=== PATIENT | male | born 1950 | race Caucasian/White ===

== ENCOUNTER 2017-09-05 08:00 | Outpatient (CLI) | payer MEDICARE, OTHER ==
[2017-09-05 19:44] LABS: ALBUMIN 3.3 g/dL (3.2-5.5); ALBUMIN/GLOBULIN RATIO 1.2 (1.0-2.2); CALCIUM 8.9 mg/dL (8.5-10.3); CREATININE 0.6 mg/dL (0.6-1.2); TOTAL PROTEIN 6.1 g/dL (6.7-8.2)
== END 2017-09-05 08:01 | disposition home or self-care (01) ==
LOC: LAB.WCP 08:00
PROVIDERS: ATTEND Family Medicine
DX: R06.00 Dyspnea, unspecified (principal)
CPT/HCPCS: 36415; 80053; 83880

== ENCOUNTER 2017-09-08 13:43 | Outpatient (CLI) | payer MEDICARE, OTHER | END 2017-09-08 13:44 | disposition home or self-care (01) | LOC: DI 13:43 | PROVIDERS: ATTEND Family Medicine | DX: I27.20 Pulmonary hypertension, unspecified (principal); R06.09 Other forms of dyspnea; I08.1 Rheumatic disorders of both mitral and tricuspid valves | CPT/HCPCS: 93306 ==

== ENCOUNTER 2017-09-14 10:09 | Outpatient (CLI) | payer MEDICARE, OTHER ==
[2017-09-14 12:42] LABS: CALCIUM 8.9 mg/dL (8.5-10.3); CREATININE 0.9 mg/dL (0.6-1.2)
== END 2017-09-14 10:10 | disposition home or self-care (01) ==
LOC: LAB.WCP 10:09
PROVIDERS: ATTEND Family Medicine
DX: R06.09 Other forms of dyspnea (principal); I27.20 Pulmonary hypertension, unspecified
CPT/HCPCS: 36415; 80048

== ENCOUNTER 2018-04-19 08:10 | Outpatient (CLI) | payer MEDICARE, OTHER ==
[2018-04-19 09:07] LABS: BASOPHILS # (AUTO) 0.1 10^3/uL (0.0-0.1); BASOPHILS % (AUTO) 1.3 %; EOSINOPHILS # (AUTO) 0.3 10^3/uL (0.0-0.7); EOSINOPHILS % (AUTO) 6.9 %; HGB - HEMOGLOBIN 13.3 g/dL (14.0-18.0); LYMPHOCYTES # (AUTO) 1.1 10^3/uL (1.5-3.5); LYMPHOCYTES % (AUTO) 26.8 %; MEAN CORPUSCULAR HEMOGLOBIN 35.7 pg (27.0-31.0); MEAN CORPUSCULAR HGB CONC 35.5 g/dL (32.0-36.0); MEAN CORPUSCULAR VOLUME 100.6 fL (80.0-94.0); MEAN PLATELET VOLUME 8.7 fL (7.4-11.4); MONOCYTES # (AUTO) 0.5 10^3/uL (0.0-1.0); MONOCYTES % (AUTO) 10.8 %; NEUTROPHILS # (AUTO) 2.3 10^3/uL (1.5-6.6); NEUTROPHILS % (AUTO) 54.2 %; PLT - PLATELET COUNT 70 10^3/uL (130-450); RED BLOOD COUNT 3.73 10^6/uL (4.70-6.10); RED CELL DISTRIBUTION WIDTH 14.5 % (12.0-15.0); WHITE BLOOD COUNT 4.2 x10^3/uL (4.8-10.8)
== END 2018-04-19 08:11 | disposition home or self-care (01) ==
LOC: LAB 08:10
PROVIDERS: ATTEND Internal Medicine Critical Care Medicine
DX: J44.1 Chronic obstructive pulmonary disease with (acute) exacerbation (principal)
CPT/HCPCS: 36415; 81599; 85025; 87070; 87205

== ENCOUNTER 2018-04-19 09:14 | Outpatient (CLI) | payer MEDICARE, OTHER ==
--- NOTE | 2018-04-19 12:05 | XRAY Report ---
Reason: CHRONIC OBSTRUCTIVE PULMONARY DISEASE W (ACUTE) EX Procedure Date: 04/19/2018 Accession Number: [id number] / [id number] Procedure: XR - Chest 2 View X-Ray CPT Code: 25009 FULL RESULT: EXAM: CHEST RADIOGRAPHY EXAM DATE: 04/19/2018 09:26 AM. CLINICAL HISTORY: Wheezing and shortness of breath COMPARISON: Chest 09/05/2017. TECHNIQUE: 2 views. FINDINGS: Lungs/Pleura: Chronic stable appearing atelectasis or scar of the left lung base. No pleural effusion. No pneumothorax. Normal volumes. Mediastinum: Heart and mediastinal contours are unremarkable. IMPRESSION: No evidence of acute thoracic process RADIA
== END 2018-04-19 09:15 | disposition home or self-care (01) ==
LOC: DI 09:14
PROVIDERS: ATTEND Internal Medicine Critical Care Medicine
DX: J44.1 Chronic obstructive pulmonary disease with (acute) exacerbation (principal)
CPT/HCPCS: 36415; 71046; 81599; 85025; 87070; 87205

== ENCOUNTER 2018-05-07 07:51 | Outpatient (CLI) | payer MEDICARE, OTHER ==
[2018-05-07] MEDS ORDERED: SODIUM CHLORIDE FLUSH 0.9% 10 ML SYRINGE IVP PRN (10:51)
[2018-05-07] MEDS ORDERED: SODIUM CHLORIDE FLUSH 0.9% 10 ML SYRINGE IVP SCH (17:00)
[2018-05-08] MEDS ORDERED: POLYETHYLENE GLYCOL 3350 17 GM PACKET PO SCH (09:00)
== END 2018-05-07 07:52 | disposition critical access hospital (66) ==
LOC: EMS 07:51
PROVIDERS: ATTEND Surgery
DX: R06.02 Shortness of breath (principal); R50.9 Fever, unspecified
CPT/HCPCS: A0425; A0427

== ENCOUNTER 2018-05-07 08:11 | Emergency (ER) | payer MEDICARE, OTHER ==
[2018-05-07] MEDS ORDERED: IPRATROPIUM/ALBUTEROL 3 ML NEB INH STA (08:38)
[2018-05-07] MEDS ORDERED: SODIUM CHLORIDE 0.9% 500 ML IV ONE (08:39)
--- NOTE | 2018-05-07 08:39 | ED Physician Documentation ---
PD HPI URI - Stated complaint Stated Complaint: AMS - Chief complaint Chief Complaint: Resp - History obtained from History obtained from: Patient, Family - History of Present Illness Timing duration: Days Timing details: Gradual onset (He has had general weakness with feeling of some myalgias and chills the last few days. He has had increased cough and wheezing over baseline for the last week. He was reported to have a temperature 102 by EMS on their arrival and he was hypoxic and tachycardic and had a low blood pressure of 87/33. They reported him to be lethargic and he improved with oxygen and a nebulizer treatment. He arrives awake and conversant though somewhat sleepy. His oxygenation was adequate here. He was afebrile on arrival to the ER. He had been having some respiratory symptoms increasing over the last several days to week but really this morning had an abrupt altered mentation low blood pressure and low oxygenation.), Still present Associated symptoms: Fever (reported 102 by EMS.), Chills (for couple days), Dry cough, Dyspnea, Bilateral edema (chronic). No: Rhinorrhea, Sore throat, Chest pain, NVD Contributing factors: COPD / asthma (nad has been worse the past few weeks with smoke in air. Worse breathing the past several days.). No: Sick contact, Travel, Immunocompromised Improves by: MDI/nebulizer Similar symptoms before: Has not had sx before Recently seen: Not recently seen Review of Systems Constitutional: reports: Fever (felt feverish yesterday and then reported temp 102 by EMS [employer]CHNICIAN.), Myalgias Nose: denies: Rhinorrhea / runny nose, Congestion Throat: denies: Sore throat Cardiac: denies: Chest pain / pressure Respiratory: reports: Dyspnea, Cough, Wheezing GI: denies: Abdominal Pain, Nausea, Vomiting, Diarrhea : denies: Dysuria Skin: denies: Rash, Lesions Musculoskeletal: reports: Extremity swelling (chronic) Neurologic: reports: Generalized weakness. denies: Focal weakness, Numbness PD PAST MEDICAL HISTORY - Past Medical History Past Medical History: Yes Cardiovascular: Hypertension, Peripheral Vascular Disease, Murmur, Arrhythmia, Other Respiratory: COPD, Sleep apnea, CPAP use Endocrine/Autoimmune: Type 2 diabetes, HyPOthyroidism GI: Ulcers : Kidney stones HEENT: Chronic vision loss, Other Psych: None Musculoskeletal: Osteoarthritis, Fatigue Derm: Other - Past Surgical History Past Surgical History: Yes General: Appendectomy, Other HEENT: Tonsil/Adenoidectomy - Present Medications Home Medications: Ambulatory Orders Medication Instructions Recorded Confirmed Carvedilol 12.5 mg PO BID 04/26/13 05/07/18 Tamsulosin [Flomax] 0.4 mg PO DAILY 04/26/13 05/07/18 Albuterol [Ventolin Hfa] 2 puffs INH Q4H PRN 03/24/14 05/07/18 Tiotropium [place] [Spiriva] 1 puffs INH DAILY 03/24/14 05/07/18 Multivitamin [Multivitamins] 1 cap PO DAILY 04/27/15 05/07/18 Lisinopril 10 mg PO DAILY 10/22/15 05/07/18 Aspirin EC [Ecotrin] 325 mg PO DAILY 10/26/15 05/07/18 Cholecalciferol (Vitamin D3) 1,000 unit PO BID 10/26/15 05/07/18 [Vitamin D3] Furosemide 160 mg PO DAILY 10/26/15 05/07/18 Potassium Chloride 10 meq PO BID 10/26/15 05/07/18 Diclofenac Sodium [Voltaren] 2 - 4 gm TOP QID PRN 05/07/18 05/07/18 Furosemide 80 mg PO 1600 05/07/18 05/07/18 Hydrocodone/Acetaminophen 1 tab PO BID PRN 05/07/18 05/07/18 [Hydrocodone-Acetamin 5-325 mg] Metformin HCl [Metformin HCl ER] 500 mg PO DAILY 05/07/18 05/07/18 - Allergies Allergies/Adverse Reactions: Allergies Allergy/AdvReac Type Severity Reaction Status Date / Time amoxicillin Allergy Rash Verified 05/07/18 08:20 - Social History Does the pt smoke?: No Smoking Status: Never smoker Does the pt drink ETOH?: Yes Does the pt have substance abuse?: No - Family History Family history: reports: Non contributory - Immunizations Immunizations are current?: Yes - POLST Patient has POLST: No PD ED PE NORMAL - Vitals Vital signs reviewed: Yes - General General: Other (somewhat sleepy but roused to verbal or light tactile. ) - HEENT HEENT: Moist mucous membranes, Pharynx benign - Neck Neck: Supple, no meningeal sign, No adenopathy, No JVD - Cardiac Cardiac: No murmur. No: RRR (mild tachycardia) - Respiratory Respiratory: No respiratory distress. No: Clear bilaterally (exp wheezing diffusely. No coarse sounds. ) - Abdomen Abdomen: Normal bowel sounds, Soft, Non tender (very obese), Non distended - Male Male : Deferred - Rectal Rectal: Deferred - Back Back: No CVA TTP - Derm Derm: Warm and dry. No: Normal color (mild pallor) - Extremities Extremities: No tenderness to palpate, Normal ROM s pain, No calf tenderness / cord, Other (2+ edema in both legs up to knees, which appears baseline per family. No redness/infection appearance. ) - Neuro Neuro: No motor deficit, No sensory deficit Eye Opening: To Voice Motor: Obeys Commands Verbal: Oriented GCS Score: 14 Results - Vitals Vitals: Vital Signs - 24 hr 05/07/18 05/07/18 05/07/18 08:12 08:20 08:47 Temperature 37.4 C Heart Rate 111 H 106 H 103 H Respiratory 28 H 22 31 H Rate Blood Pressure 87/33 L 86/44 L 100/77 O2 Saturation 97 96 96 05/07/18 05/07/18 05/07/18 09:11 09:30 10:11 Temperature Heart Rate 86 89 80 Respiratory 30 H 31 H 26 H Rate Blood Pressure 101/58 L 116/50 L O2 Saturation 94 97 05/07/18 05/07/18 05/07/18 10:42 11:00 11:52 Temperature 36.8 C Heart Rate 81 83 84 Respiratory 23 24 26 H Rate Blood Pressure 125/48 L 126/47 L O2 Saturation 98 95 93 Oxygen O2 Source Room air Oxygen Flow Rate 4 - Labs Labs: Laboratory Tests 05/07/18 05/07/18 05/07/18 08:38 08:38 08:38 WBC 12.7 H RBC 3.71 L Hgb 13.1 L Hct 37.5 L MCV 101.1 H MCH 35.4 H MCHC 35.0 RDW 14.2 Plt Count 71 L MPV 8.9 Neut # (Auto) 11.6 H Lymph # (Auto) 0.4 L [place] # (Auto) 0.6 Eos # (Auto) 0.0 Baso # (Auto) 0.0 Absolute Nucleated RBC 0.00 Nucleated RBC % 0.0 Manual Slide Review Indicated RBC Morph Micro Appear 1+ ANISOCYTOSIS Bld Gas Analysis Time Sample Site ABG pH ABG pCO2 ABG pO2 ABG HCO3 ABG Total CO2 ABG O2 Saturation ABG Oximetry Spot Check ABG Base Excess Clay Test Respiration Rate O2 Delivery Device O2 Liters/Min Sodium 138 Potassium 3.9 Chloride 103 Carbon Dioxide 26 Anion Gap 9.0 BUN 16 Creatinine 1.1 Estimated GFR (MDRD) 66 L Glucose 115 H Lactic Acid Calcium 8.9 Magnesium 1.4 L Total Bilirubin 1.9 H AST 72 H ALT 41 Alkaline Phosphatase 53 B-Natriuretic Peptide 436 H Total Protein 6.1 L Albumin 3.1 L Globulin 3.0 Albumin/Globulin Ratio 1.0 Lipase 24 05/07/18 05/07/18 05/07/18 08:38 08:56 11:44 WBC RBC Hgb Hct MCV MCH MCHC RDW Plt Count MPV Neut # (Auto) Lymph # (Auto) Vermilion # (Auto) Eos # (Auto) Baso # (Auto) Absolute Nucleated RBC Nucleated RBC % Manual Slide Review RBC Morph Micro Appear Bld Gas Analysis Time 0905 Sample Site RIGHT RADIAL ABG pH 7.37 ABG pCO2 42 ABG pO2 75 L ABG HCO3 23.7 ABG Total CO2 25.0 ABG O2 Saturation 94 ABG Oximetry Spot Check 96 ABG Base Excess -1.4 Clay Test POSITIVE Respiration Rate 28 O2 Delivery Device NASAL CANNULA O2 Liters/Min 6.00 Sodium Potassium Chloride Carbon Dioxide Anion Gap BUN Creatinine Estimated GFR (MDRD) Glucose Lactic Acid 4.2 H* 2.7 H Calcium Magnesium Total Bilirubin AST ALT Alkaline Phosphatase B-Natriuretic Peptide Total Protein Albumin Globulin Albumin/Globulin Ratio Lipase PD MEDICAL DECISION MAKING - ED course Complexity details: considered differential, d/w patient, d/w lending consultant (Hospitalist) - Sepsis Event Vital Signs: Vital Signs - 24 hr 05/07/18 05/07/18 05/07/18 08:12 08:20 08:47 Temperature 37.4 C Heart Rate 111 H 106 H 103 H Respiratory 28 H 22 31 H Rate Blood Pressure 87/33 L 86/44 L 100/77 O2 Saturation 97 96 96 05/07/18 05/07/18 05/07/18 09:11 09:30 10:11 Temperature Heart Rate 86 89 80 Respiratory 30 H 31 H 26 H Rate Blood Pressure 101/58 L 116/50 L O2 Saturation 94 97 05/07/18 05/07/18 05/07/18 10:42 11:00 11:52 Temperature 36.8 C Heart Rate 81 83 84 Respiratory 23 24 26 H Rate Blood Pressure 125/48 L 126/47 L O2 Saturation 98 95 93 Oxygen O2 Source Room air Oxygen Flow Rate 4 Departure - Departure Disposition: [facility] DC/Xfer Clinical Impression: Transient hypotension, Respiratory symptoms Sepsis Qualifiers: Sepsis type: sepsis due to unspecified organism Qualified Code(s): A41.9 - Sepsis, unspecified organism COPD (chronic obstructive pulmonary disease) Qualifiers: COPD type: unspecified COPD Qualified Code(s): J44.9 - Chronic obstructive pulmonary disease, unspecified Condition: Stable Record reviewed to determine appropriate education?: Yes Discharge Date/Time: 05/07/18 11:38
[2018-05-07] MEDS ORDERED: SODIUM CHLORIDE 0.9% 6,000 ML IV STA (09:46)
[2018-05-07] MEDS ORDERED: CEFEPIME 2 GM in SODIUM CHLORIDE 0.9% MINIBAG 100 ML IV STA (09:46)
[2018-05-07] MEDS ORDERED: VANCOMYCIN INJ 1.25 GM in SODIUM CHLORIDE 0.9% 250 ML IV STA (09:46)
[2018-05-07] MEDS ORDERED: metroNIDAZOLE 500 MG/100 ML 500 MG/100 ML BAG IV STA (10:10)
[2018-05-07] MEDS ORDERED: VANCOMYCIN INJ 2 GM in SODIUM CHLORIDE 0.9% 500 ML IV STA (10:11)
[2018-05-07 11:55] VITALS: BP 126/47
== END 2018-05-07 11:38 | disposition critical access hospital (66) ==
LOC: ED 08:11
DX: I95.9 Hypotension, unspecified (principal); A41.9 Sepsis, unspecified organism; J44.9 Chronic obstructive pulmonary disease, unspecified; E11.51 Type 2 diabetes mellitus with diabetic peripheral angiopathy without gangrene; Z79.84 Long term (current) use of oral hypoglycemic drugs; I10 Essential (primary) hypertension; E03.9 Hypothyroidism, unspecified; Z79.82 Long term (current) use of aspirin
CPT/HCPCS: 36600; 71045; 80053; 82803; 83605; 83690; 83735; 83880; 85025; 87040; 94640

== ENCOUNTER 2018-05-07 10:51 | Inpatient (IN) | payer MEDICARE, OTHER ==
[2018-05-07 08:51] LABS: BASOPHILS % (AUTO) 0.3 %; EOSINOPHILS % (AUTO) 0.2 %; HGB - HEMOGLOBIN 13.1 g/dL (14.0-18.0); LYMPHOCYTES # (AUTO) 0.4 10^3/uL (1.5-3.5); LYMPHOCYTES % (AUTO) 2.8 %; MEAN CORPUSCULAR HEMOGLOBIN 35.4 pg (27.0-31.0); MEAN CORPUSCULAR VOLUME 101.1 fL (80.0-94.0); MEAN PLATELET VOLUME 8.9 fL (7.4-11.4); MONOCYTES # (AUTO) 0.6 10^3/uL (0.0-1.0); NEUTROPHILS # (AUTO) 11.6 10^3/uL (1.5-6.6); NEUTROPHILS % (AUTO) 91.7 %; PLT - PLATELET COUNT 71 10^3/uL (130-450); RED BLOOD COUNT 3.71 10^6/uL (4.70-6.10); RED CELL DISTRIBUTION WIDTH 14.2 % (12.0-15.0); WHITE BLOOD COUNT 12.7 x10^3/uL (4.8-10.8)
[2018-05-07 08:59] LABS: ALBUMIN 3.1 g/dL (3.2-5.5); BILIRUBIN,TOTAL 1.9 mg/dL (0.2-1.0); CALCIUM 8.9 mg/dL (8.5-10.3); CREATININE 1.1 mg/dL (0.6-1.2); MAGNESIUM 1.4 mg/dL (1.7-2.8); TOTAL PROTEIN 6.1 g/dL (6.7-8.2)
[2018-05-07 09:10] LABS: ABG PCO2 42 mmHg (34-45); ABG PH 7.37 (7.35-7.45)
[2018-05-07 09:11] LABS: ABG BASE EXCESS -1.4 mmol/L (-2.0-3.0); ABG HCO3 23.7 mmol/L (22.0-26.0); ABG OXYGEN SATURATION 94 % (94-98); ABG PO2 75 mmHg (80-100); ALLEN TEST POSITIVE
[2018-05-07 09:19] LABS: RBC MORPHOLOGY (MULTIPLE) 1+ ANISOCYTOSIS (NORMAL)
--- NOTE | 2018-05-07 09:32 | XRAY Report ---
REVISED: THIS REPORT WAS ORIGINALLY SIGNED ON 05/07/2018 @ 0932. REPORT MOVED TO CORRECT ACCOUNT ON 05/08/2018. Reason: dyspnea and altered mentation Procedure Date: 05/07/2018 Accession Number: [id number] / [id number] Procedure: XR - Chest 1 View X-Ray CPT Code: 69711 FULL RESULT: EXAM: CHEST RADIOGRAPHY EXAM DATE: 05/07/2018 09:14 AM. CLINICAL HISTORY: Dyspnea and altered mentation. COMPARISON: 04/19/2018. TECHNIQUE: 1 view. FINDINGS: Lungs/Pleura: Mild diffuse interstitial prominence. No consolidation, effusion, or pneumothorax. Mediastinum: Overall heart size upper limits of normal, unchanged. Mild diffuse vascular fullness including azygous fullness. Other: Degenerative changes. IMPRESSION: Increased vascular fullness. RADIA MTDD
--- NOTE | 2018-05-07 12:25 | HISTORY & PHYSICAL EXAMINATION ---
History of Present Illness - Admitted From Admitted From:: ED - History Obtained From Records Reviewed: yes History obtained from: chart review, patient Exam Limitations: none History - Past Medical History Cardiovascular: reports: Hypertension, Peripheral Vascular Disease, Murmur, Arrhythmia, Other Respiratory: reports: COPD, Sleep apnea, CPAP use Endocrine/Autoimmune: reports: Type 2 diabetes, HyPOthyroidism GI: reports: Ulcers : reports: Kidney stones HEENT: reports: Chronic vision loss, Other Psych: reports: None Musculoskeletal: reports: Osteoarthritis, Fatigue Derm: reports: Other MRSA Hx?: No - Past Surgical History General: reports: Appendectomy, Other HEENT: reports: Tonsil/Adenoidectomy - POLST Patient has POLST: No Meds/Allgy - Home Medications Home Medications: Ambulatory Orders Medication Instructions Recorded Confirmed Carvedilol 12.5 mg PO BID 04/26/13 05/07/18 Tamsulosin [Flomax] 0.4 mg PO DAILY 04/26/13 05/07/18 Albuterol [Ventolin Hfa] 2 puffs INH Q4H PRN 03/24/14 05/07/18 Tiotropium [place] [Spiriva] 1 puffs INH DAILY 03/24/14 05/07/18 Multivitamin [Multivitamins] 1 cap PO DAILY 04/27/15 05/07/18 Lisinopril 10 mg PO DAILY 10/22/15 05/07/18 Aspirin EC [Ecotrin] 325 mg PO DAILY 10/26/15 05/07/18 Cholecalciferol (Vitamin D3) 1,000 unit PO BID 10/26/15 05/07/18 [Vitamin D3] Furosemide 160 mg PO DAILY 10/26/15 05/07/18 Potassium Chloride 10 meq PO BID 10/26/15 05/07/18 Diclofenac Sodium [Voltaren] 2 - 4 gm TOP QID PRN 05/07/18 05/07/18 Furosemide 80 mg PO 1600 05/07/18 05/07/18 Hydrocodone/Acetaminophen 1 tab PO BID PRN 05/07/18 05/07/18 [Hydrocodone-Acetamin 5-325 mg] Metformin HCl [Metformin HCl ER] 500 mg PO DAILY 05/07/18 05/07/18 - Allergies Allergies/Adverse Reactions: Allergies Allergy/AdvReac Type Severity Reaction Status Date / Time amoxicillin Allergy Rash Verified 05/07/18 08:20 Core Measures - Anticipated LOS I expect patient to be DC'd or transferred within 96 hours.: Yes - DVT/VTE - Prophylaxis VTE/DVT Device ordered at admit?: Yes VTE/DVT Prophylaxis med ordered at admit?: Yes - Stroke - Rehab Assessment Rehab services assessment to be ordered?: Yes - AMI - Statin at Admit Aspirin Prescribed on Admit: Yes
[2018-05-07] MEDS ORDERED: SODIUM CHLORIDE 0.9% 1,000 ML IV SCH (13:00)
[2018-05-07] MEDS: INSULIN ASPART 300 UNIT/3 ML PEN SUBQ SCH ×3 (13:51→21:05)
[2018-05-07 13:53] LABS: ABG BASE EXCESS -1.5 mmol/L (-2.0-3.0); ABG HCO3 25.6 mmol/L (22.0-26.0); ABG OXYGEN SATURATION 94 % (94-98); ABG PCO2 53 mmHg (34-45); ABG PH 7.31 (7.35-7.45); ABG PO2 73 mmHg (80-100); ABG TCO2 27.2 MMOL/L (21.0-29.0); ALLEN TEST POSITIVE
[2018-05-07] MEDS ORDERED: LIDOCAINE 2% URO-JET 5 ML SYRINGE UR PRN (14:00)
[2018-05-07] MEDS: MAGNESIUM OXIDE 400 MG TABLET PO SCH ×2 (14:01→20:58)
[2018-05-07] MEDS ORDERED: LEVALBUTEROL 1.25 MG/3 ML NEB INH PRN (15:00)
[2018-05-07 15:26] LABS: CALCIUM 8.5 mg/dL (8.5-10.3); CREATININE 1.3 mg/dL (0.6-1.2)
[2018-05-07] MEDS: LEVALBUTEROL 1.25 MG/3 ML NEB INH SCH ×2 (15:30→19:14)
[2018-05-07 18:02] LABS: ABG BASE EXCESS -1.4 mmol/L (-2.0-3.0); ABG HCO3 24.1 mmol/L (22.0-26.0); ABG OXYGEN SATURATION 98 % (94-98); ABG PCO2 44 mmHg (34-45); ABG PH 7.36 (7.35-7.45); ABG PO2 107 mmHg (80-100); ABG TCO2 25.5 MMOL/L (21.0-29.0); ALLEN TEST POSITIVE
[2018-05-07] MEDS: SODIUM CHLORIDE FLUSH 0.9% 10 ML SYRINGE IVP SCH (18:34)
[2018-05-07] MEDS ORDERED: MORPHINE 2 MG/ML CARPUJECT IVP PRN ×2 (18:57→19:16)
[2018-05-07] MEDS ORDERED: ALBUTEROL NEB 2.5 MG/3 ML INH PRN (19:13)
[2018-05-07] MEDS: BUDESONIDE 0.5 MG/2 ML NEB INH SCH (19:14)
[2018-05-07] MEDS: SODIUM CHLORIDE 0.9% 1,000 ML IV SCH (19:30)
--- NOTE | 2018-05-07 19:43 | ADVANCE CARE PLANNING NOTE ---
Advance Care Planning - Date/Time Date: 05/07/18 Time: 18:00 - Purpose of encounter Text: To establish code wishes - Parties in attendance Parties in attendance: The , step-daughter and zander dimas (an RN in ER) and I spoke in a conference area - Decisional capacity Decisional capacity of: The patient normally has full capacity, but is somnolent from fatige and hypercarbia and hypoxia. The patient initially had told the FRUIT BU[employer]ER that he wanted "everything" done. The now states that she and her have spoken several times about his wishes and she now repeats these. - Subjective/Patient's story Subjective/Patient's story: The patient has been remarried to this . They have a good marriage. He is mostly immobile, sits in a recliner. He has been compliant with medications and doctors appointments. He does not want to have his life prolonged on a ventilator. He has told his that he does want a "natural ". - Objective/Medical story Objective/Medical Story: The patient is morbidly obese, has anasarca, is minimally mobile. He is admitted now with a COPD exacerbation with oxygen desaturation, possible bronchitis or pneumonitis causing severe sepsis. He is in critical condition. BIPAP has improved his ventilation and oxygenation. The is now confirming that he wants no CPR, no defibrillation, no intubation and no transfers for interventions. - Goals of Care Goals of care determinations: She states that he wants to be comfortable, treat the main problem, no aggressive measures. - Plan Plan: He will be made a DNR. - Code Status Code Status: Do Not Attempt Resuscitation - Time Spent on Advance Care Planning Time spent on advance care plannin min.
[2018-05-07] MEDS ORDERED: VANCOMYCIN PER PHARMACY 100 GM in SODIUM CHLORIDE 0.9% 250 ML IV SCH (20:00)
[2018-05-07] MEDS ORDERED: MAGNESIUM SULFATE 2 GRAM 2 GM/50 ML BAG IV SCH (20:09)
[2018-05-07] MEDS: VANCOMYCIN INJ 2 GM in SODIUM CHLORIDE 0.9% 500 ML IV SCH (20:21)
[2018-05-07] MEDS: guaiFENesin 600 MG TABLET PO SCH (20:58)
[2018-05-07] MEDS: TAMSULOSIN 0.4 MG CAPSULE PO SCH (20:58)
[2018-05-07] MEDS: CARVEDILOL 12.5 MG TABLET PO SCH (20:59)
[2018-05-07] MEDS: INSULIN GLARGINE 300 UNIT/3 ML PEN SUBQ SCH (21:02)
[2018-05-07] MEDS: CEFEPIME 1 GM in SODIUM CHLORIDE 0.9% MINIBAG 100 ML IV SCH (23:08)
[2018-05-07] MEDS: methylPREDNISolone SUCCINATE 40 MG/ML VIAL IVP SCH (23:11)
[2018-05-08] MEDS: SODIUM CHLORIDE FLUSH 0.9% 10 ML SYRINGE IVP SCH ×3 (01:51→17:16)
[2018-05-08] MEDS: SODIUM CHLORIDE 0.9% 1,000 ML IV SCH (02:02)
--- NOTE | 2018-05-08 02:44 | HISTORY & PHYSICAL EXAMINATION ---
DATE OF SERVICE: 05/07/2018 Physician: Shruthi Lee MD HISTORY OF PRESENT ILLNESS: This is a 67-year-old white male with a history of morbid obesity (BMI 56), COPD; cor pulmonale with Echo done on 09/15/2017 showing RV dilated with severely depressed RV function, moderate pulmonary hypertension was present; history of sleep apnea on a CPAP machine at night, which he is compliant with; history of diabetes on Glucophage. The patient is nearly immobile because of overweight status and arthritis with "[id number]." The patient presents with 1 week of a nonproductive cough. He had chills yesterday and today was lethargic, and the called ambulance, who brought him in. The EMS found that he had a temperature of 102, blood pressure 85, saturations of 80%. He received nebulizers and became more alert. In the emergency room, he was given IV fluids which helped his blood pressure rise from 85 to 100 to 115 systolic. The patient's blood gas showed a pH of 7.37, pCO2 of 42, pO2 of 75 with low saturations, and he is being placed in the ICU for BiPAP management. PAST MEDICAL HISTORY: Morbid obesity, type 2 diabetes on oral medication only, cor pulmonale with anasarca, pulmonary hypertension, sleep apnea, COPD history. REVIEW OF SYSTEMS: He does describe 1 episode of loose stool as well as nausea today. A comprehensive review of systems was performed and the pertinent positives are in the HPI, the rest are negative. FAMILY HISTORY: There is a family history of diabetes and heart failure. SOCIAL HISTORY: The patient is a nonsmoker, drinks no alcohol, is an ex-smoker, uses no illicit drug use. PHYSICAL EXAMINATION GENERAL: Morbidly obese, white male. He is lethargic, but arouses to his name and is able to speak briefly. VITAL SIGNS: Blood pressure 130/40. Heart rate is 75, in sinus rhythm. He had a fever of 38.3 here. Oxygen saturation is 100% on BiPAP at 48% FIO2. HEENT: Reveals cyanotic lips, exophthalmos, moist oral mucosa. NECK: Obese. I cannot rule out JVD. There are no carotid bruits. CHEST: Diminished breath sounds diffusely and scattered wheezes. No rales. HEART: Sounds are distant. ABDOMEN: Distended with probable ascites, and I cannot rule out organomegaly. EXTREMITIES: 4+ edema to his posterior hips. He has venous stasis changes of the lower anterior shins. There are no open wounds or drainage. NEUROLOGIC: Intact, but he is somnolent. LABORATORIES: Normal electrolytes, BUN is 20, creatinine 1.3, glucose 115. BNP 753, magnesium 1.4. Lactic acid 4.1, and then down to 2.7, then up again to 3.1. Liver tests are normal. White blood count 12.7 with a left shift, hemoglobin 13.1 with an MCV of 101, platelet count low at 71 (this is chronic). Chest x-ray showed possibly mild vascular congestion, no pneumonia, cardiomegaly is present. No EKG to scan, but telemetry shows sinus rhythm with PACs and probable first- degree block. IMPRESSION 1. Severe sepsis by virtue of fever, elevated white count, elevated fever, elevated lactic acid level and altered mental status. 2. Pneumonitis with fever, SOB, but no infiltrate on CXR. 3. Chronic obstructive pulmonary disease exacerbation. 4. Cor pulmonale. 5. Anasarca. 6. Sleep apnea with continuous positive airway pressure device compliance. 7. Diabetes, on Insulin. 8. Acute kidney injury. 9. Diarrhea. PLAN: Admit the patient to the ICU. Continue with respiratory support, BiPAP (the patient and both later requested that no further BiPAP be used due to discomfort and that only his CPAP with supplemental oxygen be continued). Continue with empiric IV antibiotics with cefepime and vancomycin for a suspected pulmonary source of his severe sepsis. Culture blood, urine, sputum, stool. Obtain a C. difficile culture because of the diarrhea. Start him on Florastor. Continue with nebulizers, Mucinex, begin Acapella device for respiratory toilet. Continue with a diet that is carbohydrate controlled and start glucose checks, hypoglycemia protocol and insulin sliding scale coverage if needed. Follow his CMP daily, CBC daily, chest x-ray daily. Continue with nebulizers, Xopenex to prevent tachycardia, and add IV steroids for the severe sepsis and his COPD exacerbation. CODE STATUS: DNR. DEEP VENOUS THROMBOSIS PROPHYLAXIS: SCDs. ATTESTATION: The patient is expected to be discharged or transferred to another facility within 96 hours: Yes. TD: 05/07/2018 20:30 MTDMarvin
[2018-05-08] MEDS: CEFEPIME 1 GM in SODIUM CHLORIDE 0.9% MINIBAG 100 ML IV SCH ×2 (05:45→13:20)
[2018-05-08] MEDS: methylPREDNISolone SUCCINATE 40 MG/ML VIAL IVP SCH ×2 (05:49→14:39)
[2018-05-08 05:55] LABS: BASOPHILS % (AUTO) 0.2 %; HGB - HEMOGLOBIN 12.1 g/dL (14.0-18.0); LYMPHOCYTES # (AUTO) 0.4 10^3/uL (1.5-3.5); LYMPHOCYTES % (AUTO) 3.5 %; MEAN CORPUSCULAR HEMOGLOBIN 35.9 pg (27.0-31.0); MEAN CORPUSCULAR VOLUME 102.5 fL (80.0-94.0); MONOCYTES # (AUTO) 0.4 10^3/uL (0.0-1.0); MONOCYTES % (AUTO) 3.4 %; NEUTROPHILS # (AUTO) 10.1 10^3/uL (1.5-6.6); NEUTROPHILS % (AUTO) 92.9 %; PLT - PLATELET COUNT 48 10^3/uL (130-450); RED BLOOD COUNT 3.38 10^6/uL (4.70-6.10); RED CELL DISTRIBUTION WIDTH 14.8 % (12.0-15.0); WHITE BLOOD COUNT 10.9 x10^3/uL (4.8-10.8)
[2018-05-08 06:17] LABS: MAGNESIUM 1.9 mg/dL (1.7-2.8)
[2018-05-08 06:34] LABS: ALBUMIN 2.5 g/dL (3.2-5.5); ALBUMIN/GLOBULIN RATIO 0.9 (1.0-2.2); BILIRUBIN,TOTAL 1.1 mg/dL (0.2-1.0); CREATININE 1.1 mg/dL (0.6-1.2); TOTAL PROTEIN 5.3 g/dL (6.7-8.2)
[2018-05-08] MEDS: BUDESONIDE 0.5 MG/2 ML NEB INH SCH ×2 (07:29→19:57)
[2018-05-08] MEDS: LEVALBUTEROL 1.25 MG/3 ML NEB INH SCH ×3 (07:29→19:57)
[2018-05-08] MEDS: INSULIN ASPART 300 UNIT/3 ML PEN SUBQ SCH ×4 (08:07→21:16)
[2018-05-08] MEDS: MAGNESIUM OXIDE 400 MG TABLET PO SCH ×2 (08:59→21:16)
[2018-05-08] MEDS: SACCHAROMYCES BOULARDII 250 MG CAPSULE PO SCH ×2 (08:59→17:22)
[2018-05-08] MEDS: POLYETHYLENE GLYCOL 3350 17 GM PACKET PO SCH (08:59)
[2018-05-08] MEDS: FUROSEMIDE 40 MG TABLET PO SCH (08:59)
[2018-05-08] MEDS: CARVEDILOL 12.5 MG TABLET PO SCH ×2 (09:00→21:16)
[2018-05-08] MEDS: FERROUS GLUCONATE 324 MG TABLET PO SCH (09:00)
[2018-05-08] MEDS: guaiFENesin 600 MG TABLET PO SCH ×2 (09:00→21:16)
[2018-05-08] MEDS ORDERED: TIOTROPIUM INHALER INH SCH (09:00)
[2018-05-08] MEDS: MULTIVITAMIN TABLET PO SCH (09:00)
[2018-05-08] MEDS: VANCOMYCIN INJ 2 GM in SODIUM CHLORIDE 0.9% 500 ML IV SCH (09:25)
[2018-05-08] MEDS: oxyCODONE 5 MG TABLET PO PRN (10:36)
[2018-05-08] MEDS: CHOLECALCIFEROL 1,000 UNIT TABLET PO SCH (13:02)
[2018-05-08] MEDS ORDERED: PERFLUTREN LIPID MICROSPHERES 1.65 MG/1.5 ML VIAL IVP ONE (16:19)
[2018-05-08] MEDS ORDERED: SODIUM CHLORIDE 0.9% 1,000 ML IV SCH (17:12)
--- NOTE | 2018-05-08 19:38 | PROVIDER PROGRESS NOTE ---
Assessment/Plan - Problem List (1) Severe sepsis Assessment/Plan: Resolved with normal lactic acid and improved WBC. Continue antibiotics for presumed pneumonitis as source of sepsis. Start PT. (2) Cor pulmonale (chronic) Assessment/Plan: Now that iv fluids are stopped(to trat sepsis), will resume gentle diuresis. Follow I's and O's, daily weights. Continue CPAP. Continue supplemental O2. Awaiting Echo regarding RV size and function. (3) COPD (chronic obstructive pulmonary disease) Qualifiers: COPD type: unspecified COPD Qualified Code(s): J44.9 - Chronic obstructive pulmonary disease, unspecified Assessment/Plan: Continue nebs, steroids and treating the possible pulmonary infection. Continue supplemental O2. A daily am CXR was ordered but none was done this am (I called XRay and they don't know why it wasn't done). (4) Sleep apnea Assessment/Plan: Patient is compliant with his home CPAP device with O2 bled in. Continue that while here. (5) DM type 2 (diabetes mellitus, type 2) Assessment/Plan: Continue carb controlled diet, glu checks and ss Insulin coverage. - Current Meds Current Meds: Current Medications Generic Name Dose Route Start Last Admin Trade Name Freq PRN Reason Stop Dose Admin Budesonide 0.5 mg 05/07/18 19:00 05/08/18 07:29 Pulmicort INH 0.5 mg RTBID IAN Administration Carvedilol 12.5 mg 05/07/18 21:00 05/08/18 09:00 Coreg PO 12.5 mg BID IAN Administration Cholecalciferol 1,000 unit 05/08/18 13:00 05/08/18 13:02 Vitamin D3 PO 1,000 unit DAILY IAN Administration Ferrous Gluconate 324 mg 05/08/18 08:00 05/08/18 09:00 Fergon PO 324 mg DAILYWM IAN Administration Furosemide 160 mg 05/08/18 09:00 05/08/18 08:59 Lasix PO 160 mg DAILY IAN Administration Guaifenesin 600 mg 05/07/18 21:00 05/08/18 09:00 Mucinex PO 600 mg BID IAN Administration Cefepime HCl 1 gm/ Sodium 100 mls @ 200 mls/hr 05/07/18 22:00 05/08/18 13:50 Chloride IV Infused TID IAN Infusion Sodium Chloride 1,000 mls @ 30 mls/hr 05/08/18 17:12 05/08/18 19:00 Normal Saline 0.9% IV 30 mls/hr .[id number] IAN Infusion Insulin Aspart 1 - 9 unit 05/07/18 13:00 05/08/18 17:16 Novolog SUBQ 3 unit 0800,1200,1700,2100 IAN Administration Protocol Insulin Glargine 10 unit 05/07/18 21:00 05/07/18 21:02 Lantus Solostar SUBQ 10 unit QPM IAN Administration Levalbuterol HCl 1.25 mg 05/07/18 13:00 05/08/18 13:33 Xopenex INH 1.25 mg RTTID IAN Administration Magnesium Oxide 400 mg 05/07/18 13:00 05/08/18 08:59 Mag Ox PO 400 mg BID IAN Administration Methylprednisolone 40 mg 05/07/18 22:00 05/08/18 14:39 Solu-Medrol (40mg Vial) IVP 40 mg TID IAN Administration Multivitamins 1 tab 05/08/18 09:00 05/08/18 09:00 Theragran PO 1 tab DAILY IAN Administration Oxycodone HCl 5 mg 05/08/18 09:00 05/08/18 10:36 Roxicodone PO 5 mg BID PRN Administration PAIN Polyethylene Glycol 17 gm 05/08/18 09:00 05/08/18 08:59 Miralax PO 17 gm DAILY IAN Administration Saccharomyces Boulardii 250 mg 05/08/18 08:00 05/08/18 17:22 Florastor PO 250 mg BIDWM IAN Administration Sodium Chloride 10 ml 05/07/18 17:00 05/08/18 17:16 Normal Saline Flush 0.9% IVP 10 ml 0100,0900,1700 IAN Administration Tamsulosin HCl 0.4 mg 05/07/18 21:00 05/07/18 20:58 Flomax PO 0.4 mg QPM IAN Administration - Lab Result Fish Bone Diagrams: 05/10/18 04:25 05/10/18 04:25 - Additional Planning My Orders: My Active Orders 05/07/18 19:16 Morphine Inj (Carpuject) [Morphine (Carpuject)] 2 mg IVP Q2HR PRN 05/07/18 21:00 Carvedilol [Coreg] 12.5 mg PO BID Tamsulosin [Flomax] 0.4 mg PO QPM guaiFENesin [Mucinex] 600 mg PO BID 05/07/18 22:00 Cefepime 1 gm Sodium Chloride 0.9% Minibag [Normal Saline 0.9% Minibag] 100 ml IV TID methylPREDNISolone SUCCINATE [SOLU-Medrol (40MG VIAL)] 40 mg IVP TID 05/08/18 Evaluate and Treat OT [OT] Routine Evaluate and Treat PT [PT] Routine 05/08/18 08:00 Ferrous Gluconate [Fergon] 324 mg PO DAILYWM Saccharomyces Boulardii [Florastor] 250 mg PO BIDWM 05/08/18 09:00 Acapella (Flutter Valve Device [RC] TID Furosemide [Lasix] 160 mg PO DAILY Multivitamin [Theragran] 1 tab PO DAILY oxyCODONE [Roxicodone] 5 mg PO BID PRN 05/08/18 13:00 Cholecalciferol [Vitamin D3] 1,000 unit PO DAILY 05/08/18 17:12 Sodium Chloride 0.9% [Normal Saline 0.9%] 1,000 ml IV 30 mls/hr 05/08/18 19:00 Ipratropium [Atrovent] 0.5 mg INH RTQ6H 05/08/18 21:00 Vancomycin Inj [Vancomycin] 2 gm Sodium Chloride 0.9% [Normal Saline 0.9%] 500 ml IV Q12H 05/09/18 08:30 VANCOMYCIN TROUGH [CHEM] Timed 05/09/18 09:00 Chest 1 View X-Ray [XR] DAILY 05/10/18 09:00 Chest 1 View X-Ray [XR] DAILY Subjective - Subjective Patient Reports: Feeling Better Nursing Reports: Other (Pt off his BIPAP, only needing O2 by nasal cannula) Objective Vital Signs: Vital Signs - 24 hr 05/07/18 05/07/18 05/07/18 20:00 21:00 22:00 Temperature Heart Rate Heart Rate [ Activity] Heart Rate [ 69 76 70 Monitoring electrodes] Heart Rate [ Supine] Respiratory 23 22 23 Rate Blood Pressure [Activity] Blood Pressure 123/51 L 124/51 L 117/49 L [Right Brachial artery] Blood Pressure [Supine] O2 Saturation 92 96 94 05/07/18 05/08/18 05/08/18 23:00 00:00 01:00 Temperature 37.2 C Heart Rate Heart Rate [ Activity] Heart Rate [ 71 89 88 Monitoring electrodes] Heart Rate [ Supine] Respiratory 24 23 24 Rate Blood Pressure [Activity] Blood Pressure 127/45 L 121/48 L 132/47 H [Right Brachial artery] Blood Pressure [Supine] O2 Saturation 94 96 93 05/08/18 05/08/18 05/08/18 02:00 03:00 04:00 Temperature 37.1 C Heart Rate Heart Rate [ Activity] Heart Rate [ 90 74 74 Monitoring electrodes] Heart Rate [ Supine] Respiratory 25 H 22 24 Rate Blood Pressure [Activity] Blood Pressure 123/38 L 125/45 L 121/43 L [Right Brachial artery] Blood Pressure [Supine] O2 Saturation 91 L 95 90 L 05/08/18 05/08/18 05/08/18 05:00 06:00 07:00 Temperature Heart Rate Heart Rate [ Activity] Heart Rate [ 74 79 78 Monitoring electrodes] Heart Rate [ Supine] Respiratory 23 23 23 Rate Blood Pressure [Activity] Blood Pressure 129/36 L 123/43 L 122/44 L [Right Brachial artery] Blood Pressure [Supine] O2 Saturation 90 L 93 93 05/08/18 05/08/18 05/08/18 07:32 07:54 09:00 Temperature Heart Rate 77 Heart Rate [ Activity] Heart Rate [ 78 85 Monitoring electrodes] Heart Rate [ Supine] Respiratory 22 22 22 Rate Blood Pressure [Activity] Blood Pressure 122/44 L 115/54 L [Right Brachial artery] Blood Pressure [Supine] O2 Saturation 93 91 L 05/08/18 05/08/18 05/08/18 11:00 11:26 12:57 Temperature 36.8 C Heart Rate Heart Rate [ Activity] Heart Rate [ 71 73 84 Monitoring electrodes] Heart Rate [ Supine] Respiratory 25 H 19 22 Rate Blood Pressure [Activity] Blood Pressure 127/57 L 127/57 L 115/58 L [Right Brachial artery] Blood Pressure [Supine] O2 Saturation 92 93 92 05/08/18 05/08/18 05/08/18 13:34 14:00 14:45 Temperature Heart Rate 72 Heart Rate [ 86 Activity] Heart Rate [ 74 Monitoring electrodes] Heart Rate [ 70 Supine] Respiratory 20 20 Rate Blood Pressure 126/83 H [Activity] Blood Pressure [Right Brachial artery] Blood Pressure 118/54 L [Supine] O2 Saturation 94 05/08/18 05/08/18 05/08/18 15:00 16:00 18:00 Temperature 36.8 C Heart Rate Heart Rate [ Activity] Heart Rate [ 88 86 Monitoring electrodes] Heart Rate [ Supine] Respiratory 22 23 20 Rate Blood Pressure [Activity] Blood Pressure 129/63 126/83 H 146/63 H [Right Brachial artery] Blood Pressure [Supine] O2 Saturation 93 92 92 05/08/18 19:00 Temperature Heart Rate Heart Rate [ Activity] Heart Rate [ 86 Monitoring electrodes] Heart Rate [ Supine] Respiratory 26 H Rate Blood Pressure [Activity] Blood Pressure 145/55 H [Right Brachial artery] Blood Pressure [Supine] O2 Saturation 92 Oxygen O2 Source Nasal cannula I&O (Last 24 Hrs): Intake and Output Totals x24h 05/06/18 05/07/18 05/08/18 23:59 23:59 23:59 Intake Total 1407.0 3310 Output Total 245 1260 Balance 1162.0 2050 General: Alert, Oriented x3 HEENT: Other (Obese) Neck: Other (Obese, cannot R/O JVD) Neuro: Non Focal Cardiovascular: No murmurs, Other (Distant heart sounds) Respiratory: Other (No wheezing, fair air movement, no rales or rhonchi.) Abdomen: Other (Obese, distended, probable ascites, cannot R/O organomegaly.) Extremities: Other - Results Results: Laboratory Results WBC 10.9 x10^3/uL (4.8-10.8) H 05/08/18 05:45 RBC 3.38 10^6/uL (4.70-6.10) L 05/08/18 05:45 Hgb 12.1 g/dL (14.0-18.0) L 05/08/18 05:45 Hct 34.7 % (42.0-52.0) L 05/08/18 05:45 MCV 102.5 fL (80.0-94.0) H 05/08/18 05:45 MCH 35.9 pg (27.0-31.0) H 05/08/18 05:45 MCHC 35.0 g/dL (32.0-36.0) 05/08/18 05:45 RDW 14.8 % (12.0-15.0) 05/08/18 05:45 Plt Count 48 10^3/uL (130-450) L 05/08/18 05:45 MPV 9.0 fL (7.4-11.4) 05/08/18 05:45 Neut # (Auto) 10.1 10^3/uL (1.5-6.6) H 05/08/18 05:45 Lymph # (Auto) 0.4 10^3/uL (1.5-3.5) L 05/08/18 05:45 [place] # (Auto) 0.4 10^3/uL (0.0-1.0) 05/08/18 05:45 Eos # (Auto) 0.0 10^3/uL (0.0-0.7) 05/08/18 05:45 Baso # (Auto) 0.0 10^3/uL (0.0-0.1) 05/08/18 05:45 Absolute Nucleated RBC 0.00 x10^3/uL 05/08/18 05:45 Nucleated RBC % 0.0 /100WBC 05/08/18 05:45 Manual Slide Review Indicated 05/07/18 08:38 RBC Morph Micro Appear 1+ ANISOCYTOSIS (NORMAL) 05/07/18 08:38 Bld Gas Analysis Time 1753 05/07/18 17:53 Sample Site LEFT RADIAL 05/07/18 17:53 ABG pH 7.36 (7.35-7.45) 05/07/18 17:53 ABG pCO2 44 mmHg (34-45) 05/07/18 17:53 ABG pO2 107 mmHg (80-100) H 05/07/18 17:53 ABG HCO3 24.1 mmol/L (22.0-26.0) 05/07/18 17:53 ABG Total CO2 25.5 MMOL/L (21.0-29.0) 05/07/18 17:53 ABG O2 Saturation 98 % (94-98) 05/07/18 17:53 ABG Oximetry Spot Check 100 % 05/07/18 17:53 ABG Base Excess -1.4 mmol/L (-2.0-3.0) 05/07/18 17:53 Clay Test POSITIVE 05/07/18 17:53 Respiration Rate 23 b/min 05/07/18 17:53 O2 Delivery Device BiPAP 05/07/18 17:53 O2 Liters/Min 5.00 LPM 05/07/18 13:34 Vent Mode SYNCHRONOUS/TIMES 05/07/18 17:53 FiO2 48.00 05/07/18 17:53 Tidal Volume 670 mL 05/07/18 17:53 Pressure Support Vent 10 cmH2O 05/07/18 17:53 EPAP 5 cmH2O 05/07/18 17:53 IPAP 15 cmH2O 05/07/18 17:53 Sodium 136 mmol/L (135-145) 05/08/18 05:45 Potassium 4.8 mmol/L (3.5-5.0) 05/08/18 05:45 Chloride 106 mmol/L (101-111) 05/08/18 05:45 Carbon Dioxide 26 mmol/L (21-32) 05/08/18 05:45 Anion Gap 4.0 (6-13) L 05/08/18 05:45 BUN 30 mg/dL (6-20) H 05/08/18 05:45 Creatinine 1.1 mg/dL (0.6-1.2) 05/08/18 05:45 Estimated GFR (MDRD) 66 (>89) L 05/08/18 05:45 Glucose 146 mg/dL (70-100) H 05/08/18 05:45 POC Whole Bld Glucose 184 mg/dL (70 - 100) H 05/08/18 16:57 Lactic Acid 1.2 mmol/L (0.5-2.2) 05/08/18 05:45 Calcium 8.0 mg/dL (8.5-10.3) L 05/08/18 05:45 Magnesium 1.9 mg/dL (1.7-2.8) 05/08/18 05:45 Iron 20 ug/dL (45-182) L 05/08/18 05:45 TIBC 192 ug/dL (250-450) L 05/08/18 05:45 % Saturation 10 % (20-50) L 05/08/18 05:45 Transferrin 137 mg/dL (180-329) L 05/08/18 05:45 Total Bilirubin 1.1 mg/dL (0.2-1.0) H 05/08/18 05:45 AST 70 IU/L (10-42) H 05/08/18 05:45 ALT 39 IU/L (10-60) 05/08/18 05:45 Alkaline Phosphatase 35 IU/L (42-121) L 05/08/18 05:45 Total Creatine Kinase 399 IU/L (22-269) H 05/07/18 15:00 Troponin I 0.04 ng/mL (<0.49) 05/07/18 05:45 B-Natriuretic Peptide 310 pg/mL (5-100) H 05/08/18 05:45 Total Protein 5.3 g/dL (6.7-8.2) L 05/08/18 05:45 Albumin 2.5 g/dL (3.2-5.5) L 05/08/18 05:45 Globulin 2.8 g/dL (2.1-4.2) 05/08/18 05:45 Albumin/Globulin Ratio 0.9 (1.0-2.2) L 05/08/18 05:45 Lipase 24 U/L (22-51) 05/07/18 08:38 TSH 1.14 uIU/mL (0.34-5.60) 05/07/18 15:00 - Procedures Procedures: Procedures EXCISION OF RECTUM, ENDO (08/22/16) EXCISION OF RIGHT LARGE INTESTINE, ENDO (08/22/16) EXCISION OF SIGMOID COLON, ENDO (08/22/16) EXCISION OF TRANSVERSE COLON, ENDO (08/22/16) ABX Reporting Has patient been on IV antibiotics over the past 48 hours?: Yes
[2018-05-08] MEDS: IPRATROPIUM 0.2 MG/ML NEB INH SCH (19:59)
[2018-05-08] MEDS ORDERED: VANCOMYCIN INJ 2 GM in SODIUM CHLORIDE 0.9% 500 ML IV SCH (21:00)
[2018-05-08] MEDS: INSULIN GLARGINE 300 UNIT/3 ML PEN SUBQ SCH (21:16)
[2018-05-08] MEDS: TAMSULOSIN 0.4 MG CAPSULE PO SCH (21:16)
[2018-05-09] MEDS: CEFEPIME 1 GM in SODIUM CHLORIDE 0.9% MINIBAG 100 ML IV SCH ×4 (00:08→21:37)
[2018-05-09] MEDS: methylPREDNISolone SUCCINATE 40 MG/ML VIAL IVP SCH ×4 (00:14→21:46)
[2018-05-09 05:09] LABS: EOSINOPHILS % (AUTO) 0.2 %; LYMPHOCYTES % (AUTO) 3.8 %; MEAN CORPUSCULAR HEMOGLOBIN 35.9 pg (27.0-31.0); MEAN CORPUSCULAR VOLUME 102.7 fL (80.0-94.0); MEAN PLATELET VOLUME 10.4 fL (7.4-11.4); MONOCYTES % (AUTO) 5.7 %; NEUTROPHILS % (AUTO) 89.3 %; PLT - PLATELET COUNT 50 10^3/uL (130-450); RED BLOOD COUNT 3.35 10^6/uL (4.70-6.10); WHITE BLOOD COUNT 10.5 x10^3/uL (4.8-10.8)
[2018-05-09 05:19] LABS: ABNORMAL LYMPHS % (MANUAL) 0 %
[2018-05-09 05:20] LABS: ALBUMIN 2.5 g/dL (3.2-5.5); ALBUMIN/GLOBULIN RATIO 0.9 (1.0-2.2); BILIRUBIN,TOTAL 0.9 mg/dL (0.2-1.0); CALCIUM 8.1 mg/dL (8.5-10.3); TOTAL PROTEIN 5.2 g/dL (6.7-8.2)
--- NOTE | 2018-05-09 05:49 | XRAY Report ---
Reason: SOB Procedure Date: 05/09/2018 Accession Number: [id number] / [id number] Procedure: XR - Chest 1 View X-Ray CPT Code: 86954 FULL RESULT: EXAM: CHEST RADIOGRAPHY EXAM DATE: 05/09/2018 05:42 AM. CLINICAL HISTORY: SOB. COMPARISON: CHEST 1 VIEW 05/07/2018 9:01 AM. TECHNIQUE: 1 view. FINDINGS: Lungs/Pleura: Stable interstitial prominence. No new infiltrate, effusion, or pneumothorax. Mediastinum: Stable cardiomegaly. Other: None. IMPRESSION: No significant interval change. RADIA
[2018-05-09 06:00] LABS: BAND NEUTROPHILS % (MANUAL) 25 %; DIFFERENTIAL COMMENT MANUAL DIFFERENTIAL; LYMPHOCYTES # (MANUAL) 0.5 10^3/uL (1.5-3.5); LYMPHOCYTES % (MANUAL) 5 %; MONOCYTES # (MANUAL) 0.5 10^3/uL (0.0-1.0); NEUTROPHILS # (MANUAL) 9.5 10^3/uL (1.5-6.6); NEUTROPHILS % (MANUAL) 65 %; PLATELET ESTIMATE, MANUAL DECREASED (<130,000) (NORMAL); RBC MORPHOLOGY (MULTIPLE) NORMAL APPEARANCE (NORMAL)
[2018-05-09] MEDS: SODIUM CHLORIDE FLUSH 0.9% 10 ML SYRINGE IVP SCH ×4 (07:10→21:37)
[2018-05-09] MEDS: IPRATROPIUM 0.2 MG/ML NEB INH SCH ×4 (07:35→21:02)
[2018-05-09] MEDS: BUDESONIDE 0.5 MG/2 ML NEB INH SCH ×2 (07:35→19:58)
[2018-05-09] MEDS: LEVALBUTEROL 1.25 MG/3 ML NEB INH SCH ×2 (07:35→12:58)
[2018-05-09] MEDS: INSULIN ASPART 300 UNIT/3 ML PEN SUBQ SCH ×4 (08:30→21:41)
[2018-05-09] MEDS: MAGNESIUM OXIDE 400 MG TABLET PO SCH ×2 (09:00→21:37)
[2018-05-09] MEDS: oxyCODONE 5 MG TABLET PO PRN ×3 (09:11→21:46)
[2018-05-09] MEDS: CARVEDILOL 12.5 MG TABLET PO SCH ×2 (09:12→21:37)
[2018-05-09] MEDS: SACCHAROMYCES BOULARDII 250 MG CAPSULE PO SCH ×2 (09:12→17:35)
[2018-05-09] MEDS: CHOLECALCIFEROL 1,000 UNIT TABLET PO SCH (09:12)
[2018-05-09] MEDS: FUROSEMIDE 40 MG TABLET PO SCH (09:12)
[2018-05-09] MEDS: FERROUS GLUCONATE 324 MG TABLET PO SCH (09:13)
[2018-05-09] MEDS: guaiFENesin 600 MG TABLET PO SCH ×2 (09:13→21:37)
[2018-05-09] MEDS: MULTIVITAMIN TABLET PO SCH (09:14)
[2018-05-09] MEDS: POLYETHYLENE GLYCOL 3350 17 GM PACKET PO SCH (09:14)
[2018-05-09] MEDS ORDERED: VANCOMYCIN INJ 1.5 GM in SODIUM CHLORIDE 0.9% 500 ML IV SCH (09:17)
[2018-05-09] MEDS: VANCOMYCIN INJ 1.5 GM in SODIUM CHLORIDE 0.9% 500 ML IV SCH ×2 (09:45→22:42)
--- NOTE | 2018-05-09 19:03 | PROVIDER PROGRESS NOTE ---
Assessment/Plan - Problem List (1) Cor pulmonale (chronic) Assessment/Plan: Echo showed dilated RV, as seen on previous Echos. Will decrease iv hydration and resume diuretics. Simons can come out. (2) COPD (chronic obstructive pulmonary disease) Qualifiers: COPD type: COPD with acute exacerbation Qualified Code(s): J44.1 - Chronic obstructive pulmonary disease with (acute) exacerbation Assessment/Plan: No wheezing. Continue steroids, nebs and supplemental O2. (3) Severe sepsis Assessment/Plan: Resolved. Tolerating PT in room. Will transfer out of ICU. Will check exercise oximetry in am for poss Dch Poss Dch home tomorrow with Home Health . (4) DM type 2 (diabetes mellitus, type 2) Assessment/Plan: Continue carb controlled diet, glu checks and ss Insulin coverage. (5) Sleep apnea Assessment/Plan: Continue home CPAP with O2 while here. - Current Meds Current Meds: Current Medications Generic Name Dose Route Start Last Admin Trade Name Freq PRN Reason Stop Dose Admin Budesonide 0.5 mg 05/07/18 19:00 05/09/18 07:35 Pulmicort INH 0.5 mg RTBID IAN Administration Carvedilol 12.5 mg 05/07/18 21:00 05/09/18 09:12 Coreg PO 12.5 mg BID IAN Administration Cholecalciferol 1,000 unit 05/08/18 13:00 05/09/18 09:12 Vitamin D3 PO 1,000 unit DAILY IAN Administration Ferrous Gluconate 324 mg 05/08/18 08:00 05/09/18 09:13 Fergon PO 324 mg DAILYWM IAN Administration Furosemide 160 mg 05/08/18 09:00 05/09/18 09:12 Lasix PO 160 mg DAILY IAN Administration Guaifenesin 600 mg 05/07/18 21:00 05/09/18 09:13 Mucinex PO 600 mg BID IAN Administration Cefepime HCl 1 gm/ Sodium 100 mls @ 200 mls/hr 05/07/18 22:00 05/09/18 14:15 Chloride IV Infused TID IAN Infusion Vancomycin HCl 1.5 gm/ Sodium 500 mls @ 250 mls/hr 05/09/18 10:00 05/09/18 12:00 Chloride IV Infused 1000,2200 IAN Infusion Insulin Aspart 1 - 9 unit 05/07/18 13:00 05/09/18 16:46 Novolog SUBQ 1 unit 0800,1200,1700,2100 IAN Administration Protocol Insulin Glargine 10 unit 05/07/18 21:00 05/08/18 21:16 Lantus Solostar SUBQ 10 unit QPM IAN Administration Ipratropium [place] 0.5 mg 05/08/18 19:00 05/09/18 12:58 Atrovent INH 0.5 mg RTQ6H IAN Administration Levalbuterol HCl 1.25 mg 05/07/18 13:00 05/09/18 12:58 Xopenex INH 1.25 mg RTTID IAN Administration Magnesium Oxide 400 mg 05/07/18 13:00 05/09/18 09:00 Mag Ox PO 400 mg BID IAN Administration Methylprednisolone 40 mg 05/07/18 22:00 05/09/18 13:25 Solu-Medrol (40mg Vial) IVP 40 mg TID IAN Administration Multivitamins 1 tab 05/08/18 09:00 05/09/18 09:14 Theragran PO 1 tab DAILY IAN Administration Oxycodone HCl 5 mg 05/08/18 09:00 05/09/18 15:05 Roxicodone PO 5 mg BID PRN Administration PAIN Polyethylene Glycol 17 gm 05/08/18 09:00 05/09/18 09:14 Miralax PO Not Given DAILY [facility] Saccharomyces Boulardii 250 mg 05/08/18 08:00 05/09/18 17:35 Florastor PO 250 mg BIDWM IAN Administration Sodium Chloride 10 ml 05/07/18 17:00 05/09/18 17:35 Normal Saline Flush 0.9% IVP 10 ml 0100,0900,1700 IAN Administration Tamsulosin HCl 0.4 mg 05/07/18 21:00 05/08/18 21:16 Flomax PO 0.4 mg QPM IAN Administration - Lab Result Fish Bone Diagrams: 05/10/18 04:25 05/10/18 04:25 - Additional Planning My Orders: My Active Orders 05/08/18 19:00 Ipratropium [Atrovent] 0.5 mg INH RTQ6H 05/09/18 10:00 Vancomycin Inj [Vancomycin] 1.5 gm Sodium Chloride 0.9% [Normal Saline 0.9%] 500 ml IV 1000,2200 05/10/18 09:00 Chest 1 View X-Ray [XR] DAILY 05/10/18 21:30 VANCOMYCIN TROUGH [CHEM] Timed Subjective - Subjective Patient Reports: Feeling Better, No Complaints Nursing Reports: Other (Was OOB, walked a short distance in room) Objective Vital Signs: Vital Signs - 24 hr 05/08/18 05/08/18 05/08/18 20:00 20:01 21:00 Temperature 36.9 C Heart Rate 72 Heart Rate [ 74 72 Monitoring electrodes] Respiratory 22 18 18 Rate Blood Pressure 132/68 H 142/57 H [Right Brachial artery] O2 Saturation 93 95 05/08/18 05/08/18 05/09/18 22:00 23:00 00:00 Temperature Heart Rate Heart Rate [ 62 64 63 Monitoring electrodes] Respiratory 17 16 16 Rate Blood Pressure 125/54 L 131/54 H 129/53 L [Right Brachial artery] O2 Saturation 95 94 94 05/09/18 05/09/18 05/09/18 01:00 02:00 03:00 Temperature Heart Rate Heart Rate [ 62 61 63 Monitoring electrodes] Respiratory 14 17 17 Rate Blood Pressure 125/52 L 118/52 L 113/54 L [Right Brachial artery] O2 Saturation 95 93 91 L 05/09/18 05/09/18 05/09/18 04:00 05:00 06:00 Temperature Heart Rate Heart Rate [ 62 64 59 L Monitoring electrodes] Respiratory 17 17 17 Rate Blood Pressure 121/51 L 120/52 L 119/54 L [Right Brachial artery] O2 Saturation 91 L 93 91 L 05/09/18 05/09/18 05/09/18 07:00 07:38 08:00 Temperature Heart Rate 60 Heart Rate [ 58 L 62 Monitoring electrodes] Respiratory 16 20 24 Rate Blood Pressure 121/53 L 123/51 L [Right Brachial artery] O2 Saturation 94 93 05/09/18 05/09/18 05/09/18 09:00 10:00 11:00 Temperature Heart Rate Heart Rate [ 59 L 59 L 62 Monitoring electrodes] Respiratory 17 18 22 Rate Blood Pressure 126/54 L 134/65 H 112/56 L [Right Brachial artery] O2 Saturation 91 L 91 L 92 05/09/18 05/09/18 05/09/18 12:00 12:59 13:00 Temperature 36.6 C Heart Rate 62 Heart Rate [ 61 60 Monitoring electrodes] Respiratory 16 16 16 Rate Blood Pressure 122/56 L 128/59 L [Right Brachial artery] O2 Saturation 93 95 05/09/18 05/09/18 05/09/18 14:00 15:00 16:00 Temperature 97.8 C H Heart Rate Heart Rate [ 63 59 L 63 Monitoring electrodes] Respiratory 19 19 16 Rate Blood Pressure 140/65 H 120/54 L 127/59 L [Right Brachial artery] O2 Saturation 95 93 92 Oxygen O2 Source Nasal cannula I&O (Last 24 Hrs): Intake and Output Totals x24h 05/07/18 05/08/18 05/09/18 23:59 23:59 23:59 Intake Total 1407.0 4170 3360.0 Output Total 245 1500 3790 Balance 1162.0 2670 -430.0 General: Alert, Oriented x3 HEENT: Mucous membr. moist/pink Neck: Supple Neuro: Non Focal Cardiovascular: No murmurs Respiratory: Breath sounds nml Abdomen: Other (Obese, poss ascites and hepatomegaly) Extremities: Other (2+ edema) - Results Results: Laboratory Results WBC 10.5 x10^3/uL (4.8-10.8) 05/09/18 04:20 RBC 3.35 10^6/uL (4.70-6.10) L 05/09/18 04:20 Hgb 12.0 g/dL (14.0-18.0) L 05/09/18 04:20 Hct 34.4 % (42.0-52.0) L 05/09/18 04:20 MCV 102.7 fL (80.0-94.0) H 05/09/18 04:20 MCH 35.9 pg (27.0-31.0) H 05/09/18 04:20 MCHC 35.0 g/dL (32.0-36.0) 05/09/18 04:20 RDW 14.0 % (12.0-15.0) 05/09/18 04:20 Plt Count 50 10^3/uL (130-450) L 05/09/18 04:20 MPV 10.4 fL (7.4-11.4) 05/09/18 04:20 Neut # (Auto) Not Reportable 05/09/18 04:20 Lymph # (Auto) Not Reportable 05/09/18 04:20 [place] # (Auto) Not Reportable 05/09/18 04:20 Eos # (Auto) Not Reportable 05/09/18 04:20 Baso # (Auto) Not Reportable 05/09/18 04:20 Absolute Nucleated RBC Not Reportable 05/09/18 04:20 Total Counted 100 05/09/18 04:20 Band Neuts % (Manual) 25 % (0-10) H 05/09/18 04:20 Abnorm Lymph % (Manual) 0 % 05/09/18 04:20 Nucleated RBC % Not Reportable 05/09/18 04:20 Neutrophils # (Manual) 9.5 10^3/uL (1.5-6.6) H 05/09/18 04:20 Lymphocytes # (Manual) 0.5 10^3/uL (1.5-3.5) L 05/09/18 04:20 Monocytes # (Manual) 0.5 10^3/uL (0.0-1.0) 05/09/18 04:20 Eosinophils # (Manual) 0.0 10^3/uL (0-0.7) 05/09/18 04:20 Basophils # (Manual) 0.0 10^3/uL (0-0.1) 05/09/18 04:20 Differential Comment MANUAL DIFFERENTIAL 05/09/18 04:20 Manual Slide Review Indicated 05/07/18 08:38 Platelet Estimate DECREASED (<130,000) (NORMAL) 05/09/18 04:20 RBC Morph Micro Appear NORMAL APPEARANCE (NORMAL) 05/09/18 04:20 Bld Gas Analysis Time 1753 05/07/18 17:53 Sample Site LEFT RADIAL 05/07/18 17:53 ABG pH 7.36 (7.35-7.45) 05/07/18 17:53 ABG pCO2 44 mmHg (34-45) 05/07/18 17:53 ABG pO2 107 mmHg (80-100) H 05/07/18 17:53 ABG HCO3 24.1 mmol/L (22.0-26.0) 05/07/18 17:53 ABG Total CO2 25.5 MMOL/L (21.0-29.0) 05/07/18 17:53 ABG O2 Saturation 98 % (94-98) 05/07/18 17:53 ABG Oximetry Spot Check 100 % 05/07/18 17:53 ABG Base Excess -1.4 mmol/L (-2.0-3.0) 05/07/18 17:53 Clay Test POSITIVE 05/07/18 17:53 Respiration Rate 23 b/min 05/07/18 17:53 O2 Delivery Device BiPAP 05/07/18 17:53 O2 Liters/Min 5.00 LPM 05/07/18 13:34 Vent Mode SYNCHRONOUS/TIMES 05/07/18 17:53 FiO2 48.00 05/07/18 17:53 Tidal Volume 670 mL 05/07/18 17:53 Pressure Support Vent 10 cmH2O 05/07/18 17:53 EPAP 5 cmH2O 05/07/18 17:53 IPAP 15 cmH2O 05/07/18 17:53 Sodium 134 mmol/L (135-145) L 05/09/18 04:20 Potassium 5.1 mmol/L (3.5-5.0) H 05/09/18 04:20 Chloride 102 mmol/L (101-111) 05/09/18 04:20 Carbon Dioxide 27 mmol/L (21-32) 05/09/18 04:20 Anion Gap 5.0 (6-13) L 05/09/18 04:20 BUN 33 mg/dL (6-20) H 05/09/18 04:20 Creatinine 1.0 mg/dL (0.6-1.2) 05/09/18 04:20 Estimated GFR (MDRD) 74 (>89) L 05/09/18 04:20 Glucose 171 mg/dL (70-100) H 05/09/18 04:20 POC Whole Bld Glucose 161 mg/dL (70 - 100) H 05/09/18 16:43 Lactic Acid 1.2 mmol/L (0.5-2.2) 05/08/18 05:45 Calcium 8.1 mg/dL (8.5-10.3) L 05/09/18 04:20 Magnesium 1.9 mg/dL (1.7-2.8) 05/08/18 05:45 Iron 20 ug/dL (45-182) L 05/08/18 05:45 TIBC 192 ug/dL (250-450) L 05/08/18 05:45 % Saturation 10 % (20-50) L 05/08/18 05:45 Transferrin 137 mg/dL (180-329) L 05/08/18 05:45 Total Bilirubin 0.9 mg/dL (0.2-1.0) 05/09/18 04:20 AST 64 IU/L (10-42) H 05/09/18 04:20 ALT 37 IU/L (10-60) 05/09/18 04:20 Alkaline Phosphatase 36 IU/L (42-121) L 05/09/18 04:20 Total Creatine Kinase 399 IU/L (22-269) H 05/07/18 15:00 Troponin I 0.04 ng/mL (<0.49) 05/07/18 05:45 B-Natriuretic Peptide 156 pg/mL (5-100) H 05/09/18 04:20 Total Protein 5.2 g/dL (6.7-8.2) L 05/09/18 04:20 Albumin 2.5 g/dL (3.2-5.5) L 05/09/18 04:20 Globulin 2.7 g/dL (2.1-4.2) 05/09/18 04:20 Albumin/Globulin Ratio 0.9 (1.0-2.2) L 05/09/18 04:20 Lipase 24 U/L (22-51) 05/07/18 08:38 TSH 1.14 uIU/mL (0.34-5.60) 05/07/18 15:00 Last Dose Date 05/08/18 05/09/18 08:43 Last Dose Time 235405/09/18 08:43 Vancomycin Trough 21.0 ug/mL (10.0-20.0) H 05/09/18 08:43 - Procedures Procedures: Procedures EXCISION OF RECTUM, ENDO (08/22/16) EXCISION OF RIGHT LARGE INTESTINE, ENDO (08/22/16) EXCISION OF SIGMOID COLON, ENDO (08/22/16) EXCISION OF TRANSVERSE COLON, ENDO (08/22/16)
[2018-05-09] MEDS: TAMSULOSIN 0.4 MG CAPSULE PO SCH (21:37)
[2018-05-09] MEDS: INSULIN GLARGINE 300 UNIT/3 ML PEN SUBQ SCH (21:57)
[2018-05-10] MEDS: SODIUM CHLORIDE FLUSH 0.9% 10 ML SYRINGE IVP PRN ×2 (01:03→05:41)
[2018-05-10 04:46] LABS: BASOPHILS % (AUTO) 0.2 %; HGB - HEMOGLOBIN 11.9 g/dL (14.0-18.0)
[2018-05-10 04:56] LABS: MEAN CORPUSCULAR HEMOGLOBIN 35.3 pg (27.0-31.0); MEAN CORPUSCULAR HGB CONC 34.9 g/dL (32.0-36.0); MEAN CORPUSCULAR VOLUME 101.1 fL (80.0-94.0); MEAN PLATELET VOLUME 10.5 fL (7.4-11.4); MONOCYTES % (AUTO) 4.2 %; NEUTROPHILS % (AUTO) 89.6 %; PLT - PLATELET COUNT 48 10^3/uL (130-450); RED BLOOD COUNT 3.36 10^6/uL (4.70-6.10); RED CELL DISTRIBUTION WIDTH 13.8 % (12.0-15.0); WHITE BLOOD COUNT 9.5 x10^3/uL (4.8-10.8)
[2018-05-10 04:58] LABS: ALBUMIN 2.4 g/dL (3.2-5.5); ALBUMIN/GLOBULIN RATIO 0.9 (1.0-2.2); BILIRUBIN,TOTAL 0.9 mg/dL (0.2-1.0); CREATININE 1.2 mg/dL (0.6-1.2); TOTAL PROTEIN 5.1 g/dL (6.7-8.2)
[2018-05-10 05:01] LABS: ABNORMAL LYMPHS % (MANUAL) 0 %
--- NOTE | 2018-05-10 05:22 | XRAY Report ---
Reason: SOB Procedure Date: 05/10/2018 Accession Number: [id number] / [id number] Procedure: XR - Chest 1 View X-Ray CPT Code: 43698 FULL RESULT: EXAM: CHEST RADIOGRAPHY EXAM DATE: 05/10/2018 05:16 AM. CLINICAL HISTORY: SOB. COMPARISON: CHEST 1 VIEW 05/09/2018 5:21 AM. TECHNIQUE: 1 view. FINDINGS: Lungs/Pleura: No focal opacities evident. No pleural effusion. No pneumothorax. Mediastinum: The cardiac silhouette remains enlarged. Other: None. IMPRESSION: Stable cardiomegaly. No significant interval change. RADIA
[2018-05-10] MEDS: CEFEPIME 1 GM in SODIUM CHLORIDE 0.9% MINIBAG 100 ML IV SCH (05:41)
[2018-05-10] MEDS: methylPREDNISolone SUCCINATE 40 MG/ML VIAL IVP SCH (05:41)
[2018-05-10] MEDS: LEVALBUTEROL 1.25 MG/3 ML NEB INH SCH ×3 (06:42→13:39)
[2018-05-10 06:54] LABS: BAND NEUTROPHILS % (MANUAL) 10 %; DIFFERENTIAL COMMENT MANUAL DIFFERENTIAL; LYMPHOCYTES # (MANUAL) 0.3 10^3/uL (1.5-3.5); LYMPHOCYTES % (MANUAL) 3 %; MONOCYTES # (MANUAL) 0.4 10^3/uL (0.0-1.0); NEUTROPHILS # (MANUAL) 8.8 10^3/uL (1.5-6.6); NEUTROPHILS % (MANUAL) 83 %; PLATELET ESTIMATE, MANUAL DECREASED (<130,000) (NORMAL); RBC MORPHOLOGY (MULTIPLE) NORMAL APPEARANCE (NORMAL)
[2018-05-10] MEDS: INSULIN ASPART 300 UNIT/3 ML PEN SUBQ SCH ×2 (08:56→12:26)
[2018-05-10] MEDS: BUDESONIDE 0.5 MG/2 ML NEB INH SCH (09:01)
[2018-05-10] MEDS: IPRATROPIUM 0.2 MG/ML NEB INH SCH ×3 (09:01→14:09)
[2018-05-10] MEDS: CARVEDILOL 12.5 MG TABLET PO SCH (09:01)
[2018-05-10] MEDS: VANCOMYCIN INJ 1.5 GM in SODIUM CHLORIDE 0.9% 500 ML IV SCH (09:18)
[2018-05-10] MEDS: oxyCODONE 5 MG TABLET PO PRN (09:19)
[2018-05-10] MEDS: FERROUS GLUCONATE 324 MG TABLET PO SCH (09:19)
[2018-05-10] MEDS: guaiFENesin 600 MG TABLET PO SCH (09:19)
[2018-05-10] MEDS: CHOLECALCIFEROL 1,000 UNIT TABLET PO SCH (09:19)
[2018-05-10] MEDS: SACCHAROMYCES BOULARDII 250 MG CAPSULE PO SCH (09:19)
[2018-05-10] MEDS: FUROSEMIDE 40 MG TABLET PO SCH (09:19)
[2018-05-10] MEDS: MAGNESIUM OXIDE 400 MG TABLET PO SCH (09:20)
[2018-05-10] MEDS: POLYETHYLENE GLYCOL 3350 17 GM PACKET PO SCH (09:20)
[2018-05-10] MEDS: SODIUM CHLORIDE FLUSH 0.9% 10 ML SYRINGE IVP SCH (09:20)
[2018-05-10] MEDS: MULTIVITAMIN TABLET PO SCH (09:20)
--- NOTE | 2018-05-10 11:36 | Discharge Plan ---
Discharge Plan Disposition: 06 Home Health Service Condition: Stable Prescriptions: Azithromycin [Zithromax] 500 mg PO DAILY #14 guaiFENesin [Mucinex] 600 mg PO BID #14 tablet Ipratropium/Albuterol [Combivent Respimat] 4 gm IH QID PRN #1 aer.w.adap PRN Reason: Shortness Of Air/Wheezing Magnesium Oxide [Mag Ox] 400 mg PO DAILY #7 tablet Methylprednisolone [Medrol] 4 mg PO DAILY #1 tab.ds.pk Saccharomyces Boulardii [Florastor] 250 mg PO BID #14 capsule Diet: Low Sodium Activity Restrictions: Activity as Tolerated Shower Restrictions: No Driving Restrictions: Yes Assistance Devices: Walker Instruction Topics: ED CHF Right Side, Breathing Controlled Dc Additional Instructions or Follow Up instructions: Resume all your pre-hospital medications. Take the new antibiotic pills until they are done. A prescription for bowel health pill has also been prescribed, to take while you are on the antibiotic. A cough medicine, steroid packet and new inhaler have also been ordered. A new prescription for magnesium replacement was also ordered. Home oxygen for daytime use has been ordered for you. Keep your legs elevated when you are sitting up. Resume activity, Physical Therapy at home and [facility] after that. See your PCP in 7-10 days in follow-up and see your other specialists as already scheduled. Return to the ER for new or worsening symptoms. Follow-Up Care: [facility], [facility], [facility] - RN, [facility] - PT, Home [facility] - OT No Smoking: If you smoke, Please STOP! Call for help.
[2018-05-10 13:31] VITALS: BP 149/60
[2018-05-10] MEDS ORDERED: IPRATROPIUM 0.2 MG/ML NEB INH SCH (22:00)
--- NOTE | 2018-05-19 18:24 | DISCHARGE SUMMARY ---
Physician: Shruthi Lee MD DATE OF ADMISSION: 05/07/2018 DATE OF DISCHARGE: 05/10/2018 HISTORY OF PRESENT ILLNESS: This is a 67-year-old white male with a history of morbid obesity (BMI 56), COPD, cor pulmonale, by Echo from August 2017, moderate pulmonary hypertension, sleep apnea on a CPAP machine at night, diabetes on oral agents and history of arthritis. The patient presented with 1 week of a nonproductive cough, chills, got very lethargic and very short of breath and presented to the emergency room, where he was found to have a fever of 102, blood pressure of 85 systolic, saturations of 80%. He received nebulizers, which made him more alert briefly and IV fluids that helped his blood pressure improve to 100 systolic. His blood gas showed a pH of 7.37, pCO2 of 42, pO2 of 75, and he was admitted to the ICU for BiPAP management. HOSPITAL COURSE AND DISCHARGE DIAGNOSES 1. Severe sepsis. The patient had a fever, elevated white blood count of 12.7, elevated lactic acid level of 4.2 and altered mental status. The source of the sepsis was felt to be pulmonary. No infiltrate shown on chest x-ray, but he was treated for presumed pneumonitis. He received fluids. His lactic acid improved to 2.7 and then 1.2 on the following day. He became more alert on the second day. 2. Pneumonitis. Chest x-ray on admission showed no consolidation, effusion or pneumothorax. There was mild vascular fullness. Two more chest x-rays were done that never showed an infiltrate. He was treated empirically with IV antibiotics, using cefepime and vancomycin. Blood cultures were not positive and he produced no sputum for a sample. He was treated with COPD medications and supplemental oxygen. 3. Chronic obstructive pulmonary disease exacerbation with hypercarbia and hypoxia. The patient required IV steroids, antibiotics as above, nebulizers, BiPAP initially and had improvement in his pulmonary status. His oxygen requirements were tapered down. He and his both indicated that he wanted no further BiPAP management, but he was put on his home CPAP machine at night. Advanced care planning was done with his who indicated that the patient never wanted aggressive management and he was made a DNR, the signed a POLST. On the day of discharge, he was evaluated for home oxygen. The patient was hypoxic at rest with a room air O2 saturation of 87%. At rest with oxygen at 2 liters via nasal cannula, his sats improved to 93%. On exertion with oxygen 2 liters nasal cannula, his saturations were 88% and with exertion on oxygen at 3 liters nasal cannula his sats were 90%. I am ordering oxygen at 2 liters via nasal cannula continuously and 3 liters per nasal cannula with exertion. 4. Cor pulmonale with anasarca. An Echocardiogram was repeated during this admission that showed moderate LV enlargement, LVEF normal at 60%-65% with possible diastolic dysfunction, mild right ventricular enlargement with preserved RV function, but pulmonary hypertension with PA pressure OF 41 mmHg. After the initial volume replacement during hypotension from sepsis, diuretics were restarted. The patient required leg elevation. He had I's and O's and daily weights monitored. His weight was unchanged throughout this admission. 5. Sleep apnea, he is compliant with CPAP. This management was continued throughout his course. 6. Diabetes mellitus. The patient was initially n.p.o., and then diet was advanced when he was more alert. He was on a sliding scale insulin coverage. His glucoses were controlled in the 110-170 range during this admission. 7. Acute kidney injury. The day after admission, his creatinine increased to 1.3, which was felt to be from the brief hypotension. At discharge, his creatinine was 1.2. LABORATORY STUDIES AND IMAGING: Reviewed and summarized above. ALLERGIES: AMOXICILLIN. MEDICATIONS AT THE TIME OF DISCHARGE 1. Ventolin inhaler every 4 hours p.r.n. 2. Carvedilol 12.5 b.i.d. 3. Voltaren q.i.d. p.r.n. 4. Lasix 160 mg daily and 80 mg at 4 p.m. 5. Tylenol with codeine p.r.n. 6. Lisinopril 10 mg daily. 7. Metformin 200 mg daily. 8. Multivitamin daily. 9. Potassium 10 mEq b.i.d. 10. Flomax 0.4 mg every evening. 11. Spiriva 1 puff daily. 12. Kenalog cream topically p.r.n. 13. Zithromax 500 mg daily for an additional 2 weeks. 14. Mucinex 600 mg b.i.d. if needed for an additional 2 weeks. 15. Combivent Respimat q.i.d. p.r.n. 16. Magnesium 400 mg daily. 17. Medrol Dosepak with a titrating down schedule 18. Florastor 250 mg b.i.d. for an additional 1 week. CONDITION AT DISCHARGE: Stable PHYSICAL EXAMINATION VITAL SIGNS: Blood pressure 149/60, pulse of 60, afebrile, saturation 91% on 1 on 2 liters nasal cannula. HEENT: Showed Moist oral mucosa, fair dentition. NECK: Obese. CHEST: Good air movement. No wheezes or rales. HEART: Sounds distant. ABDOMEN: Obese with possible ascites and possible hepatomegaly. EXTREMITIES: 3+ edema to the mid thighs. No clubbing or cyanosis. NEUROLOGIC: Grossly intact. FOLLOWUP: With his PCP in 1-2 weeks. CODE STATUS: DO NOT RESUSCITATE. Time required to completed this entire discharge, chart review, dictation, prescription orders, review of the plan with the patient and : 60 minutes[address] cc requested for Dr. Carlos Kurtz TD: 05/19/2018 14:47 MTDD
== END 2018-05-10 14:29 | disposition home health service (06) | DRG 871 ==
LOC: MS2 10:51 → UNDOADMIN 10:51 → MS2 11:27 → ICU 14:46 → MS3 05-09 22:59
PROVIDERS: ADMIT Internal Medicine; ATTEND Internal Medicine
DX: A41.9 Sepsis, unspecified organism (principal); J18.9 Pneumonia, unspecified organism; J44.1 Chronic obstructive pulmonary disease with (acute) exacerbation; J44.0 Chronic obstructive pulmonary disease with (acute) lower respiratory infection; N17.9 Acute kidney failure, unspecified; Z68.43 Body mass index [BMI] 50.0-59.9, adult; R65.20 Severe sepsis without septic shock; I27.81 Cor pulmonale (chronic); G47.30 Sleep apnea, unspecified; E11.9 Type 2 diabetes mellitus without complications; R19.7 Diarrhea, unspecified; E66.01 Morbid (severe) obesity due to excess calories; I27.20 Pulmonary hypertension, unspecified; R09.02 Hypoxemia; I95.9 Hypotension, unspecified; M19.90 Unspecified osteoarthritis, unspecified site; R06.89 Other abnormalities of breathing; Z66 Do not resuscitate; Z79.84 Long term (current) use of oral hypoglycemic drugs; Z87.891 Personal history of nicotine dependence; Z79.899 Other long term (current) drug therapy
CPT/HCPCS: 36415; 36600; 71045; 80048; 80053; 80202; 82550; 82803; 83540; 83605; 83690; 83735; 83880; 84443; 84466; 84484; 85025; 87040; 87150; 93306; 94640; 94660; 94761; 96365; 96367; 96375; 99283; 99284

== ENCOUNTER 2018-05-10 14:37 | Outpatient (CLI) | payer MEDICARE, OTHER | END 2018-05-10 14:38 | disposition home or self-care (01) | LOC: EMS 14:37 | PROVIDERS: ATTEND Surgery | DX: R06.00 Dyspnea, unspecified (principal); E66.01 Morbid (severe) obesity due to excess calories; Z99.81 Dependence on supplemental oxygen | CPT/HCPCS: A0425; A0428 ==

== ENCOUNTER 2018-06-19 08:43 | Outpatient (CLI) | payer MEDICARE, OTHER ==
[2018-06-19 13:52] LABS: BASOPHILS % (AUTO) 0.7 %; EOSINOPHILS # (AUTO) 0.2 10^3/uL (0.0-0.7); HGB - HEMOGLOBIN 12.2 g/dL (14.0-18.0); LYMPHOCYTES # (AUTO) 1.2 10^3/uL (1.5-3.5); LYMPHOCYTES % (AUTO) 27.3 %; MEAN CORPUSCULAR HEMOGLOBIN 35.1 pg (27.0-31.0); MEAN CORPUSCULAR HGB CONC 35.1 g/dL (32.0-36.0); MEAN CORPUSCULAR VOLUME 99.9 fL (80.0-94.0); MEAN PLATELET VOLUME 9.9 fL (7.4-11.4); MONOCYTES # (AUTO) 0.5 10^3/uL (0.0-1.0); NEUTROPHILS # (AUTO) 2.4 10^3/uL (1.5-6.6); PLT - PLATELET COUNT 62 10^3/uL (130-450); RED BLOOD COUNT 3.48 10^6/uL (4.70-6.10); RED CELL DISTRIBUTION WIDTH 14.1 % (12.0-15.0); WHITE BLOOD COUNT 4.4 x10^3/uL (4.8-10.8)
[2018-06-19 14:12] LABS: ALBUMIN 2.9 g/dL (3.2-5.5); ALBUMIN/GLOBULIN RATIO 0.9 (1.0-2.2); ALKALINE PHOSPHATASE 49 IU/L (42-121); ALT ALANINE AMINOTRANSFERASE 23 IU/L (10-60); AST ASPARTATE AMINOTRANSFERASE 41 IU/L (10-42); BILIRUBIN,TOTAL 1.6 mg/dL (0.2-1.0); BUN - BLOOD UREA NITROGEN 20 mg/dL (6-20); CALCIUM 8.9 mg/dL (8.5-10.3); CARBON DIOXIDE - CO2 34 mmol/L (21-32); CHLORIDE 97 mmol/L (101-111); CREATININE 0.6 mg/dL (0.6-1.2); GFR - MDRD 134 (>89); GLUCOSE 101 mg/dL (70-100); SODIUM 140 mmol/L (135-145); TOTAL PROTEIN 6.3 g/dL (6.7-8.2)
[2018-06-19 15:09] LABS: HB2 TOTAL 12.4 g/dL; HEMOGLOBIN A1C 0.4 g/dL; HEMOGLOBIN A1C % 5.1 % (4.6-6.2)
== END 2018-06-19 08:44 | disposition home or self-care (01) ==
LOC: LAB.WCP 08:43
PROVIDERS: ATTEND Family Medicine
DX: I89.0 Lymphedema, not elsewhere classified (principal); E11.9 Type 2 diabetes mellitus without complications
CPT/HCPCS: 36415; 80053; 82043; 83036; 84443; 85025

== ENCOUNTER 2018-06-21 13:30 | Outpatient (CLI) | payer MEDICARE, OTHER | END 2018-06-21 13:31 | disposition home or self-care (01) | LOC: LAB.R 13:30 | PROVIDERS: ATTEND Family Medicine | DX: I89.0 Lymphedema, not elsewhere classified (principal) | CPT/HCPCS: 82043 ==

== ENCOUNTER 2018-11-04 08:00 | Outpatient (CLI) | payer MEDICARE, OTHER ==
[2018-11-04 13:24] LABS: BASOPHILS # (AUTO) 0.1 10^3/uL (0.0-0.1); BASOPHILS % (AUTO) 1.1 %; EOSINOPHILS # (AUTO) 0.3 10^3/uL (0.0-0.7); HGB - HEMOGLOBIN 12.6 g/dL (14.0-18.0); LYMPHOCYTES # (AUTO) 1.3 10^3/uL (1.5-3.5); LYMPHOCYTES % (AUTO) 27.3 %; MEAN CORPUSCULAR HEMOGLOBIN 34.3 pg (27.0-31.0); MEAN CORPUSCULAR HGB CONC 34.7 g/dL (32.0-36.0); MEAN CORPUSCULAR VOLUME 98.8 fL (80.0-94.0); MEAN PLATELET VOLUME 10.2 fL (7.4-11.4); MONOCYTES # (AUTO) 0.5 10^3/uL (0.0-1.0); MONOCYTES % (AUTO) 11.3 %; NEUTROPHILS # (AUTO) 2.5 10^3/uL (1.5-6.6); NEUTROPHILS % (AUTO) 54.3 %; PLT - PLATELET COUNT 69 10^3/uL (130-450); RED BLOOD COUNT 3.68 10^6/uL (4.70-6.10); RED CELL DISTRIBUTION WIDTH 14.7 % (12.0-15.0); WHITE BLOOD COUNT 4.7 x10^3/uL (4.8-10.8)
[2018-11-04 13:41] LABS: ALBUMIN 3.1 g/dL (3.2-5.5); ALKALINE PHOSPHATASE 57 IU/L (42-121); ALT ALANINE AMINOTRANSFERASE 19 IU/L (10-60); AST ASPARTATE AMINOTRANSFERASE 36 IU/L (10-42); BILIRUBIN,TOTAL 1.8 mg/dL (0.2-1.0); BUN - BLOOD UREA NITROGEN 17 mg/dL (6-20); CALCIUM 8.8 mg/dL (8.5-10.3); CARBON DIOXIDE - CO2 34 mmol/L (21-32); CHLORIDE 101 mmol/L (101-111); CREATININE 0.8 mg/dL (0.6-1.2); GFR - MDRD 96 (>89); GLUCOSE 97 mg/dL (70-100); SODIUM 141 mmol/L (135-145); TOTAL PROTEIN 6.2 g/dL (6.7-8.2)
[2018-11-04 14:21] LABS: HB2 TOTAL 13.5 g/dL; HEMOGLOBIN A1C 0.41 g/dL; HEMOGLOBIN A1C % 4.9 % (4.6-6.2)
== END 2018-11-04 23:59 | disposition home or self-care (01) ==
LOC: LAB.WCP 08:00
PROVIDERS: ATTEND Family Medicine
DX: E11.9 Type 2 diabetes mellitus without complications (principal); I10 Essential (primary) hypertension; J44.9 Chronic obstructive pulmonary disease, unspecified; I89.0 Lymphedema, not elsewhere classified; G47.30 Sleep apnea, unspecified
CPT/HCPCS: 36415; 80053; 83036; 84443; 85025

== ENCOUNTER 2019-03-09 17:51 | Outpatient (CLI) | payer MEDICARE, OTHER ==
--- NOTE | 2019-03-10 06:52 | Ultrasound Report ---
Reason: LYMPHEDEMA, LED EDEMA, RIGHT Procedure Date: 03/09/2019 Accession Number: [id number] / [id number] Procedure: US - Duplex Ext Veins Right CPT Code: FULL RESULT: EXAM: RIGHT LOWER EXTREMITY VENOUS ULTRASOUND EXAM DATE: 03/09/2019 06:40 PM. CLINICAL HISTORY: Lymphedema, leg edema, right. COMPARISON: None. TECHNIQUE: Real-time sonographic vascular imaging was performed by the water supply engineer through the lower extremity utilizing both color-flow and Doppler spectral analysis. Multiple business banking representative static images were saved for review. FINDINGS: Common Femoral Vein (CFV): Normal. CFV-GSV Junction: Normal. Profunda Femoral Vein (PFV): Normal. Femoral Vein (FV) Prox: Normal. Femoral Vein (FV) Mid: Poorly visualized without gross thrombus. Femoral Vein (FV) Dist: Poorly visualized without gross thrombus. Popliteal Vein: Poorly visualized without gross thrombus. Posterior Tibial Veins: Poorly visualized without gross thrombus. Peroneal Veins: Poorly visualized without gross thrombus. Contralateral Left CFV: Normal. Other: Difficult study due to edema and body habitus. IMPRESSION: No evidence for right leg deep venous thrombosis. Suboptimal exam due to body habitus and edema. RADIA
--- NOTE | 2019-03-10 17:10 | Ultrasound Report ---
Reason: LYMPHEDEMA, LED EDEMA, RIGHT Procedure Date: 03/09/2019 Accession Number: [id number] / [id number] Procedure: US - Duplex Lwr Ext Arterial Bilat CPT Code: FULL RESULT: EXAM: Bilateral Lower Extremity Arterial Doppler Ultrasound EXAM DATE: 03/09/2019 07:40 PM. CLINICAL HISTORY: Lymphedema, LED edema, right. COMPARISON: None. TECHNIQUE: Real-time sonographic vascular imaging was performed by the machine operator hop picker, utilizing color-flow, Doppler flow, and spectral analysis. Multiple inside sales representative static images were saved for review. FINDINGS: Bilateral lower extremity arterial duplex was performed. The examination is limited by body habitus, the curved transducer had to be used. Limited grayscale evaluation demonstrates no definite focal high-grade atherosclerotic lesion. Spectral Doppler demonstrates irregular heart rate. The bilateral deep femoral arteries, common femoral arteries, superficial femoral arteries, popliteal arteries, anterior and posterior tibial arteries and right peroneal arteries are all patent by color Doppler as seen, limited below the knee. Spectral waveforms generally demonstrate preserved brisk systolic upstrokes and abnormal irregular morphology. Doppler signal in the left peroneal and DPA regions is detected but the vessel is not visually confirmed or seen as a color Doppler outline, limited confidence. The following peak systolic velocities are obtained. Right Lower Extremity: HOME TEACHING GRADES 9 THRU 12 TEACHER: PSV 181 cm/sec. PSFA: PSV 119 cm/sec. MSFA: PSV 88 cm/sec. DSFA: PSV 88 cm/sec. PFA: PSV 79 cm/sec. POP: PSV 101 cm/sec. FALLON: PSV 112 cm/sec. SWIMMING COACH: PSV 123 cm/sec. CINDY: PSV 52 cm/sec. DPA: PSV 45 cm/sec. Left Lower Extremity: HOME TEACHING GRADES 9 THRU 12 TEACHER: PSV 169 cm/sec. PSFA: PSV 158 cm/sec. MSFA: PSV 132 cm/sec. DSFA: PSV 109 cm/sec. PFA: PSV 93.4 cm/sec. POP: PSV 71 cm/sec. FALLON: PSV 63 cm/sec. SWIMMING COACH: PSV 87 cm/sec. CINDY: PSV 15 cm/sec. DPA: Limited. IMPRESSION: Limited examination with grossly patent three-vessel flow to the bilateral ankles. Limited Doppler signal is seen in the left dorsalis pedis artery and left peroneal artery, possibly due to technical factors. Irregular heart rate. RADIA
== END 2019-03-09 17:52 | disposition home or self-care (01) ==
LOC: DI 17:51
PROVIDERS: ATTEND Family Medicine
DX: I89.0 Lymphedema, not elsewhere classified (principal); R60.0 Localized edema
CPT/HCPCS: 93925

== ENCOUNTER 2019-04-25 07:16 | Outpatient (CLI) | payer MEDICARE, OTHER ==
[2019-04-25 12:36] LABS: CALCIUM 8.7 mg/dL (8.5-10.3)
== END 2019-04-25 23:59 | disposition home or self-care (01) ==
LOC: LAB.WCP 07:16
PROVIDERS: ATTEND Family Medicine
DX: E11.9 Type 2 diabetes mellitus without complications (principal); I10 Essential (primary) hypertension; I89.0 Lymphedema, not elsewhere classified
CPT/HCPCS: 36415; 80048

== ENCOUNTER 2019-05-26 05:29 | Outpatient (CLI) | payer MEDICARE, OTHER | END 2019-05-26 05:30 | disposition EMS.NT | LOC: EMS 05:29 | PROVIDERS: ATTEND Surgery | DX: Z03.89 Encounter for observation for other suspected diseases and conditions ruled out (principal) ==

== ENCOUNTER 2019-05-27 22:19 | Outpatient (CLI) | payer MEDICARE, OTHER | END 2019-05-27 22:20 | disposition EMS.NT | LOC: EMS 22:19 | PROVIDERS: ATTEND Surgery | DX: R53.1 Weakness (principal) ==

== ENCOUNTER 2019-07-16 07:48 | Outpatient (CLI) | payer MEDICARE, OTHER | END 2019-07-16 07:49 | disposition critical access hospital (66) | LOC: EMS 07:48 | PROVIDERS: ATTEND Surgery | DX: R06.00 Dyspnea, unspecified (principal); R60.9 Edema, unspecified | CPT/HCPCS: A0425; A0427 ==

== ENCOUNTER 2019-07-16 08:09 | Inpatient (IN) | payer MEDICARE, OTHER ==
[2019-07-16] MEDS ORDERED: IPRATROPIUM/ALBUTEROL 3 ML NEB INH STA (08:25)
[2019-07-16] MEDS ORDERED: BUMETANIDE 1 MG/4 ML VIAL IVP STA ×2 (08:25→10:07)
--- NOTE | 2019-07-16 08:27 | ED Physician Documentation ---
PD HPI DYSPNEA - Stated complaint Stated Complaint: SOA - History obtained from History obtained from: Patient, Family, EMS - History of Present Illness Timing - onset: How many weeks ago (1) Timing - onset during: Rest, Light activity (Initially was having increased leg edema and then generalized edema and dyspnea with activity which has progressed over the week to now dyspnea at rest. He always has some element of edema and difficulty breathing and is on home oxygen. He has COPD. He states he is not aware of having CHF. He has had progressive edema of the legs and then generalized body edema over the last week. Again he has oxygen at home and also wears CPAP at night but has been feeling dyspneic despite these. He had significant worsening overnight and called EMS this morning.) Timing - details: Gradual onset, Still present Inciting event(s): URI (He said he has had a cough productive of some sputum over the last week concurrent with his worsening breathing.). No: Out of meds Improved by: O2, BiPAP / CPAP, Sitting up Worsened by: Exertion, Laying flat, Coughing Associated symptoms: Cough, Wheezing, Bilateral edema. No: Fever, Hemoptysis, Chest pain / discomfort Similar symptoms before: Diagnosis (prior edema but had been improved with di uretic. Had change from Lasix to Bumex couple months ago as PMD felt the Lasix not improving the edema well enough.) Recently seen: Not recently seen Review of Systems Ten Systems: 10 systems reviewed and negative Constitutional: reports: Myalgias. denies: Fever, Chills Nose: reports: Congestion. denies: Rhinorrhea / runny nose Throat: denies: Sore throat Respiratory: reports: Cough GI: denies: Abdominal Pain, Nausea, Vomiting, Diarrhea, Bloody / black stool : denies: Dysuria, Frequency Skin: denies: Rash, Lesions Neurologic: reports: Generalized weakness. denies: Focal weakness, Numbness, Altered mental status PD PAST MEDICAL HISTORY - Past Medical History Cardiovascular: Hypertension, Peripheral Vascular Disease, Murmur, Arrhythmia, Other Respiratory: COPD, Sleep apnea, CPAP use Endocrine/Autoimmune: Type 2 diabetes, HyPOthyroidism GI: Ulcers : Kidney stones HEENT: Chronic vision loss, Other Psych: None Musculoskeletal: Osteoarthritis, Fatigue Derm: Other - Past Surgical History Past Surgical History: Yes General: Appendectomy, Other HEENT: Tonsil/Adenoidectomy - Present Medications Home Medications: Ambulatory Orders Medication Instructions Recorded Confirmed Carvedilol 12.5 mg PO BID 04/26/13 07/16/19 Tamsulosin [Flomax] 0.4 mg PO QPM 04/26/13 07/16/19 Albuterol [Ventolin Hfa] 2 puffs INH Q4H PRN 03/24/14 07/16/19 Tiotropium Mar[place]c [Spiriva] 1 puffs INH DAILY 03/24/14 07/16/19 Lisinopril 5 mg PO DAILY 10/22/15 07/16/19 Diclofenac Sodium [Voltaren] 1 gm TOP TID PRN 05/07/18 07/16/19 Hydrocodone/Acetaminophen 1 tab PO BID PRN 05/07/18 07/16/19 [Hydrocodone-Acetamin 5-325 mg] Metformin HCl [Metformin HCl ER] 500 mg PO DAILY 05/07/18 07/16/19 Omeprazole 20 mg PO DAILY 04/02/19 07/16/19 Bumetanide 2 mg PO 1400 07/16/19 07/16/19 Bumetanide 6 mg PO DAILY 07/16/19 07/16/19 Duloxetine HCl 30 mg PO DAILY 07/16/19 07/16/19 Potassium Chloride 10 meq PO DAILY 07/16/19 07/16/19 - Allergies Allergies/Adverse Reactions: Allergies Allergy/AdvReac Type Severity Reaction Status Date / Time amoxicillin Allergy Rash Verified 04/02/19 15:47 - Social History Does the pt smoke?: No Smoking Status: Former smoker Does the pt drink ETOH?: Yes Does the pt have substance abuse?: No - POLST Patient has POLST: No PD ED PE NORMAL - Vitals Vital signs reviewed: Yes - General General: Alert and oriented X 3, Well developed/nourished - HEENT HEENT: Moist mucous membranes, Pharynx benign - Neck Neck: Supple, no meningeal sign, No adenopathy, Other (JVD present at 45 degrees; hard to assess though due to obesity) - Cardiac Cardiac: RRR, No murmur - Respiratory Respiratory: No: Clear bilaterally (wheezes noted diffusely. No coarse sounds. Some fine crackles in bases. ) - Abdomen Abdomen: Soft, Non tender - Back Back: No CVA TTP - Derm Derm: Normal color, Warm and dry - Extremities Extremities: Other (2-3+ edema in whole legs. Some edema in hands/arms. ) - Neuro Neuro: Alert and oriented X 3, No motor deficit, Normal speech Results - Vitals Vitals: Vital Signs - 24 hr 07/16/19 07/16/19 07/16/19 08:18 08:28 08:33 Temperature 37.2 C Heart Rate 67 64 70 Respiratory 36 H 17 Rate Blood Pressure 142/76 H O2 Saturation 92 07/16/19 08:41 Temperature Heart Rate 66 Respiratory 18 Rate Blood Pressure 147/69 H O2 Saturation 100 Oxygen O2 Source BIPAP - EKG (time done) 10:03 Rate: Rate (enter#) (66) Rhythm: Atrial fibrillation Arion: Normal QRS: Normal Ischemia: Normal ST segments. No: ST elevation c/w ischemia, ST depression - Labs Labs: Laboratory Tests 07/16/19 07/16/19 07/16/19 08:30 08:30 08:30 WBC 4.6 L RBC 2.97 L Hgb 10.2 L Hct 31.1 L MCV 104.7 H MCH 34.3 H MCHC 32.8 RDW 15.0 Plt Count 70 L MPV 10.7 Neut # (Auto) 2.3 Lymph # (Auto) 1.3 L [place] # (Auto) 0.7 Eos # (Auto) 0.3 Baso # (Auto) 0.1 Absolute Nucleated RBC 0.00 Nucleated RBC % 0.0 VBG pH VBG pCO2 VBG pO2 VBG HCO3 VBG Total CO2 VBG O2 Saturation VBG Base Excess Sodium 139 Potassium 3.8 Chloride 96 L Carbon Dioxide 36 H Anion Gap 7.0 BUN 25 H Creatinine 1.0 Estimated GFR (MDRD) 74 L Glucose 103 H Lactic Acid Calcium 8.6 Magnesium 1.2 L Total Bilirubin 2.2 H AST 64 H ALT 24 Alkaline Phosphatase 71 Troponin I High Sens 29.5 H* B-Natriuretic Peptide Total Protein 5.9 L Albumin 2.6 L Globulin 3.3 Albumin/Globulin Ratio 0.8 L Lipase 31 Urine Color Urine Clarity Urine pH Ur Specific [place] Urine Protein Urine Glucose (UA) Urine Ketones Urine Occult Blood Urine Nitrite Urine Bilirubin Urine Urobilinogen Ur Leukocyte Esterase Ur Microscopic Review Urine Culture Comments 07/16/19 07/16/19 07/16/19 08:30 08:47 08:58 WBC RBC Hgb Hct MCV MCH MCHC RDW Plt Count MPV Neut # (Auto) Lymph # (Auto) [place] # (Auto) Eos # (Auto) Baso # (Auto) Absolute Nucleated RBC Nucleated RBC % VBG pH 7.444 H VBG pCO2 53.0 H VBG pO2 49.8 H VBG HCO3 35.5 H VBG Total CO2 37.1 H VBG O2 Saturation 83.8 H VBG Base Excess 9.9 H Sodium Potassium Chloride Carbon Dioxide Anion Gap BUN Creatinine Estimated GFR (MDRD) Glucose Lactic Acid 1.7 Calcium Magnesium Total Bilirubin AST ALT Alkaline Phosphatase Troponin I High Sens B-Natriuretic Peptide 224 H Total Protein Albumin Globulin Albumin/Globulin Ratio Lipase Urine Color Urine Clarity Urine pH Ur Specific [place] Urine Protein Urine Glucose (UA) Urine Ketones Urine Occult Blood Urine Nitrite Urine Bilirubin Urine Urobilinogen Ur Leukocyte Esterase Ur Microscopic Review Urine Culture Comments 07/16/19 09:50 WBC RBC Hgb Hct MCV MCH MCHC RDW Plt Count MPV Neut # (Auto) Lymph # (Auto) [place] # (Auto) Eos # (Auto) Baso # (Auto) Absolute Nucleated RBC Nucleated RBC % VBG pH VBG pCO2 VBG pO2 VBG HCO3 VBG Total CO2 VBG O2 Saturation VBG Base Excess Sodium Potassium Chloride Carbon Dioxide Anion Gap BUN Creatinine Estimated GFR (MDRD) Glucose Lactic Acid Calcium Magnesium Total Bilirubin AST ALT Alkaline Phosphatase Troponin I High Sens B-Natriuretic Peptide Total Protein Albumin Globulin Albumin/Globulin Ratio Lipase Urine Color DARK YELLOW Urine Clarity CLEAR Urine pH 6.0 Ur Specific [place] 1.010 Urine Protein NEGATIVE Urine Glucose (UA) NEGATIVE Urine Ketones NEGATIVE Urine Occult Blood NEGATIVE Urine Nitrite NEGATIVE Urine Bilirubin NEGATIVE Urine Urobilinogen 1 (NORMAL) Ur Leukocyte Esterase NEGATIVE Ur Microscopic Review NOT INDICATED Urine Culture Comments NOT INDICATED - Rads (name of study) chest xray Radiology: Prelim report reviewed (atelectasis or scarring left base. mild cardiomegaly.), See rad report PD MEDICAL DECISION MAKING - ED course Complexity details: considered differential (he is doing better on BiPAP, and is wheezing. Seems more likely COPD exac but he does have significant general edema, not just his leg lymphedema. Consider CHF as well. ), d/w patient Departure - Departure Disposition: 66 [facility] DC/Xfer Clinical Impression: Respiratory distress, Acute exacerbation of COPD with asthma, Generalized edema Upper respiratory infection Qualifiers: URI type: unspecified URI Qualified Code(s): J06.9 - Acute upper respiratory infection, unspecified Condition: Stable Record reviewed to determine appropriate education?: Yes Discharge Date/Time: 07/16/19 10:50
[2019-07-16 08:56] LABS: BASOPHILS # (AUTO) 0.1 10^3/uL (0.0-0.1); BASOPHILS % (AUTO) 1.1 %; EOSINOPHILS # (AUTO) 0.3 10^3/uL (0.0-0.7); EOSINOPHILS % (AUTO) 6.6 %; HGB - HEMOGLOBIN 10.2 g/dL (14.0-18.0); LYMPHOCYTES # (AUTO) 1.3 10^3/uL (1.5-3.5); LYMPHOCYTES % (AUTO) 27.6 %; MEAN CORPUSCULAR HEMOGLOBIN 34.3 pg (27.0-31.0); MEAN CORPUSCULAR HGB CONC 32.8 g/dL (32.0-36.0); MEAN CORPUSCULAR VOLUME 104.7 fL (80.0-94.0); MEAN PLATELET VOLUME 10.7 fL (7.4-11.4); MONOCYTES # (AUTO) 0.7 10^3/uL (0.0-1.0); MONOCYTES % (AUTO) 14.3 %; NEUTROPHILS # (AUTO) 2.3 10^3/uL (1.5-6.6); NEUTROPHILS % (AUTO) 50.2 %; PLT - PLATELET COUNT 70 10^3/uL (130-450); RED BLOOD COUNT 2.97 10^6/uL (4.70-6.10); WHITE BLOOD COUNT 4.6 x10^3/uL (4.8-10.8)
--- NOTE | 2019-07-16 09:11 | XRAY Report ---
Reason: dyspnea Procedure Date: 07/16/2019 Accession Number: [id number] / [id number] Procedure: XR - Chest 1 View X-Ray CPT Code: 94754 Final Report FULL RESULT: EXAM: CHEST RADIOGRAPHY EXAM DATE: 07/16/2019 08:48 AM. CLINICAL HISTORY: Dyspnea. COMPARISON: CHEST 1 VIEW 05/10/2018 5:03 AM CHEST 1 VIEW 05/09/2018 5:21 AM CHEST 2 VIEW 04/19/2018 9:19 AM. TECHNIQUE: 1 view (2 images provided). FINDINGS: Lungs/Pleura: There is mild streaky atelectasis or scarring at the left lung base. The right lung is clear. No pleural effusion. No pneumothorax. Lung volumes are low. Mediastinum: Within exam limitations, there is stable mild enlargement of the cardiac silhouette. Other: No acute osseous abnormality. IMPRESSION: 1. Mild streaky atelectasis or scarring at the left lung base. Lung volumes are low. 2. Stable mild cardiomegaly. RADIA
[2019-07-16 09:13] LABS: ALBUMIN 2.6 g/dL (3.2-5.5); ALBUMIN/GLOBULIN RATIO 0.8 (1.0-2.2); BILIRUBIN,TOTAL 2.2 mg/dL (0.2-1.0); CALCIUM 8.6 mg/dL (8.5-10.3); MAGNESIUM 1.2 mg/dL (1.7-2.8); TOTAL PROTEIN 5.9 g/dL (6.7-8.2)
[2019-07-16 09:14] LABS: VBG BASE EXCESS 9.9 mmol/L (-2 - +2); VBG PH 7.444 (7.31-7.41); VBG PO2 49.8 mmHg (25-47); VBG TOTAL CO2 37.1 mmol/L (24-29)
[2019-07-16] MEDS ORDERED: MAGNESIUM SULFATE 2 GRAM 2 GM/50 ML BAG IV ONE (09:17)
[2019-07-16] MEDS ORDERED: ALBUTEROL NEB 2.5 MG/3 ML INH STA (10:07)
[2019-07-16] MEDS ORDERED: ALBUTEROL NEB 2.5 MG/3 ML INH PRN (10:13)
[2019-07-16] MEDS ORDERED: IPRATROPIUM 0.2 MG/ML NEB INH PRN (10:13)
[2019-07-16 10:14] LABS: BILIRUBIN,URINE NEGATIVE (NEGATIVE); GLUCOSE, URINE (UA) NEGATIVE (NEGATIVE); KETONES,URINE (UA) NEGATIVE (NEGATIVE); LEUKOCYTE ESTERASE, URINE NEGATIVE (NEGATIVE); NITRITE,URINE NEGATIVE (NEGATIVE); OCCULT BLOOD,URINE NEGATIVE (NEGATIVE); PROTEIN,URINE NEGATIVE (NEGATIVE); UROBILINOGEN,URINE 1 (NORMAL) E.U./dL (NORMAL)
[2019-07-16 10:19] LABS: CLARITY,URINE CLEAR (CLEAR)
[2019-07-16] MEDS ORDERED: TIOTROPIUM BROMIDE INH SCH (10:45)
[2019-07-16] MEDS: HYDROcod/ACETAM 5/325 MG TABLET PO PRN ×2 (12:37→20:09)
[2019-07-16] MEDS: guaiFENesin 600 MG TABLET PO SCH ×2 (12:37→20:09)
[2019-07-16] MEDS ORDERED: PERFLUTREN LIPID MICROSPHERES 1.65 MG/1.5 ML VIAL IVP ONE (13:06)
[2019-07-16] MEDS: methylPREDNISolone SUCCINATE 40 MG/ML VIAL IVP SCH ×2 (14:15→20:10)
[2019-07-16] MEDS: IPRATROPIUM 0.2 MG/ML NEB INH SCH ×2 (14:54→20:07)
[2019-07-16] MEDS ORDERED: AZITHROMYCIN 250 MG TABLET PO SCH (15:30)
[2019-07-16] MEDS: SODIUM CHLORIDE FLUSH 0.9% 10 ML SYRINGE IVP SCH ×2 (17:04→20:10)
[2019-07-16] MEDS: ACETAMINOPHEN 325 MG TABLET PO PRN (17:51)
[2019-07-16] MEDS ORDERED: BUMETANIDE 1 MG/4 ML VIAL IVP ONE (18:06)
[2019-07-16] MEDS: ASPIRIN EC 81 MG TABLET PO SCH (18:11)
[2019-07-16] MEDS: LIDOCAINE PATCH 5% TOP PRN (18:16)
--- NOTE | 2019-07-16 18:49 | HISTORY & PHYSICAL EXAMINATION ---
DATE OF SERVICE: 07/16/2019 Physician: Shruthi Lee MD HISTORY OF PRESENT ILLNESS: This is a 68-year-old white male with a history of morbid obesity (weighs over 400 pounds), lymphedema, has a history of COPD, cor pulmonale, diabetes, thrombocytopenia, hypertension, hypothyroidism and BPH. The patient presents with worsening shortness of breath and worsening leg edema over a week. He also noticed swelling in the hands and one week of a cough with minimal sputum production. He denies any chest pain with these symptoms. There was apparently a change of his Lasix to Bumex done for improving diuresis. The patient wears CPAP mask for sleep apnea and also has separate home oxygen orders. He was brought into the emergency room by an ambulance, when they were called for his worsening shortness of breath, wearing his CPAP mask. In the ER, his oxygen saturation% were in the 80's range and he was started on BiPAP, given IV Bumex, nebulizers, and he is being admitted to the ICU. PAST MEDICAL HISTORY 1. Chronic obstructive pulmonary disease. 2. Morbid obesity. 3. Sleep apnea. 4. Diabetes. 5. Hypertension. 6. Peripheral vascular disease. 7. Hypothyroidism. 8. Benign prostatic hypertrophy. 9. Thrombocytopenia. ALLERGIES: AMOXICILLIN. MEDICATIONS 1. Bumex 6 mg every morning and 2 mg in the early afternoon. 2. Potassium chloride 10 mEq daily. 3. Spiriva 1 puff daily. 4. Flomax 0.4 mg every night. 5. Omeprazole 20 mg daily. 6. Metformin 500 mg b.i.d. 7. Lisinopril 5 mg daily. 8. Duloxetine 30 mg daily. 9. Voltaren topically p.r.n. pain. 10. Carvedilol 12.5 p.o. b.i.d. 11. Ventolin inhaler every 4 hours p.r.n. 12. Tylenol with codeine 5/325 mg b.i.d. p.r.n. pain. REVIEW OF SYSTEMS: His granddaughter, who is training to be a nurse, gave detailed symptom complaints that he is losing his hair, clumps of hair are seen on his hair brush, that he still has poor pain control even with the above medications, and reports that his "hands are starting to have a tremor". The patient states he is compliant with his medications. A comprehensive ROS was performed and the positives are listed, the rest are negative. SOCIAL HISTORY: The patient is a nonsmoker, who quit many years ago, drinks no alcohol. No illicit drug use history. He lives with his and the granddaughter who is training to be a nurse also assists with his care. He mostly is bedridden/recliner chair riddden because of his extremely large size. PHYSICAL EXAMINATION GENERAL: Morbidly obese white male. He is in mild respiratory distress. He is currently wearing nasal cannula oxygen to have break off of the BiPAP, and he is able to eat. He answers with 2-3 words and then he gasps for a breath of air. VITAL SIGNS: Blood pressure 130/60, heart rate 50-70 and appears to be in atrial fibrillation/flutter, afebrile. Oxygen saturation on 3.5 liters is 94% and on BiPAP on 35% FiO2 his saturation was 99%. HEENT: Reveals cyanotic lips, morbidly obese. Normal hair pattern. NECK: Obese. I cannot rule out JVD or thyromegaly. CHEST: Diminished breath sounds diffusely with poor air movement. No wheezes rales or rhonchi are heard. HEART: Heart sounds are very distant. No audible murmur. ABDOMEN: Obese with a pannus. Cannot rule out ascites or organomegaly. EXTREMITIES: 4+ edema to the nipples and his hands have edema. Shins are wrapped in lymphedema stockings, dry. NEUROLOGIC: Grossly intact. I do not see a resting tremor of his hands. He is moving his head backward and forward repeatedly (states he is doing this due to shortness of breath). LABORATORY DATA: Sodium 139, potassium 3.8, bicarbonate 36, BUN 25, creatinine 1.0. Lactic acid normal at 1.7, magnesium low at 1.2, bilirubin 2.2, AST 64, ALT 24. Troponin high sensitivity are 29.5 and 28. BNP 224. CBC showed a white count of 4.6, hemoglobin 10.2, with MCV 104, platelet count low at 70,000 (plts normally run in the 60-100 range). Blood gas showed a pH of 7.44. Urinalysis was unremarkable. Nasal MRSA screen is negative. CHEST X-RAY: Cardiomegaly. No active pulmonary disease. EKG: Atrial fibrillation with a rate of 66 and otherwise unremarkable. IMPRESSION/DIAGNOSES 1. Chronic obstructive pulmonary disease exacerbation. 2. Acute bronchitis, given his cough, which could be the etiology of his COPD exacerbation. 3. Anasarca. 4. New onset of atrial fibrillation, which could also be the cause of the anasarca and overall shortness of breath. 5. Morbid obesity, with a body mass index of 62. 6. Obstructive sleep apnea, on CPAP. 7. Diabetes mellitus. 8. Hypertension. 9. Peripheral vascular disease hx. 10. Hypothyroidism. 11. Benign prostatic hypertrophy. 12. Thrombocytopenia. 13. Macrocytic anemia. PLAN: Admit the patient to the ICU on telemetry. Check thyroid function tests, given his hair loss complaints and new fibrillation. He has ruled out for an PR with 2 consecutive troponins that are flat. Obtain an Echo to evaluate LV and RV contractility. Continue with his beta perez medication, which has already been controlling this rate, but recommend changing his carvedilol, which is not beta-1 selective, to a beta-1 selective medications such as Toprol-XL, in order to prevent any bronchospasm. Treat his COPD exacerbation with Mucinex, IV steroids, and nebulizers, and continue supplemental oxygen with BiPAP. Wean the oxygen as possible. Continue with IV diuretics because of his anasarca. Start carb-controlled diet. Hold metformin while he is hospitalized, as he may need imaging with dye. Start Accu-Cheks and sliding scale insulin coverage. Continue with his medications for thyroid, BPH and pain. CODE STATUS: DNR. DEEP VENOUS THROMBOSIS PROPHYLAXIS: SCDs. ATTESTATION: The patient is expected to be discharged or transferred to another facility within 96 hours: Yes. cc: Carlos Kurtz MD TD: 07/16/2019 17:57 ALPHONSO
[2019-07-16] MEDS: ALBUTEROL NEB 2.5 MG/3 ML INH PRN (20:07)
[2019-07-16] MEDS: MONTELUKAST 10 MG TABLET PO SCH (20:09)
[2019-07-16] MEDS: TAMSULOSIN 0.4 MG CAPSULE PO SCH (20:09)
[2019-07-16] MEDS: FAMOTIDINE 20 MG TABLET PO SCH (20:09)
[2019-07-16] MEDS ORDERED: carvediloL 12.5 MG TABLET PO SCH (21:00)
[2019-07-17] MEDS: ACETAMINOPHEN 325 MG TABLET PO PRN (00:27)
[2019-07-17] MEDS: HYDROcod/ACETAM 5/325 MG TABLET PO SCH ×4 (02:16→21:53)
[2019-07-17 04:38] LABS: ABG BASE EXCESS 11.7 mmol/L (-2.0-3.0); ABG HCO3 37.3 mmol/L (22.0-26.0); ABG OXYGEN SATURATION 90 % (94-98); ABG PCO2 54 mmHg (34-45); ABG PH 7.45 (7.35-7.45); ABG PO2 59 mmHg (80-100)
[2019-07-17 04:39] LABS: ALLEN TEST POSITIVE
[2019-07-17 04:53] LABS: HGB - HEMOGLOBIN 9.4 g/dL (14.0-18.0); LYMPHOCYTES % (AUTO) 14.7 %; MEAN CORPUSCULAR HEMOGLOBIN 34.2 pg (27.0-31.0); MEAN CORPUSCULAR HGB CONC 33.2 g/dL (32.0-36.0); MEAN CORPUSCULAR VOLUME 102.9 fL (80.0-94.0); MEAN PLATELET VOLUME 11.8 fL (7.4-11.4); MONOCYTES % (AUTO) 1.6 %; NEUTROPHILS % (AUTO) 83.2 %; PLT - PLATELET COUNT 54 10^3/uL (130-450); RED BLOOD COUNT 2.75 10^6/uL (4.70-6.10); RED CELL DISTRIBUTION WIDTH 14.6 % (12.0-15.0); WHITE BLOOD COUNT 3.7 x10^3/uL (4.8-10.8)
[2019-07-17 05:04] LABS: ABNORMAL LYMPHS % (MANUAL) 0 %
[2019-07-17 05:05] LABS: CALCIUM 8.3 mg/dL (8.5-10.3); CREATININE 1.1 mg/dL (0.6-1.2); MAGNESIUM 1.3 mg/dL (1.7-2.8)
[2019-07-17 05:22] LABS: THYROID STIMULATING HORMONE 0.97 uIU/mL (0.34-5.60)
[2019-07-17 05:33] LABS: BAND NEUTROPHILS % (MANUAL) 3 %; DIFFERENTIAL COMMENT MANUAL DIFFERENTIAL; LYMPHOCYTES # (MANUAL) 0.8 10^3/uL (1.5-3.5); LYMPHOCYTES % (MANUAL) 21 %; MONOCYTES # (MANUAL) 0.1 10^3/uL (0.0-1.0); PLATELET ESTIMATE, MANUAL DECREASED (<130,000) (NORMAL); RBC MORPHOLOGY (MULTIPLE) NORMAL APPEARANCE (NORMAL)
[2019-07-17 05:34] LABS: FOLATE 6.77 ng/mL (5.90 - >24.8)
[2019-07-17] MEDS: SODIUM CHLORIDE FLUSH 0.9% 10 ML SYRINGE IVP PRN ×2 (06:22→14:05)
[2019-07-17] MEDS: methylPREDNISolone SUCCINATE 40 MG/ML VIAL IVP SCH ×3 (06:22→21:52)
[2019-07-17] MEDS: BUMETANIDE 1 MG/4 ML VIAL IVP SCH ×2 (06:22→12:54)
[2019-07-17] MEDS: MAGNESIUM SULFATE 2 GRAM 2 GM/50 ML BAG IV SCH ×2 (06:38→07:55)
[2019-07-17] MEDS: ALBUTEROL NEB 2.5 MG/3 ML INH PRN (07:21)
[2019-07-17] MEDS: IPRATROPIUM 0.2 MG/ML NEB INH SCH ×2 (07:21)
[2019-07-17] MEDS: ASPIRIN EC 81 MG TABLET PO SCH (08:10)
[2019-07-17] MEDS: AZITHROMYCIN 250 MG TABLET PO SCH (08:11)
[2019-07-17] MEDS: FAMOTIDINE 20 MG TABLET PO SCH ×2 (08:13→20:50)
[2019-07-17] MEDS: guaiFENesin 600 MG TABLET PO SCH ×2 (08:13→20:50)
[2019-07-17] MEDS: DULoxetine 30 MG CAPSULE PO SCH (08:13)
[2019-07-17] MEDS: METOPROLOL SUCCINATE 25 MG TABLET PO SCH (08:13)
[2019-07-17] MEDS: LISINOPRIL 5 MG TABLET PO SCH (08:13)
[2019-07-17] MEDS: SODIUM CHLORIDE FLUSH 0.9% 10 ML SYRINGE IVP SCH ×3 (08:14→21:53)
[2019-07-17] MEDS ORDERED: ENOXAPARIN 40 MG/0.4 ML SYRINGE SUBQ SCH (09:00)
[2019-07-17] MEDS: PROCHLORPERAZINE 10 MG/2 ML VIAL IVP PRN (12:44)
[2019-07-17 14:05] LABS: HB2 TOTAL 9.4 g/dL; HEMOGLOBIN A1C 0.3 g/dL; HEMOGLOBIN A1C % 5.1 % (4.6-6.2)
[2019-07-17] MEDS: IPRATROPIUM/ALBUTEROL 3 ML NEB INH SCH ×2 (14:09→17:46)
[2019-07-17] MEDS ORDERED: ZINC OXIDE 20% OINT 30 GM TUBE TOP PRN (15:45)
[2019-07-17] MEDS: INSULIN ASPART 300 UNIT/3 ML PEN SUBQ SCH ×2 (17:13→21:02)
--- NOTE | 2019-07-17 18:42 | PROVIDER PROGRESS NOTE ---
Assessment/Plan - Problem List (1) COPD exacerbation Assessment/Plan: Slight improvement with less air hunger and less wheezing and able to take breaks off bIPAP intermittently Continue nebs, steroids, Singular, empiric bronchitis tx, wean down supplemental O2 Remain in ICU, needs BIPAP intermittently (2) Acute bronchitis Assessment/Plan: On empiric Zithro, continue Mucinex (3) New onset a-fib Assessment/Plan: Echo does not show systolic heart failure. Continue B-1 selective Toprol for HR control and daily ASA for stroke prophylaxis (4) Anasarca Assessment/Plan: Continue iv bid diuretics, follow Is and Os, daily weights (5) Morbid obesity with BMI of 60.0-69.9, adult Assessment/Plan: Chronic and will impact on his DCh plan, he may need DCh to a SNF for PT rehab (6) Sleep apnea Assessment/Plan: Using his home CPAP device while here (7) DM type 2 (diabetes mellitus, type 2) Assessment/Plan: Continue ss Insulin, cc diet (8) HTN (hypertension) Assessment/Plan: BP controlled on present meds and diuretics (9) Thrombocytopenia Assessment/Plan: Chronic for years and no current signs of bleeding (10) Anemia Assessment/Plan: H/H stable, as diuresis continues Monitor CBC intermittently (11) Hypothyroidism Assessment/Plan: On his home meds for this. (12) BPH (benign prostatic hyperplasia) Assessment/Plan: On his home meds for this - Current Meds Current Meds: Current Medications Generic Name Dose Route Start Last Admin Trade Name Freq PRN Reason Stop Dose Admin Acetaminophen 650 mg 07/16/19 10:13 07/17/19 00:27 Tylenol PO 650 mg Q4HR PRN Administration Pain or Fever > 38C (100.4F) Hydrocodone Bitart/Acetaminophen 1 tab 07/17/19 02:00 07/17/19 17:00 Falkner 5/325 PO 1 tab TID IAN Administration Albuterol 2.5 mg 07/16/19 15:13 07/17/19 07:21 INH 2.5 mg RTQ4H PRN Administration Wheezing Albuterol/Ipratropium 3 ml 07/17/19 15:00 07/17/19 17:46 Duoneb INH 3 ml RTQID IAN Administration Aspirin 81 mg 07/16/19 17:55 07/17/19 08:10 Ecotrin PO 81 mg DAILY IAN Administration Azithromycin 250 mg 07/17/19 09:00 07/17/19 08:11 Zithromax PO 07/21/19 00:00 250 mg DAILY IAN Administration Bumetanide 2 mg 07/17/19 06:00 07/17/19 12:54 Bumex Inj IVP 2 mg BIDDIURETIC IAN Administration Duloxetine HCl 30 mg 07/17/19 09:00 07/17/19 08:13 Cymbalta PO 30 mg DAILY IAN Administration Famotidine 20 mg 07/16/19 21:00 07/17/19 08:13 Pepcid PO 20 mg BID IAN Administration Guaifenesin 600 mg 07/16/19 11:00 07/17/19 08:13 Mucinex PO 600 mg BID IAN Administration Insulin Aspart 1 - 5 unit 07/17/19 17:00 07/17/19 17:13 Novolog SUBQ Not Given 0800,1200,1700,2100 [facility] Protocol Lidocaine 1 patch 07/16/19 17:45 07/16/19 18:16 Lidoderm Patch TOP 1 patch DAILY PRN Administration PAIN Lisinopril 10 mg 07/17/19 09:00 07/17/19 08:13 Zestril PO 10 mg DAILY IAN Administration Methylprednisolone 80 mg 07/16/19 14:00 07/17/19 14:05 Solu-Medrol (40mg Vial) IVP 80 mg Q8HR IAN Administration Metoprolol Succinate 25 mg 07/17/19 09:00 07/17/19 08:13 Toprol Xl PO 25 mg DAILY IAN Administration Montelukast Sodium 10 mg 07/16/19 21:00 07/16/19 20:09 Singulair PO 10 mg QPM IAN Administration Prochlorperazine Edisylate 10 mg 07/16/19 10:13 07/17/19 12:44 Compazine Inj IVP 10 mg Q6HR PRN Administration Nausea / Vomiting Sodium Chloride 10 ml 07/16/19 17:00 07/17/19 17:05 Normal Saline Flush 0.9% IVP 10 ml 0100,0900,1700 IAN Administration Sodium Chloride 10 ml 07/16/19 10:13 07/17/19 14:05 Normal Saline Flush 0.9% IVP 10 ml PRN PRN Administration NEEDED PER PROVIDER ORDERS Tamsulosin HCl 0.4 mg 07/16/19 21:00 07/16/19 20:09 Flomax PO 0.4 mg QPM IAN Administration - Lab Result Fish Bone Diagrams: 07/18/19 04:30 07/18/19 04:30 - Additional Planning My Orders: My Active Orders 07/16/19 17:45 Lidocaine Patch 5% [Lidoderm Patch] 1 patch TOP DAILY PRN 07/16/19 17:55 Aspirin EC [Ecotrin] 81 mg PO DAILY 07/16/19 21:00 Famotidine [Pepcid] 20 mg PO BID Montelukast [Singulair] 10 mg PO QPM Tamsulosin [Flomax] 0.4 mg PO QPM 07/17/19 Social Work Consult [CONS] Routine Evaluate and Treat OT [OT] Routine Evaluate and Treat PT [PT] Routine 07/17/19 06:00 Bumetanide Inj [Bumex Inj] 2 mg IVP BIDDIURETIC 07/17/19 09:00 Azithromycin [Zithromax] 250 mg PO DAILY DULoxetine [Cymbalta] 30 mg PO DAILY Lisinopril [Zestril] 10 mg PO DAILY Metoprolol Succinate [Toprol Xl] 25 mg PO DAILY 07/17/19 11:59 Resp Teach Nebulizer/MDI [RC] .ONCE 07/17/19 13:01 Blood Glucose Checks - Eating [RC] 0800,1200,1700,2100 Initiate Hypoglycemia Protocol [RC] .protocol 07/17/19 14:14 RT [Oxygen Therapy] [RC] .cont 07/17/19 15:00 Ipratropium/Albuterol [Duoneb] 3 ml INH RTQID 07/17/19 15:45 Zinc Oxide 20% Oint [Zinc Oxide] 1 applic TOP PRN PRN 07/17/19 17:00 Insulin Aspart [NovoLOG] 1 - 5 unit SUBQ 0800,1200,1700,2100 07/18/19 05:00 BMP - BASIC METABOLIC PANEL [CHEM] DAILYLAB CBC - COMP BLD CT W/AUTO DIFF [HEME] DAILYLAB 07/19/19 05:00 BMP - BASIC METABOLIC PANEL [CHEM] DAILYLAB CBC - COMP BLD CT W/AUTO DIFF [HEME] DAILYLAB Subjective - Subjective Patient Reports: Resting Comfortably Nursing Reports: Other (Able to lie flat and sleep with his home CPAP device) Objective Vital Signs: Vital Signs - 24 hr 07/16/19 07/16/19 07/16/19 18:59 20:00 20:10 Temperature 37.4 C Heart Rate 72 Heart Rate [ 78 71 Monitoring electrodes] Heart Rate [ Sitting] Heart Rate [ Supine] Respiratory 22 20 20 Rate Blood Pressure 140/62 H 156/69 H [Left Radial artery] Blood Pressure [Sitting] Blood Pressure [Supine] O2 Saturation 96 97 07/16/19 07/16/19 07/16/19 20:15 21:06 22:03 Temperature Heart Rate 73 Heart Rate [ 77 72 Monitoring electrodes] Heart Rate [ Sitting] Heart Rate [ Supine] Respiratory 17 22 Rate Blood Pressure 135/64 H 110/42 L [Left Radial artery] Blood Pressure [Sitting] Blood Pressure [Supine] O2 Saturation 96 96 07/16/19 07/16/19 07/17/19 22:04 23:00 01:00 Temperature Heart Rate 68 Heart Rate [ 69 78 Monitoring electrodes] Heart Rate [ Sitting] Heart Rate [ Supine] Respiratory 17 20 Rate Blood Pressure 118/40 L 123/50 L [Left Radial artery] Blood Pressure [Sitting] Blood Pressure [Supine] O2 Saturation 96 95 07/17/19 07/17/19 07/17/19 01:56 03:00 04:00 Temperature 37.4 C Heart Rate 94 Heart Rate [ 65 72 Monitoring electrodes] Heart Rate [ Sitting] Heart Rate [ Supine] Respiratory 16 16 Rate Blood Pressure 116/48 L 107/46 L [Left Radial artery] Blood Pressure [Sitting] Blood Pressure [Supine] O2 Saturation 95 95 07/17/19 07/17/19 07/17/19 04:20 05:00 07:00 Temperature Heart Rate 63 Heart Rate [ 64 73 Monitoring electrodes] Heart Rate [ Sitting] Heart Rate [ Supine] Respiratory 17 25 H Rate Blood Pressure 118/50 L 119/55 L [Left Radial artery] Blood Pressure [Sitting] Blood Pressure [Supine] O2 Saturation 96 93 07/17/19 07/17/19 07/17/19 07:28 07:30 09:00 Temperature 37.4 C Heart Rate 70 70 Heart Rate [ 73 Monitoring electrodes] Heart Rate [ Sitting] Heart Rate [ Supine] Respiratory 19 19 17 Rate Blood Pressure 136/50 H [Left Radial artery] Blood Pressure [Sitting] Blood Pressure [Supine] O2 Saturation 95 96 07/17/19 07/17/19 07/17/19 09:15 11:00 11:15 Temperature Heart Rate 74 Heart Rate [ 70 Monitoring electrodes] Heart Rate [ 78 Sitting] Heart Rate [ 78 Supine] Respiratory 24 Rate Blood Pressure 125/46 L [Left Radial artery] Blood Pressure 114/52 L [Sitting] Blood Pressure 125/46 L [Supine] O2 Saturation 95 07/17/19 07/17/19 07/17/19 13:00 14:12 15:00 Temperature Heart Rate 64 Heart Rate [ 63 64 Monitoring electrodes] Heart Rate [ Sitting] Heart Rate [ Supine] Respiratory 17 16 15 Rate Blood Pressure 121/42 L 111/46 L [Left Radial artery] Blood Pressure [Sitting] Blood Pressure [Supine] O2 Saturation 95 91 L 07/17/19 16:59 Temperature 36.6 C Heart Rate Heart Rate [ 65 Monitoring electrodes] Heart Rate [ Sitting] Heart Rate [ Supine] Respiratory 18 Rate Blood Pressure 128/61 [Left Radial artery] Blood Pressure [Sitting] Blood Pressure [Supine] O2 Saturation 93 Oxygen O2 Source CPAP I&O (Last 24 Hrs): Intake and Output Totals x24h 07/15/19 07/16/19 07/17/19 23:59 23:59 23:59 Intake Total 1420 1740 Output Total 3680 1620 Balance -2260 120 General: Other (Sleeping, appears comfortable supine) HEENT: Mucous membr. moist/pink Neck: Other (Obese) Neuro: Other (Sleeping currently, usually alert and oriented) Cardiovascular: Regular rate Respiratory: No respiratory distress, Other (Poor air mvm, no wheezing or resp distress) Abdomen: Other (Obese with a large pannus) Extremities: Other (4+ edema, lymphedema stockings are on) - Results Results: Laboratory Results WBC 3.7 x10^3/uL (4.8-10.8) L 07/17/19 04:25 RBC 2.75 10^6/uL (4.70-6.10) L 07/17/19 04:25 Hgb 9.4 g/dL (14.0-18.0) L 07/17/19 04:25 Hct 28.3 % (42.0-52.0) L 07/17/19 04:25 MCV 102.9 fL (80.0-94.0) H 07/17/19 04:25 MCH 34.2 pg (27.0-31.0) H 07/17/19 04:25 MCHC 33.2 g/dL (32.0-36.0) 07/17/19 04:25 RDW 14.6 % (12.0-15.0) 07/17/19 04:25 Plt Count 54 10^3/uL (130-450) L 07/17/19 04:25 MPV 11.8 fL (7.4-11.4) H 07/17/19 04:25 Neut # (Auto) Not Reportable 07/17/19 04:25 Lymph # (Auto) Not Reportable 07/17/19 04:25 [place] # (Auto) Not Reportable 07/17/19 04:25 Eos # (Auto) Not Reportable 07/17/19 04:25 Baso # (Auto) Not Reportable 07/17/19 04:25 Absolute Nucleated RBC Not Reportable 07/17/19 04:25 Total Counted 100 07/17/19 04:25 Band Neuts % (Manual) 3 % (0-10) 07/17/19 04:25 Abnorm Lymph % (Manual) 0 % 07/17/19 04:25 Nucleated RBC % Not Reportable 07/17/19 04:25 Neutrophils # (Manual) 2.8 10^3/uL (1.5-6.6) 07/17/19 04:25 Lymphocytes # (Manual) 0.8 10^3/uL (1.5-3.5) L 07/17/19 04:25 Monocytes # (Manual) 0.1 10^3/uL (0.0-1.0) 07/17/19 04:25 Eosinophils # (Manual) 0.0 10^3/uL (0-0.7) 07/17/19 04:25 Basophils # (Manual) 0.0 10^3/uL (0-0.1) 07/17/19 04:25 Differential Comment MANUAL DIFFERENTIAL 07/17/19 04:25 Platelet Estimate DECREASED (<130,000) (NORMAL) 07/17/19 04:25 RBC Morph Micro Appear NORMAL APPEARANCE (NORMAL) 07/17/19 04:25 Bld Gas Analysis Time 0437 07/17/19 04:33 Sample Site LEFT RADIAL 07/17/19 04:33 ABG pH 7.45 (7.35-7.45) 07/17/19 04:33 ABG pCO2 54 mmHg (34-45) H 07/17/19 04:33 ABG pO2 59 mmHg (80-100) L 07/17/19 04:33 ABG HCO3 37.3 mmol/L (22.0-26.0) H 07/17/19 04:33 ABG Total CO2 39.0 MMOL/L (21.0-29.0) H 07/17/19 04:33 ABG O2 Saturation 90 % (94-98) L 07/17/19 04:33 ABG Base Excess 11.7 mmol/L (-2.0-3.0) H 07/17/19 04:33 Clay Test POSITIVE 07/17/19 04:33 VBG pH 7.444 (7.31-7.41) H 07/16/19 08:58 VBG pCO2 53.0 mmHg (41-51) H 07/16/19 08:58 VBG pO2 49.8 mmHg (25-47) H 07/16/19 08:58 VBG HCO3 35.5 mmol/L (23-28) H 07/16/19 08:58 VBG Total CO2 37.1 mmol/L (24-29) H 07/16/19 08:58 VBG O2 Saturation 83.8 % (60-80) H 07/16/19 08:58 VBG Base Excess 9.9 mmol/L (-2 - +2) H 07/16/19 08:58 O2 Delivery Device BiPAP 07/17/19 04:33 FiO2 35.00 07/17/19 04:33 EPAP 5 cmH2O 07/17/19 04:33 IPAP 12 cmH2O 07/17/19 04:33 Sodium 140 mmol/L (135-145) 07/17/19 04:25 Potassium 3.9 mmol/L (3.5-5.0) 07/17/19 04:25 Chloride 97 mmol/L (101-111) L 07/17/19 04:25 Carbon Dioxide 37 mmol/L (21-32) H 07/17/19 04:25 Anion Gap 6.0 (6-13) 07/17/19 04:25 BUN 24 mg/dL (6-20) H 07/17/19 04:25 Creatinine 1.1 mg/dL (0.6-1.2) 07/17/19 04:25 Estimated GFR (MDRD) 66 (>89) L 07/17/19 04:25 Glucose 159 mg/dL (70-100) H 07/17/19 04:25 Glycated Hemoglobin 5.1 % (4.6-6.2) 07/17/19 04:25 Estim Average Glucose 100 (70-100) 07/17/19 04:25 Lactic Acid 1.7 mmol/L (0.5-2.2) 07/16/19 08:47 Calcium 8.3 mg/dL (8.5-10.3) L 07/17/19 04:25 Magnesium 1.7 mg/dL (1.7-2.8) 07/17/19 10:04 Total Bilirubin 2.2 mg/dL (0.2-1.0) H 07/16/19 08:30 AST 64 IU/L (10-42) H 07/16/19 08:30 ALT 24 IU/L (10-60) 07/16/19 08:30 Alkaline Phosphatase 71 IU/L (42-121) 07/16/19 08:30 Troponin I High Sens 28.2 ng/L (2.3-19.7) H* 07/16/19 11:51 B-Natriuretic Peptide 224 pg/mL (5-100) H 07/16/19 08:30 Total Protein 5.9 g/dL (6.7-8.2) L 07/16/19 08:30 Albumin 2.6 g/dL (3.2-5.5) L 07/16/19 08:30 Globulin 3.3 g/dL (2.1-4.2) 07/16/19 08:30 Albumin/Globulin Ratio 0.8 (1.0-2.2) L 07/16/19 08:30 Lipase 31 U/L (22-51) 07/16/19 08:30 Vitamin B12 1014 pg/mL (180-914) H 07/17/19 04:25 Folate 6.77 ng/mL (5.90 - >24.8) 07/17/19 04:25 TSH 0.97 uIU/mL (0.34-5.60) 07/17/19 04:25 Urine Color DARK YELLOW 07/16/19 09:50 Urine Clarity CLEAR (CLEAR) 07/16/19 09:50 Urine pH 6.0 PH (5.0-7.5) 07/16/19 09:50 Ur Specific [place] 1.010 (1.002-1.030) 07/16/19 09:50 Urine Protein NEGATIVE mg/dL (NEGATIVE) 07/16/19 09:50 Urine Glucose (UA) NEGATIVE mg/dL (NEGATIVE) 07/16/19 09:50 Urine Ketones NEGATIVE mg/dL (NEGATIVE) 07/16/19 09:50 Urine Occult Blood NEGATIVE (NEGATIVE) 07/16/19 09:50 Urine Nitrite NEGATIVE (NEGATIVE) 07/16/19 09:50 Urine Bilirubin NEGATIVE (NEGATIVE) 07/16/19 09:50 Urine Urobilinogen 1 (NORMAL) E.U./dL (NORMAL) 07/16/19 09:50 Ur Leukocyte Esterase NEGATIVE (NEGATIVE) 07/16/19 09:50 Ur Microscopic Review NOT INDICATED 07/16/19 09:50 Urine Culture Comments NOT INDICATED 07/16/19 09:50 Nasal Screen MRSA (PCR) NEGATIVE (NEGATIVE) 07/16/19 11:30 - Procedures Procedures: Procedures EXCISION OF RECTUM, ENDO (08/22/16) EXCISION OF RIGHT LARGE INTESTINE, ENDO (08/22/16) EXCISION OF SIGMOID COLON, ENDO (08/22/16) EXCISION OF TRANSVERSE COLON, ENDO (08/22/16)
[2019-07-17] MEDS: TAMSULOSIN 0.4 MG CAPSULE PO SCH (20:50)
[2019-07-17] MEDS: MONTELUKAST 10 MG TABLET PO SCH (20:50)
[2019-07-18 04:55] LABS: BASOPHILS % (AUTO) 0.1 %; HGB - HEMOGLOBIN 9.7 g/dL (14.0-18.0); LYMPHOCYTES # (AUTO) 0.7 10^3/uL (1.5-3.5); LYMPHOCYTES % (AUTO) 9.8 %; MEAN CORPUSCULAR HEMOGLOBIN 34.3 pg (27.0-31.0); MEAN CORPUSCULAR HGB CONC 33.2 g/dL (32.0-36.0); MEAN CORPUSCULAR VOLUME 103.2 fL (80.0-94.0); MEAN PLATELET VOLUME 12.5 fL (7.4-11.4); MONOCYTES # (AUTO) 0.2 10^3/uL (0.0-1.0); NEUTROPHILS # (AUTO) 5.9 10^3/uL (1.5-6.6); NEUTROPHILS % (AUTO) 86.5 %; PLT - PLATELET COUNT 53 10^3/uL (130-450); RED BLOOD COUNT 2.83 10^6/uL (4.70-6.10); RED CELL DISTRIBUTION WIDTH 14.5 % (12.0-15.0); WHITE BLOOD COUNT 6.8 x10^3/uL (4.8-10.8)
[2019-07-18 05:04] LABS: CALCIUM 8.1 mg/dL (8.5-10.3); CREATININE 1.3 mg/dL (0.6-1.2)
[2019-07-18] MEDS: BUMETANIDE 1 MG/4 ML VIAL IVP SCH ×2 (05:53→14:05)
[2019-07-18] MEDS: methylPREDNISolone SUCCINATE 40 MG/ML VIAL IVP SCH ×3 (05:54→21:09)
[2019-07-18] MEDS: SODIUM CHLORIDE FLUSH 0.9% 10 ML SYRINGE IVP SCH ×4 (05:54→21:09)
[2019-07-18] MEDS: HYDROcod/ACETAM 5/325 MG TABLET PO SCH ×3 (05:54→21:09)
[2019-07-18] MEDS: IPRATROPIUM/ALBUTEROL 3 ML NEB INH SCH ×4 (07:33→19:24)
[2019-07-18] MEDS: INSULIN ASPART 300 UNIT/3 ML PEN SUBQ SCH ×4 (09:35→21:00)
[2019-07-18] MEDS: ASPIRIN EC 81 MG TABLET PO SCH (09:36)
[2019-07-18] MEDS: AZITHROMYCIN 250 MG TABLET PO SCH (09:37)
[2019-07-18] MEDS: DULoxetine 30 MG CAPSULE PO SCH (09:37)
[2019-07-18] MEDS: FAMOTIDINE 20 MG TABLET PO SCH ×2 (09:38→21:01)
[2019-07-18] MEDS: guaiFENesin 600 MG TABLET PO SCH ×2 (09:38→21:01)
[2019-07-18] MEDS: LISINOPRIL 5 MG TABLET PO SCH (09:39)
[2019-07-18] MEDS: METOPROLOL SUCCINATE 25 MG TABLET PO SCH (09:40)
--- OUTSIDE RECORDS SUMMARY | 2019-07-18 10:17 | EXTERNAL MEDICAL SUMMARY RPT | Clinical Summary ---
:1950 Author Name Karen, EMR Application Suppo rt Medical Laboratory Technologist, Maggie Black Address [address] [place] [id number] PROBLEMS Condition Status Date Provider Notes Leg edema, right active Carlos Kurtz MD Neoplasm, skin, uncertain active Carlos Cerrato ock, behavior Tremor, essential active Carlos Kurtz MD Dyspepsia active Carlos Kurtz MD Anxiety depression active Carlos Kurtz MD Respiratory failure, acute completed - Carlos myers, termite control representative opioid therapy active Carlos stearns MD Preventive health care, adult completed - Carlos coppolarock, COPD active Carlos Kurtz MD Pulmonary hypertension active Carlos Kurtz MD Dyspnea on exertion completed - Carlos Kurtz, Rash and other nonspecific completed - Carlos myers, skin eruption Screening for malignant completed - Carlos Wiggins k, neoplasm, colon Lymphedema active Carlos Kurtz MD Cellulitis, leg, right active Marvin Barahona Dyspnea on exertion completed - Carlos Kurtz, Bronchitis, acute completed - Carlos Kurtz, Subconjunctival hemorrhage, completed - Calros Rai Dragan grock, left Diabetic peripheral neuropathy active Carlos Kurtz MD DEGENERATIVE JOINT DISEASE, active Carlos krauseck, KNEE MD Eczema active Carlos Kurtz MD Knee pain, left completed - Carlos Kurtz, Dizziness/vertigo completed - Carlos Kurtz, Non-pressure chronic ulcer of completed - Carlos caban, other part of right lower leg with unspecified severity Psoriasis active Vinicio Baca, DO Eye pain, left completed - Carlos Kurtz, Tinea corporis completed - Carlos Kurtz, CELLULITIS/ABSCESS NOS completed - Carlos Kurtz , DIABETES MELLITUS active Carlos Kurtz MD THROMBOCYTOPENIA active Carlos Kurtz MD SHINGLES completed - Carlos Kurtz, VENOUS INSUFFICIENCY, CHRONIC active Carlos caban MD DEGENERATIVE JOINT DISEASE, active Carlos méndez, RIGHT KNEE NEOPLASM, SKIN, UNCERTAIN completed - Carlos Cerrato ock, BEHAVIOR BENIGN PROSTATIC HYPERTROPHY, active Carlos caban, WITH OBSTRUCTION RENAL CALCULUS active Carlos Kurtz MD INGUINAL HERNIA, LEFT completed - Carlos Kurtz, EDEMA completed - Carlos Kurtz, VARIX, SCROTAL, LEFT completed - Carlos Kurtz, ACTINIC KERATOSIS completed - Carlos Kurtz, NEOPLASM, SKIN, UNCERTAIN completed - Carlos Cerrato ock, BEHAVIOR ULCER, LEG completed - Carlos Kurtz, MD INSULIN RESISTANCE SYNDROME completed - Carlos méndez, MD ENCOUNTERS Date Type Provider Location Encounter Diagnosis - [facility] MD Luiza Law, TRAFFIC REPRESENTATIVE VITAL SIGNS Date Observation Value Provider blood pressure, cuff size regular Luiza [place], TRAFFIC REPRESENTATIVE " blood pressure, site #1 L. arm sitting Luiza O 'Mariusz, TRAFFIC REPRESENTATIVE " blood pressure, diastolic 56 mm[Hg] Luiza [place], TRAFFIC REPRESENTATIVE " blood pressure, systolic 118 mm[Hg] Luiza [place], TRAFFIC REPRESENTATIVE " pulse rate E&M 49 /min Luiza [place], TRAFFIC REPRESENTATIVE " oxygen saturation, oximetry 94 % Kayl ee [place], TRAFFIC REPRESENTATIVE " respiratory rate E&M 16 /min Luiza O'Ne ill, TRAFFIC REPRESENTATIVE " temperature site oral Luiza [place], TRAFFIC REPRESENTATIVE " temperature E&M 97.7 [degF] Luiza [place], TRAFFIC REPRESENTATIVE " height E&M 75 [in_i] Luiza [place], TRAFFIC REPRESENTATIVE ALLERGIES Allergy Name Onset Date Reaction Criticality Status AMOXICILLIN Rash High Criticality active REASON FOR REFERRAL No Information Available RESULTS No Information Available HISTORY OF IMMUNIZATIONS No Information Available HISTORY OF MEDICATION USE Medication Instructions Dates Provider Comments DULOXETINE HCL 30 MG Take one capsule by Carlos méndez, ORAL CAPSULE DELAYED mouth once daily for MD RELEASE PARTICLES burning in feet and legs DICLOFENAC SODIUM 1 % Apply 2-4 grams to Carlos méndez, TRANSDERMAL GEL affected areas four MD times daily as needed for pain DISABLED PARKING PERMIT Diagnosis: Patient Luiza Gorman'Ne TIERA castillo unable to walk more than 200 feet without stopping to rest. Length of Need: 99 months OMEPRAZOLE 20 MG CPDR TAKE ONE CAPSULE BY Luiza O'Nejose david blanco CMA 20 CAP MOUTH ONCE DAILY FOR INDIGESTION BUMEX 2 MG ORAL TABLET 3 tabs in AM and one Carlos Kurtz, tab in early afternoon FLORASTOR 250 MG ORAL Luiza [place], TRAFFIC REPRESENTATIVE CAPSULE MAGNESIUM 400 MG ORAL Take one tablet by Luiza O'Nathan l, TRAFFIC REPRESENTATIVE TABLET mouth once daily COMBIVENT RESPIMAT Inhale one puff four Luiza [place] , TRAFFIC REPRESENTATIVE 20-100 MCG/ACT times daily and as INHALATION AEROSOL needed-not to exceed SOLUTIO six puffs per day MUCINEX 600 MG ORAL Take twice cash for an Luiza O'N eill, TRAFFIC REPRESENTATIVE TABLET EXTENDED RELEASE additional 2 weeks 12 HOUR FLOMAX 0.4 MG ORAL Take one capsule by Luiza [place], TRAFFIC REPRESENTATIVE CAPSULE mouth once every evening MULTIVITAMIN ADULT ORAL Take one tabley by Luiza O'Ne ill, TRAFFIC REPRESENTATIVE TABLET mouth once daily BARIATRIC WALKER Patient unable to walk Luiza [place] , TRAFFIC REPRESENTATIVE unassisted. Dx I89.0 WALKER TALL EXTENSION Luiza [place], TRAFFIC REPRESENTATIVE LEGS VOLTAREN 1 % Apply 2-4 grams to Carlos Kurtz, TRANSDERMAL GEL affected areas four MD times daily as needed for pain GLUCOMETER AND TEST Check Blood Sugar twice Carlos Kurtz, STRIPS a day MD URBANO HEREDIA Dx: Massive lymphedema, Carlos Wiggins k, morbid obesity OXYGEN 2 liters nasal cannula Carlos Kurtz , O2 sat = 88% at rest MD VY CLEMENT WRAPS Both legs foot and calf Carlos Kurtz, with undersocks and oversocks so patient can pull on pants over them. CPAP MACHINE 13 cm H2O DX: Carlos Kurtz Obstructive Sleep Apnea JOBST COMPRESSION 40 mm Hg compression; Carlos myers, STOCKINGS, KNEE HIGH Size: 4X left leg, 3X MD WITH LATERAL ZIPPERS right leg ; Ankle: 14.5" Calf: 23.5" NYSTATIN 539161 UNIT/GM Apply to affected area Carlos Kurtz, EXTERNAL OINTMENT daily until symptoms MD resolved ACCU-CHEK ADRIA PLUS IN For use with glucose Arabella Delgadillo, VITRO STRIP testing once a day MA-C VENTOLIN HFA 90 MCG INHALE 2 PUFFS BY MOUTH Óscar Hernandez, INHALER 108 (90 BAS EVERY FOUR HOURS RN AERO NEEDED FOR WHEEZE SPIRIVA HANDIHALER 18 Inhale one capsuleby Arabella Black oore, MCG INHALATION CAPSULE mouth every morning MA-C HYDROCODONE-ACETAMINOPH Take one tab twice Carlos caban EN 5-325 MG ORAL TABLET daily for chronic pain LISINOPRIL 10 MG TABS TAKE 1/2 TABLET BY Carlos Rai Dragan grock, 10 TAB MOUTH ONCE DAILY TAMSULOSIN HCL 0.4 MG TAKE ONE CAPSULE BY Luiza blanco CMA CAPS 0.4 CAP MOUTH DAILY POTASSIUM CL ER 10 MEQ Take one tablet by Carlos Sutherland ngrock, TAB 10 TAB mouth three times daily CARVEDILOL 12.5 MG TABS TAKE ONE TABLET BY Andres Valdez ith, WAREHOUSE MAN 12.5 TAB MOUTH TWO TIMES DAILY ASPIRIN EC 325 MG ORAL 1 po daily Carlos Kurtz , TABLET DELAYED RELEASE METFORMIN HCL ER 500 MG TAKE ONE TABLET BY Óscar lai, TAB 500 TAB MOUTH DAILY RN SOCIAL HISTORY Date Observation Value Provider social history reviewed E&M reviewed - no change s Carlos Kurtz MD required " drug use, illicit no Luiza Gorman'TIERA Vee " alcohol use no Luiza [place], TRAFFIC REPRESENTATIVE " exercise type aquatic physical therapy Luiza Gorman'Mariusz TRAFFIC REPRESENTATIVE " passive cigarette smoke no Luiza Sherif 'Mariusz, TRAFFIC REPRESENTATIVE exposure " chewing tobacco use Never Luiza O'Nejose david blanco TRAFFIC REPRESENTATIVE " cigarette use yes Luiza Gorman'Nejonathan TRAFFIC REPRESENTATIVE " smoking status Former smoker Luiza Gorman'Mariusz TRAFFIC REPRESENTATIVE FUNCTIONAL STATUS No Information Available MENTAL STATUS No Information Available MEDICAL EQUIPMENT No Information Available FAMILY HISTORY Family Member Condition Father Family History of Heart Dise ase Father a father INSURANCE PROVIDERS Payer name Policy type / Coverage type Covered part y ID MEDICARE [facility] Medicare Part A [id number] [place] MEDICARE SUPPLEMENT Commercial [id number] [employer] BLUE CARD Blue Shield [id number] [facility] Blue Cross [id number] ADVANCE DIRECTIVES No Information Available TREATMENT PLAN Name Follow-up in August Date Name [id number] - OV, Expanded [id number] - OV, Expanded HISTORY OF PROCEDURES No Information Available GOALS No Information Available HEALTH CONCERNS No Information Available REASON FOR VISIT DM foot exam
[2019-07-18] MEDS: POLYETHYLENE GLYCOL 3350 17 GM PACKET PO SCH (12:28)
--- NOTE | 2019-07-18 13:48 | PROVIDER PROGRESS NOTE ---
Assessment/Plan - Problem List (1) COPD exacerbation Assessment/Plan: Still needed supplemental O2 with BIPAP, which will wean down slowly. Continue IV steroids, nebs, Singulair, Mucinex (2) Acute bronchitis Assessment/Plan: Continue IV antibiotics and pulm toilet (3) BALJIT (acute kidney injury) Assessment/Plan: Mildly rising creatinine, related to IV diuresis. Watch BMP daily (4) Chronic pain Assessment/Plan: Will resume his Voltaren gel. Will add Motrin prn, use minimally and watch creat (5) Anasarca Assessment/Plan: Continue with IV diuretics (6) New onset a-fib Assessment/Plan: Heart rate control is adequate on current management He cannot be on aspirin or anticoagulation due to chronic thrombocytopenia, it can be severe at times (7) Morbid obesity with BMI of 60.0-69.9, adult Assessment/Plan: We will plan PT and evaluate if he is rehabable (8) Sleep apnea Assessment/Plan: Continue his home CPAP unit when he is off BIPAP (9) DM type 2 (diabetes mellitus, type 2) Assessment/Plan: cc diet and ss Insulin continue (10) HTN (hypertension) Assessment/Plan: Current meds are controlling BP (11) Thrombocytopenia Assessment/Plan: This is a chronic and long-standing problem. No signs of bleeding. He cannot be on aspirin or anticoagulant for this reason (12) Anemia Assessment/Plan: Stable H/H (13) Hypothyroidism Assessment/Plan: Continue home dose of thyroid replacement (14) BPH (benign prostatic hyperplasia) Assessment/Plan: Continue home meds - Current Meds Current Meds: Current Medications Generic Name Dose Route Start Last Admin Trade Name Freq PRN Reason Stop Dose Admin Acetaminophen 650 mg 07/16/19 10:13 07/17/19 00:27 Tylenol PO 650 mg Q4HR PRN Administration Pain or Fever > 38C (100.4F) Hydrocodone Bitart/Acetaminophen 1 tab 07/17/19 02:00 07/18/19 05:54 [place] 5/325 PO 1 tab TID IAN Administration Albuterol 2.5 mg 07/16/19 15:13 07/17/19 07:21 INH 2.5 mg RTQ4H PRN Administration Wheezing Albuterol/Ipratropium 3 ml 07/17/19 15:00 07/18/19 11:57 Duoneb INH 3 ml RTQID IAN Administration Aspirin 81 mg 07/16/19 17:55 07/18/19 09:36 Ecotrin PO 81 mg DAILY IAN Administration Azithromycin 250 mg 07/17/19 09:00 07/18/19 09:37 Zithromax PO 07/21/19 00:00 250 mg DAILY IAN Administration Bumetanide 2 mg 07/17/19 06:00 07/18/19 05:53 Bumex Inj IVP 2 mg BIDDIURETIC IAN Administration Duloxetine HCl 30 mg 07/17/19 09:00 07/18/19 09:37 Cymbalta PO 30 mg DAILY IAN Administration Famotidine 20 mg 07/16/19 21:00 07/18/19 09:38 Pepcid PO 20 mg BID IAN Administration Guaifenesin 600 mg 07/16/19 11:00 07/18/19 09:38 Mucinex PO 600 mg BID IAN Administration Insulin Aspart 1 - 5 unit 07/17/19 17:00 07/18/19 12:27 Novolog SUBQ Not Given 0800,1200,1700,2100 [facility] Protocol Lidocaine 1 patch 07/16/19 17:45 07/16/19 18:16 Lidoderm Patch TOP 1 patch DAILY PRN Administration PAIN Lisinopril 10 mg 07/17/19 09:00 07/18/19 09:39 Zestril PO 10 mg DAILY IAN Administration Methylprednisolone 80 mg 07/16/19 14:00 07/18/19 05:54 Solu-Medrol (40mg Vial) IVP 80 mg Q8HR IAN Administration Metoprolol Succinate 25 mg 07/17/19 09:00 07/18/19 09:40 Toprol Xl PO 25 mg DAILY IAN Administration Montelukast Sodium 10 mg 07/16/19 21:00 07/17/19 20:50 Singulair PO 10 mg QPM IAN Administration Polyethylene Glycol 17 gm 07/18/19 12:00 07/18/19 12:28 Miralax PO 17 gm DAILY IAN Administration Prochlorperazine Edisylate 10 mg 07/16/19 10:13 07/17/19 12:44 Compazine Inj IVP 10 mg Q6HR PRN Administration Nausea / Vomiting Sodium Chloride 10 ml 07/16/19 17:00 07/18/19 09:43 Normal Saline Flush 0.9% IVP 10 ml 0100,0900,1700 IAN Administration Sodium Chloride 10 ml 07/16/19 10:13 07/17/19 14:05 Normal Saline Flush 0.9% IVP 10 ml PRN PRN Administration NEEDED PER PROVIDER ORDERS Tamsulosin HCl 0.4 mg 07/16/19 21:00 07/17/19 20:50 Flomax PO 0.4 mg QPM IAN Administration - Lab Result Fish Bone Diagrams: 07/21/19 04:40 07/21/19 04:40 - Additional Planning My Orders: My Active Orders 07/17/19 13:01 Blood Glucose Checks - Eating [RC] 0800,1200,1700,2100 Initiate Hypoglycemia Protocol [RC] .protocol 07/17/19 14:14 RT [Oxygen Therapy] [] .cont 07/17/19 15:00 Ipratropium/Albuterol [Duoneb] 3 ml INH RTQID 07/17/19 15:45 Zinc Oxide 20% Oint [Zinc Oxide] 1 applic TOP PRN PRN 07/17/19 17:00 Insulin Aspart [NovoLOG] 1 - 5 unit SUBQ 0800,1200,1700,2100 07/18/19 12:00 Polyethylene Glycol 3350 [Miralax] 17 gm PO DAILY 07/19/19 05:00 BMP - BASIC METABOLIC PANEL [CHEM] DAILYLAB CBC - COMP BLD CT W/AUTO DIFF [HEME] DAILYLAB Subjective - Subjective Patient Reports: Feeling Better Nursing Reports: Other (Told his RN he has pain "all over when moves") Objective Vital Signs: Vital Signs - 24 hr 07/17/19 07/17/19 07/17/19 14:12 15:00 16:59 Temperature 36.6 C Heart Rate 64 Heart Rate [ 64 65 Monitoring electrodes] Respiratory 16 15 18 Rate Blood Pressure 111/46 L 128/61 [Left Radial artery] O2 Saturation 91 L 93 07/17/19 07/17/19 07/17/19 18:00 19:00 20:09 Temperature 36.8 C Heart Rate 64 Heart Rate [ 69 Monitoring electrodes] Respiratory 16 13 Rate Blood Pressure 109/43 L [Left Radial artery] O2 Saturation 90 L 07/17/19 07/17/19 07/18/19 21:00 23:00 00:00 Temperature 36.6 C Heart Rate Heart Rate [ 61 59 L 58 L Monitoring electrodes] Respiratory 12 14 14 Rate Blood Pressure 112/53 L 103/50 L 104/44 L [Left Radial artery] O2 Saturation 94 89 L 91 L 07/18/19 07/18/19 07/18/19 01:00 03:00 04:00 Temperature 36.6 C Heart Rate Heart Rate [ 60 60 56 L Monitoring electrodes] Respiratory 14 14 14 Rate Blood Pressure 109/54 L 98/57 L 105/53 L [Left Radial artery] O2 Saturation 93 92 92 07/18/19 07/18/19 07/18/19 05:00 07:00 07:36 Temperature Heart Rate 58 L Heart Rate [ 66 54 L Monitoring electrodes] Respiratory 15 14 14 Rate Blood Pressure 104/51 L 125/63 [Left Radial artery] O2 Saturation 92 98 07/18/19 07/18/19 07/18/19 08:03 09:00 11:00 Temperature 36.6 C Heart Rate Heart Rate [ 64 74 64 Monitoring electrodes] Respiratory 13 19 12 Rate Blood Pressure 108/54 L 120/52 L 95/51 L [Left Radial artery] O2 Saturation 94 97 96 07/18/19 07/18/19 11:58 13:00 Temperature 36.6 C Heart Rate 60 Heart Rate [ 62 Monitoring electrodes] Respiratory 21 17 Rate Blood Pressure 105/59 L [Left Radial artery] O2 Saturation 94 Oxygen O2 Source Nasal cannula I&O (Last 24 Hrs): Intake and Output Totals x24h 07/16/19 07/17/19 07/18/19 23:59 23:59 23:59 Intake Total 1420 2190 2260 Output Total 3680 1865 1080 Balance -2260 325 1180 General: Alert, Oriented x3 Neck: Other (Obese, cannot eval JVD) Cardiovascular: Other (Distant heart sounds, not tachycardic) Respiratory: No respiratory distress, Other (Poor air movement, no wheezes, rales or rhonchi heard) Abdomen: Soft, Other (Obese with pannus) Extremities: Other (3+ edema) - Results Results: Laboratory Results WBC 6.8 x10^3/uL (4.8-10.8) 07/18/19 04:30 RBC 2.83 10^6/uL (4.70-6.10) L 07/18/19 04:30 Hgb 9.7 g/dL (14.0-18.0) L 07/18/19 04:30 Hct 29.2 % (42.0-52.0) L 07/18/19 04:30 MCV 103.2 fL (80.0-94.0) H 07/18/19 04:30 MCH 34.3 pg (27.0-31.0) H 07/18/19 04:30 MCHC 33.2 g/dL (32.0-36.0) 07/18/19 04:30 RDW 14.5 % (12.0-15.0) 07/18/19 04:30 Plt Count 53 10^3/uL (130-450) L 07/18/19 04:30 MPV 12.5 fL (7.4-11.4) H 07/18/19 04:30 Neut # (Auto) 5.9 10^3/uL (1.5-6.6) 07/18/19 04:30 Lymph # (Auto) 0.7 10^3/uL (1.5-3.5) L 07/18/19 04:30 [place] # (Auto) 0.2 10^3/uL (0.0-1.0) 07/18/19 04:30 Eos # (Auto) 0.0 10^3/uL (0.0-0.7) 07/18/19 04:30 Baso # (Auto) 0.0 10^3/uL (0.0-0.1) 07/18/19 04:30 Absolute Nucleated RBC 0.00 x10^3/uL 07/18/19 04:30 Total Counted 100 07/17/19 04:25 Band Neuts % (Manual) 3 % (0-10) 07/17/19 04:25 Abnorm Lymph % (Manual) 0 % 07/17/19 04:25 Neutrophils # (Manual) 2.8 10^3/uL (1.5-6.6) 07/17/19 04:25 Nucleated RBC % 0.0 /100WBC 07/18/19 04:30 Lymphocytes # (Manual) 0.8 10^3/uL (1.5-3.5) L 07/17/19 04:25 Monocytes # (Manual) 0.1 10^3/uL (0.0-1.0) 07/17/19 04:25 Eosinophils # (Manual) 0.0 10^3/uL (0-0.7) 07/17/19 04:25 Basophils # (Manual) 0.0 10^3/uL (0-0.1) 07/17/19 04:25 Differential Comment MANUAL DIFFERENTIAL 07/17/19 04:25 Platelet Estimate DECREASED (<130,000) (NORMAL) 07/17/19 04:25 RBC Morph Micro Appear NORMAL APPEARANCE (NORMAL) 07/17/19 04:25 Bld Gas Analysis Time 0437 07/17/19 04:33 Sample Site LEFT RADIAL 07/17/19 04:33 ABG pH 7.45 (7.35-7.45) 07/17/19 04:33 ABG pCO2 54 mmHg (34-45) H 07/17/19 04:33 ABG pO2 59 mmHg (80-100) L 07/17/19 04:33 ABG HCO3 37.3 mmol/L (22.0-26.0) H 07/17/19 04:33 ABG Total CO2 39.0 MMOL/L (21.0-29.0) H 07/17/19 04:33 ABG O2 Saturation 90 % (94-98) L 07/17/19 04:33 ABG Base Excess 11.7 mmol/L (-2.0-3.0) H 07/17/19 04:33 Clay Test POSITIVE 07/17/19 04:33 VBG pH 7.444 (7.31-7.41) H 07/16/19 08:58 VBG pCO2 53.0 mmHg (41-51) H 07/16/19 08:58 VBG pO2 49.8 mmHg (25-47) H 07/16/19 08:58 VBG HCO3 35.5 mmol/L (23-28) H 07/16/19 08:58 VBG Total CO2 37.1 mmol/L (24-29) H 07/16/19 08:58 VBG O2 Saturation 83.8 % (60-80) H 07/16/19 08:58 VBG Base Excess 9.9 mmol/L (-2 - +2) H 07/16/19 08:58 O2 Delivery Device BiPAP 07/17/19 04:33 FiO2 35.00 11/21/19 04:33 EPAP 5 cmH2O 07/17/19 04:33 IPAP 12 cmH2O 07/17/19 04:33 Sodium 138 mmol/L (135-145) 07/18/19 04:30 Potassium 4.1 mmol/L (3.5-5.0) 07/18/19 04:30 Chloride 95 mmol/L (101-111) L 07/18/19 04:30 Carbon Dioxide 36 mmol/L (21-32) H 07/18/19 04:30 Anion Gap 7.0 (6-13) 07/18/19 04:30 BUN 29 mg/dL (6-20) H 07/18/19 04:30 Creatinine 1.3 mg/dL (0.6-1.2) H 07/18/19 04:30 Estimated GFR (MDRD) 55 (>89) L 07/18/19 04:30 Glucose 146 mg/dL (70-100) H 07/18/19 04:30 Glycated Hemoglobin 5.1 % (4.6-6.2) 07/17/19 04:25 Estim Average Glucose 100 (70-100) 07/17/19 04:25 Lactic Acid 1.7 mmol/L (0.5-2.2) 07/16/19 08:47 Calcium 8.1 mg/dL (8.5-10.3) L 07/18/19 04:30 Magnesium 1.7 mg/dL (1.7-2.8) 07/17/19 10:04 Total Bilirubin 2.2 mg/dL (0.2-1.0) H 07/16/19 08:30 AST 64 IU/L (10-42) H 07/16/19 08:30 ALT 24 IU/L (10-60) 07/16/19 08:30 Alkaline Phosphatase 71 IU/L (42-121) 07/16/19 08:30 Troponin I High Sens 28.2 ng/L (2.3-19.7) H* 07/16/19 11:51 B-Natriuretic Peptide 224 pg/mL (5-100) H 07/16/19 08:30 Total Protein 5.9 g/dL (6.7-8.2) L 07/16/19 08:30 Albumin 2.6 g/dL (3.2-5.5) L 07/16/19 08:30 Globulin 3.3 g/dL (2.1-4.2) 07/16/19 08:30 Albumin/Globulin Ratio 0.8 (1.0-2.2) L 07/16/19 08:30 Lipase 31 U/L (22-51) 07/16/19 08:30 Vitamin B12 1014 pg/mL (180-914) H 07/17/19 04:25 Folate 6.77 ng/mL (5.90 - >24.8) 07/17/19 04:25 TSH 0.97 uIU/mL (0.34-5.60) 07/17/19 04:25 Urine Color DARK YELLOW 07/16/19 09:50 Urine Clarity CLEAR (CLEAR) 07/16/19 09:50 Urine pH 6.0 PH (5.0-7.5) 07/16/19 09:50 Ur Specific [place] 1.010 (1.002-1.030) 07/16/19 09:50 Urine Protein NEGATIVE mg/dL (NEGATIVE) 07/16/19 09:50 Urine Glucose (UA) NEGATIVE mg/dL (NEGATIVE) 07/16/19 09:50 Urine Ketones NEGATIVE mg/dL (NEGATIVE) 07/16/19 09:50 Urine Occult Blood NEGATIVE (NEGATIVE) 07/16/19 09:50 Urine Nitrite NEGATIVE (NEGATIVE) 07/16/19 09:50 Urine Bilirubin NEGATIVE (NEGATIVE) 07/16/19 09:50 Urine Urobilinogen 1 (NORMAL) E.U./dL (NORMAL) 07/16/19 09:50 Ur Leukocyte Esterase NEGATIVE (NEGATIVE) 07/16/19 09:50 Ur Microscopic Review NOT INDICATED 07/16/19 09:50 Urine Culture Comments NOT INDICATED 07/16/19 09:50 Nasal Screen MRSA (PCR) NEGATIVE (NEGATIVE) 07/16/19 11:30 - Procedures Procedures: Procedures EXCISION OF RECTUM, ENDO (08/22/16) EXCISION OF RIGHT LARGE INTESTINE, ENDO (08/22/16) EXCISION OF SIGMOID COLON, ENDO (08/22/16) EXCISION OF TRANSVERSE COLON, ENDO (08/22/16)
[2019-07-18] MEDS: SODIUM CHLORIDE FLUSH 0.9% 10 ML SYRINGE IVP PRN (14:12)
[2019-07-18] MEDS ORDERED: DICLOFENAC SODIUM 1 GM TOP PRN (18:02)
[2019-07-18] MEDS: IBUPROFEN 600 MG TABLET PO PRN (18:27)
[2019-07-18] MEDS: TAMSULOSIN 0.4 MG CAPSULE PO SCH (21:01)
[2019-07-18] MEDS: MONTELUKAST 10 MG TABLET PO SCH (21:01)
[2019-07-18] MEDS: LIDOCAINE PATCH 5% TOP PRN (23:03)
[2019-07-19 05:28] LABS: HGB - HEMOGLOBIN 9.7 g/dL (14.0-18.0); LYMPHOCYTES # (AUTO) 0.6 10^3/uL (1.5-3.5); LYMPHOCYTES % (AUTO) 8.9 %; MEAN CORPUSCULAR HEMOGLOBIN 33.4 pg (27.0-31.0); MEAN CORPUSCULAR HGB CONC 32.4 g/dL (32.0-36.0); MEAN CORPUSCULAR VOLUME 103.1 fL (80.0-94.0); MEAN PLATELET VOLUME 12.3 fL (7.4-11.4); MONOCYTES # (AUTO) 0.3 10^3/uL (0.0-1.0); MONOCYTES % (AUTO) 4.2 %; NEUTROPHILS # (AUTO) 5.3 10^3/uL (1.5-6.6); NEUTROPHILS % (AUTO) 86.3 %; RED CELL DISTRIBUTION WIDTH 14.6 % (12.0-15.0); WHITE BLOOD COUNT 6.2 x10^3/uL (4.8-10.8)
[2019-07-19 05:31] LABS: PLT - PLATELET COUNT 30 10^3/uL (130-450)
[2019-07-19 05:46] LABS: CALCIUM 8.1 mg/dL (8.5-10.3); CREATININE 1.6 mg/dL (0.6-1.2)
[2019-07-19 05:47] LABS: PLATELET MORPHOLOGY NORMAL APPEARANCE (NORMAL); RBC MORPHOLOGY (MULTIPLE) NORMAL APPEARANCE (NORMAL)
[2019-07-19 05:48] LABS: PLATELET ESTIMATE, MANUAL DECREASED (<130,000) (NORMAL)
[2019-07-19] MEDS: HYDROcod/ACETAM 5/325 MG TABLET PO SCH ×3 (06:06→22:17)
[2019-07-19] MEDS: SODIUM CHLORIDE FLUSH 0.9% 10 ML SYRINGE IVP PRN ×2 (06:06→22:23)
[2019-07-19] MEDS: methylPREDNISolone SUCCINATE 40 MG/ML VIAL IVP SCH ×3 (06:06→22:18)
[2019-07-19] MEDS: BUMETANIDE 1 MG/4 ML VIAL IVP SCH (06:07)
[2019-07-19] MEDS: INSULIN ASPART 300 UNIT/3 ML PEN SUBQ SCH ×4 (08:25→22:23)
[2019-07-19] MEDS: SODIUM CHLORIDE FLUSH 0.9% 10 ML SYRINGE IVP SCH ×3 (08:29→23:47)
--- NOTE | 2019-07-19 08:50 | PROVIDER PROGRESS NOTE ---
Assessment/Plan - Problem List (1) COPD exacerbation Assessment/Plan: He did not need the BIPAP overnight Will decrease iv steroid dose from 80 mg q8h to 40 mg q8h Continue nebs, Mucinex, Singulair We will move out of ICU (2) Acute bronchitis Assessment/Plan: Empiric antibx til DCh planned (3) BALJIT (acute kidney injury) Assessment/Plan: Rising BUN/creat Will decrease iv diuretic to daily Monitor BMP daily (4) Chronic pain Assessment/Plan: Better pain control (5) Anasarca Assessment/Plan: Slow improvement in overall fluid retention (6) New onset a-fib Assessment/Plan: Heart rate control is adequate on current management He cannot be on aspirin or anticoagulation due to chronic thrombocytopenia, it can be severe at times (7) Morbid obesity with BMI of 60.0-69.9, adult Assessment/Plan: He is mostly bedbound at home, per the . PT to start with him, he was able to stand at the bedside only thus far If he is rehab verbal and needs SNF, he will need a bariatric bed (8) Sleep apnea Assessment/Plan: Home CPAP device ordered to use while here (9) DM type 2 (diabetes mellitus, type 2) Assessment/Plan: cc diet, ss Insulin continues (10) HTN (hypertension) Assessment/Plan: BP controlled on current meds (11) Thrombocytopenia Assessment/Plan: This is a chronic and long-standing problem. No signs of bleeding. He cannot be on aspirin or anticoagulant for this reason (12) Anemia Assessment/Plan: Stable H/H (13) Hypothyroidism Assessment/Plan: Continue his home thyroid replacement dose (14) BPH (benign prostatic hyperplasia) Assessment/Plan: Continue his home meds for this - Current Meds Current Meds: Current Medications Generic Name Dose Route Start Last Admin Trade Name Freq PRN Reason Stop Dose Admin Acetaminophen 650 mg 07/16/19 10:13 07/17/19 00:27 Tylenol PO 650 mg Q4HR PRN Administration Pain or Fever > 38C (100.4F) Hydrocodone Bitart/Acetaminophen 1 tab 07/17/19 02:00 07/19/19 06:06 [place] 5/325 PO 1 tab TID IAN Administration Albuterol 2.5 mg 07/16/19 15:13 07/17/19 07:21 INH 2.5 mg RTQ4H PRN Administration Wheezing Albuterol/Ipratropium 3 ml 07/17/19 15:00 07/18/19 19:24 Duoneb INH 3 ml RTQID IAN Administration Aspirin 81 mg 07/16/19 17:55 07/18/19 09:36 Ecotrin PO 81 mg DAILY IAN Administration Azithromycin 250 mg 07/17/19 09:00 07/18/19 09:37 Zithromax PO 07/21/19 00:00 250 mg DAILY IAN Administration Duloxetine HCl 30 mg 07/17/19 09:00 07/18/19 09:37 Cymbalta PO 30 mg DAILY IAN Administration Famotidine 20 mg 07/16/19 21:00 07/18/19 21:01 Pepcid PO 20 mg BID IAN Administration Guaifenesin 600 mg 07/16/19 11:00 07/18/19 21:01 Mucinex PO 600 mg BID IAN Administration Ibuprofen 600 mg 07/18/19 18:03 07/18/19 18:27 Motrin PO 600 mg Q6HR PRN Administration PAIN Insulin Aspart 1 - 5 unit 07/17/19 17:00 07/19/19 08:25 Novolog SUBQ Not Given 0800,1200,1700,2100 [facility] Protocol Lidocaine 1 patch 07/16/19 17:45 07/18/19 23:03 Lidoderm Patch TOP 1 patch DAILY PRN Administration PAIN Lisinopril 10 mg 07/17/19 09:00 07/18/19 09:39 Zestril PO 10 mg DAILY IAN Administration Metoprolol Succinate 25 mg 07/17/19 09:00 07/18/19 09:40 Toprol Xl PO 25 mg DAILY IAN Administration Montelukast Sodium 10 mg 07/16/19 21:00 07/18/19 21:01 Singulair PO 10 mg QPM IAN Administration Polyethylene Glycol 17 gm 07/18/19 12:00 07/18/19 12:28 Miralax PO 17 gm DAILY IAN Administration Prochlorperazine Edisylate 10 mg 07/16/19 10:13 07/17/19 12:44 Compazine Inj IVP 10 mg Q6HR PRN Administration Nausea / Vomiting Sodium Chloride 10 ml 07/16/19 17:00 07/19/19 08:29 Normal Saline Flush 0.9% IVP 10 ml 0100,0900,1700 IAN Administration Sodium Chloride 10 ml 07/16/19 10:13 07/19/19 06:06 Normal Saline Flush 0.9% IVP 10 ml PRN PRN Administration NEEDED PER PROVIDER ORDERS Tamsulosin HCl 0.4 mg 07/16/19 21:00 07/18/19 21:01 Flomax PO 0.4 mg QPM IAN Administration - Lab Result Fish Bone Diagrams: 07/21/19 04:40 07/21/19 04:40 - Additional Planning My Orders: My Active Orders 07/18/19 12:00 Polyethylene Glycol 3350 [Miralax] 17 gm PO DAILY 07/18/19 18:02 Patient Own Med [Patient Own Medication] 1 each TOP TID PRN 07/18/19 18:03 Ibuprofen [Motrin] 600 mg PO Q6HR PRN 07/19/19 14:00 methylPREDNISolone SUCCINATE [SOLU-Medrol (40MG VIAL)] 40 mg IVP Q8HR 07/20/19 05:00 BMP - BASIC METABOLIC PANEL [CHEM] DAILYLAB 07/20/19 09:00 Bumetanide Inj [Bumex Inj] 3 mg IVP DAILY Subjective - Subjective Patient Reports: Feeling Better, Resting Comfortably Objective Vital Signs: Vital Signs - 24 hr 07/18/19 07/18/19 07/18/19 09:00 11:00 11:58 Temperature Heart Rate 60 Heart Rate [ 74 64 Monitoring electrodes] Heart Rate [ Sitting] Heart Rate [ Supine] Respiratory 19 12 21 Rate Blood Pressure 120/52 L 95/51 L [Left Radial artery] Blood Pressure [Sitting] Blood Pressure [Supine] O2 Saturation 97 96 07/18/19 07/18/19 07/18/19 13:00 13:48 15:00 Temperature 36.6 C Heart Rate Heart Rate [ 62 54 L Monitoring electrodes] Heart Rate [ 78 Sitting] Heart Rate [ 60 Supine] Respiratory 17 17 Rate Blood Pressure 105/59 L 94/50 L [Left Radial artery] Blood Pressure 114/52 L [Sitting] Blood Pressure 104/48 L [Supine] O2 Saturation 94 96 07/18/19 07/18/19 07/18/19 15:02 15:41 16:00 Temperature Heart Rate 56 L Heart Rate [ 58 L Monitoring electrodes] Heart Rate [ Sitting] Heart Rate [ Supine] Respiratory 14 13 Rate Blood Pressure 98/50 L 103/41 L [Left Radial artery] Blood Pressure [Sitting] Blood Pressure [Supine] O2 Saturation 94 07/18/19 07/18/19 07/18/19 16:19 17:00 19:25 Temperature 36.8 C Heart Rate 70 Heart Rate [ 73 Monitoring electrodes] Heart Rate [ Sitting] Heart Rate [ Supine] Respiratory 15 16 Rate Blood Pressure 111/49 L [Left Radial artery] Blood Pressure [Sitting] Blood Pressure [Supine] O2 Saturation 94 07/18/19 07/19/19 07/19/19 21:00 01:00 05:00 Temperature 37.0 C Heart Rate Heart Rate [ 65 57 L 62 Monitoring electrodes] Heart Rate [ Sitting] Heart Rate [ Supine] Respiratory 18 17 14 Rate Blood Pressure 103/54 L 99/47 L 104/40 L [Left Radial artery] Blood Pressure [Sitting] Blood Pressure [Supine] O2 Saturation 98 93 97 07/19/19 07:00 Temperature Heart Rate Heart Rate [ 56 L Monitoring electrodes] Heart Rate [ Sitting] Heart Rate [ Supine] Respiratory 14 Rate Blood Pressure 115/53 L [Left Radial artery] Blood Pressure [Sitting] Blood Pressure [Supine] O2 Saturation 95 Oxygen O2 Source CPAP I&O (Last 24 Hrs): Intake and Output Totals x24h 07/17/19 07/18/19 07/19/19 23:59 23:59 23:59 Intake Total 2190 2860 500 Output Total 1865 1834 590 Balance 325 1026 -90 General: Alert, Oriented x3 HEENT: Mucous membr. moist/pink Neck: Other (Obese, cannot evaluate JVD) Neuro: Non Focal Cardiovascular: Other (Distant heart sounds, not tachy) Respiratory: No respiratory distress, Other (Poor air movement, no wheezes rales or rhonchi heard) Abdomen: Soft, Other (Obese with pannus) Extremities: Other (3+ edema, hands no longer have edema) - Results Results: Laboratory Results WBC 6.2 x10^3/uL (4.8-10.8) 07/19/19 04:59 RBC 2.90 10^6/uL (4.70-6.10) L 07/19/19 04:59 Hgb 9.7 g/dL (14.0-18.0) L 07/19/19 04:59 Hct 29.9 % (42.0-52.0) L 07/19/19 04:59 MCV 103.1 fL (80.0-94.0) H 07/19/19 04:59 MCH 33.4 pg (27.0-31.0) H 07/19/19 04:59 MCHC 32.4 g/dL (32.0-36.0) 07/19/19 04:59 RDW 14.6 % (12.0-15.0) 07/19/19 04:59 Plt Count 30 10^3/uL (130-450) L* 07/19/19 04:59 MPV 12.3 fL (7.4-11.4) H 07/19/19 04:59 Neut # (Auto) 5.3 10^3/uL (1.5-6.6) 07/19/19 04:59 Lymph # (Auto) 0.6 10^3/uL (1.5-3.5) L 07/19/19 04:59 [place] # (Auto) 0.3 10^3/uL (0.0-1.0) 07/19/19 04:59 Eos # (Auto) 0.0 10^3/uL (0.0-0.7) 07/19/19 04:59 Baso # (Auto) 0.0 10^3/uL (0.0-0.1) 07/19/19 04:59 Absolute Nucleated RBC 0.00 x10^3/uL 07/19/19 04:59 Total Counted 100 07/17/19 04:25 Band Neuts % (Manual) 3 % (0-10) 07/17/19 04:25 Abnorm Lymph % (Manual) 0 % 07/17/19 04:25 Neutrophils # (Manual) 2.8 10^3/uL (1.5-6.6) 07/17/19 04:25 Nucleated RBC % 0.0 /100WBC 07/19/19 04:59 Lymphocytes # (Manual) 0.8 10^3/uL (1.5-3.5) L 07/17/19 04:25 Monocytes # (Manual) 0.1 10^3/uL (0.0-1.0) 07/17/19 04:25 Eosinophils # (Manual) 0.0 10^3/uL (0-0.7) 07/17/19 04:25 Basophils # (Manual) 0.0 10^3/uL (0-0.1) 07/17/19 04:25 Differential Comment MANUAL DIFFERENTIAL 07/17/19 04:25 WBC Morphology NORMAL APPEARANCE (NORMAL) 07/19/19 04:59 Platelet Estimate DECREASED (<130,000) (NORMAL) 07/19/19 04:59 Platelet Morphology NORMAL APPEARANCE (NORMAL) 07/19/19 04:59 RBC Morph Micro Appear NORMAL APPEARANCE (NORMAL) 07/19/19 04:59 Bld Gas Analysis Time 0437 07/17/19 04:33 Sample Site LEFT RADIAL 07/17/19 04:33 ABG pH 7.45 (7.35-7.45) 07/17/19 04:33 ABG pCO2 54 mmHg (34-45) H 07/17/19 04:33 ABG pO2 59 mmHg (80-100) L 07/17/19 04:33 ABG HCO3 37.3 mmol/L (22.0-26.0) H 07/17/19 04:33 ABG Total CO2 39.0 MMOL/L (21.0-29.0) H 07/17/19 04:33 ABG O2 Saturation 90 % (94-98) L 07/17/19 04:33 ABG Base Excess 11.7 mmol/L (-2.0-3.0) H 07/17/19 04:33 Clay Test POSITIVE 07/17/19 04:33 VBG pH 7.444 (7.31-7.41) H 07/16/19 08:58 VBG pCO2 53.0 mmHg (41-51) H 07/16/19 08:58 VBG pO2 49.8 mmHg (25-47) H 07/16/19 08:58 VBG HCO3 35.5 mmol/L (23-28) H 07/16/19 08:58 VBG Total CO2 37.1 mmol/L (24-29) H 07/16/19 08:58 VBG O2 Saturation 83.8 % (60-80) H 07/16/19 08:58 VBG Base Excess 9.9 mmol/L (-2 - +2) H 07/16/19 08:58 O2 Delivery Device BiPAP 07/17/19 04:33 FiO2 35.00 07/17/19 04:33 EPAP 5 cmH2O 07/17/19 04:33 IPAP 12 cmH2O 07/17/19 04:33 Sodium 138 mmol/L (135-145) 07/19/19 04:59 Potassium 4.2 mmol/L (3.5-5.0) 07/19/19 04:59 Chloride 95 mmol/L (101-111) L 07/19/19 04:59 Carbon Dioxide 36 mmol/L (21-32) H 07/19/19 04:59 Anion Gap 7.0 (6-13) 07/19/19 04:59 BUN 36 mg/dL (6-20) H 07/19/19 04:59 Creatinine 1.6 mg/dL (0.6-1.2) H 07/19/19 04:59 Estimated GFR (MDRD) 43 (>89) L 07/19/19 04:59 Glucose 128 mg/dL (70-100) H 07/19/19 04:59 Glycated Hemoglobin 5.1 % (4.6-6.2) 07/17/19 04:25 Estim Average Glucose 100 (70-100) 07/17/19 04:25 Lactic Acid 1.7 mmol/L (0.5-2.2) 07/16/19 08:47 Calcium 8.1 mg/dL (8.5-10.3) L 07/19/19 04:59 Magnesium 1.7 mg/dL (1.7-2.8) 07/17/19 10:04 Phosphorus 4.0 mg/dL (2.5-4.6) 07/18/19 04:30 Total Bilirubin 2.2 mg/dL (0.2-1.0) H 07/16/19 08:30 AST 64 IU/L (10-42) H 07/16/19 08:30 ALT 24 IU/L (10-60) 07/16/19 08:30 Alkaline Phosphatase 71 IU/L (42-121) 07/16/19 08:30 Troponin I High Sens 28.2 ng/L (2.3-19.7) H* 07/16/19 11:51 B-Natriuretic Peptide 224 pg/mL (5-100) H 07/16/19 08:30 Total Protein 5.9 g/dL (6.7-8.2) L 07/16/19 08:30 Albumin 2.6 g/dL (3.2-5.5) L 07/16/19 08:30 Globulin 3.3 g/dL (2.1-4.2) 07/16/19 08:30 Albumin/Globulin Ratio 0.8 (1.0-2.2) L 07/16/19 08:30 Lipase 31 U/L (22-51) 07/16/19 08:30 Vitamin B12 1014 pg/mL (180-914) H 07/17/19 04:25 Folate 6.77 ng/mL (5.90 - >24.8) 07/17/19 04:25 TSH 0.97 uIU/mL (0.34-5.60) 07/17/19 04:25 Urine Color DARK YELLOW 07/16/19 09:50 Urine Clarity CLEAR (CLEAR) 07/16/19 09:50 Urine pH 6.0 PH (5.0-7.5) 07/16/19 09:50 Ur Specific [place] 1.010 (1.002-1.030) 07/16/19 09:50 Urine Protein NEGATIVE mg/dL (NEGATIVE) 07/16/19 09:50 Urine Glucose (UA) NEGATIVE mg/dL (NEGATIVE) 07/16/19 09:50 Urine Ketones NEGATIVE mg/dL (NEGATIVE) 07/16/19 09:50 Urine Occult Blood NEGATIVE (NEGATIVE) 07/16/19 09:50 Urine Nitrite NEGATIVE (NEGATIVE) 07/16/19 09:50 Urine Bilirubin NEGATIVE (NEGATIVE) 07/16/19 09:50 Urine Urobilinogen 1 (NORMAL) E.U./dL (NORMAL) 07/16/19 09:50 Ur Leukocyte Esterase NEGATIVE (NEGATIVE) 07/16/19 09:50 Ur Microscopic Review NOT INDICATED 07/16/19 09:50 Urine Culture Comments NOT INDICATED 07/16/19 09:50 Nasal Screen MRSA (PCR) NEGATIVE (NEGATIVE) 07/16/19 11:30 - Procedures Procedures: Procedures EXCISION OF RECTUM, ENDO (08/22/16) EXCISION OF RIGHT LARGE INTESTINE, ENDO (08/22/16) EXCISION OF SIGMOID COLON, ENDO (08/22/16) EXCISION OF TRANSVERSE COLON, ENDO (08/22/16)
[2019-07-19] MEDS: AZITHROMYCIN 250 MG TABLET PO SCH (08:55)
[2019-07-19] MEDS: DULoxetine 30 MG CAPSULE PO SCH (08:55)
[2019-07-19] MEDS: guaiFENesin 600 MG TABLET PO SCH ×2 (08:55→22:18)
[2019-07-19] MEDS: FAMOTIDINE 20 MG TABLET PO SCH ×2 (08:55→22:16)
[2019-07-19] MEDS: ASPIRIN EC 81 MG TABLET PO SCH (08:55)
[2019-07-19] MEDS: LISINOPRIL 5 MG TABLET PO SCH (08:55)
[2019-07-19] MEDS: METOPROLOL SUCCINATE 25 MG TABLET PO SCH (08:56)
[2019-07-19] MEDS: POLYETHYLENE GLYCOL 3350 17 GM PACKET PO SCH (08:56)
[2019-07-19] MEDS: IPRATROPIUM/ALBUTEROL 3 ML NEB INH SCH ×4 (09:25→21:20)
[2019-07-19] MEDS: IBUPROFEN 600 MG TABLET PO PRN (11:45)
[2019-07-19] MEDS: TAMSULOSIN 0.4 MG CAPSULE PO SCH (22:16)
[2019-07-19] MEDS: MONTELUKAST 10 MG TABLET PO SCH (22:17)
[2019-07-20 05:24] LABS: CALCIUM 7.9 mg/dL (8.5-10.3); CREATININE 1.6 mg/dL (0.6-1.2)
[2019-07-20] MEDS: methylPREDNISolone SUCCINATE 40 MG/ML VIAL IVP SCH ×3 (05:50→20:27)
[2019-07-20] MEDS: SODIUM CHLORIDE FLUSH 0.9% 10 ML SYRINGE IVP PRN ×2 (05:51→15:52)
[2019-07-20] MEDS: HYDROcod/ACETAM 5/325 MG TABLET PO SCH ×5 (05:59→20:26)
[2019-07-20] MEDS: IPRATROPIUM/ALBUTEROL 3 ML NEB INH SCH ×3 (08:15→16:30)
[2019-07-20] MEDS: POLYETHYLENE GLYCOL 3350 17 GM PACKET PO SCH (08:35)
[2019-07-20] MEDS: guaiFENesin 600 MG TABLET PO SCH ×2 (08:35→20:26)
[2019-07-20] MEDS: AZITHROMYCIN 250 MG TABLET PO SCH (08:36)
[2019-07-20] MEDS: DULoxetine 30 MG CAPSULE PO SCH (08:36)
[2019-07-20] MEDS: IBUPROFEN 600 MG TABLET PO PRN ×2 (08:36→18:03)
[2019-07-20] MEDS: FAMOTIDINE 20 MG TABLET PO SCH ×2 (08:36→20:25)
[2019-07-20] MEDS: METOPROLOL SUCCINATE 25 MG TABLET PO SCH (08:36)
[2019-07-20] MEDS: ASPIRIN EC 81 MG TABLET PO SCH (08:36)
[2019-07-20] MEDS: LISINOPRIL 5 MG TABLET PO SCH (08:36)
[2019-07-20] MEDS: INSULIN ASPART 300 UNIT/3 ML PEN SUBQ SCH ×4 (08:37→20:27)
[2019-07-20] MEDS: SODIUM CHLORIDE FLUSH 0.9% 10 ML SYRINGE IVP SCH ×2 (08:37→17:24)
[2019-07-20] MEDS ORDERED: BUMETANIDE 1 MG/4 ML VIAL IVP SCH (09:00)
[2019-07-20] MEDS: ACETAMINOPHEN 325 MG TABLET PO PRN (15:43)
--- NOTE | 2019-07-20 17:44 | PROVIDER PROGRESS NOTE ---
Assessment/Plan - Problem List (1) COPD exacerbation Assessment/Plan: Will try to wean down his supplemental oxygen to his baseline amount that he requires at home. If this can be done then he would be ready for discharge to either home or to SNF Continue management with nebs transitioning to inhalers, IV steroids transitioning to Medrol Dosepak, Singulair, Mucinex (2) Acute bronchitis Assessment/Plan: IV antibiotics empirically being dosed while here (3) BALJIT (acute kidney injury) Assessment/Plan: Blood pressure was low today therefore we will stop the IV diuretic completely, resume p.o. Lasix after a 24-hour break Monitor BMP daily (4) Anasarca Assessment/Plan: Slow improvement in overall fluid retention (5) New onset a-fib Assessment/Plan: Heart rate control is adequate on current management He cannot be on aspirin or anticoagulation due to chronic thrombocytopenia, it can be severe at times (6) Morbid obesity with BMI of 60.0-69.9, adult Assessment/Plan: He has very minimal capacity for PT due to hypersomnolence for the past 1-2 days If he is not rehabable, or no bariatric bed at a SNF can be found, will plan to [facility] home and order Home Health for PT and OT with a bath aide . I discussed this with the at length today, she is agreeable. Will plan for a transfer home if he id [facility] tomorrow, by S because of his bedbound status (7) Sleep apnea Assessment/Plan: Continue home CPAP device while here (8) DM type 2 (diabetes mellitus, type 2) Assessment/Plan: cc diet, ss Insulin (9) HTN (hypertension) Assessment/Plan: BP controlled on current meds (10) Thrombocytopenia Assessment/Plan: This is a chronic and long-standing problem. No signs of bleeding. He cannot be on aspirin or anticoagulant for this reason (11) Anemia Assessment/Plan: Stable (12) Hypothyroidism Assessment/Plan: He continues on his home med dose (13) BPH (benign prostatic hyperplasia) Assessment/Plan: Home meds were continued - Current Meds Current Meds: Current Medications Generic Name Dose Route Start Last Admin Trade Name Freq PRN Reason Stop Dose Admin Acetaminophen 650 mg 07/16/19 10:13 07/20/19 15:43 Tylenol PO 650 mg Q4HR PRN Administration Pain or Fever > 38C (100.4F) Hydrocodone Bitart/Acetaminophen 1 tab 07/17/19 02:00 07/20/19 15:02 [place] 5/325 PO 1 tab TID IAN Administration Albuterol 2.5 mg 07/16/19 15:13 07/17/19 07:21 INH 2.5 mg RTQ4H PRN Administration Wheezing Albuterol/Ipratropium 3 ml 07/17/19 15:00 07/20/19 16:30 Duoneb INH 3 ml RTQID IAN Administration Aspirin 81 mg 07/16/19 17:55 07/20/19 08:36 Ecotrin PO 81 mg DAILY IAN Administration Azithromycin 250 mg 07/17/19 09:00 07/20/19 08:36 Zithromax PO 07/21/19 00:00 250 mg DAILY IAN Administration Duloxetine HCl 30 mg 07/17/19 09:00 07/20/19 08:36 Cymbalta PO 30 mg DAILY IAN Administration Famotidine 20 mg 07/16/19 21:00 07/20/19 08:36 Pepcid PO 20 mg BID IAN Administration Guaifenesin 600 mg 07/16/19 11:00 07/20/19 08:35 Mucinex PO 600 mg BID IAN Administration Ibuprofen 800 mg 07/19/19 14:06 07/20/19 08:36 Motrin PO 800 mg Q8HR PRN Administration PAIN Insulin Aspart 1 - 5 unit 07/17/19 17:00 07/20/19 12:00 Novolog SUBQ 1 unit 0800,1200,1700,2100 IAN Administration Protocol Lidocaine 1 patch 07/16/19 17:45 07/18/19 23:03 Lidoderm Patch TOP 1 patch DAILY PRN Administration PAIN Lisinopril 10 mg 07/17/19 09:00 07/20/19 08:36 Zestril PO 10 mg DAILY IAN Administration Methylprednisolone 40 mg 07/19/19 14:00 07/20/19 14:13 Solu-Medrol (40mg Vial) IVP 40 mg Q8HR IAN Administration Metoprolol Succinate 12.5 mg 07/20/19 09:00 07/20/19 08:36 Toprol Xl PO 12.5 mg DAILY IAN Administration Montelukast Sodium 10 mg 07/16/19 21:00 07/19/19 22:17 Singulair PO 10 mg QPM IAN Administration Polyethylene Glycol 17 gm 07/18/19 12:00 07/20/19 08:35 Miralax PO 17 gm DAILY IAN Administration Prochlorperazine Edisylate 10 mg 07/16/19 10:13 07/17/19 12:44 Compazine Inj IVP 10 mg Q6HR PRN Administration Nausea / Vomiting Sodium Chloride 10 ml 07/16/19 17:00 07/20/19 17:24 Normal Saline Flush 0.9% IVP Not Given 0100,0900,1700 IAN Sodium Chloride 10 ml 07/16/19 10:13 07/20/19 15:52 Normal Saline Flush 0.9% IVP 10 ml PRN PRN Administration NEEDED PER PROVIDER ORDERS Tamsulosin HCl 0.4 mg 07/16/19 21:00 07/19/19 22:16 Flomax PO 0.4 mg QPM IAN Administration - Lab Result Fish Bone Diagrams: 07/21/19 04:40 07/21/19 04:40 - Additional Planning My Orders: My Active Orders 07/20/19 Home Health Referral [CONS] Routine 07/20/19 09:00 Metoprolol Succinate [Toprol Xl] 12.5 mg PO DAILY 07/21/19 05:00 BMP - BASIC METABOLIC PANEL [CHEM] DAILYLAB CBC - COMP BLD CT W/AUTO DIFF [HEME] DAILYLAB Subjective - Subjective Patient Reports: Resting Comfortably Objective Vital Signs: Vital Signs - 24 hr 07/19/19 07/19/19 07/20/19 21:20 23:52 08:00 Temperature 37.1 C 36.4 C L Heart Rate 93 Heart Rate [ 68 52 L Monitoring electrodes] Respiratory 20 18 18 Rate Blood Pressure 125/43 L [Left Radial artery] Blood Pressure 105/39 L [Right Radial artery] O2 Saturation 92 95 07/20/19 07/20/19 07/20/19 08:15 11:10 16:21 Temperature 36.6 C Heart Rate 58 L 57 L Heart Rate [ 75 Monitoring electrodes] Respiratory 15 16 18 Rate Blood Pressure [Left Radial artery] Blood Pressure 109/40 L [Right Radial artery] O2 Saturation 96 07/20/19 16:30 Temperature Heart Rate 66 Heart Rate [ Monitoring electrodes] Respiratory 16 Rate Blood Pressure [Left Radial artery] Blood Pressure [Right Radial artery] O2 Saturation Oxygen O2 Source Nasal cannula I&O (Last 24 Hrs): Intake and Output Totals x24h 07/18/19 07/19/19 07/20/19 23:59 23:59 23:59 Intake Total 2860 1400 490 Output Total 1834 1492 1295 Balance 1026 -92 -805 General: Other (Sleeping) HEENT: Mucous membr. moist/pink Neck: Other (Obese, cannot evaluate JVD) Neuro: Non Focal Cardiovascular: Other (Distant heart sounds due to very large body habitus) Respiratory: No respiratory distress, Breath sounds nml Abdomen: Soft, Other (Obese with pannus) Extremities: Other (2+ leg edema. Hands no longer have edema) - Results Results: Laboratory Results WBC 6.2 x10^3/uL (4.8-10.8) 07/19/19 04:59 RBC 2.90 10^6/uL (4.70-6.10) L 07/19/19 04:59 Hgb 9.7 g/dL (14.0-18.0) L 07/19/19 04:59 Hct 29.9 % (42.0-52.0) L 07/19/19 04:59 MCV 103.1 fL (80.0-94.0) H 07/19/19 04:59 MCH 33.4 pg (27.0-31.0) H 07/19/19 04:59 MCHC 32.4 g/dL (32.0-36.0) 07/19/19 04:59 RDW 14.6 % (12.0-15.0) 07/19/19 04:59 Plt Count 30 10^3/uL (130-450) L* 07/19/19 04:59 MPV 12.3 fL (7.4-11.4) H 07/19/19 04:59 Neut # (Auto) 5.3 10^3/uL (1.5-6.6) 07/19/19 04:59 Lymph # (Auto) 0.6 10^3/uL (1.5-3.5) L 07/19/19 04:59 [place] # (Auto) 0.3 10^3/uL (0.0-1.0) 07/19/19 04:59 Eos # (Auto) 0.0 10^3/uL (0.0-0.7) 07/19/19 04:59 Baso # (Auto) 0.0 10^3/uL (0.0-0.1) 07/19/19 04:59 Absolute Nucleated RBC 0.00 x10^3/uL 07/19/19 04:59 Total Counted 100 07/17/19 04:25 Band Neuts % (Manual) 3 % (0-10) 07/17/19 04:25 Abnorm Lymph % (Manual) 0 % 07/17/19 04:25 Neutrophils # (Manual) 2.8 10^3/uL (1.5-6.6) 07/17/19 04:25 Nucleated RBC % 0.0 /100WBC 07/19/19 04:59 Lymphocytes # (Manual) 0.8 10^3/uL (1.5-3.5) L 07/17/19 04:25 Monocytes # (Manual) 0.1 10^3/uL (0.0-1.0) 07/17/19 04:25 Eosinophils # (Manual) 0.0 10^3/uL (0-0.7) 07/17/19 04:25 Basophils # (Manual) 0.0 10^3/uL (0-0.1) 07/17/19 04:25 Differential Comment MANUAL DIFFERENTIAL 07/17/19 04:25 WBC Morphology NORMAL APPEARANCE (NORMAL) 07/19/19 04:59 Platelet Estimate DECREASED (<130,000) (NORMAL) 07/19/19 04:59 Platelet Morphology NORMAL APPEARANCE (NORMAL) 07/19/19 04:59 RBC Morph Micro Appear NORMAL APPEARANCE (NORMAL) 07/19/19 04:59 Bld Gas Analysis Time 0437 07/17/19 04:33 Sample Site LEFT RADIAL 07/17/19 04:33 ABG pH 7.45 (7.35-7.45) 07/17/19 04:33 ABG pCO2 54 mmHg (34-45) H 07/17/19 04:33 ABG pO2 59 mmHg (80-100) L 07/17/19 04:33 ABG HCO3 37.3 mmol/L (22.0-26.0) H 07/17/19 04:33 ABG Total CO2 39.0 MMOL/L (21.0-29.0) H 07/17/19 04:33 ABG O2 Saturation 90 % (94-98) L 07/17/19 04:33 ABG Base Excess 11.7 mmol/L (-2.0-3.0) H 07/17/19 04:33 Clay Test POSITIVE 07/17/19 04:33 VBG pH 7.444 (7.31-7.41) H 07/16/19 08:58 VBG pCO2 53.0 mmHg (41-51) H 07/16/19 08:58 VBG pO2 49.8 mmHg (25-47) H 07/16/19 08:58 VBG HCO3 35.5 mmol/L (23-28) H 07/16/19 08:58 VBG Total CO2 37.1 mmol/L (24-29) H 07/16/19 08:58 VBG O2 Saturation 83.8 % (60-80) H 07/16/19 08:58 VBG Base Excess 9.9 mmol/L (-2 - +2) H 07/16/19 08:58 O2 Delivery Device BiPAP 07/17/19 04:33 FiO2 35.00 07/17/19 04:33 EPAP 5 cmH2O 07/17/19 04:33 IPAP 12 cmH2O 07/17/19 04:33 Sodium 136 mmol/L (135-145) 07/20/19 04:56 Potassium 4.3 mmol/L (3.5-5.0) 07/20/19 04:56 Chloride 93 mmol/L (101-111) L 07/20/19 04:56 Carbon Dioxide 36 mmol/L (21-32) H 07/20/19 04:56 Anion Gap 7.0 (6-13) 07/20/19 04:56 BUN 43 mg/dL (6-20) H 07/20/19 04:56 Creatinine 1.6 mg/dL (0.6-1.2) H 07/20/19 04:56 Estimated GFR (MDRD) 43 (>89) L 07/20/19 04:56 Glucose 139 mg/dL (70-100) H 07/20/19 04:56 POC Whole Bld Glucose 141 mg/dL (70 - 100) H 07/20/19 17:02 Glycated Hemoglobin 5.1 % (4.6-6.2) 07/17/19 04:25 Estim Average Glucose 100 (70-100) 07/17/19 04:25 Lactic Acid 1.7 mmol/L (0.5-2.2) 07/16/19 08:47 Calcium 7.9 mg/dL (8.5-10.3) L 07/20/19 04:56 Magnesium 1.7 mg/dL (1.7-2.8) 07/17/19 10:04 Phosphorus 4.0 mg/dL (2.5-4.6) 07/18/19 04:30 Total Bilirubin 2.2 mg/dL (0.2-1.0) H 07/16/19 08:30 AST 64 IU/L (10-42) H 07/16/19 08:30 ALT 24 IU/L (10-60) 07/16/19 08:30 Alkaline Phosphatase 71 IU/L (42-121) 07/16/19 08:30 Troponin I High Sens 28.2 ng/L (2.3-19.7) H* 07/16/19 11:51 B-Natriuretic Peptide 224 pg/mL (5-100) H 07/16/19 08:30 Total Protein 5.9 g/dL (6.7-8.2) L 07/16/19 08:30 Albumin 2.6 g/dL (3.2-5.5) L 07/16/19 08:30 Globulin 3.3 g/dL (2.1-4.2) 07/16/19 08:30 Albumin/Globulin Ratio 0.8 (1.0-2.2) L 07/16/19 08:30 Lipase 31 U/L (22-51) 07/16/19 08:30 Vitamin B12 1014 pg/mL (180-914) H 07/17/19 04:25 Folate 6.77 ng/mL (5.90 - >24.8) 07/17/19 04:25 TSH 0.97 uIU/mL (0.34-5.60) 07/17/19 04:25 Urine Color DARK YELLOW 07/16/19 09:50 Urine Clarity CLEAR (CLEAR) 07/16/19 09:50 Urine pH 6.0 PH (5.0-7.5) 07/16/19 09:50 Ur Specific [place] 1.010 (1.002-1.030) 07/16/19 09:50 Urine Protein NEGATIVE mg/dL (NEGATIVE) 07/16/19 09:50 Urine Glucose (UA) NEGATIVE mg/dL (NEGATIVE) 07/16/19 09:50 Urine Ketones NEGATIVE mg/dL (NEGATIVE) 07/16/19 09:50 Urine Occult Blood NEGATIVE (NEGATIVE) 07/16/19 09:50 Urine Nitrite NEGATIVE (NEGATIVE) 07/16/19 09:50 Urine Bilirubin NEGATIVE (NEGATIVE) 07/16/19 09:50 Urine Urobilinogen 1 (NORMAL) E.U./dL (NORMAL) 07/16/19 09:50 Ur Leukocyte Esterase NEGATIVE (NEGATIVE) 07/16/19 09:50 Ur Microscopic Review NOT INDICATED 07/16/19 09:50 Urine Culture Comments NOT INDICATED 07/16/19 09:50 Nasal Screen MRSA (PCR) NEGATIVE (NEGATIVE) 07/16/19 11:30 - Procedures Procedures: Procedures EXCISION OF RECTUM, ENDO (08/22/16) EXCISION OF RIGHT LARGE INTESTINE, ENDO (08/22/16) EXCISION OF SIGMOID COLON, ENDO (08/22/16) EXCISION OF TRANSVERSE COLON, ENDO (08/22/16)
[2019-07-20] MEDS: TAMSULOSIN 0.4 MG CAPSULE PO SCH (20:25)
[2019-07-20] MEDS: MONTELUKAST 10 MG TABLET PO SCH (20:26)
[2019-07-21] MEDS: IPRATROPIUM/ALBUTEROL 3 ML NEB INH SCH ×2 (00:05→07:44)
[2019-07-21] MEDS: SODIUM CHLORIDE FLUSH 0.9% 10 ML SYRINGE IVP SCH ×2 (00:37→10:22)
[2019-07-21 05:10] LABS: BASOPHILS % (AUTO) 0.2 %; HGB - HEMOGLOBIN 10.6 g/dL (14.0-18.0); LYMPHOCYTES # (AUTO) 0.4 10^3/uL (1.5-3.5); LYMPHOCYTES % (AUTO) 7.3 %; MEAN CORPUSCULAR HEMOGLOBIN 34.2 pg (27.0-31.0); MEAN CORPUSCULAR HGB CONC 32.8 g/dL (32.0-36.0); MEAN CORPUSCULAR VOLUME 104.2 fL (80.0-94.0); MEAN PLATELET VOLUME 12.2 fL (7.4-11.4); MONOCYTES # (AUTO) 0.3 10^3/uL (0.0-1.0); NEUTROPHILS # (AUTO) 5.2 10^3/uL (1.5-6.6); NEUTROPHILS % (AUTO) 86.2 %; PLT - PLATELET COUNT 53 10^3/uL (130-450); RED CELL DISTRIBUTION WIDTH 14.4 % (12.0-15.0)
[2019-07-21 05:13] LABS: CREATININE 1.6 mg/dL (0.6-1.2)
[2019-07-21] MEDS: HYDROcod/ACETAM 5/325 MG TABLET PO SCH (05:41)
[2019-07-21] MEDS: SODIUM CHLORIDE FLUSH 0.9% 10 ML SYRINGE IVP PRN (05:42)
[2019-07-21] MEDS: methylPREDNISolone SUCCINATE 40 MG/ML VIAL IVP SCH (05:42)
--- NOTE | 2019-07-21 07:40 | Discharge Plan ---
Discharge Plan Problem Reviewed?: Yes Disposition: 06 Home Health Service Condition: Stable Prescriptions: Furosemide [Lasix] 40 mg PO DAILY #30 tablet guaiFENesin [Mucinex] 600 mg PO BID #60 tablet Lidocaine Patch 5% [Lidoderm Patch] 1 patch TOP DAILY PRN #30 patch PRN Reason: Pain Methylprednisolone [Medrol Dose Pack] 1 each PO .PACKAGEINSTRUCTIONS 6 Days #1 each Metoprolol Succinate [Toprol Xl] 12.5 mg PO DAILY #15 tablet Montelukast [Singulair] 10 mg PO QPM #30 tablet Diet: Diabetic Activity Restrictions: Activity as Tolerated Shower Restrictions: No Assistance Devices: [facility] Concerns: You were admitted for a COPD exacerbation and severe fluid retention. Plan of Treatment: Medications were adjusted. Please follow the new medication list. The new medication orders were e-prescribed to your [facility] pharmacy. A Home Health agency referral was ordered for Physical Therapy and Occupational Therapy in your house, and a bath aide. Care Goals: Improvement in function is the goal. Assessment: The who is your caregiver, is in agreement with the plan. Additional Instructions or Follow Up instructions: See your PCP in the next 1-2 weeks for hospital follow-up and for refills of medications, several are new. Follow-Up Care: Home Health - PT, Home Health - OT No Smoking: If you smoke, Please STOP! Call for help. Follow-up with: Carlos Kurtz MD [Primary Care Provider] -
[2019-07-21] MEDS: INSULIN ASPART 300 UNIT/3 ML PEN SUBQ SCH ×2 (08:15→11:53)
[2019-07-21] MEDS ORDERED: SENNA 8.6 MG TABLET PO SCH (09:00)
[2019-07-21] MEDS ORDERED: DOCUSATE SODIUM 250 MG CAPSULE PO SCH (09:00)
[2019-07-21 09:36] VITALS: BP 119/37
[2019-07-21] MEDS: POLYETHYLENE GLYCOL 3350 17 GM PACKET PO SCH (10:21)
[2019-07-21] MEDS: DULoxetine 30 MG CAPSULE PO SCH (10:22)
[2019-07-21] MEDS: FAMOTIDINE 20 MG TABLET PO SCH (10:22)
[2019-07-21] MEDS: ASPIRIN EC 81 MG TABLET PO SCH (10:22)
[2019-07-21] MEDS: METOPROLOL SUCCINATE 25 MG TABLET PO SCH (10:23)
[2019-07-21] MEDS: LISINOPRIL 5 MG TABLET PO SCH (10:23)
[2019-07-21] MEDS: guaiFENesin 600 MG TABLET PO SCH (10:23)
--- NOTE | 2019-07-21 10:28 | DISCHARGE SUMMARY ---
Discharge Summary Admit Date: 07/16/19 Discharge Date: 07/21/19 Discharging Provider: Dr Shruthi Lee Primary Care Provider: Dr Carlos Kurtz Code Status: Do Not Attempt Resuscitation Condition at Discharge: Stable Discharge Disposition: [facility] - DIAGNOSES Admission Diagnoses: 1) COPD exacerbation 2) Acute bronchitis 3) Anasarca 4) New onset of Afib 5) Morbid obesity with BMI of 62 6) Sleep apnea on CPAP 7) DM, type 2 8) HTN 9) Peripheral vascular disease Hx 10) Hypopthyroidism 11) BPH 12) Thrombocytopenia 13) MAcrocytic anemia Discharge Diagnoses with Status of Each Condition: See below - HPI History of Present Illness: This is a 68 my/o WM with a Hx of morbid obesity (BMI 62), is mostly bedbound at home, has a Hx of DM, HTN, Hypothyroidism, COPD, sleep apnea on CPAP, BPH, and thrombocytopenia. He was getting more SOB for a month, retaining fluids, his Lasix had been changed recently to Bumex. He presented with several days of a wet cough and severe orthopnea, was saturating in the 80's and was put on BIPAP in the ER and admitted to the ICU. His CXR showed cardiomegaly but no infiltrate, BNP was 224, Hgb 10 with MCV 104 and plt count 70K. An EKG showed new onset of Afib. - HOSPITAL COURSE Hospital Course: (1) COPD exacerbation He required BIPAP for supplemental oxygen and was in the ICU. He was on iv steroids, nebulizers and started on new Mucinex and Singulair po. His Carvedilol was stopped, since it is not B-1 selective, and he was changed to Toprol. He was eventually weaned off BIPAP and eventually the O2 setting on n.c. weaned down to his usual home setting. He was discharged with new prescriptions for Toprol, Singulair, Mucinex and a Medrol Dose Pack to taper down the steroid. His home inhalers were advised to be resumed. (2) Acute bronchitis The CXR showed no infiltrates. His productive cough was managed with IV antibiotics empirically while here, and Mucinex for pulmonary toilet. (4) Anasarca Troponins were neg. An Echo was done and showed preserved LVEF, diastolic dysfunction was present, enlarged R heart with mild pulmonary HTN with a PA pressure of 49 mmHg. He had 4+ edema to his nipple line at admission. He was put on iv bid diuretics and had slow improvement in overall fluid retention. He was discharged on new Lasix 40 mg po daily (3) BALJIT (acute kidney injury) Due to iv diuresis, his creat jocelyne slightly daily. His blood pressure was also low on the day before discharge and diuretic dose was stopped. His BUN/creat at discharge was 46/1.6. (5) New onset a-fib Heart rate control was adequate on current management. He cannot be on antic oagulation due to chronic thrombocytopenia, which dipped to 30K, and he usually runs 70-100K. Aspirin can be used with carefully monitoring. (6) Morbid obesity with BMI of 60.0-69.9, adult He had very minimal capacity for PT due to hypersomnolence in the last 2 days, and a bariatric SNF could not be found. He was MDh home with an order for Home Health for PT and OT with a bath aide. I discussed this with the at length, and she is agreeable. He was discharged in stable condition by BLS because of his bedbound status (7) Sleep apnea Continued home CPAP device while here (8) DM type 2 (diabetes mellitus, type 2) While here, the Metformin was on hold, he was getting a carb-controlled diet, sliding scale Insulin. (9) HTN (hypertension) BP was controlled on current meds (10) Thrombocytopenia This is a chronic and long-standing problem. There were no signs of bleeding. He cannot be on anticoagulant due to this diagnosis. (11) Anemia Stable (12) Hypothyroidism The TSH was 0.97. He was continued on his home med dose (13) BPH (benign prostatic hyperplasia) Home meds were continued - ALLERGIES Allergies/Adverse Reactions: Allergies Allergy/AdvReac Type Severity Reaction Status Date / Time amoxicillin Allergy Rash Verified 07/23/19 13:30 - MEDICATIONS Home Medications: Ambulatory Orders Medication Instructions Recorded Confirmed Tamsulosin [Flomax] 0.4 mg PO QPM 04/26/13 07/16/19 Albuterol [Ventolin Hfa] 2 puffs INH Q4H PRN 03/24/14 07/16/19 Tiotropium [place] [Spiriva] 1 puffs INH DAILY 03/24/14 07/16/19 Lisinopril 5 mg PO DAILY 10/22/15 07/16/19 Diclofenac Sodium [Voltaren] 1 gm TOP TID PRN 05/07/18 07/16/19 Hydrocodone/Acetaminophen 1 tab PO BID PRN 05/07/18 07/16/19 [Hydrocodone-Acetamin 5-325 mg] Metformin HCl [Metformin HCl ER] 500 mg PO DAILY 05/07/18 07/16/19 Omeprazole 20 mg PO DAILY 04/02/19 07/16/19 Bumetanide 2 mg PO 1400 07/16/19 07/16/19 Bumetanide 6 mg PO DAILY 07/16/19 07/16/19 Duloxetine HCl 30 mg PO DAILY 07/16/19 07/16/19 Potassium Chloride 10 meq PO DAILY 07/16/19 07/16/19 Furosemide [Lasix] 40 mg PO DAILY #30 tablet 07/21/19 Lidocaine Patch 5% [Lidoderm Patch] 1 patch TOP DAILY PRN #30 patch 07/21/19 Methylprednisolone [Medrol Dose 1 each PO .PACKAGEINSTRUCTIONS 6 07/21/19 Pack] Days #1 each Metoprolol Succinate [Toprol Xl] 12.5 mg PO DAILY #15 tablet 07/21/19 Montelukast [Singulair] 10 mg PO QPM #30 tablet 07/21/19 guaiFENesin [Mucinex] 600 mg PO BID #60 tablet 07/21/19 - PHYSICAL EXAM AT DISCHARGE General Appearance: positive: No acute distress, Other (Sleeping, supine in bed) Eyes Bilateral: positive: Normal inspection ENT: positive: ENT inspection nml, No signs of dehydration Neck: positive: Nml inspection, Other (Obese neck) Respiratory: positive: No respiratory distress, Breath sounds nml Cardiovascular: positive: No murmur, Other (Irreg irreg) Abdomen: positive: Other (Obese wikth a large pannus) Skin: positive: Color nml Extremities: positive: Other (2+ edema to thighs, lower legs have lymphedema stockings are that are dry) Neurologic/Psychiatric: positive: Oriented x3, Other (Grossly intact) - LABS Result Diagrams: 07/21/19 04:40 07/21/19 04:40 - DIAGNOSTIC IMAGING Diagnostic Imaging Results: Final report reviewed - FOLLOW UP Follow Up: See PCP in 1-2 weeks in hospital follow-up. - TIME SPENT Time Spent in Discharge (Minutes): 60
[2019-07-21] MEDS: PROCHLORPERAZINE 10 MG/2 ML VIAL IVP PRN (10:33)
== END 2019-07-21 13:20 | disposition home health service (06) | DRG 191 ==
LOC: EDUNIT# → ED 08:09 → ICU 10:14 → MS3 07-19 20:21
PROVIDERS: ADMIT Internal Medicine; ATTEND Internal Medicine
DX: J44.0 Chronic obstructive pulmonary disease with (acute) lower respiratory infection (principal); J44.1 Chronic obstructive pulmonary disease with (acute) exacerbation; Z68.44 Body mass index [BMI] 60.0-69.9, adult; N17.9 Acute kidney failure, unspecified; J06.9 Acute upper respiratory infection, unspecified; J20.9 Acute bronchitis, unspecified; R60.1 Generalized edema; I48.91 Unspecified atrial fibrillation; E66.01 Morbid (severe) obesity due to excess calories; I49.9 Cardiac arrhythmia, unspecified; G47.30 Sleep apnea, unspecified; I10 Essential (primary) hypertension; E11.51 Type 2 diabetes mellitus with diabetic peripheral angiopathy without gangrene; N40.0 Benign prostatic hyperplasia without lower urinary tract symptoms; D69.6 Thrombocytopenia, unspecified; D53.9 Nutritional anemia, unspecified; E03.9 Hypothyroidism, unspecified; H54.7 Unspecified visual loss; M19.90 Unspecified osteoarthritis, unspecified site; L65.9 Nonscarring hair loss, unspecified; R53.83 Other fatigue; Z99.81 Dependence on supplemental oxygen; Z79.84 Long term (current) use of oral hypoglycemic drugs; Z79.51 Long term (current) use of inhaled steroids; Z79.891 Long term (current) use of opiate analgesic; Z74.01 Bed confinement status; Z87.891 Personal history of nicotine dependence
CPT/HCPCS: 36415; 36600; 71045; 80048; 80053; 81003; 82607; 82746; 82803; 83036; 83605; 83690; 83735; 83880; 84100; 84443; 84484; 85025; 87070; 87150; 87205; 93005; 94640; 94660; 96365; 96375; 97110; 97161; 97165; 97530; 99283; 99285; A9270; C8929; Q9957; 81001; 87086; 93306

== ENCOUNTER 2019-07-21 13:29 | Outpatient (CLI) | payer MEDICARE, OTHER | END 2019-07-21 13:30 | disposition home or self-care (01) | LOC: EMS 13:29 | PROVIDERS: ATTEND Surgery | DX: E66.01 Morbid (severe) obesity due to excess calories (principal); Z74.01 Bed confinement status; Z99.81 Dependence on supplemental oxygen | CPT/HCPCS: A0425; A0428 ==

== ENCOUNTER 2019-07-21 22:47 | Outpatient (CLI) | payer MEDICARE, OTHER | END 2019-07-21 22:48 | disposition EMS.NT | LOC: EMS 22:47 | PROVIDERS: ATTEND Surgery | DX: R53.1 Weakness (principal) ==

== ENCOUNTER 2019-07-23 12:50 | Outpatient (CLI) | payer MEDICARE, OTHER | END 2019-07-23 12:51 | disposition critical access hospital (66) | LOC: EMS 12:50 | PROVIDERS: ATTEND Surgery | DX: R53.1 Weakness (principal); R52 Pain, unspecified; R53.83 Other fatigue | CPT/HCPCS: A0425; A0427 ==

== ENCOUNTER 2019-07-23 13:13 | Inpatient (IN) | payer MEDICARE, OTHER ==
[2019-07-23] MEDS ORDERED: methylPREDNISolone SUCCINATE 125 MG/2 ML VIAL IVP STA (13:40)
[2019-07-23] MEDS ORDERED: IPRATROPIUM/ALBUTEROL 3 ML NEB INH STA (13:40)
[2019-07-23 13:49] LABS: BASOPHILS % (AUTO) 0.1 %; EOSINOPHILS % (AUTO) 0.1 %; LYMPHOCYTES # (AUTO) 0.6 10^3/uL (1.5-3.5); LYMPHOCYTES % (AUTO) 7.9 %; MEAN CORPUSCULAR HGB CONC 33.4 g/dL (32.0-36.0); MEAN CORPUSCULAR VOLUME 101.8 fL (80.0-94.0); MONOCYTES # (AUTO) 1.4 10^3/uL (0.0-1.0); MONOCYTES % (AUTO) 17.1 %; NEUTROPHILS # (AUTO) 5.9 10^3/uL (1.5-6.6); NEUTROPHILS % (AUTO) 73.6 %; PLT - PLATELET COUNT 61 10^3/uL (130-450); RED BLOOD COUNT 3.82 10^6/uL (4.70-6.10); RED CELL DISTRIBUTION WIDTH 14.9 % (12.0-15.0); WHITE BLOOD COUNT 8.1 x10^3/uL (4.8-10.8)
[2019-07-23] MEDS ORDERED: MORPHINE 2 MG/ML CARPUJECT IVP STA (13:53)
--- NOTE | 2019-07-23 13:56 | ED Physician Documentation ---
History of Present Illness - Stated complaint Stated Complaint: WEAKNESS - Chief complaint Chief Complaint: Resp - History obtained from History obtained from: Patient, Family, EMS - History of Present Illness Timing: Today Pain level max: 9 Pain level now: 9 Improved by: rest Worsened by: movement - Additonal information Additional information: 68-year-old male presents to the emergency department with generalized weakness today. He states he has all over body pain and cannot define it any more than this. He is morbidly obese. Lives at home with his . Was recently started on Lasix. He was recently admitted here for difficulty breathing. Has a h istory of COPD and CHF. Has generalized anasarca as well. Today he is unable to ambulates with his walker. Review of Systems Ten Systems: 10 systems reviewed and negative Constitutional: denies: Fever, Chills Ears: denies: Ear pain Nose: denies: Rhinorrhea / runny nose, Congestion Throat: denies: Sore throat Cardiac: denies: Chest pain / pressure Respiratory: reports: Dyspnea (on 3-5L home O2 24/7 and uses CPAP at home), Wheezing. denies: Cough GI: denies: Abdominal Pain, Nausea, Vomiting, Constipation, Diarrhea Skin: denies: Rash Musculoskeletal: denies: Neck pain, Back pain Neurologic: reports: Generalized weakness (and generalized pain) PD PAST MEDICAL HISTORY - Past Medical History Cardiovascular: Hypertension, Peripheral Vascular Disease, Murmur, Arrhythmia, Other Respiratory: COPD, Sleep apnea, CPAP use Endocrine/Autoimmune: Type 2 diabetes, HyPOthyroidism GI: Ulcers : Kidney stones HEENT: Chronic vision loss, Other Psych: None Musculoskeletal: Osteoarthritis, Fatigue Derm: Other - Past Surgical History Past Surgical History: Yes General: Appendectomy, Other HEENT: Tonsil/Adenoidectomy - Present Medications Home Medications: Ambulatory Orders Medication Instructions Recorded Confirmed Tamsulosin [Flomax] 0.4 mg PO QPM 04/26/13 07/16/19 Albuterol [Ventolin Hfa] 2 puffs INH Q4H PRN 03/24/14 07/16/19 Tiotropium [place] [Spiriva] 1 puffs INH DAILY 03/24/14 07/16/19 Lisinopril 5 mg PO DAILY 10/22/15 07/16/19 Diclofenac Sodium [Voltaren] 1 gm TOP TID PRN 05/07/18 07/16/19 Hydrocodone/Acetaminophen 1 tab PO BID PRN 05/07/18 07/16/19 [Hydrocodone-Acetamin 5-325 mg] Metformin HCl [Metformin HCl ER] 500 mg PO DAILY 05/07/18 07/16/19 Omeprazole 20 mg PO DAILY 04/02/19 07/16/19 Bumetanide 2 mg PO 1400 07/16/19 07/16/19 Bumetanide 6 mg PO DAILY 07/16/19 07/16/19 Duloxetine HCl 30 mg PO DAILY 07/16/19 07/16/19 Potassium Chloride 10 meq PO DAILY 07/16/19 07/16/19 Furosemide [Lasix] 40 mg PO DAILY #30 tablet 07/21/19 Lidocaine Patch 5% [Lidoderm Patch] 1 patch TOP DAILY PRN #30 patch 07/21/19 Methylprednisolone [Medrol Dose 1 each PO .PACKAGEINSTRUCTIONS 6 07/21/19 Pack] Days #1 each Metoprolol Succinate [Toprol Xl] 12.5 mg PO DAILY #15 tablet 07/21/19 Montelukast [Singulair] 10 mg PO QPM #30 tablet 07/21/19 guaiFENesin [Mucinex] 600 mg PO BID #60 tablet 07/21/19 - Allergies Allergies/Adverse Reactions: Allergies Allergy/AdvReac Type Severity Reaction Status Date / Time amoxicillin Allergy Rash Verified 07/23/19 13:30 - Social History Does the pt smoke?: No Smoking Status: Former smoker Does the pt drink ETOH?: Yes Does the pt have substance abuse?: No - POLST Patient has POLST: No PD ED PE NORMAL - Vitals Vital signs reviewed: Yes - General General: Alert and oriented X 3, No acute distress, Well developed/nourished - HEENT HEENT: PERRL, Moist mucous membranes - Neck Neck: Supple, no meningeal sign, Thyroid normal - Cardiac Cardiac: Other (irregular) - Respiratory Respiratory: No respiratory distress, Other (wheezing B) - Abdomen Abdomen: Soft, Non tender, Non distended - Derm Derm: Warm and dry - Extremities Extremities: Other (diffuse edema and anasarca) - Neuro Neuro: Alert and oriented X 3 - Psych Psych: Normal mood, Normal affect Results - Vitals Vitals: Vital Signs - 24 hr 07/23/19 07/23/19 07/23/19 13:25 14:37 14:58 Temperature Heart Rate 107 H 65 63 Respiratory 18 18 18 Rate Blood Pressure 146/78 H 145/78 H O2 Saturation 99 99 07/23/19 07/23/19 15:12 15:53 Temperature 36.3 C L Heart Rate 71 Respiratory 16 Rate Blood Pressure 149/54 H O2 Saturation 97 Oxygen O2 Source Nasal cannula Oxygen Flow Rate 2 - EKG (time done) 1323 Rate: Rate (enter#) (84) Rhythm: Atrial fibrillation [place]: Normal QRS: Normal Ischemia: Non specific changes Compare to prior EKG: Unchanged from prior EKG - Labs Labs: Laboratory Tests 07/23/19 07/23/19 07/23/19 13:25 13:25 13:25 WBC 8.1 RBC 3.82 L Hgb 13.0 L Hct 38.9 L MCV 101.8 H MCH 34.0 H MCHC 33.4 RDW 14.9 Plt Count 61 L MPV 11.0 Neut # (Auto) 5.9 Lymph # (Auto) 0.6 L [place] # (Auto) 1.4 H Eos # (Auto) 0.0 Baso # (Auto) 0.0 Absolute Nucleated RBC 0.00 Nucleated RBC % 0.0 Sodium 141 Potassium 3.7 Chloride 91 L Carbon Dioxide 42 H* Anion Gap 8.0 BUN 37 H Creatinine 1.1 Estimated GFR (MDRD) 66 L Glucose 115 H Calcium 8.9 Total Bilirubin 3.2 H AST 42 ALT 32 Alkaline Phosphatase 68 Troponin I High Sens B-Natriuretic Peptide 305 H Total Protein 6.1 L Albumin 2.6 L Globulin 3.5 Albumin/Globulin Ratio 0.7 L Lipase 56 H 07/23/19 13:25 WBC RBC Hgb Hct MCV MCH MCHC RDW Plt Count MPV Neut # (Auto) Lymph # (Auto) [place] # (Auto) Eos # (Auto) Baso # (Auto) Absolute Nucleated RBC Nucleated RBC % Sodium Potassium Chloride Carbon Dioxide Anion Gap BUN Creatinine Estimated GFR (MDRD) Glucose Calcium Total Bilirubin AST ALT Alkaline Phosphatase Troponin I High Sens 66.2 H* B-Natriuretic Peptide Total Protein Albumin Globulin Albumin/Globulin Ratio Lipase - Rads (name of study) cxr Radiology: Prelim report reviewed, EMP read contemporaneously, See rad report (no acute abnormality.) PD MEDICAL DECISION MAKING - ED course Complexity details: reviewed old records, reviewed results, re-evaluated patient, considered differential, d/w patient, d/w family, d/w [facility] [place] consultant ED course: 68-year-old male presents the emergency department with what appears to be a COPD exacerbation, increasing CO2 retention and CHF exacerbation. Given Lasix, Solu-Medrol and breathing treatments. He has an increased oxygen requirement from 2 L at home to nearly 6 L now. Given his steadily worsening symptoms, we will place the patient observation. Discussed the case with the hospitalist, Dr. Carrion who accepts. This document was made in part using voice recognition software. While efforts are made to proofread this document, sound alike and grammatical errors may occur. Departure - Departure Disposition: ED Place in Observation Clinical Impression: COPD exacerbation CHF exacerbation Qualifiers: Heart failure type: unspecified Qualified Code(s): I50.9 - Heart failure, unspecified Condition: Stable Discharge Date/Time: 07/23/19 16:54
--- NOTE | 2019-07-23 14:03 | XRAY Report ---
Reason: dyspnea Procedure Date: 07/23/2019 Accession Number: [id number] / [id number] Procedure: XR - Chest 1 View X-Ray CPT Code: 89722 Final Report FULL RESULT: EXAM: CHEST RADIOGRAPHY EXAM DATE: 07/23/2019 01:52 PM. CLINICAL HISTORY: Dyspnea. COMPARISON: CHEST 1 VIEW 07/16/2019 8:30 AM. TECHNIQUE: 1 view. FINDINGS: Lungs/Pleura: No focal opacities evident. No pleural effusion. No pneumothorax. Mediastinum: The cardiac silhouette size remains enlarged. Mediastinal and hilar contours are unremarkable. Other: The remaining visualized bones and soft tissues are stable radiographically. IMPRESSION: No radiographic evidence of acute cardiopulmonary disease. RADIA
[2019-07-23 14:04] LABS: ALBUMIN 2.6 g/dL (3.2-5.5); ALBUMIN/GLOBULIN RATIO 0.7 (1.0-2.2); BILIRUBIN,TOTAL 3.2 mg/dL (0.2-1.0); CALCIUM 8.9 mg/dL (8.5-10.3); CREATININE 1.1 mg/dL (0.6-1.2); TOTAL PROTEIN 6.1 g/dL (6.7-8.2)
[2019-07-23] MEDS ORDERED: FUROSEMIDE 40 MG/4 ML VIAL IVP STA (14:18)
[2019-07-23] MEDS ORDERED: ALBUTEROL NEB 2.5 MG/3 ML INH STA (15:08)
[2019-07-23] MEDS ORDERED: FUROSEMIDE 40 MG/4 ML VIAL ONE (15:16)
[2019-07-23] MEDS ORDERED: ONDANSETRON 4 MG/2 ML VIAL IVP PRN (16:06)
[2019-07-23] MEDS ORDERED: ONDANSETRON ODT 4 MG TABLET TL PRN (16:06)
[2019-07-23 16:24] LABS: BILIRUBIN,URINE NEGATIVE (NEGATIVE); GLUCOSE, URINE (UA) NEGATIVE (NEGATIVE); KETONES,URINE (UA) NEGATIVE (NEGATIVE); LEUKOCYTE ESTERASE, URINE NEGATIVE (NEGATIVE); NITRITE,URINE NEGATIVE (NEGATIVE); OCCULT BLOOD,URINE MODERATE (NEGATIVE); PROTEIN,URINE NEGATIVE (NEGATIVE); UROBILINOGEN,URINE 0.2 (NORMAL) E.U./dL (NORMAL)
[2019-07-23 16:31] LABS: CLARITY,URINE CLEAR (CLEAR)
[2019-07-23 16:42] LABS: BACTERIA,URINE None Seen /HPF (None Seen); RBC,URINE TNTC /HPF (0-5); SQUAMOUS EPITHELIAL CELL,UR RARE Squamous (<= Few)
--- NOTE | 2019-07-23 16:51 | HISTORY & PHYSICAL EXAMINATION ---
Chief Complaint - Chief Complaint Chief Complaint: Weakness History of Present Illness - Admitted From Admitted From:: Home - History Obtained From History obtained from: EHR (pt obtunded and unable to answer questions) - History of Present Illness HPI Comment/Other: Mr. Huang is a 68 y.o. male w/ a new recent dx of a-fib (d/c'd 2 days ago) as well as morbid obesity, CHF, COPD, DM II, sleep apnea on CPAP, HTN, thrombocytopenia and macrocytic anemia presents w/ weakness. He had been discharged 2 days ago after being hospitalized for SOB X1 month for which he was diagnosed w/ a-fib at the time as well as a COPD exacerbation. He also was experiencing severe orthopnea, a wet cough and fluid retention so his diuretics were changed. He had been D/C'd home on Lasix, Bumex and a Medrol dose pack taper for his COPD and Metoprolol for rate control for his a-fib. He was D/D'd home on HH. On assessment, Mr. Huang is obtunded and rouses to loud voice. He rouses just enough to open his eyes and drift off before answering questions. He tells me that he is in a lot of pain but cannot tell me where or describe the pain without drifting off again. History - Past Medical History Cardiovascular: reports: Congestive heart failure (Cor pulmonale ), Hypertension, Peripheral Vascular Disease, Atrial fibrillation, Murmur, Arrhythmia, Valve disorder, Other Respiratory: reports: COPD, Sleep apnea, CPAP use Endocrine/Autoimmune: reports: None (Anemia and thrombocytopenia ), Type 2 diabetes, HyPOthyroidism GI: reports: Ulcers : reports: Benign prostate hypertrophy, Kidney stones HEENT: reports: Chronic vision loss, Other Psych: reports: None Musculoskeletal: reports: Osteoarthritis, Fatigue, Other (Bedbound) Derm: reports: Other MRSA Hx?: No - Past Surgical History General: reports: Appendectomy, Other HEENT: reports: Tonsil/Adenoidectomy - Family & Social History Family History Comment/Other: Unable to obtain family history from patient (obtunded) Living arrangement: At home (with HH ) Living Situation: With spouse/s.o. - Substance History Use: Uses substance without health or social issues: Alcohol (Recent chart note reports that patient drinks alcohol ) Abuse: Recurrent use of substance despite neg consequences: NONE Dependence: Experiences withdrawal or developed tolerances: NONE Tobacco Details: Cigarettes (Former smoker per recent chart note, unsure of pack years ) - POLST Patient has POLST: No Meds/Allgy - Home Medications Home Medications: Ambulatory Orders Medication Instructions Recorded Confirmed Tamsulosin [Flomax] 0.4 mg PO QPM 04/26/13 07/24/19 Albuterol [Ventolin Hfa] 2 puffs INH Q4H PRN 03/24/14 07/24/19 Tiotropium [place] [Spiriva] 1 puffs INH DAILY 03/24/14 07/24/19 Lisinopril 10 mg PO DAILY 10/22/15 07/24/19 Diclofenac Sodium [Voltaren] 1 gm TOP TID PRN 05/07/18 07/24/19 Hydrocodone/Acetaminophen 1 tab PO BID PRN 05/07/18 07/24/19 [Hydrocodone-Acetamin 5-325 mg] Metformin HCl [Metformin HCl ER] 500 mg PO DAILY 05/07/18 07/24/19 Omeprazole 20 mg PO DAILY 04/02/19 07/24/19 Bumetanide 2 mg PO 1400 07/16/19 07/24/19 Bumetanide 6 mg PO DAILY 07/16/19 07/24/19 Duloxetine HCl 30 mg PO DAILY 07/16/19 07/24/19 Potassium Chloride 10 meq PO DAILY 07/16/19 07/24/19 Furosemide [Lasix] 40 mg PO DAILY #30 tablet 07/21/19 07/24/19 Lidocaine Patch 5% [Lidoderm Patch] 1 patch TOP DAILY PRN #30 patch 07/21/19 07/24/19 Methylprednisolone [Medrol Dose 1 each PO .PACKAGEINSTRUCTIONS 6 07/21/19 07/24/19 Pack] Days #1 each Metoprolol Succinate [Toprol Xl] 12.5 mg PO DAILY #15 tablet 07/21/19 07/24/19 Montelukast [Singulair] 10 mg PO QPM #30 tablet 07/21/19 07/24/19 guaiFENesin [Mucinex] 600 mg PO BID #60 tablet 07/21/19 07/24/19 carvediloL [Carvedilol] 12.5 mg PO DAILY 07/24/19 07/24/19 - Allergies Allergies/Adverse Reactions: Allergies Allergy/AdvReac Type Severity Reaction Status Date / Time amoxicillin Allergy Rash Verified 07/23/19 13:30 Review of Systems - Constitutional Constitutional: reports: Fatigue, Weakness (Patient presented for fatigue and weakness but unable to do a review of systems, as he is obtunded and unable to answer questions.) Prior Level of Functionality: He is bedbound at baseline. He lives at home with his who is unable to care for him. He was recently D/C'd home w/ HH and a bath aid. Exam - Vital Signs Reviewed Vital Signs: Yes Vital Signs: Vital Signs x48h Temp Pulse Resp BP Pulse Ox 07/23/19 15:53 71 16 149/54 H 97 07/23/19 15:12 36.3 C L 07/23/19 14:58 63 18 145/78 H 99 07/23/19 14:37 65 18 07/23/19 13:25 107 H 18 146/78 H 99 - Physical Exam General Appearance: positive: No acute distress, Lethargic. negative: Alert ENT: negative: No signs of dehydration, Purulent nasal drainage, Pharyngeal erythema, Oral lesions Neck: positive: Thyroid nml, Trachea midline. negative: Stiff neck, Kernig's sign, Swelling/bruising, Tracheal deviation Respiratory: positive: Chest non-tender, No respiratory distress, Breath sounds nml (Clear anteriorly) Cardiovascular: positive: No murmur, No gallop, Irregularly irregular. negative: JVD present, Gallop/S4, Friction rub, Decreased pulse(s) Peripheral Pulses: positive: 1+ Abdomen: positive: Non-tender, Nml bowel sounds, No distention, Other (Obese ABD). negative: Tenderness, Guarding, Rebound, Abnml bowel sounds Rectal: positive: Non-tender Back: positive: Other (Unable to assess) Skin: positive: No rash, Warm, Dry, Other (Venous stasis dermatitis). negative: Cyanosis, Diaphoresis, Pallor Neurologic/Psychiatric: positive: Other (Obtunded). negative: Facial droop, Slurred/abnml speech, Depressed mood/affect Conclusion/Plan - Problem List (1) Acute and chronic respiratory failure with hypercapnia Conclusion/Plan: Likely attributable to a combination of chronic lung disease, obstructive sleep apnea, iatrogenic diuresis and morbid obesity. He uses CPAP at home but is unsure how compliant he is with this. He was recently admitted (on 07/17) w/ a COPD exacerbation (in addition to acute on chronic HF and new onset a-fib), and required BIPAP in the ICU at that time. On initial presentation for this admission, his carbon dioxide was 43.3 and pH was 7.53 and his acid-base excess was 16.4. He was obtunded as well so he was placed on BIPIP. His troponins were slightly elevated at 66.2 as well as BNP at 305 but given his cardiopulmonary history, these numbers are not too out of the norm. He has no s/s infection. Of note, he is a DNR/DNI. -Continue BIPAP -Check ABG in the am -Alysia QID (2) Obtundation Conclusion/Plan: He is alert and oriented at baseline. He presented to the ED for generalized weakness and was initially able to answer the ER 's questions, but by the poonam pastor I had seen him, he was obtunded. He does not appear to have an active infection. He does take Vicoden at home and received a dose of Morphine in the ED, so this is another possible cause. Will treat hypercapnea as above. -BIPAP -Avoid sedating medications (3) Cor pulmonale (chronic) Conclusion/Plan: ECHO from 07/16 shows mild to moderate ventricular enlargement and severe right atrial enlargement. Also mild tricuspid regurgitation and mildly abnormal heart pressures (RVSP at rest is 49mmHg). The inferior vena cava also dilated (>2.1cm). He was recently admitted with a diagnosis of acute on chronic R sided heart failure and was sent home on Lasix and Bumex. He continues to have 3+ pitting edema to BLE as well as anasarca. His weight at the time of his recent discharge on 07/21 was 222.5kg. His admission weight is 204.12kg. A CXR was done and showed no acute cardiopulmonary process (but cardiac silhouette enlarged). He does not appear to have worsening fluid overload. He received a 1 time dose of 40mg Lasix in the ED but will hold off on diuresing, as he is currently volume down and iatrogenic diueresing could be contributing to his hypercapnea. -Hold off on Lasix for now -BIPAP as mentioned above -Inhaled steroids as mentioned above (4) Atrial fibrillation with controlled ventricular rate Conclusion/Plan: New diagnosis on recent admission. Likely a result of cor pulmonale. He was sent home on Metoprolol for rate control. Cannot be placed on anticoagulation therapy d/t chronic thrombocytopenia. Today's EKG showed a-fib w/ a controlled rate. Will hold Metoprolol for now, given his controlled rate and soft BPs. -Hold Metoprolol (5) Abnormal LFTs (liver function tests) Conclusion/Plan: Total bili was 3.2 on admission (2.2 during last admission).Total protein 6.1. Albumin 2.6 and lipase 56. He may have early fatty liver disease or a possible stone, but transaminases are WNL. These abnormalities could also be related to his cor pulmonale. If does not improve by tomorrow, will consider working this up further as possible cause of obtundation. -Hold off on ammonia -Hold off on ABD US (6) HTN (hypertension) Conclusion/Plan: Takes Carvedilol at home. Controlled. BPs are soft. -Hold for now. Qualifiers: Hypertension type: essential hypertension Qualified Code(s): I10 - Essential (primary) hypertension (7) Thrombocytopenia Conclusion/Plan: This is a chronic problem. Followed by Dr. Kim. Will see if we can obtain outside records. His platelets are trending downward. They were 61 on this admission. Will transfuse as necessary. His thrombocytopenia could be linked to his rise in bili and both could be from fatty livery w cirrhosis. -CBC in the am -Limit blood draws -I did order lovenox and that will be stopped (8) Anemia Conclusion/Plan: Hct/Hbg were 38.49/13 on admission. Iron panel last checked on 09/30/18: iron- 91, TIBC 248, %saturation-37, transferrin-177 and ferritin-271.1. Vit B-12 was 1221 and folate was 10.77. Per his hx, he drink alcohol but it is not known how much. His reports that she does not give him alcohol. He has no s/s active bleeding and is not on AC therapy d/t chronic thrombocytopenia. -CBC in the am Qualifiers: Anemia type: unspecified type Qualified Code(s): D64.9 - Anemia, unspecified (9) Hypothyroidism Conclusion/Plan: Do not see Synthroid on his med list. Unsure if/why it was stopped. -Check TSH? Qualifiers: Hypothyroidism type: unspecified Qualified Code(s): E03.9 - Hypothyroidism, unspecified (10) BPH (benign prostatic hyperplasia) Conclusion/Plan: Takes Flomax at home. -Hold for now. Qualifiers: Lower urinary tract symptom presence: symptoms present (11) Morbid obesity with BMI of 60.0-69.9, adult Conclusion/Plan: Very minimal capacity for physical activity. He is essentially bedbound. Was sent home on for PT/OT and bath aid after last discharge. Had a long discussion w/ pts regarding goals of care because she is no longer able to care for him. She seemed to have thought that he would eventually bounce back from this. I informed her that he will likely not be able to return home again and will need to be placed somewhere for director long term care care. -SW to help w/ placement (12) Chronic pain Conclusion/Plan: Will look at his old medical records, investigate how much opiates he is been using, unsure of what the etiology of his chronic pain syndrome is from. Qualifiers: Chronic pain type: chronic pain syndrome Qualified Code(s): G89.4 - Chronic pain syndrome (13) DM type 2 (diabetes mellitus, type 2) Conclusion/Plan: Pt takes Metformin 500mg PO daily. A progress dated back to 2015 noted that HgBA1C was 5.5%. Given his decline over the past couple years, an upward trend in blood sugars and a need for a well controlled blood glucose, will re-check AIC during this stay. -Check A1C -Hold Metformin -SSI while in the hospital Qualifiers: Diabetes mellitus director long term care insulin use: without director long term care use Diabetes me llitus complication status: without complication Qualified Code(s): E11.9 - Type 2 diabetes mellitus without complications (14) Sleep apnea Conclusion/Plan: On CPAP on home. Unsure how compliant he is with this. Qualifiers: Sleep apnea type: obstructive Qualified Code(s): G47.33 - Obstructive sleep apnea (adult) (pediatric) - Lab Results Lab results reviewed: Yes Fish Bones: 07/24/19 04:40 07/24/19 04:40 Other Lab Results: Laboratory Tests 07/23/19 07/23/19 07/23/19 13:25 13:25 13:25 WBC 8.1 Hgb 13.0 L Hct 38.9 L MCV 101.8 H Plt Count 61 L Sodium 141 Potassium 3.7 Chloride 91 L Carbon Dioxide 42 H* BUN 37 H Creatinine 1.1 Glucose 115 H Total Bilirubin 3.2 H B-Natriuretic Peptide 305 H
[2019-07-23 18:08] LABS: ABG BASE EXCESS 16.4 mmol/L (-2.0-3.0); ABG HCO3 41.7 mmol/L (22.0-26.0); ABG OXYGEN SATURATION 92 % (94-98); ABG PCO2 51 mmHg (34-45); ABG PH 7.53 (7.35-7.45); ABG PO2 60 mmHg (80-100)
[2019-07-23 18:09] LABS: ALLEN TEST POSITIVE
[2019-07-23 18:14] LABS: ABG TCO2 43.3 MMOL/L (21.0-29.0)
[2019-07-23] MEDS: SODIUM CHLORIDE FLUSH 0.9% 10 ML SYRINGE IVP SCH (18:39)
[2019-07-23] MEDS ORDERED: acetaZOLAMIDE 250 MG TABLET PO ONE (21:00)
[2019-07-23] MEDS: IPRATROPIUM/ALBUTEROL 3 ML NEB INH SCH (22:12)
[2019-07-23] MEDS: NYSTATIN POWDER 15 GM TOP SCH (22:57)
[2019-07-24] MEDS: SODIUM CHLORIDE FLUSH 0.9% 10 ML SYRINGE IVP SCH ×3 (00:51→17:26)
[2019-07-24] MEDS: ACETAMINOPHEN 325 MG TABLET PO PRN (02:42)
[2019-07-24 05:17] LABS: LYMPHOCYTES # (AUTO) 0.3 10^3/uL (1.5-3.5); LYMPHOCYTES % (AUTO) 6.9 %; MEAN CORPUSCULAR HEMOGLOBIN 35.1 pg (27.0-31.0); MEAN CORPUSCULAR VOLUME 103.5 fL (80.0-94.0); MEAN PLATELET VOLUME 11.6 fL (7.4-11.4); MONOCYTES # (AUTO) 0.3 10^3/uL (0.0-1.0); MONOCYTES % (AUTO) 6.1 %; NEUTROPHILS # (AUTO) 4.1 10^3/uL (1.5-6.6); NEUTROPHILS % (AUTO) 86.2 %; PLT - PLATELET COUNT 47 10^3/uL (130-450); RED BLOOD COUNT 3.13 10^6/uL (4.70-6.10); RED CELL DISTRIBUTION WIDTH 14.8 % (12.0-15.0); WHITE BLOOD COUNT 4.8 x10^3/uL (4.8-10.8)
[2019-07-24 05:27] LABS: CALCIUM 8.2 mg/dL (8.5-10.3); CREATININE 1.1 mg/dL (0.6-1.2); MAGNESIUM 1.6 mg/dL (1.7-2.8); PHOSPHORUS 3.6 mg/dL (2.5-4.6)
[2019-07-24] MEDS ORDERED: MAGNESIUM SULFATE 1 GM in SODIUM CHLORIDE 0.9% 50 ML IV ONE (05:46)
[2019-07-24] MEDS ORDERED: MAGNESIUM OXIDE 400 MG TABLET PO SCH (07:00)
[2019-07-24] MEDS: IPRATROPIUM/ALBUTEROL 3 ML NEB INH SCH ×4 (07:31→20:12)
[2019-07-24] MEDS: INSULIN ASPART 300 UNIT/3 ML PEN SUBQ SCH ×4 (08:36→21:00)
[2019-07-24] MEDS ORDERED: ENOXAPARIN 40 MG/0.4 ML SYRINGE SUBQ SCH (09:00)
[2019-07-24 09:20] LABS: ABG HCO3 41.2 mmol/L (22.0-26.0); ABG PH 7.45 (7.35-7.45); ABG PO2 96 mmHg (80-100)
[2019-07-24 09:21] LABS: ABG OXYGEN SATURATION 97 % (94-98); ALLEN TEST POSITIVE
[2019-07-24 09:23] LABS: ABG PCO2 60 mmHg (34-45)
--- NOTE | 2019-07-24 10:54 | ANESTHESIA PROCEDURE NOTE ---
Anesth Central Line Template - Central Line Central Line Preparation: Consent Obtained Central line location: Right IJ Central line type: Triple lumen Central line catheter tip site resides: Superior vena cava (SVC) Central line aftercare: Chlorhexidine disc placed, Secured, Placement confirmed, No pneumothorax, No complications, Bundle checklist complete, Pt tolerated well
[2019-07-24 11:22] LABS: ABG BASE EXCESS 14.6 mmol/L (-2.0-3.0)
[2019-07-24 11:23] LABS: ABG PH 7.43 (7.35-7.45)
[2019-07-24 11:24] LABS: ABG BASE EXCESS 15.9 mmol/L (-2.0-3.0); ABG HCO3 43.6 mmol/L (22.0-26.0); ABG OXYGEN SATURATION 98 % (94-98); ABG PO2 108 mmHg (80-100); ALLEN TEST POSITIVE
[2019-07-24 11:25] LABS: ABG PCO2 68 mmHg (34-45)
[2019-07-24 11:26] LABS: ABG TCO2 45.9 MMOL/L (21.0-29.0)
[2019-07-24 11:26] LABS: ABG TCO2 43.1 MMOL/L (21.0-29.0)
--- NOTE | 2019-07-24 12:01 | XRAY Report ---
Reason: Line Placement Procedure Date: 07/24/2019 Accession Number: [id number] / [id number] Procedure: XR - Chest for Line Placement CPT Code: Final Report FULL RESULT: EXAM: CHEST RADIOGRAPHY EXAM DATE: 07/24/2019 10:53 AM. CLINICAL HISTORY: Line Placement. COMPARISON: CHEST 1 VIEW 07/23/2019 1:34 PM CHEST 1 VIEW 07/16/2019 8:30 AM CHEST 1 VIEW 05/10/2018 5:03 AM. TECHNIQUE: 1 view. FINDINGS: Support apparatus: Interval placement of right IJ approach central line with tip over the lower SVC near the superior cavoatrial junction. Lungs/Pleura: Blunting of left costophrenic angle could reflect small effusion. There may also be trace right effusion. Otherwise clear lungs. No visible pneumothorax or focal consolidation. Mediastinum: Within exam limitations, the cardiomediastinal contour is normal. Other: None. IMPRESSION: 1. Interval placement of right IJ approach central venous catheter with tip over lower SVC close to region of superior cavoatrial junction. 2. Blunting of left costophrenic angle could reflect small pleural effusion. 3. Trace right pleural effusion may be present. 4. Otherwise clear lungs. RADIA
[2019-07-24] MEDS: NYSTATIN POWDER 15 GM TOP SCH ×2 (12:48→21:16)
[2019-07-24] MEDS: ZINC OXIDE 20% OINT 30 GM TUBE TOP PRN (12:50)
[2019-07-24] MEDS: oxyCODONE 5 MG TABLET PO PRN (16:11)
[2019-07-24] MEDS: SODIUM CHLORIDE FLUSH 0.9% 10 ML SYRINGE IVP PRN (16:18)
--- NOTE | 2019-07-24 18:00 | Ultrasound Report ---
Reason: elevated lft Procedure Date: 07/24/2019 Accession Number: [id number] / [id number] Procedure: US - Abdomen Complete CPT Code: Final Report FULL RESULT: EXAM: ABDOMEN ULTRASOUND EXAM DATE: 07/24/2019 03:31 PM. CLINICAL HISTORY: Elevated lft. COMPARISON: None. TECHNIQUE: Real-time scanning was performed with static images obtained. FINDINGS: Suboptimal study due to patient's body habitus and bowel gas. Liver: Mildly increased and coarse echotexture, suggestive of steatosis. Gallbladder: Not optimally seen, appears distended with no obvious cholelithiasis. Biliary System: Common bile duct measures 4 mm. No intrahepatic or extrahepatic ductal dilatation. Pancreas: Not well seen Kidneys: Right: 12.3 cm longitudinally. Normal. No contour-deforming mass, stones, or hydronephrosis. Left: 12.5 cm longitudinally. Normal. No contour-deforming mass, stones, or hydronephrosis. Spleen: 13.4 cm. Normal in size and echotexture. Aorta and Inferior Vena Cava: Unremarkable. Other: No free fluid. IMPRESSION: Suboptimal study due to patient's body habitus and overlying bowel gas. Coarse hepatic echotexture, suggestive of steatosis. No other significant abnormality. RADIA
--- NOTE | 2019-07-24 18:29 | PROVIDER PROGRESS NOTE ---
Subjective - Prog Note Date Prog Note Date: 07/24/19 Prog Note Time: 18:25 - Subjective Pt reports feeling: Improved (Mr. Huang has not been well today up until recently. He has been obtunded (on BIPAP) but as I enter his room this evening, his is sitting up in bed and feeding himself dinner. He is hoping that he can get more coffee soon. He explains to me that he has been feeling terrible chronic pains from head to toe over the past few months. He says that he was started on Oxycodone by his PCP a couple of months ago, but he is not sure if it works. He points out that he has tears in his eyes d/t the terrible pain he is in right now.) Current Medications - Current Medications Current Medications: Active Medications Generic Name Dose Route Start Last Admin Trade Name Freq PRN Reason Stop Dose Admin Acetaminophen 650 mg 07/23/19 16:06 07/24/19 02:42 Tylenol PO 650 mg Q4HR PRN Administration Pain 1 to 4 Albuterol/Ipratropium 3 ml 07/23/19 20:00 07/24/19 14:45 Duoneb INH 3 ml RTQID IAN Administration Insulin Aspart 1 - 9 unit 07/24/19 08:00 07/24/19 17:26 Novolog SUBQ Not Given 0800,1200,1700,2100 [facility] Protocol Multi-Ingredient Ointment 1 applic 07/24/19 11:06 07/24/19 12:50 Zinc Oxide TOP 1 applic PRN PRN Administration Skin Care Nystatin 1 applic 07/23/19 23:00 07/24/19 12:48 Nystop TOP Not Given BID IAN Ondansetron HCl 4 mg 07/23/19 16:06 Zofran Inj IVP Q6HR PRN Nausea / Vomiting Ondansetron HCl 4 mg 07/23/19 16:06 Zofran Odt TL Q6HR PRN Nausea / Vomiting Oxycodone HCl 5 mg 07/23/19 16:06 07/24/19 16:11 Roxicodone PO 5 mg Q4HR PRN Administration Pain 5 to 7 Sodium Chloride 10 ml 07/23/19 16:06 07/24/19 16:18 Normal Saline Flush 0.9% IVP 10 ml PRN PRN Administration NEEDED PER PROVIDER ORDERS Sodium Chloride 10 ml 07/23/19 17:00 07/24/19 17:26 Normal Saline Flush 0.9% IVP 10 ml 0100,0900,1700 IAN Administration Tamsulosin [Flomax] 0.4 mg PO QPM 04/26/13 Albuterol [Ventolin Hfa] 2 puffs INH Q4H PRN 03/24/14 Tiotropium [place] [Spiriva] 1 puffs INH DAILY 03/24/14 Lisinopril 10 mg PO DAILY 10/22/15 Diclofenac Sodium [Voltaren] 1 gm TOP TID PRN 05/07/18 Hydrocodone/Acetaminophen [Hydrocodone-Acetamin 5-325 mg] 1 tab PO BID PRN 05/07/18 Metformin HCl [Metformin HCl ER] 500 mg PO DAILY 05/07/18 Omeprazole 20 mg PO DAILY 04/02/19 Bumetanide 2 mg PO 1400 07/16/19 Bumetanide 6 mg PO DAILY 07/16/19 Duloxetine HCl 30 mg PO DAILY 07/16/19 Potassium Chloride 10 meq PO DAILY 07/16/19 carvediloL [Carvedilol] 12.5 mg PO DAILY 07/24/19 Objective - Vital Signs/Intake & Output Reviewed Vital Signs: Yes Vital Signs: Vital Signs x48h Temp Pulse Pulse Resp BP Pulse Ox 07/24/19 18:00 62 16 132/66 H 91 L 07/24/19 17:00 51 L 14 112/37 L 99 07/24/19 16:00 57 L 15 130/48 L 96 07/24/19 15:00 58 L 14 132/57 H 99 07/24/19 14:50 55 L 07/24/19 14:45 57 L 16 07/24/19 14:00 54 L 12 103/34 L 96 07/24/19 13:16 58 L 07/24/19 13:00 36.1 C L 55 L 14 132/61 H 100 07/24/19 12:00 46 L 13 116/68 99 07/24/19 11:38 61 07/24/19 11:25 67 18 07/24/19 11:00 56 L 18 163/60 H 100 Intake & Output: Intake & Output 07/21/19 07/22/19 07/23/19 07/24/19 23:59 23:59 23:59 23:59 Intake Total 240 100 Output Total 6905 Balance 240 -1685 - Objective General Appearance: positive: No acute distress, Alert, Other (super obese white male). negative: Anxious Eyes Bilateral: positive: Normal inspection, No lid inflammation, Conjunctivae nml, No scleral icterus ENT: positive: ENT inspection nml, Pharynx nml, No signs of dehydration. negat mary: Purulent nasal drainage, Pharyngeal erythema, Dry mucous membranes Neck: positive: Nml inspection, Thyroid nml, Trachea midline, Thyromegaly. negative: Stiff neck, Swelling/bruising Respiratory: positive: Chest non-tender. negative: No respiratory distress (Diminished, oropharyngeal rattles), Wheezes Cardiovascular: positive: Irregularly irregular, Systolic murmur. negative: Tachycardia, Decreased pulse(s) Peripheral Pulses: 1+ Dorsalis pedis (R), 1+ Dorsalis pedis (L), 2+ Radial (R), 2+ Radial (L) Abdomen: positive: Non-tender, Nml bowel sounds, Other (Obese). negative: Tenderness, Guarding, Rebound, Abnml bowel sounds Rectal: positive: Non-tender Back: positive: Nml inspection. negative: CVA tenderness (R), CVA tenderness (L) Skin: positive: Warm, Dry, Pallor. negative: Cyanosis, Decubitus (Venous statis dermatitis to BLE) Extremities: positive: Pedal edema. negative: Full ROM, Nml appearance, Joint swelling (Extremities tender from edema) Neurologic/Psychiatric: positive: Oriented x3, CN's nml (2-12), Sensation nml, Mood/affect nml. negative: Facial droop, Slurred/abnml speech, Depressed mood/affect - Lab Results Fish Bones: 07/25/19 04:45 07/25/19 04:45 Other Labs: Lab Results x24hrs 07/24/19 07/24/19 07/24/19 Range/Units 16:04 11:14 09:13 WBC (4.8-10.8) x10^3/uL RBC (4.70-6.10) 10^6/uL Hgb (14.0-18.0) g/dL Hct (42.0-52.0) % MCV (80.0-94.0) fL MCH (27.0-31.0) pg MCHC (32.0-36.0) g/dL RDW (12.0-15.0) % Plt Count (130-450) 10^3/uL MPV (7.4-11.4) fL Neut # (Auto) (1.5-6.6) 10^3/uL Lymph # (Auto) (1.5-3.5) 10^3/uL [place] # (Auto) (0.0-1.0) 10^3/uL Eos # (Auto) (0.0-0.7) 10^3/uL Baso # (Auto) (0.0-0.1) 10^3/uL Absolute Nucleated RBC x10^3/uL Nucleated RBC % /100WBC Bld Gas Analysis Time 1119 0913 Sample Site LEFT RADIAL LEFT RADIAL ABG pH 7.43 7.45 (7.35-7.45) ABG pCO2 68 H* 60 H* (34-45) mmHg ABG pO2 108 H 96 (80-100) mmHg ABG HCO3 43.6 H 41.2 H (22.0-26.0) mmol/L ABG Total CO2 45.9 H* 43.1 H* (21.0-29.0) MMOL/L ABG O2 Saturation 98 97 (94-98) % ABG Oximetry Spot Check 100 99 % ABG Base Excess 15.9 H 14.6 H (-2.0-3.0) mmol/L Clay Test POSITIVE POSITIVE Respiration Rate 14 14 b/min O2 Delivery Device BiPAP BiPAP Vent Mode SYNCHRONOUS/TIMES SYNCHRONOUS/TIMES FiO2 40.00 40.00 Pressure Support Vent 7 cmH2O EPAP 5 5 cmH2O IPAP 14 12 cmH2O Sodium (135-145) mmol/L Potassium (3.5-5.0) mmol/L Chloride (101-111) mmol/L Carbon Dioxide (21-32) mmol/L Anion Gap (6-13) BUN (6-20) mg/dL Creatinine (0.6-1.2) mg/dL Estimated GFR (MDRD) (>89) Glucose (70-100) mg/dL Calcium (8.5-10.3) mg/dL Phosphorus (2.5-4.6) mg/dL Magnesium (1.7-2.8) mg/dL Ammonia 55.9 H (7-35) umol/L Troponin I High Sens (2.3-19.7) ng/L Nasal Screen MRSA (PCR) (NEGATIVE) 07/24/19 07/24/19 07/24/19 Range/Units 04:40 04:40 04:40 WBC 4.8 (4.8-10.8) x10^3/uL RBC 3.13 L (4.70-6.10) 10^6/uL Hgb 11.0 L (14.0-18.0) g/dL Hct 32.4 L (42.0-52.0) % MCV 103.5 H (80.0-94.0) fL MCH 35.1 H (27.0-31.0) pg MCHC 34.0 (32.0-36.0) g/dL RDW 14.8 (12.0-15.0) % Plt Count 47 L (130-450) 10^3/uL MPV 11.6 H (7.4-11.4) fL Neut # (Auto) 4.1 (1.5-6.6) 10^3/uL Lymph # (Auto) 0.3 L (1.5-3.5) 10^3/uL [place] # (Auto) 0.3 (0.0-1.0) 10^3/uL Eos # (Auto) 0.0 (0.0-0.7) 10^3/uL Baso # (Auto) 0.0 (0.0-0.1) 10^3/uL Absolute Nucleated RBC 0.00 x10^3/uL Nucleated RBC % 0.0 /100WBC Bld Gas Analysis Time Sample Site ABG pH (7.35-7.45) ABG pCO2 (34-45) mmHg ABG pO2 (80-100) mmHg ABG HCO3 (22.0-26.0) mmol/L ABG Total CO2 (21.0-29.0) MMOL/L ABG O2 Saturation (94-98) % ABG Oximetry Spot Check % ABG Base Excess (-2.0-3.0) mmol/L Clay Test Respiration Rate b/min O2 Delivery Device Vent Mode FiO2 Pressure Support Vent cmH2O EPAP cmH2O IPAP cmH2O Sodium 142 (135-145) mmol/L Potassium 3.9 (3.5-5.0) mmol/L Chloride 92 L (101-111) mmol/L Carbon Dioxide 44 H* (21-32) mmol/L Anion Gap 6.0 (6-13) BUN 42 H (6-20) mg/dL Creatinine 1.1 (0.6-1.2) mg/dL Estimated GFR (MDRD) 66 L (>89) Glucose 158 H (70-100) mg/dL Calcium 8.2 L (8.5-10.3) mg/dL Phosphorus 3.6 (2.5-4.6) mg/dL Magnesium 1.6 L (1.7-2.8) mg/dL Ammonia (7-35) umol/L Troponin I High Sens 36.4 H* (2.3-19.7) ng/L Nasal Screen MRSA (PCR) (NEGATIVE) 07/23/19 Range/Units 21:50 WBC (4.8-10.8) x10^3/uL RBC (4.70-6.10) 10^6/uL Hgb (14.0-18.0) g/dL Hct (42.0-52.0) % MCV (80.0-94.0) fL MCH (27.0-31.0) pg MCHC (32.0-36.0) g/dL RDW (12.0-15.0) % Plt Count (130-450) 10^3/uL MPV (7.4-11.4) fL Neut # (Auto) (1.5-6.6) 10^3/uL Lymph # (Auto) (1.5-3.5) 10^3/uL [place] # (Auto) (0.0-1.0) 10^3/uL Eos # (Auto) (0.0-0.7) 10^3/uL Baso # (Auto) (0.0-0.1) 10^3/uL Absolute Nucleated RBC x10^3/uL Nucleated RBC % /100WBC Bld Gas Analysis Time Sample Site ABG pH (7.35-7.45) ABG pCO2 (34-45) mmHg ABG pO2 (80-100) mmHg ABG HCO3 (22.0-26.0) mmol/L ABG Total CO2 (21.0-29.0) MMOL/L ABG O2 Saturation (94-98) % ABG Oximetry Spot Check % ABG Base Excess (-2.0-3.0) mmol/L Clay Test Respiration Rate b/min O2 Delivery Device Vent Mode FiO2 Pressure Support Vent cmH2O EPAP cmH2O IPAP cmH2O Sodium (135-145) mmol/L Potassium (3.5-5.0) mmol/L Chloride (101-111) mmol/L Carbon Dioxide (21-32) mmol/L Anion Gap (6-13) BUN (6-20) mg/dL Creatinine (0.6-1.2) mg/dL Estimated GFR (MDRD) (>89) Glucose (70-100) mg/dL Calcium (8.5-10.3) mg/dL Phosphorus (2.5-4.6) mg/dL Magnesium (1.7-2.8) mg/dL Ammonia (7-35) umol/L Troponin I High Sens (2.3-19.7) ng/L Nasal Screen MRSA (PCR) NEGATIVE (NEGATIVE) ABX Reporting Has patient been on IV antibiotics over the past 48 hours?: No Assessment/Plan - Problem List (1) Acute and chronic respiratory failure with hypercapnia Impression: Likely attributable to a combination of chronic lung disease, obstructive sleep apnea, iatrogenic diuresis and morbid obesity. He uses CPAP at home but is unsure how compliant he is with this. He was recently admitted (on 07/17) w/ a COPD exacerbation (in addition to acute on chronic HF and new onset a-fib), and required BIPAP in the ICU at that time. On initial presentation for this admission, his carbon dioxide was 43.3 and pH was 7.53 and his acid-base excess was 16.4. He was obtunded as well so he was placed on BIPIP. His troponins were slightly elevated at 66.2 as well as BNP at 305 but given his cardiopulmonary history, these numbers are not too out of the norm. His ABGs today showed a pH of 7.43, a total CO2 of 45.9, bicarb of 43.6 and ABG base excess of 15.9. Spoke to search strategist via telephone who recommended to increase BIPAP settings. He has no s/s infection. He is no longer obtunded by this evening. He is alert and sitting up to eat dinner. Of note, he is a DNR/DNI. -BIPAP while asleep -Check ABG in the am -Alysia MAR (2) Obtundation Impression: He is alert and oriented at baseline. He presented to the ED for generalized weakness and was initially able to answer the ER 's questions, but by the time I had seen him, he was obtunded and has been that way up until this evening. In reviewing possible causes, he does not appear to have an active infection. He does take Vicoden at home and received a dose of Morphine in the ED, so this is another possible cause. We have been trying to see how he does without pain medicine but as soon as he was alert enough to say he was in pain, he was given an Oxy for pain. Given his abnormal LFTs, his ammonia was checked and was elevated and was 55.9. Will see how he does after starting him on Lactulose. Because he is no longer obtunded and breathing on own and able to feed self, will stop BIPAP and start CPAP while asleep. Overall, in looking at the larger picture, he has metabolic acidosis from iatrogenic volume contraction, compensation for chronically elevated pC02, and his respiration may have been reduced from trying to compensate for that metabolic acidosis as well as opiates. -BIPAP while asleep -Start Lactulose -Avoid sedating medications -ABG in the am (3) Cor pulmonale (chronic) Impression: ECHO from 07/16 shows mild to moderate ventricular enlargement and severe right atrial enlargement. Also mild tricuspid regurgitation and mildly abnormal heart pressures (RVSP at rest is 49mmHg). The inferior vena cava also dilated (>2.1cm). He was recently admitted with a diagnosis of acute on chronic R sided heart failure and was sent home on Lasix and Bumex. He continues to have 3+ pitting edema to BLE as well as anasarca. His weight at the time of his recent discharge on 07/21 was 222.5kg. His weight today is 209kg . A CXR was done and showed no acute cardiopulmonary process (but cardiac silhouette enlarged). He does not appear to have worsening fluid overload. He received a 1 time dose of 40mg Lasix in the ED but will hold off on diuresing, as he is currently volume down and iatrogenic diueresing could be contributing to his hypercapnea. -Hold off on Lasix for now -BIPAP while asleep -Inhaled steroids as mentioned above (4) Atrial fibrillation with controlled ventricular rate Impression: New diagnosis on recent admission. Likely a result of cor pulmonale. He was sent home on Metoprolol for rate control. Cannot be placed on anticoagulation therapy d/t chronic thrombocytopenia. Yesterday EKG showed a-fib w/ a controlled rate. Will hold Metoprolol for now, given his controlled rate and soft BPs but they are trending upward so will start tomorrow -Start Metoprolol tomorrow (5) Abnormal LFTs (liver function tests) Impression: Total bili was 3.2 on admission (2.2 during last admission).Total protein 6.1. Albumin 2.6 and lipase 56. He may have early fatty liver disease or a possible stone, but transaminases are WNL. These abnormalities could also be related to his cor pulmonale. An ABD US was done and was unremarkable. Ammonia was elevated at 59 so will start Lactulose. Given these abnormalities, will check PT/INR tomorrow (want to hold off until to tomorrow to limit the number of times he is poked). -Start Lactulose -PT/INR tomorrow (6) HTN (hypertension) Impression: Unsure why he takes both Carvedilol and Metoprolol at home. Controlled. BPs are soft but tending upward. -Start Metoprolol tomorrow Qualifiers: Hypertension type: essential hypertension Qualified Code(s): I10 - Ess ential (primary) hypertension (7) Thrombocytopenia Impression: This is a chronic problem. Followed by Dr. Kim. Will see if we can obtain outside records. His platelets are trending downward. They were 61 on this admission and down to 47 today. Will transfuse as necessary. His thrombocytopenia could be linked to his rise in bili and both could be from fat ty livery w cirrhosis. -CBC in the am -Limit blood draws -I did order lovenox and that will be stopped (8) Anemia Impression: Hct/Hbg were 38.49/13 on admission. Iron panel last checked on 09/30/18: iron- 91, TIBC 248, %saturation-37, transferrin-177 and ferritin-271.1. Vit B-12 was 1221 and folate was 10.77. I spoke with him this evening and he said that he cannot remember that last time he has drank alcohol. His reports that she does not give him alcohol. He has no s/s active bleeding and is not on AC therapy d/t chronic thrombocytopenia. Lovenox was stopped. -CBC in the am Qualifiers: Anemia type: unspecified type Qualified Code(s): D64.9 - Anemia, unspecified (9) Hypothyroidism Impression: Do not see Synthroid on his med list. Unsure if/why it was stopped but his obtundation could be d/t not taking Synthroid. -Check TSH tomorrow Qualifiers: Hypothyroidism type: unspecified Qualified Code(s): E03.9 - Hypothyroidism, unspecified (10) BPH (benign prostatic hyperplasia) Impression: Takes Flomax at home. -Start tomorrow Qualifiers: Lower urinary tract symptom presence: symptoms present (11) Morbid obesity with BMI of 60.0-69.9, adult Impression: Very minimal capacity for physical activity. He is essentially bedbound. Was sent home on for PT/OT and bath aid after last discharge. Had a long discussion w/ pts regarding goals of care because she is no longer able to care for him. She seemed to have thought that he would eventually bounce back from this. I informed her that eventually, as he ages, he will not be able to return home again and will need to be placed somewhere for adjunct faculty for medical terminology care. I've advised her to find help in figuring out how to plan for that eventuality. -SW to help start discussion regarding jail plans (w/wo placement) (12) Chronic pain Impression: Unable to find information in medical records, so unable to investigate how much opiates he is been using and unsure of what the etiology of his chronic pain syndrome is from. He is more alert this evening and now able to tell me that he has been having terrible pain from head to toe so his PCP started him on Oxy a couple of months ago. His home meds indicate that he is taking Vicodin. We are currently trying to limit the amount of opiods he receives right now, as this may have been related to her hypercapnea. -Lidocaine patch -PRN APAP -PRN Oxy Qualifiers: Chronic pain type: chronic pain syndrome Qualified Code(s): G89.4 - Chronic pain syndrome (13) DM type 2 (diabetes mellitus, type 2) Impression: Pt takes Metformin 500mg PO daily. A progress dated back to 2015 noted that HgBA1C was 5.5%. Given his decline over the past couple years, an upward trend in blood sugars and a need for a well controlled blood glucose, will re-check AIC during this stay. -Check A1C -Hold Metformin -SSI while in the hospital Qualifiers: Diabetes mellitus adjunct faculty for medical terminology insulin use: without adjunct faculty for medical terminology use Diabetes mellitus complication status: without complication Qualified Code(s): E11.9 - Type 2 diabetes mellitus without complications (14) Sleep apnea Impression: On CPAP on home. Unsure how compliant he is with this. -BIPAP tonight while asleep Qualifiers: Sleep apnea type: obstructive Qualified Code(s): G47.33 - Obstructive sleep apnea (adult) (pediatric)
[2019-07-24] MEDS: LACTULOSE 10 GM /15 ML UDC PO SCH (19:33)
[2019-07-24] MEDS: TAMSULOSIN 0.4 MG CAPSULE PO SCH (21:16)
[2019-07-24] MEDS: MONTELUKAST 10 MG TABLET PO SCH (21:18)
[2019-07-25 05:03] LABS: EOSINOPHILS % (AUTO) 0.5 %; LYMPHOCYTES # (AUTO) 1.1 10^3/uL (1.5-3.5); LYMPHOCYTES % (AUTO) 16.6 %; MEAN CORPUSCULAR HEMOGLOBIN 34.1 pg (27.0-31.0); MEAN CORPUSCULAR HGB CONC 32.9 g/dL (32.0-36.0); MEAN CORPUSCULAR VOLUME 103.8 fL (80.0-94.0); MONOCYTES # (AUTO) 0.8 10^3/uL (0.0-1.0); MONOCYTES % (AUTO) 12.4 %; NEUTROPHILS # (AUTO) 4.5 10^3/uL (1.5-6.6); NEUTROPHILS % (AUTO) 69.4 %; PLT - PLATELET COUNT 46 10^3/uL (130-450); RED BLOOD COUNT 2.93 10^6/uL (4.70-6.10); RED CELL DISTRIBUTION WIDTH 15.1 % (12.0-15.0); WHITE BLOOD COUNT 6.5 x10^3/uL (4.8-10.8)
[2019-07-25 05:12] LABS: CALCIUM 8.4 mg/dL (8.5-10.3); CREATININE 1.1 mg/dL (0.6-1.2); MAGNESIUM 1.7 mg/dL (1.7-2.8)
[2019-07-25 05:18] LABS: INR 1.6 (0.8-1.2); PT - PROTHROMBIN TIME 18.2 secs (9.9-12.6)
[2019-07-25] MEDS: ACETAMINOPHEN 325 MG TABLET PO PRN (05:19)
[2019-07-25] MEDS: SODIUM CHLORIDE FLUSH 0.9% 10 ML SYRINGE IVP SCH ×3 (05:19→17:14)
[2019-07-25 05:31] LABS: ABG HCO3 42.8 mmol/L (22.0-26.0); ABG PCO2 58 mmHg (34-45); ABG PH 7.48 (7.35-7.45); ABG PO2 85 mmHg (80-100)
[2019-07-25 05:32] LABS: ABG BASE EXCESS 16.8 mmol/L (-2.0-3.0); ABG OXYGEN SATURATION 96 % (94-98); ABG TCO2 44.6 MMOL/L (21.0-29.0); ALLEN TEST POSITIVE
[2019-07-25] MEDS: INSULIN ASPART 300 UNIT/3 ML PEN SUBQ SCH ×4 (08:14→21:52)
[2019-07-25] MEDS: IPRATROPIUM/ALBUTEROL 3 ML NEB INH SCH ×4 (08:28→19:47)
[2019-07-25] MEDS: POTASSIUM CHLORIDE 20 MEQ TABLET PO ONE ×2 (08:50→08:51)
[2019-07-25] MEDS: DULoxetine 30 MG CAPSULE PO SCH (08:51)
[2019-07-25] MEDS: NYSTATIN POWDER 15 GM TOP SCH ×2 (08:53→20:56)
[2019-07-25] MEDS ORDERED: LISINOPRIL 5 MG TABLET PO SCH (09:00)
[2019-07-25] MEDS ORDERED: HEPARIN 5,000 UNIT/ML VIAL SUBQ SCH (09:00)
[2019-07-25] MEDS ORDERED: METOPROLOL SUCCINATE 25 MG TABLET PO SCH (09:00)
[2019-07-25] MEDS: LACTULOSE 10 GM /15 ML UDC PO SCH (09:04)
[2019-07-25] MEDS: oxyCODONE 5 MG TABLET PO PRN ×2 (09:23→22:30)
[2019-07-25] MEDS: ZINC OXIDE 20% OINT 30 GM TUBE TOP PRN (11:00)
--- NOTE | 2019-07-25 11:36 | PROVIDER PROGRESS NOTE ---
Subjective - Prog Note Date Prog Note Date: 07/25/19 Prog Note Time: 11:34 - Subjective Pt reports feeling: Improved (Mr. Gaitan is sitting up in bed today drinking coffee and watching football. He hopes to have a bath today. He is feeling better but still feels short of breath at times. He currently just has that nasal cannula. He still feels pain in his back and points out that it's giving him tears in his eyes. He's describes it as a pressure/aching pain to his backside from his head to his toes.) Current Medications - Current Medications Current Medications: Active Medications Generic Name Dose Route Start Last Admin Trade Name Freq PRN Reason Stop Dose Admin Acetaminophen 650 mg 07/23/19 16:06 07/25/19 05:19 Tylenol PO 650 mg Q4HR PRN Administration Pain 1 to 4 Albuterol/Ipratropium 3 ml 07/23/19 20:00 07/25/19 08:28 Duoneb INH 3 ml RTQID IAN Administration Duloxetine HCl 30 mg 07/25/19 09:00 07/25/19 08:51 Cymbalta PO 30 mg DAILY IAN Administration Heparin Sodium (Beef Lung) 30 - 50 unit 07/25/19 08:28 IVP PRN PRN Central Line Protocol (<24 hr) Insulin Aspart 1 - 9 unit 07/24/19 08:00 07/25/19 08:14 Novolog SUBQ Not Given 0800,1200,1700,2100 IAN Protocol Lactulose 10 gm 07/24/19 19:06 07/25/19 09:04 Enulose PO Not Given DAILY IAN Lidocaine 1 patch 07/24/19 18:34 Lidoderm Patch TOP DAILY PRN PAIN Lisinopril 10 mg 07/25/19 09:00 07/25/19 08:51 Zestril PO Not Given DAILY IAN Metoprolol Succinate 12.5 mg 07/25/19 09:00 07/25/19 08:51 Toprol Xl PO Not Given DAILY IAN Montelukast Sodium 10 mg 07/24/19 21:00 07/24/19 21:18 Singulair PO 10 mg QPM IAN Administration Multi-Ingredient Ointment 1 applic 07/24/19 11:06 07/24/19 12:50 Zinc Oxide TOP 1 applic PRN PRN Administration Skin Care Nystatin 1 applic 07/23/19 23:00 07/25/19 08:53 Nystop TOP 1 applic BID IAN Administration Ondansetron HCl 4 mg 07/23/19 16:06 Zofran Inj IVP Q6HR PRN Nausea / Vomiting Ondansetron HCl 4 mg 07/23/19 16:06 Zofran Odt TL Q6HR PRN Nausea / Vomiting Oxycodone HCl 5 mg 07/23/19 16:06 07/25/19 09:23 Roxicodone PO 5 mg Q4HR PRN Administration Pain 5 to 7 (Diclofenac Sodium [ 1 each 07/24/19 18:34 Voltaren] 1 Gm) TOP TID PRN PAIN Sodium Chloride 10 ml 07/23/19 16:06 07/24/19 16:18 Normal Saline Flush 0.9% IVP 10 ml PRN PRN Administration NEEDED PER PROVIDER ORDERS Sodium Chloride 10 ml 07/23/19 17:00 07/25/19 08:58 Normal Saline Flush 0.9% IVP 10 ml 0100,0900,1700 IAN Administration Tamsulosin HCl 0.4 mg 07/24/19 21:00 07/24/19 21:16 Flomax PO 0.4 mg QPM IAN Administration Tamsulosin [Flomax] 0.4 mg PO QPM 04/26/13 Albuterol [Ventolin Hfa] 2 puffs INH Q4H PRN 03/24/14 Tiotropium [place] [Spiriva] 1 puffs INH DAILY 03/24/14 Lisinopril 10 mg PO DAILY 10/22/15 Diclofenac Sodium [Voltaren] 1 gm TOP TID PRN 05/07/18 Hydrocodone/Acetaminophen [Hydrocodone-Acetamin 5-325 mg] 1 tab PO BID PRN 05/07/18 Metformin HCl [Metformin HCl ER] 500 mg PO DAILY 05/07/18 Omeprazole 20 mg PO DAILY 04/02/19 Bumetanide 2 mg PO 1400 07/16/19 Bumetanide 6 mg PO DAILY 07/16/19 Duloxetine HCl 30 mg PO DAILY 07/16/19 Potassium Chloride 10 meq PO DAILY 07/16/19 carvediloL [Carvedilol] 12.5 mg PO DAILY 07/24/19 Objective - Vital Signs/Intake & Output Reviewed Vital Signs: Yes Vital Signs: Vital Signs x48h Temp Pulse Pulse Resp BP Pulse Ox 07/25/19 10:00 61 18 123/52 L 94 07/25/19 09:00 54 L 15 117/47 L 93 07/25/19 08:40 55 L 07/25/19 08:29 50 L 18 07/25/19 08:00 36.4 C L 57 L 16 115/46 L 94 07/25/19 07:00 62 15 102/38 L 96 07/25/19 06:00 57 L 18 116/52 L 95 07/25/19 05:35 56 L 07/25/19 05:00 57 L 16 116/52 L 95 07/25/19 04:00 36.7 C 59 L 20 108/43 L 96 Intake & Output: Intake & Output 07/22/19 07/23/19 07/24/19 07/25/19 23:59 23:59 23:59 23:59 Intake Total 240 1340 1750 Output Total 2220 1225 Balance 240 -880 525 - Objective General Appearance: positive: No acute distress, Alert. negative: Anxious, Lethargic Eyes Bilateral: positive: Normal inspection, No lid inflammation, Conjunctivae nml, No scleral icterus ENT: positive: ENT inspection nml, Pharynx nml, No signs of dehydration. negative: Purulent nasal drainage, Pharyngeal erythema, Oral lesions, Dry mucous membranes Neck: positive: Nml inspection, Thyroid nml, Trachea midline. negative: Stiff neck, Kernig's sign, Swelling/bruising, Tracheal deviation Respiratory: positive: Chest non-tender, Breath sounds nml, Other (Slightly tachypneic w/ respirations at 24. Lungs diminished. Quiet oropharyngeal rattles during expirations.) Cardiovascular: positive: Irregularly irregular, Systolic murmur. negative: Gallop/S3, Gallop/S4, Decreased pulse(s), Crepitus Peripheral Pulses: 1+ Dorsalis pedis (R), 1+ Dorsalis pedis (L), 2+ Radial (R), 2+ Radial (L) Abdomen: positive: Non-tender, No distention. negative: Tenderness, Guarding, Rebound, Abnml bowel sounds Rectal: positive: Non-tender Back: positive: Nml inspection. negative: CVA tenderness (R), CVA tenderness (L) Skin: positive: Warm, Dry, Pallor (To extremitites; face flushed), Other (Venous stasis dermatits to BLE). negative: Cyanosis, Decubitus, Puncture wound, Embolic lesions Extremities: positive: Full ROM, Pedal edema. negative: Non-tender, Joint swelling, Nikita's sign/cords (3+ pitting edema and tenderness to extremities) Neurologic/Psychiatric: positive: Oriented x3, CN's nml (2-12), Motor nml, Mood/affect nml, Weakness. negative: Sensation nml (Hypersensitivity to extremities), Facial droop, Slurred/abnml speech, Depressed mood/affect - Lab Results Fish Bones: 07/25/19 04:45 07/25/19 04:45 Other Labs: Lab Results x24hrs 07/25/19 07/25/19 07/25/19 Range/Units 08:03 05:23 04:45 WBC (4.8-10.8) x10^3/uL RBC (4.70-6.10) 10^6/uL Hgb (14.0-18.0) g/dL Hct (42.0-52.0) % MCV (80.0-94.0) fL MCH (27.0-31.0) pg MCHC (32.0-36.0) g/dL RDW (12.0-15.0) % Plt Count (130-450) 10^3/uL MPV (7.4-11.4) fL Neut # (Auto) (1.5-6.6) 10^3/uL Lymph # (Auto) (1.5-3.5) 10^3/uL Cottle # (Auto) (0.0-1.0) 10^3/uL Eos # (Auto) (0.0-0.7) 10^3/uL Baso # (Auto) (0.0-0.1) 10^3/uL Absolute Nucleated RBC x10^3/uL Nucleated RBC % /100WBC PT (9.9-12.6) secs INR (0.8-1.2) Bld Gas Analysis Time 0529 Sample Site RIGHT RADIAL ABG pH 7.48 H (7.35-7.45) ABG pCO2 58 H (34-45) mmHg ABG pO2 85 (80-100) mmHg ABG HCO3 42.8 H (22.0-26.0) mmol/L ABG Total CO2 44.6 H* (21.0-29.0) MMOL/L ABG O2 Saturation 96 (94-98) % ABG Base Excess 16.8 H (-2.0-3.0) mmol/L Clay Test POSITIVE Respiration Rate 18 b/min O2 Delivery Device BiPAP O2 Liters/Min CATHEAD OPERATOR Vent Mode SYNCHRONOUS/TIMES FiO2 40.00 Pressure Support Vent 9 cmH2O EPAP 5 cmH2O IPAP 14 cmH2O Sodium (135-145) mmol/L Potassium (3.5-5.0) mmol/L Chloride (101-111) mmol/L Carbon Dioxide (21-32) mmol/L Anion Gap (6-13) BUN (6-20) mg/dL Creatinine (0.6-1.2) mg/dL Estimated GFR (MDRD) (>89) Glucose (70-100) mg/dL POC Whole Bld Glucose 82 (70 - 100) mg/dL Calcium (8.5-10.3) mg/dL Magnesium (1.7-2.8) mg/dL Ammonia (7-35) umol/L TSH 2.04 (0.34-5.60) uIU/mL 07/25/19 07/25/19 07/25/19 Range/Units 04:45 04:45 04:45 WBC 6.5 (4.8-10.8) x10^3/uL RBC 2.93 L (4.70-6.10) 10^6/uL Hgb 10.0 L (14.0-18.0) g/dL Hct 30.4 L (42.0-52.0) % MCV 103.8 H (80.0-94.0) fL MCH 34.1 H (27.0-31.0) pg MCHC 32.9 (32.0-36.0) g/dL RDW 15.1 H (12.0-15.0) % Plt Count 46 L (130-450) 10^3/uL MPV 11.0 (7.4-11.4) fL Neut # (Auto) 4.5 (1.5-6.6) 10^3/uL Lymph # (Auto) 1.1 L (1.5-3.5) 10^3/uL Cottle # (Auto) 0.8 (0.0-1.0) 10^3/uL Eos # (Auto) 0.0 (0.0-0.7) 10^3/uL Baso # (Auto) 0.0 (0.0-0.1) 10^3/uL Absolute Nucleated RBC 0.00 x10^3/uL Nucleated RBC % 0.0 /100WBC PT 18.2 H (9.9-12.6) secs INR 1.6 H (0.8-1.2) Bld Gas Analysis Time Sample Site ABG pH (7.35-7.45) ABG pCO2 (34-45) mmHg ABG pO2 (80-100) mmHg ABG HCO3 (22.0-26.0) mmol/L ABG Total CO2 (21.0-29.0) MMOL/L ABG O2 Saturation (94-98) % ABG Base Excess (-2.0-3.0) mmol/L Clay Test Respiration Rate b/min O2 Delivery Device O2 Liters/Min Vent Mode FiO2 Pressure Support Vent cmH2O EPAP cmH2O IPAP cmH2O Sodium 143 (135-145) mmol/L Potassium 3.2 L (3.5-5.0) mmol/L Chloride 94 L (101-111) mmol/L Carbon Dioxide 44 H* (21-32) mmol/L Anion Gap 5.0 L (6-13) BUN 38 H (6-20) mg/dL Creatinine 1.1 (0.6-1.2) mg/dL Estimated GFR (MDRD) 66 L (>89) Glucose 94 (70-100) mg/dL POC Whole Bld Glucose (70 - 100) mg/dL Calcium 8.4 L (8.5-10.3) mg/dL Magnesium 1.7 (1.7-2.8) mg/dL Ammonia (7-35) umol/L TSH (0.34-5.60) uIU/mL 07/24/19 07/24/19 07/24/19 Range/Units 21:12 17:04 16:04 WBC (4.8-10.8) x10^3/uL RBC (4.70-6.10) 10^6/uL Hgb (14.0-18.0) g/dL Hct (42.0-52.0) % MCV (80.0-94.0) fL MCH (27.0-31.0) pg MCHC (32.0-36.0) g/dL RDW (12.0-15.0) % Plt Count (130-450) 10^3/uL MPV (7.4-11.4) fL Neut # (Auto) (1.5-6.6) 10^3/uL Lymph # (Auto) (1.5-3.5) 10^3/uL Cottle # (Auto) (0.0-1.0) 10^3/uL Eos # (Auto) (0.0-0.7) 10^3/uL Baso # (Auto) (0.0-0.1) 10^3/uL Absolute Nucleated RBC x10^3/uL Nucleated RBC % /100WBC PT (9.9-12.6) secs INR (0.8-1.2) Bld Gas Analysis Time Sample Site ABG pH (7.35-7.45) ABG pCO2 (34-45) mmHg ABG pO2 (80-100) mmHg ABG HCO3 (22.0-26.0) mmol/L ABG Total CO2 (21.0-29.0) MMOL/L ABG O2 Saturation (94-98) % ABG Base Excess (-2.0-3.0) mmol/L Clay Test Respiration Rate b/min O2 Delivery Device O2 Liters/Min Vent Mode FiO2 Pressure Support Vent cmH2O EPAP cmH2O IPAP cmH2O Sodium (135-145) mmol/L Potassium (3.5-5.0) mmol/L Chloride (101-111) mmol/L Carbon Dioxide (21-32) mmol/L Anion Gap (6-13) BUN (6-20) mg/dL Creatinine (0.6-1.2) mg/dL Estimated GFR (MDRD) (>89) Glucose (70-100) mg/dL POC Whole Bld Glucose 120 H 96 (70 - 100) mg/dL Calcium (8.5-10.3) mg/dL Magnesium (1.7-2.8) mg/dL Ammonia 55.9 H (7-35) umol/L TSH (0.34-5.60) uIU/mL 07/24/19 07/24/19 07/23/19 Range/Units 12:45 08:33 22:18 WBC (4.8-10.8) x10^3/uL RBC (4.70-6.10) 10^6/uL Hgb (14.0-18.0) g/dL Hct (42.0-52.0) % MCV (80.0-94.0) fL MCH (27.0-31.0) pg MCHC (32.0-36.0) g/dL RDW (12.0-15.0) % Plt Count (130-450) 10^3/uL MPV (7.4-11.4) fL Neut # (Auto) (1.5-6.6) 10^3/uL Lymph # (Auto) (1.5-3.5) 10^3/uL Cottle # (Auto) (0.0-1.0) 10^3/uL Eos # (Auto) (0.0-0.7) 10^3/uL Baso # (Auto) (0.0-0.1) 10^3/uL Absolute Nucleated RBC x10^3/uL Nucleated RBC % /100WBC PT (9.9-12.6) secs INR (0.8-1.2) Bld Gas Analysis Time Sample Site ABG pH (7.35-7.45) ABG pCO2 (34-45) mmHg ABG pO2 (80-100) mmHg ABG HCO3 (22.0-26.0) mmol/L ABG Total CO2 (21.0-29.0) MMOL/L ABG O2 Saturation (94-98) % ABG Base Excess (-2.0-3.0) mmol/L Clay Test Respiration Rate b/min O2 Delivery Device O2 Liters/Min Vent Mode FiO2 Pressure Support Vent cmH2O EPAP cmH2O IPAP cmH2O Sodium (135-145) mmol/L Potassium (3.5-5.0) mmol/L Chloride (101-111) mmol/L Carbon Dioxide (21-32) mmol/L Anion Gap (6-13) BUN (6-20) mg/dL Creatinine (0.6-1.2) mg/dL Estimated GFR (MDRD) (>89) Glucose (70-100) mg/dL POC Whole Bld Glucose 125 H 126 H 175 H (70 - 100) mg/dL Calcium (8.5-10.3) mg/dL Magnesium (1.7-2.8) mg/dL Ammonia (7-35) umol/L TSH (0.34-5.60) uIU/mL ABX Reporting Has patient been on IV antibiotics over the past 48 hours?: No Assessment/Plan - Problem List (1) Acute and chronic respiratory failure with hypercapnia Impression: Likely attributable to a combination of chronic lung disease, obstructive sleep apnea, iatrogenic diuresis and morbid obesity. He uses CPAP at home but unsure how compliant he is with this. He was recently admitted (on 07/17) w/ a COPD exacerbation (in addition to acute on chronic HF and new onset a-fib), and required BIPAP in the ICU at that time. On initial presentation for this admission, his carbon dioxide was 43.3, pH was 7.53 and his acid-base excess was 16.4. He was obtunded as well so he was placed on BIPIP. His troponins were slightly elevated at 66.2 as well as BNP at 305 but given his cardiopulmonary history, these numbers are not too out of the norm. His ABGs today showed a pH of 7.48, a total CO2 of 46.6, bicarb of 42.8 and ABG base excess of 16.8. Spoke to e business project manager via telephone yesterday, who recommended to increase BIPAP settings. This was done and his condition improved. He has no s/s infection. He is no longer obtunded as of yesterday evening. He is alert and sitting up to eat breakfast this morning while watching football. Of note, he is a DNR/DNI. -BIPAP while asleep -Check ABG in the am -Duonebs QID -Limit narcotics (2) Obtundation Impression: He presented to the ED for generalized weakness and was initially able to answer the ER 's questions, but by the time I had seen him in the ER, he was obtunded and had remained that way up until yesterday evening. In reviewing possible causes, he has not appeared to have an active infection. He does take Vicoden at home and received a dose of Morphine in the ED, so this was was considered as another possible cause. He has been receiving about 1 Oxy 5mg/day while here and is no longer obtunded (he received one late last night and 1 early this morning). Him taking narcotics at home is likely not the cause of his hypercapnia, unless he had taken more than the prescribed dose. Given his abnormal LFTs, his ammonia was checked and was elevated and was 55.9. Lactulose was ordered but in looking at the MAR, it appears that he has declined 2 doses so far. Of note, his last BM was at the time of admission in the ED which was 3 days ago. Overall, in looking at the larger picture, it appears that he presented with metabolic acidosis from iatrogenic volume contraction, compensation for chronically elevated pC02, and his respirations may have been reduced from trying to compensate for that metabolic acidosis in addition to the opiates he's taking at home. Because he is no longer obtunded and breathing on own we will see how he does on the nasal cannula today and continue his BIPAP. -BIPAP while asleep -Continue Lactulose -Avoid sedating medications -ABG in the am (3) Cor pulmonale (chronic) Impression: ECHO from 07/16 shows mild to moderate ventricular enlargement and severe right atrial enlargement. Also mild tricuspid regurgitation and mildly abnormal heart pressures (RVSP at rest is 49mmHg). The inferior vena cava also dilated (>2. 1cm). He was recently admitted with a diagnosis of acute on chronic R sided heart failure and was sent home on Lasix and Bumex. He continues to have 3+ pitting edema to BLE as well as anasarca. His weight at the time of his recent discharge on 07/21 was 222.5kg. His weight was not checked this morning but yesterday it was 209kg (this is most likely his baseline dry weight). A CXR was done and showed no acute cardiopulmonary process (but cardiac silhouette enlarged). He does not appear to have worsening fluid overload. He received a 1 time dose of 40mg Lasix in the ED but will hold off on diuresing, as he is currently volume down and iatrogenic diueresing could be contributing to his hypercapnea. -Hold off on Lasix for now -BIPAP while asleep -Inhaled steroids as mentioned above (4) Atrial fibrillation with controlled ventricular rate Impression: New diagnosis on recent admission. Likely a result of cor pulmonale. He was sent home on Metoprolol for rate control. Cannot be placed on anticoagulation therapy d/t chronic thrombocytopenia. On admit, the EKG showed a-fib w/ a controlled rate. Metoprolol was re-ordered to start today but it was held d/t a heart rate of 54. -Will add holding parameters to MAR (5) Abnormal LFTs (liver function tests) Impression: Total bili was 3.2 on admission (2.2 during last admission).Total protein 6.1. Albumin 2.6 and lipase 56. PT/INR was checked this morning and was 18.2/1.6 (he is not on anticoagulation). Ammonia was elevated at 56 so Lactulose was started but it appears that pt has declined both doses (last BM 3 days ago). He may have early fatty liver disease or a possible stone, but transaminases are WNL. An ABD US was done and was unremarkable. These abnormalities could also be related to his cor pulmonale or early hepatitis from another cause. Will work up for other potential causes of hepatitis -CMP tomorrow?? -Check for hepatitis B and C -Check for autoimmune causes for hepatitis (6) HTN (hypertension) Impression: Unsure why he takes both Carvedilol and Metoprolol at home. Controlled. Metop rolol and Lisinopril were ordered to start this morning but they were both held (BP was 117/47 and HR was 54). -Will add holding parameters to Metoprolol and Lisinopril Qualifiers: Hypertension type: essential hypertension Qualified Code(s): I10 - Essential (primary) hypertension (7) Hypokalemia Impression: Down from 3.9 to 3.2 today. Likely caused by diuresis and poor PO intake. Was on aggressive diuresis prior to this hospitalization. He received a dose of Lasix in the ED. Did not receive diuretics yesterday or today. Mg was right on the lower end of normal at 1.7. -Replacement 40mEQ KCl PO this am -Replacement 400mg Mg PO this am (8) Thrombocytopenia Impression: This is a chronic problem. Followed by Dr. Kim. Will see if we can obtain outsi de records. His platelets have been trending downward. They were 61 on this admission and down to 46 today. His thrombocytopenia could be linked to his rise in bili, and both could be from fatty liver w/ cirrhosis. Will transfuse as necessary. -CBC in the am -Limit blood draws -Lovenox was D/C'd -Hepatitis workup as above (9) Anemia Impression: Hct/Hbg were 38.49/13 on admission and down to 30.4/10 today. Iron panel last checked on 09/30/18: iron- 91, TIBC 248, %saturation-37, transferrin-177 and ferritin-271.1. Vit B-12 was 1221 and folate was 10.77. As mentioned, he sees Dr. Kim. He denies drinking alcohol and his reports that she does not give him alcohol. He has no s/s active bleeding and is not on AC therapy d/t chronic thrombocytopenia. Lovenox was stopped. Given his cardiac history, will transfuse PRBC for hgb falls below 8. -CBC in the am Qualifiers: Anemia type: unspecified type Qualified Code(s): D64.9 - Anemia, unspecified (10) Hypothyroidism Impression: Do not see Synthroid on his med list. Unsure if/why it was stopped but it was thought that his obtundation could have been d/t not taking Synthroid. His TSH was checked this morning and was 2.04. -Can remain off of Synthroid?? Qualifiers: Hypothyroidism type: unspecified Qualified Code(s): E03.9 - Hypothyroidism, unspecified (11) BPH (benign prostatic hyperplasia) Impression: Takes Flomax at home. -Restarted Qualifiers: Lower urinary tract symptom presence: symptoms present (12) Morbid obesity with BMI of 60.0-69.9, adult Impression: Very minimal capacity for physical activity. He is essentially bedbound. Was sent home on for PT/OT and bath aid after last discharge. Had a long discussion w/ pt's regarding goals of care because she is no longer able to care for him. She seemed to have thought that he would eventually bounce back from being chronically bedbound and dependent. I informed her that eventually, as he ages, he will not be able to return home again and will need to be placed somewhere for long-term care. I've advised her to find help in figuring out how to plan for that eventually. Discharge to an LTAC is a possibility if he is still requiring BIPAP. -SW to help with placement (13) Chronic pain Impression: Unable to find information in medical records, so unable to investigate how much opiates he is been using and unsure of what the etiology of his chronic pain syndrome is from. He is more alert yesterday evening and today, and now able to tell me that he has been having terrible pain from head to toe so his PCP started him on Oxy a couple of months ago. His home meds indicate that he is ta frederick Vicodin. The aching/sore pain from head to toe to his backside that he describes sounds less like neuropathy and more like pain from just laying in bed on his back chronically. I asked him if anyone has ever tried repositioning him by alternating pillows underneath him back and forth throughout the day. He is up for trying this. Will obtain x-ray of his spine. We are currently trying to limit the amount of opiods he receives right now, as this may have attributed to his hypercapnea. -Spinal x-ray -Lidocaine patch -PRN APAP -PRN Oxy Qualifiers: Chronic pain type: chronic pain syndrome Qualified Code(s): G89.4 - Chronic pain syndrome (14) DM type 2 (diabetes mellitus, type 2) Impression: Pt takes Metformin 500mg PO daily. A progress dated back to 2015 noted that HgBA1C was 5.5%. Given his decline over the past couple years, an upward trend in blood sugars and a need for a well controlled blood glucose, will re-check AIC during this stay. -Check A1C? -Hold Metformin -SSI while in the hospital Qualifiers: Diabetes mellitus long-term insulin use: without long-term use Diabetes mellitus complication status: without complication Qualified Code(s): E11.9 - Type 2 diabetes mellitus without complications (15) Sleep apnea Impression: On CPAP on home. Unsure how compliant he is with this. -BIPAP tonight while aslee Qualifiers: Sleep apnea type: obstructive Qualified Code(s): G47.33 - Obstructive sleep apnea (adult) (pediatric) (16) Depression Impression: Stable. -Continue Cymbalta per home regimen Qualifiers: Depression Type: unspecified Qualified Code(s): F32.9 - Major depressive disorder, single episode, unspecified (17) Venous stasis dermatitis of both lower extremities Impression: Has been an ongoing issue for him. The condition of his dermatitis appears worse on this admission compared to photos from the EMR during prior admissions. -Elevate BLE -Zinc Oxide ointment
[2019-07-25] MEDS: MONTELUKAST 10 MG TABLET PO SCH (20:57)
[2019-07-25] MEDS: TAMSULOSIN 0.4 MG CAPSULE PO SCH (20:57)
[2019-07-26] MEDS: SODIUM CHLORIDE FLUSH 0.9% 10 ML SYRINGE IVP SCH ×3 (01:30→16:35)
[2019-07-26] MEDS: oxyCODONE 5 MG TABLET PO PRN ×2 (05:49→20:37)
[2019-07-26] MEDS: IPRATROPIUM/ALBUTEROL 3 ML NEB INH SCH ×4 (07:23→21:06)
[2019-07-26] MEDS: INSULIN ASPART 300 UNIT/3 ML PEN SUBQ SCH ×2 (08:10→12:00)
[2019-07-26] MEDS ORDERED: METOPROLOL SUCCINATE 25 MG TABLET PO SCH (08:35)
[2019-07-26 08:37] LABS: BASOPHILS % (AUTO) 0.2 %; EOSINOPHILS # (AUTO) 0.1 10^3/uL (0.0-0.7); EOSINOPHILS % (AUTO) 1.2 %; HGB - HEMOGLOBIN 10.2 g/dL (14.0-18.0); LYMPHOCYTES # (AUTO) 1.5 10^3/uL (1.5-3.5); LYMPHOCYTES % (AUTO) 26.3 %; MEAN CORPUSCULAR HEMOGLOBIN 33.2 pg (27.0-31.0); MEAN CORPUSCULAR HGB CONC 31.9 g/dL (32.0-36.0); MEAN CORPUSCULAR VOLUME 104.2 fL (80.0-94.0); MEAN PLATELET VOLUME 11.6 fL (7.4-11.4); MONOCYTES # (AUTO) 0.9 10^3/uL (0.0-1.0); MONOCYTES % (AUTO) 15.9 %; NEUTROPHILS # (AUTO) 3.2 10^3/uL (1.5-6.6); NEUTROPHILS % (AUTO) 55.5 %; PLT - PLATELET COUNT 40 10^3/uL (130-450); RED BLOOD COUNT 3.07 10^6/uL (4.70-6.10); RED CELL DISTRIBUTION WIDTH 14.9 % (12.0-15.0); WHITE BLOOD COUNT 5.7 x10^3/uL (4.8-10.8)
[2019-07-26 08:38] LABS: ALBUMIN 2.1 g/dL (3.2-5.5); ALBUMIN/GLOBULIN RATIO 0.8 (1.0-2.2); BILIRUBIN,TOTAL 2.8 mg/dL (0.2-1.0); CALCIUM 8.1 mg/dL (8.5-10.3); CREATININE 0.9 mg/dL (0.6-1.2); TOTAL PROTEIN 4.6 g/dL (6.7-8.2)
[2019-07-26 08:50] LABS: HB2 TOTAL 10.2 g/dL; HEMOGLOBIN A1C 0.31 g/dL; HEMOGLOBIN A1C % 4.9 % (4.6-6.2)
[2019-07-26] MEDS: LISINOPRIL 5 MG TABLET PO SCH (09:00)
[2019-07-26] MEDS: DULoxetine 30 MG CAPSULE PO SCH (09:00)
[2019-07-26] MEDS: NYSTATIN POWDER 15 GM TOP SCH ×2 (09:01→19:14)
[2019-07-26] MEDS: LACTULOSE 10 GM /15 ML UDC PO SCH (09:01)
[2019-07-26] MEDS: SODIUM CHLORIDE FLUSH 0.9% 10 ML SYRINGE IVP PRN (09:02)
--- NOTE | 2019-07-26 11:29 | PROVIDER PROGRESS NOTE ---
Subjective - Prog Note Date Prog Note Date: 07/26/19 Prog Note Time: 11:29 - Subjective Pt reports feeling: Improved (Mr. Gaitan is sitting up in bed and eating breakfast. He is feeling a bit better today. He still is slightly short of breath, some times more than others. He has had a productive cough for a while, and is producing yellow sputum. The nurse tells me that his SpO2 dropped to 85% overnight and stayed around there while he was sleeping, but he was also not using his CPAP (slept w/ the NC on). He has agreed to take his lactulose today. Denies fevers, chills, night sweats, hemoptysis, chest pain, nausea, vomiting or diarrhea.) Current Medications - Current Medications Current Medications: Active Medications Generic Name Dose Route Start Last Admin Trade Name Freq PRN Reason Stop Dose Admin Acetaminophen 650 mg 07/23/19 16:06 07/25/19 05:19 Tylenol PO 650 mg Q4HR PRN Administration Pain 1 to 4 Albuterol/Ipratropium 3 ml 07/23/19 20:00 07/26/19 07:23 Duoneb INH 3 ml RTQID IAN Administration Duloxetine HCl 30 mg 07/25/19 09:00 07/26/19 09:00 Cymbalta PO 30 mg DAILY IAN Administration Heparin Sodium (Beef Lung) 30 - 50 unit 07/25/19 08:28 07/26/19 09:01 IVP 50 unit PRN PRN Administration Central Line Protocol (<24 hr) Insulin Aspart 1 - 9 unit 07/24/19 08:00 07/26/19 08:10 Novolog SUBQ Not Given 0800,1200,1700,2100 IAN Protocol Lactulose 10 gm 07/24/19 19:06 07/26/19 09:01 Enulose PO 10 gm DAILY IAN Administration Lidocaine 1 patch 07/24/19 18:34 Lidoderm Patch TOP DAILY PRN PAIN Lisinopril 10 mg 07/26/19 08:34 07/26/19 09:00 Zestril PO 10 mg DAILY IAN Administration Metoprolol Succinate 12.5 mg 07/26/19 08:35 07/26/19 09:00 Toprol Xl PO 12.5 mg DAILY IAN Administration Montelukast Sodium 10 mg 07/24/19 21:00 07/25/19 20:57 Singulair PO 10 mg QPM IAN Administration Multi-Ingredient Ointment 1 applic 07/24/19 11:06 07/25/19 11:00 Zinc Oxide TOP 1 applic PRN PRN Administration Skin Care Nystatin 1 applic 07/23/19 23:00 07/26/19 09:01 Nystop TOP 1 applic BID IAN Administration Ondansetron HCl 4 mg 07/23/19 16:06 Zofran Inj IVP Q6HR PRN Nausea / Vomiting Ondansetron HCl 4 mg 07/23/19 16:06 Zofran Odt TL Q6HR PRN Nausea / Vomiting Oxycodone HCl 5 mg 07/23/19 16:06 07/26/19 05:49 Roxicodone PO 5 mg Q4HR PRN Administration Pain 5 to 7 (Diclofenac Sodium [ 1 each 07/24/19 18:34 Voltaren] 1 Gm) TOP TID PRN PAIN Sodium Chloride 10 ml 07/23/19 16:06 07/26/19 09:02 Normal Saline Flush 0.9% IVP 30 ml PRN PRN Administration NEEDED PER PROVIDER ORDERS Sodium Chloride 10 ml 07/23/19 17:00 07/26/19 09:02 Normal Saline Flush 0.9% IVP 10 ml 0100,0900,1700 IAN Administration Tamsulosin HCl 0.4 mg 07/24/19 21:00 07/25/19 20:57 Flomax PO 0.4 mg QPM IAN Administration Tamsulosin [Flomax] 0.4 mg PO QPM 04/26/13 Albuterol [Ventolin Hfa] 2 puffs INH Q4H PRN 03/24/14 Tiotropium [place] [Spiriva] 1 puffs INH DAILY 03/24/14 Lisinopril 10 mg PO DAILY 10/22/15 Diclofenac Sodium [Voltaren] 1 gm TOP TID PRN 05/07/18 Hydrocodone/Acetaminophen [Hydrocodone-Acetamin 5-325 mg] 1 tab PO BID PRN 05/07/18 Metformin HCl [Metformin HCl ER] 500 mg PO DAILY 05/07/18 Omeprazole 20 mg PO DAILY 04/02/19 Bumetanide 2 mg PO 1400 07/16/19 Bumetanide 6 mg PO DAILY 07/16/19 Duloxetine HCl 30 mg PO DAILY 07/16/19 Potassium Chloride 10 meq PO DAILY 07/16/19 carvediloL [Carvedilol] 12.5 mg PO DAILY 07/24/19 Objective - Vital Signs/Intake & Output Reviewed Vital Signs: Yes Vital Signs: Vital Signs x48h Temp Pulse Pulse Resp BP Pulse Ox 07/26/19 08:12 36.6 C 65 17 128/49 L 93 07/26/19 07:27 64 20 07/26/19 06:15 57 L 118/40 L 07/26/19 05:21 36.7 C 83 18 134/36 H 91 L Intake & Output: Intake & Output 07/23/19 07/24/19 07/25/19 07/26/19 23:59 23:59 23:59 23:59 Intake Total 240 1340 3340 470 Output Total 2220 2060 950 Balance 240 -880 1280 -480 - Objective General Appearance: positive: No acute distress, Alert. negative: Anxious, Lethargic Eyes Bilateral: positive: Normal inspection, PERRL, No lid inflammation, Conjunctivae nml, No scleral icterus ENT: positive: ENT inspection nml, Pharynx nml, No signs of dehydration. negative: Purulent nasal drainage, Pharyngeal erythema, Oral lesions, Dry mucous membranes Neck: positive: Nml inspection, Thyroid nml, Trachea midline. negative: Stiff neck, Kernig's sign, Swelling/bruising, Tracheal deviation Respiratory: positive: Chest non-tender, Wheezes (Expiratory wheezes), Other (Oropharyngeal rattles) Cardiovascular: positive: Irregularly irregular, Systolic murmur. negative: Decreased pulse(s) Abdomen: positive: Non-tender, Nml bowel sounds, No distention, Other (hugely obese panus with gaurav in intertriginous fold, cannot assess for organomegaly) Rectal: positive: Non-tender Back: positive: Nml inspection. negative: CVA tenderness (R), CVA tenderness (L) Skin: positive: Warm, Dry, Pallor (To extremities; face flushed), Skin rash (Venous stasis dermatitis to BLE) Extremities: positive: Pedal edema (3+ pitting edema to extremities. Limited strength d/t obesity and chronic bedbound status), Other Neurologic/Psychiatric: positive: Oriented x3, CN's nml (2-12), Sensation nml (Hypersensitivity to extremities secondary to edema), Mood/affect nml, Weakness. negative: Facial droop, Slurred/abnml speech, Depressed mood/affect - Lab Results Fish Bones: 07/26/19 08:05 07/26/19 08:05 Other Labs: Lab Results x24hrs 07/26/19 07/26/19 07/26/19 Range/Units 08:05 08:05 08:05 WBC (4.8-10.8) x10^3/uL RBC (4.70-6.10) 10^6/uL Hgb (14.0-18.0) g/dL Hct (42.0-52.0) % MCV (80.0-94.0) fL MCH (27.0-31.0) pg MCHC (32.0-36.0) g/dL RDW (12.0-15.0) % Plt Count (130-450) 10^3/uL MPV (7.4-11.4) fL Neut # (Auto) (1.5-6.6) 10^3/uL Lymph # (Auto) (1.5-3.5) 10^3/uL [place] # (Auto) (0.0-1.0) 10^3/uL Eos # (Auto) (0.0-0.7) 10^3/uL Baso # (Auto) (0.0-0.1) 10^3/uL Absolute Nucleated RBC x10^3/uL Nucleated RBC % /100WBC Sodium (135-145) mmol/L Potassium (3.5-5.0) mmol/L Chloride (101-111) mmol/L Carbon Dioxide (21-32) mmol/L Anion Gap (6-13) BUN (6-20) mg/dL Creatinine (0.6-1.2) mg/dL Estimated GFR (MDRD) (>89) Glucose (70-100) mg/dL POC Whole Bld Glucose (70 - 100) mg/dL Glycated Hemoglobin 4.9 (4.6-6.2) % Estim Average Glucose 94 (70-100) Calcium (8.5-10.3) mg/dL Ferritin 302.4 (23.9-336.2) ng/mL Total Bilirubin (0.2-1.0) mg/dL AST (10-42) IU/L ALT (10-60) IU/L Alkaline Phosphatase (42-121) IU/L Ammonia 20.1 (7-35) umol/L Total Protein (6.7-8.2) g/dL Albumin (3.2-5.5) g/dL Globulin (2.1-4.2) g/dL Albumin/Globulin Ratio (1.0-2.2) 07/26/19 07/26/19 07/25/19 Range/Units 08:05 08:05 21:04 WBC 5.7 (4.8-10.8) x10^3/uL RBC 3.07 L (4.70-6.10) 10^6/uL Hgb 10.2 L (14.0-18.0) g/dL Hct 32.0 L (42.0-52.0) % MCV 104.2 H (80.0-94.0) fL MCH 33.2 H (27.0-31.0) pg MCHC 31.9 L (32.0-36.0) g/dL RDW 14.9 (12.0-15.0) % Plt Count 40 L (130-450) 10^3/uL MPV 11.6 H (7.4-11.4) fL Neut # (Auto) 3.2 (1.5-6.6) 10^3/uL Lymph # (Auto) 1.5 (1.5-3.5) 10^3/uL [place] # (Auto) 0.9 (0.0-1.0) 10^3/uL Eos # (Auto) 0.1 (0.0-0.7) 10^3/uL Baso # (Auto) 0.0 (0.0-0.1) 10^3/uL Absolute Nucleated RBC 0.00 x10^3/uL Nucleated RBC % 0.0 /100WBC Sodium 139 (135-145) mmol/L Potassium 3.4 L (3.5-5.0) mmol/L Chloride 92 L (101-111) mmol/L Carbon Dioxide 40 H* (21-32) mmol/L Anion Gap 7.0 (6-13) BUN 30 H (6-20) mg/dL Creatinine 0.9 (0.6-1.2) mg/dL Estimated GFR (MDRD) 83 L (>89) Glucose 96 (70-100) mg/dL POC Whole Bld Glucose 118 H (70 - 100) mg/dL Glycated Hemoglobin (4.6-6.2) % Estim Average Glucose (70-100) Calcium 8.1 L (8.5-10.3) mg/dL Ferritin (23.9-336.2) ng/mL Total Bilirubin 2.8 H (0.2-1.0) mg/dL AST 31 (10-42) IU/L ALT 25 (10-60) IU/L Alkaline Phosphatase 56 (42-121) IU/L Ammonia (7-35) umol/L Total Protein 4.6 L (6.7-8.2) g/dL Albumin 2.1 L (3.2-5.5) g/dL Globulin 2.5 (2.1-4.2) g/dL Albumin/Globulin Ratio 0.8 L (1.0-2.2) 07/25/19 07/25/19 Range/Units 17:00 11:54 WBC (4.8-10.8) x10^3/uL RBC (4.70-6.10) 10^6/uL Hgb (14.0-18.0) g/dL Hct (42.0-52.0) % MCV (80.0-94.0) fL MCH (27.0-31.0) pg MCHC (32.0-36.0) g/dL RDW (12.0-15.0) % Plt Count (130-450) 10^3/uL MPV (7.4-11.4) fL Neut # (Auto) (1.5-6.6) 10^3/uL Lymph # (Auto) (1.5-3.5) 10^3/uL [place] # (Auto) (0.0-1.0) 10^3/uL Eos # (Auto) (0.0-0.7) 10^3/uL Baso # (Auto) (0.0-0.1) 10^3/uL Absolute Nucleated RBC x10^3/uL Nucleated RBC % /100WBC Sodium (135-145) mmol/L Potassium (3.5-5.0) mmol/L Chloride (101-111) mmol/L Carbon Dioxide (21-32) mmol/L Anion Gap (6-13) BUN (6-20) mg/dL Creatinine (0.6-1.2) mg/dL Estimated GFR (MDRD) (>89) Glucose (70-100) mg/dL POC Whole Bld Glucose 101 H 103 H (70 - 100) mg/dL Glycated Hemoglobin (4.6-6.2) % Estim Average Glucose (70-100) Calcium (8.5-10.3) mg/dL Ferritin (23.9-336.2) ng/mL Total Bilirubin (0.2-1.0) mg/dL AST (10-42) IU/L ALT (10-60) IU/L Alkaline Phosphatase (42-121) IU/L Ammonia (7-35) umol/L Total Protein (6.7-8.2) g/dL Albumin (3.2-5.5) g/dL Globulin (2.1-4.2) g/dL Albumin/Globulin Ratio (1.0-2.2) ABX Reporting Has patient been on IV antibiotics over the past 48 hours?: No Assessment/Plan - Problem List (1) Acute and chronic respiratory failure with hypercapnia Impression: Likely attributable to a combination of chronic lung disease, obstructive sleep apnea, iatrogenic diuresis and morbid obesity. He uses CPAP at home but unsure how compliant he is with this. He was recently admitted (on 07/17) w/ a COPD exacerbation (in addition to acute on chronic HF and new onset a-fib), and required BIPAP in the ICU at that time. On initial presentation for this admission, his carbon dioxide was 43.3, pH was 7.53 and his acid-base excess was 16.4. He was obtunded as well so he was placed on BIPIP. His troponins were slightly elevated at 66.2 as well as BNP at 305 but given his cardiopulmonary history, these numbers are not too out of the norm. His ABGs yesterday showed a pH of 7.48, a total CO2 of 46.6, bicarb of 42.8 and ABG base excess of 16.8. He is no longer obtunded and has been transitioned to using NC while awake. He has no s/s infection. His SpO2 dropped and stayed in the mid 80's overnight, but per the nurse, he was only using the NC at the time and not his CPAP. PFTs were done by RT to show that the FVC, FEV1/FVC ratio and the FEF are reduced, indicating severe airway obstructive disease. Due to the many recent admisison for Mr Huang and his chronic respiratory failure, I believe the patient's CPAP machine is not helping, and his main contributing factor now is the COPD causing his chronic respiratory insufficiency. I am ordering a home BiPAP machine to use at night and with any daytime naps to help treat his respiratory insufficiency, with inspiratory setting of 12 cm H20, and expriatory setting of 5 cm H20. Of note, he is a DNR/DNI. -BIPAP while asleep -Duonebs QID -Limit narcotics (2) Obtundation Impression: He presented to the ED for generalized weakness and obtundation. In reviewing possible causes, he did not appear to have an active infection. He does take Vicoden at home and received a dose of Morphine in the ED, so this was was considered as another possible cause. He has been receiving about 1 Oxy 5mg/day while here and is now alert, so it does not appear that narcotics are the cause for his obtundation, unless he had taken more than the prescribed dose at home. Given his abnormal LFTs, his ammonia was checked and was elevated and was 55.9. Lactulose was ordered but he has been declining it. He took it today. Ammonia down to 20 today. Of note, his last BM was at the time of admission in the ED which was 4 days ago. Overall, in looking at the larger picture, it appears that he presented with metabolic acidosis from iatrogenic volume contraction, compensation for chronically elevated pC02, and in addition, his respirations may have been reduced from trying to compensate for that metabolic acidosis and to the opiates he has been taking at home. -BIPAP while asleep -Continue Lactulose -Avoid sedating medications (3) Cor pulmonale (chronic) Impression: ECHO from 07/16 shows mild to moderate ventricular enlargement and severe right atrial enlargement. Also mild tricuspid regurgitation and mildly abnormal heart pressures (RVSP at rest is 49mmHg). The inferior vena cava also dilated (>2.1cm). He was recently admitted with a diagnosis of acute on chronic R sided heart failure and was sent home on Lasix and Bumex. He continues to have 3+ pitting edema to BLE as well as anasarca (arms, trunk). His weight at the time of his recent discharge on 07/21 was 222.5kg. His weight has not been checked since 07/23 but was down to 209kg then (this is most likely his baseline dry weight). A CXR was done on admit and showed no acute cardiopulmonary process. He does not appear to have worsening fluid overload. He received a 1 time dose of 40mg Lasix in the ED but will hold off on diuresing, as he is currently volume down and iatrogenic diueresing with contraction alkalosis could be contributing to his hypercapnea. -Hold off on Lasix for now but he is reaching a steady state where it may be resumed in next day or two. -BIPAP while asleep -Inhaled steroids as mentioned above (4) Atrial fibrillation with controlled ventricular rate Impression: New diagnosis on recent admission. Likely a result of cor pulmonale. He was sent home on Metoprolol for rate control. Cannot be placed on anticoagulation therapy d/t chronic thrombocytopenia. On admit, the EKG showed a-fib w/ a controlled rate. Metoprolol was re-ordered to start today but it was held d/t a heart rate of 54. -Holding parameters added to MAR (5) Abnormal LFTs (liver function tests) Impression: Total bili was 3.2 on admission and down to 2.8 today. Total protein 6.1 down to 4.6 today. Albumin 2.6, down to 2.1 today and lipase was 56. PT/INR was checked yesterday and was 18.2/1.6 (he is not on anticoagulation). Ammonia was elevated at 56 (down to 20 today), so Lactulose was started, but he has been declining it up until today (last BM 4 days ago). He may have early fatty liver disease or a possible stone, but transaminases are WNL. An ABD US was done and was unremarkable. These abnormalities could also be related to his cor pulmonale or early hepatitis from another cause. Will work up for other potential causes of hepatitis -Continue lactulose but no specific aim for BM since ammonia is now acceptable -Hepatitis B and C pending -Autoimmune causes for hepatitis pending (6) HTN (hypertension) Impression: Unsure why he takes both Carvedilol and Metoprolol at home. Controlled. Metoprolol and Lisinopril were ordered to start this morning but they were both held yesterday. They were held again this morning (d/t a low HR I believe) but requested that the nurse give the Lisinopril (his SBP > 110). -Holding parameters added to Metoprolol and Lisinopril Qualifiers: Hypertension type: essential hypertension Qualified Code(s): I10 - Essential (primary) hypertension (7) Hypokalemia Impression: Was 3.2 yesterday and slightly up to 3.4 today. Likely caused by diuresis and poor PO intake. Was on aggressive diuresis prior to this hospitalization. He received a dose of Lasix in the ED but has not receive diuretics since then. Mg was on the lower end of normal at 1.7 yesterday (was not checked today), so he received replacement KCl and Mg yesterday. Will replace again today. -Replacement 40mEQ KCl PO today -Replacement 400mg Mg PO today (8) Thrombocytopenia Impression: This is a chronic problem. Followed by Dr. Kim. Will see if we can obtain outside records. His platelets have been trending downward. They were 61 on this admission and down to 40 today. His thrombocytopenia could be linked to his rise in bili, and both could be from fatty liver w/ cirrhosis. Will transfuse as necessary. -CBC in the am -Limit blood draws -Lovenox and Heparin were D/C'd -Hepatitis workup as above (9) Anemia Impression: Hct/Hbg were 38.49/13 on admission and down to 32/10.2 today (but this is up from yesterday). Iron panel last checked on 09/30/18: iron- 91, TIBC 248, %saturation-37, transferrin-177 and ferritin-271.1. Vit B-12 was 1221 and folate was 10.77. As mentioned, he sees Dr. Kim. He denies drinking alcohol and his reports that she does not give him alcohol. He has no s/s active bleeding and is not on AC therapy d/t chronic thrombocytopenia. Lovenox and Heparin were stopped. Given his cardiac history, will transfuse PRBC for hgb falls below 8. -CBC in the am Qualifiers: Anemia type: unspecified type Qualified Code(s): D64.9 - Anemia, uns pecified (10) Hypothyroidism Impression: Do not see Synthroid on his med list. Unsure if/why it was stopped but it was thought that his obtundation could have been d/t not taking Synthroid. His TSH was checked this morning and was 2.04. Spoke to his today and she is not familiar with Synthroid and therefore unaware if he was still taking it prior to admission. If he has been off of it for a while, and his TSH is 2.04, then he can remain off of it. But we are not exactly sure when his last dose was. Will need to f/u w/ PCP and have TSH re-checked in the outpatient setting but can remain off of Synthroid for now. -Check TSH in outpatient setting Qualifiers: Hypothyroidism type: unspecified Qualified Code(s): E03.9 - Hypothyroidism, unspecified (11) BPH (benign prostatic hyperplasia) Impression: Takes Flomax at home. A farias was placed for accurate intake and output, but now that he is no longer obtunded, we are not aggressively diuresing him and we are trying to increase his mobility, will D/C farias today. Will order bladder scans to make sure he is not retaining urine. Will order straight cath if needed. -Continue Flomax -D/C farias today -PVR or bladder scan for s/s urinary retention Qualifiers: Lower urinary tract symptom presence: symptoms present (12) Morbid obesity with BMI of 60.0-69.9, adult Impression: Very minimal capacity for physical activity. He is essentially bedbound. Was sent home on for PT/OT and bath aid after last discharge but still returned to the ED. Had a long discussion w/ pt's regarding goals of care because she is no longer able to care for him. She seemed to have thought that he would eventually bounce back from being chronically bedbound and dependent. I informed her that eventually, as he ages, he will not be able to return home again and will need to be placed somewhere for terminal make up operator care. I've advised her to find help in figuring out how to plan for that eventually. Ideally would like to send him to an LTAC, but they are scarce in the area and the closest one is in [place]. (The one in [place] closed down and the one in [place] will close down next month). -SW to help with placement (13) Chronic pain Impression: Unable to find information in medical records, so unable to investigate how much opiates he is been using and unsure of what the etiology of his chronic pain syndrome is from. He has been alert over the past couple of days and tells me that he has been having terrible pain from head to toe, so his PCP started him on Oxy a couple of months ago. (His home meds indicate that he is taking Vicodin). The aching/sore pain from head to toe to his backside that he describes sounds less like neuropathy and more like pain from just laying in bed on his back chronically. He also describes sharp pains to his BLE which do sound like neuropathy. I asked him if anyone has ever tried repositioning him by alternating pillows underneath him back and forth throughout the day. He is up for trying this. Ordered an X-ray for the spine but he is above the weight limit for an X-ray and he is morbidly obese so he will not fit into machine for CT or MRI. We are currently trying to limit the amount of opiods he receives right now, as this may have attributed to his hypercapnea. -Start Gabapentin??? -Lidocaine patch -PRN APAP -PRN Oxy Qualifiers: Chronic pain type: chronic pain syndrome Qualified Code(s): G89.4 - Chronic pain syndrome (14) DM type 2 (diabetes mellitus, type 2) Impression: Pt takes Metformin 500mg PO daily. A progress dated back to 2015 noted that HgBA1C was 5.5%. Given his decline over the past couple years, an upward trend in blood sugars and a need for a well controlled blood glucose, his A1C was checked and was 4.9. His blood sugars have been stable and he has not needed sliding scale coverage. Given this in addition to his thrombocytopenia, will D/C his finger sticks. -Hold Metformin -D/C finger sticks -D/C PRN insulin Qualifiers: Diabetes mellitus [facility] insulin use: without [facility] use Diabetes mellitus complication status: without complication Qualified Code(s): E11.9 - Type 2 diabetes mellitus without complications (15) Sleep apnea Impression: On CPAP on home. Unsure how compliant he is with this. Qualifies for BIPAP as above. -BIPAP while asleep Qualifiers: Sleep apnea type: obstructive Qualified Code(s): G47.33 - Obstructive sleep apnea (adult) (pediatric) (16) Depression Impression: Stable. -Continue Cymbalta per home regimen Qualifiers: Depression Type: dysthymia Qualified Code(s): F34.1 - Dysthymic disorder (17) Venous stasis dermatitis of both lower extremities Impression: Has been an ongoing issue for him. The condition of his dermatitis appears worse on this admission compared to photos from the EMR during prior admissions. -Elevate BLE -Zinc Oxide ointment -emphasize skin care to remove scales.
[2019-07-26] MEDS: LIDOCAINE PATCH 5% TOP PRN (12:00)
[2019-07-26] MEDS ORDERED: POTASSIUM CHLORIDE 20 MEQ TABLET PO ONE (15:52)
[2019-07-26] MEDS: MAGNESIUM OXIDE 400 MG TABLET PO SCH (16:35)
[2019-07-26] MEDS: TAMSULOSIN 0.4 MG CAPSULE PO SCH (20:38)
[2019-07-26] MEDS: MONTELUKAST 10 MG TABLET PO SCH (20:38)
[2019-07-27] MEDS: ACETAMINOPHEN 325 MG TABLET PO PRN (00:04)
[2019-07-27] MEDS: SODIUM CHLORIDE FLUSH 0.9% 10 ML SYRINGE IVP SCH ×3 (00:04→17:46)
[2019-07-27] MEDS: SODIUM CHLORIDE FLUSH 0.9% 10 ML SYRINGE IVP PRN (05:27)
[2019-07-27 05:46] LABS: BASOPHILS % (AUTO) 0.2 %; EOSINOPHILS # (AUTO) 0.2 10^3/uL (0.0-0.7); EOSINOPHILS % (AUTO) 2.9 %; HGB - HEMOGLOBIN 9.9 g/dL (14.0-18.0); LYMPHOCYTES # (AUTO) 1.6 10^3/uL (1.5-3.5); LYMPHOCYTES % (AUTO) 26.8 %; MEAN CORPUSCULAR HEMOGLOBIN 33.7 pg (27.0-31.0); MEAN CORPUSCULAR HGB CONC 32.4 g/dL (32.0-36.0); MEAN CORPUSCULAR VOLUME 104.1 fL (80.0-94.0); MEAN PLATELET VOLUME 11.6 fL (7.4-11.4); MONOCYTES # (AUTO) 0.8 10^3/uL (0.0-1.0); MONOCYTES % (AUTO) 14.3 %; NEUTROPHILS # (AUTO) 3.2 10^3/uL (1.5-6.6); NEUTROPHILS % (AUTO) 55.1 %; RED BLOOD COUNT 2.94 10^6/uL (4.70-6.10); RED CELL DISTRIBUTION WIDTH 14.6 % (12.0-15.0); WHITE BLOOD COUNT 5.8 x10^3/uL (4.8-10.8)
[2019-07-27 05:50] LABS: PLT - PLATELET COUNT 35 10^3/uL (130-450)
[2019-07-27 06:05] LABS: ALBUMIN 2.1 g/dL (3.2-5.5); ALBUMIN/GLOBULIN RATIO 0.8 (1.0-2.2); BILIRUBIN,TOTAL 2.8 mg/dL (0.2-1.0); CALCIUM 8.2 mg/dL (8.5-10.3); CREATININE 0.9 mg/dL (0.6-1.2); TOTAL PROTEIN 4.6 g/dL (6.7-8.2)
[2019-07-27] MEDS ORDERED: POTASSIUM CHLORIDE 20 MEQ TABLET PO ONE (06:55)
[2019-07-27] MEDS: IPRATROPIUM/ALBUTEROL 3 ML NEB INH SCH ×4 (07:19→19:46)
[2019-07-27] MEDS ORDERED: POTASSIUM CHLORIDE 20 MEQ TABLET PO SCH (08:00)
[2019-07-27] MEDS: LACTULOSE 10 GM /15 ML UDC PO SCH (08:54)
[2019-07-27] MEDS: NYSTATIN POWDER 15 GM TOP SCH ×2 (08:54→21:39)
[2019-07-27] MEDS: DULoxetine 30 MG CAPSULE PO SCH (08:55)
[2019-07-27] MEDS: LISINOPRIL 5 MG TABLET PO SCH (08:55)
[2019-07-27] MEDS: MAGNESIUM OXIDE 400 MG TABLET PO SCH (08:55)
--- NOTE | 2019-07-27 14:24 | PROVIDER PROGRESS NOTE ---
Subjective - Prog Note Date Prog Note Date: 07/27/19 Prog Note Time: 14:20 - Subjective Pt reports feeling: Improved Subjective: Mr. Huang is sleeping as I enter the room. He had just finished eating breakfast. He reports that he feels about the same as yesterday. He is occasionally SOB and still coughing up some yellowish sputum. He has not had a BM yet but has been taking his Lactulose since yesterday. Denies dizziness, ch est pain, hemoptysis, ABD pain, flank pain or hematuria. Current Medications - Current Medications Current Medications: Active Medications Generic Name Dose Route Start Last Admin Trade Name Freq PRN Reason Stop Dose Admin Acetaminophen 650 mg 07/23/19 16:06 07/27/19 00:04 Tylenol PO 650 mg Q4HR PRN Administration Pain 1 to 4 Albuterol/Ipratropium 3 ml 07/23/19 20:00 07/27/19 10:56 Duoneb INH 3 ml RTQID IAN Administration Duloxetine HCl 30 mg 07/25/19 09:00 07/27/19 08:55 Cymbalta PO 30 mg DAILY IAN Administration Furosemide 40 mg 07/27/19 14:00 Lasix PO BIDDIURETIC IAN Heparin Sodium (Beef Lung) 30 - 50 unit 07/25/19 08:28 07/27/19 05:27 IVP 50 unit PRN PRN Administration Central Line Protocol (<24 hr) Lactulose 10 gm 07/24/19 19:06 07/27/19 08:54 Enulose PO 10 gm DAILY IAN Administration Lidocaine 1 patch 07/24/19 18:34 07/26/19 12:00 Lidoderm Patch TOP 1 patch DAILY PRN Administration PAIN Lisinopril 10 mg 07/26/19 08:34 07/27/19 08:55 Zestril PO 10 mg DAILY IAN Administration Magnesium Oxide 400 mg 07/26/19 16:00 07/27/19 08:55 Mag Ox PO 400 mg DAILYWM IAN Administration Montelukast Sodium 10 mg 07/24/19 21:00 07/26/19 20:38 Singulair PO 10 mg QPM IAN Administration Multi-Ingredient Ointment 1 applic 07/24/19 11:06 07/25/19 11:00 Zinc Oxide TOP 1 applic PRN PRN Administration Skin Care Nystatin 1 applic 07/23/19 23:00 07/27/19 08:54 Nystop TOP 1 applic BID IAN Administration Ondansetron HCl 4 mg 07/23/19 16:06 Zofran Inj IVP Q6HR PRN Nausea / Vomiting Ondansetron HCl 4 mg 07/23/19 16:06 Zofran Odt TL Q6HR PRN Nausea / Vomiting Oxycodone HCl 5 mg 07/23/19 16:06 07/26/19 20:37 Roxicodone PO 5 mg Q4HR PRN Administration Pain 5 to 7 (Diclofenac Sodium [ 1 each 07/24/19 18:34 Voltaren] 1 Gm) TOP TID PRN PAIN Potassium Chloride 40 meq 07/27/19 21:00 K-Dur PO BID IAN Sodium Chloride 10 ml 07/23/19 16:06 07/27/19 05:27 Normal Saline Flush 0.9% IVP 30 ml PRN PRN Administration NEEDED PER PROVIDER ORDERS Sodium Chloride 10 ml 07/23/19 17:00 07/27/19 08:56 Normal Saline Flush 0.9% IVP 10 ml 0100,0900,1700 IAN Administration Tamsulosin HCl 0.4 mg 07/24/19 21:00 07/26/19 20:38 Flomax PO 0.4 mg QPM IAN Administration Tamsulosin [Flomax] 0.4 mg PO QPM 04/26/13 Albuterol [Ventolin Hfa] 2 puffs INH Q4H PRN 03/24/14 Tiotropium [place] [Spiriva] 1 puffs INH DAILY 03/24/14 Lisinopril 10 mg PO DAILY 10/22/15 Diclofenac Sodium [Voltaren] 1 gm TOP TID PRN 05/07/18 Hydrocodone/Acetaminophen [Hydrocodone-Acetamin 5-325 mg] 1 tab PO BID PRN 05/07/18 Metformin HCl [Metformin HCl ER] 500 mg PO DAILY 05/07/18 Omeprazole 20 mg PO DAILY 04/02/19 Bumetanide 2 mg PO 1400 07/16/19 Bumetanide 6 mg PO DAILY 07/16/19 Duloxetine HCl 30 mg PO DAILY 07/16/19 Potassium Chloride 10 meq PO DAILY 07/16/19 carvediloL [Carvedilol] 12.5 mg PO DAILY 07/24/19 Objective - Vital Signs/Intake & Output Reviewed Vital Signs: Yes Vital Signs: Vital Signs x48h Temp Pulse Pulse Pulse Resp BP Pulse Ox 07/27/19 13:36 36.5 C 66 20 129/47 L 92 07/27/19 10:58 66 16 07/27/19 08:48 36.7 C 63 20 121/73 91 L 07/27/19 07:20 74 18 Intake & Output: Intake & Output 07/24/19 07/25/19 07/26/19 07/27/19 23:59 23:59 23:59 23:59 Intake Total 1340 3340 970 1510 Output Total 2220 2060 1650 750 Balance -880 1280 -680 760 - Objective General Appearance: positive: No acute distress, Alert. negative: Anxious, Lethargic Eyes Bilateral: positive: Normal inspection, No lid inflammation, Conjunctivae nml, No scleral icterus ENT: positive: ENT inspection nml, Pharynx nml, No signs of dehydration. negative: Purulent nasal drainage, Pharyngeal erythema, Dry mucous membranes Neck: positive: Nml inspection, Thyroid nml, Trachea midline. negative: Stiff neck, Kernig's sign, Swelling/bruising, Tracheal deviation Respiratory: positive: Chest non-tender, Wheezes (Expiratory). negative: Rales, Rhonchi Cardiovascular: positive: Systolic murmur. negative: Irregularly irregular, Gallop/S3, Gallop/S4, Decreased pulse(s), Crepitus Peripheral Pulses: 1+ Radial (R), 1+ Radial (L), 1+ Dorsalis pedis (R), 1+ Dorsalis pedis (L) Abdomen: positive: Non-tender, Nml bowel sounds, Other (Morbidly obese belly wth large pannus with gaurav in intertriginous fold. Cannot assess for organomegly.). negative: Tenderness, Guarding, Rebound Rectal: positive: Non-tender Back: positive: Nml inspection. negative: CVA tenderness (R), CVA tenderness (L) Skin: positive: Color nml, Dry (Dry scales to BLE from chronic venous stasis dermatitis), Pallor (To extremities; face flushed), Skin rash (Gaurav under pannus). negative: Cyanosis, Diaphoresis Extremities: positive: Pedal edema, Other (3+ pitting edema to extremities; anasarca). negative: Full ROM, Nml appearance, Calf tenderness, Joint swelling Neurologic/Psychiatric: positive: Oriented x3, CN's nml (2-12), Motor nml (Restrictions due to weakness from chronic inactivity and deconditioning over time), Weakness. negative: Sensation nml (Hypersensitivy to extremities), Disoriented to person, Disoriented to place, Disoriented to time, Facial droop, Slurred/abnml speech, Depressed mood/affect - Lab Results Fish Bones: 07/27/19 05:30 07/27/19 05:30 Other Labs: Lab Results x24hrs 07/27/19 07/27/19 07/26/19 Range/Units 05:30 05:30 11:50 WBC 5.8 (4.8-10.8) x10^3/uL RBC 2.94 L (4.70-6.10) 10^6/uL Hgb 9.9 L (14.0-18.0) g/dL Hct 30.6 L (42.0-52.0) % MCV 104.1 H (80.0-94.0) fL MCH 33.7 H (27.0-31.0) pg MCHC 32.4 (32.0-36.0) g/dL RDW 14.6 (12.0-15.0) % Plt Count 35 L* (130-450) 10^3/uL MPV 11.6 H (7.4-11.4) fL Neut # (Auto) 3.2 (1.5-6.6) 10^3/uL Lymph # (Auto) 1.6 (1.5-3.5) 10^3/uL [place] # (Auto) 0.8 (0.0-1.0) 10^3/uL Eos # (Auto) 0.2 (0.0-0.7) 10^3/uL Baso # (Auto) 0.0 (0.0-0.1) 10^3/uL Absolute Nucleated RBC 0.00 x10^3/uL Nucleated RBC % 0.0 /100WBC Sodium 136 (135-145) mmol/L Potassium 3.4 L (3.5-5.0) mmol/L Chloride 91 L (101-111) mmol/L Carbon Dioxide 41 H* (21-32) mmol/L Anion Gap 4.0 L (6-13) BUN 28 H (6-20) mg/dL Creatinine 0.9 (0.6-1.2) mg/dL Estimated GFR (MDRD) 83 L (>89) Glucose 100 (70-100) mg/dL POC Whole Bld Glucose 113 H (70 - 100) mg/dL Calcium 8.2 L (8.5-10.3) mg/dL Total Bilirubin 2.8 H (0.2-1.0) mg/dL AST 32 (10-42) IU/L ALT 25 (10-60) IU/L Alkaline Phosphatase 54 (42-121) IU/L Total Protein 4.6 L (6.7-8.2) g/dL Albumin 2.1 L (3.2-5.5) g/dL Globulin 2.5 (2.1-4.2) g/dL Albumin/Globulin Ratio 0.8 L (1.0-2.2) ABX Reporting Has patient been on IV antibiotics over the past 48 hours?: No Assessment/Plan - Problem List (1) Acute and chronic respiratory failure with hypercapnia Impression: Likely attributable to a combination of chronic lung disease, obstructive sleep apnea, iatrogenic diuresis and morbid obesity. He has been using CPAP at home but unsure how compliant he is with this. He was recently admitted (on 07/17) w/ a COPD exacerbation (in addition to acute on chronic HF and new onset a-fib), and required BIPAP in the ICU at that time. On initial presentation for this admission, his carbon dioxide was 43.3, pH was 7.53 and his acid-base excess was 16.4. He was obtunded as well, so he was placed on BIPIP. His troponins were slightly elevated at 66.2 as well as BNP at 305 but given his cardiopulmonary history, these numbers were not considered to be too out of the norm. His ABGs 2 days ago showed a pH of 7.48, a total CO2 of 46.6, bicarb of 42.8 and ABG base excess of 16.8. He is no longer obtunded and has been transitioned to using NC while awake. He has no s/s infection. PFTs were done by RT yesterday. The following was noted: "FVC, FEV1/FVC ratio and the FEF are reduced, indicating severe airway obstructive disease. Due to the many recent admisison for Mr Huang and his chronic respiratory failure, I believe the patient's CPAP machine is not helping, and his main contributing factor now is the COPD causing his chronic respiratory insufficiency. I am ordering a home BiPAP machine to use at night and with any daytime naps to help treat his respiratory insufficiency, with inspiratory setting of 12 cm H20, and expriatory setting of 5 cm H20." Of note, he is a DNR/DNI. -BIPAP while asleep -Duonebs QID -Limit narcotics (2) Obtundation Impression: He presented to the ED for generalized weakness and obtundation. In reviewing p ossible causes, he did not appear to have an active infection. He does take Vicoden at home and received a dose of Morphine in the ED, so this was was considered as another possible cause. He has been receiving about 1 Oxy 5mg/day while here and is now alert, so it does not appear that narcotics are the cause for his obtundation, unless he had taken more than the prescribed dose at home. Given his abnormal LFTs, his ammonia was checked on admission and was elevated and was 55.9. Lactulose was ordered but he had initially been declining it but has been taking it since yesterday. Ammonia down to 20 yesterday. Of note, his last BM was at the time of admission in the ED which was 5 days ago. Overall, in looking at the larger picture, it appears that he presented with metabolic acidosis from iatrogenic volume contraction, compensation for chronically elevated pC02, and in addition, his respirations may have been reduced from trying to compensate for that metabolic acidosis and to the opiates he has been taking at home. -BIPAP while asleep -Continue Lactulose -Avoid sedating medications (3) Cor pulmonale (chronic) Impression: ECHO from 07/16 shows mild to moderate ventricular enlargement and severe right atrial enlargement. Also mild tricuspid regurgitation and mildly abnormal heart pressures (RVSP at rest is 49mmHg). The inferior vena cava also dilated (>2.1cm). He was recently admitted with a diagnosis of acute on chronic R sided heart failure and was sent home on Lasix and Bumex. He continues to have 3+ marta ing edema to BLE as well as anasarca (arms, trunk). His weight at the time of his recent discharge on 07/21 was 222.5kg. His weight had not been checked since 07/23 but was down to 209kg then (this is most likely his baseline dry weight) and is up to 211kg today. A CXR was done on admit and showed no acute cardiopulmonary process. He does not appear to have worsening fluid overload. He received a 1 time dose of 40mg Lasix in the ED. We have held off on diuresing, as iatrogenic diueresing with contraction alkalosis was considered to be contributing to his hypercapnea. Now that more stable, is beginning to gain fluid weight again and his cratinine is WNL (0.9), will start on Lasix today. Will hold off on restarting Bumex for now. -Resume Lasix, (hold Bumex) -BIPAP while asleep -Inhaled steroids as mentioned above (4) Atrial fibrillation with controlled ventricular rate Impression: New diagnosis on recent admission. Likely a result of cor pulmonale. He was sent home on Metoprolol for rate control. Cannot be placed on anticoagulation therapy d/t chronic thrombocytopenia. On admit, the EKG showed a-fib w/ a controlled rate. Stable. -Continue Metoprolol w/ holding parameters (5) Abnormal LFTs (liver function tests) Impression: Total bili was 3.2 on admission and down to 2.8 today. Total protein 6.1 down to 4.6 today. Albumin 2.6, down to 2.1 today and lipase was 56. PT/INR was checked 2 days ago and was 18.2/1.6 (he is not on anticoagulation). Ammonia was elevated at 56 (down to 20 yesterday), so Lactulose was started, but he has been declining it up until yesterday (last BM 5 days ago). He may have early fatty liver disease or a possible stone, but transaminases are WNL. An ABD US was done and was unremarkable. These abnormalities could also be related to his cor pulmonale, or early hepatitis from another cause. Workup for other potential causes of hepatitis have been ordered and are pending -Continue lactulose, but no specific aim for BM since ammonia is now acceptable -Hepatitis B and C pending -Autoimmune causes for hepatitis pending (6) HTN (hypertension) Impression: Unsure why he takes both Carvedilol and Metoprolol at home. Has been on the soft side while here in the hospital, but stable. -Continue Lisinopril and Metoprolol with holding parameters Qualifiers: Hypertension type: essential hypertension Qualified Code(s): I10 - Essential (primary) hypertension (7) Hypokalemia Impression: Was 3.2 > 3.4 > 3.4 today. Likely caused by diuresis and poor PO intake. Was on aggressive diuresis prior to this hospitalization, but diuertics had been held for a couple of days. Mg was on the lower end of normal at 1.7 when checked a couple of days ago, so he's received replacement KCl and Mg for the past few days. Given that he has been hypokalemic without diuertics, will increase his potassium to BID. Of note, he had been on 10mEq daily prior to arrival (Lasix 40mg daily and Bumex 6mg daily). -Increase KCl 40mEQ to BID (PO) -Continue 400mg Mg PO -BMP in the am (8) Thrombocytopenia Impression: This is a chronic problem. Followed by Dr. Kim. Will see if we can obtain outside records. His platelets have been trending downward. They were 61 on this admission and down to 35 today. His thrombocytopenia could be linked to his rise in bili, and both could be from fatty liver w/ cirrhosis. Will transfuse as necessary. -CBC in the am -Limit blood draws -Lovenox and Heparin were D/C'd -Hepatitis workup as above (9) Anemia Impression: Hct/Hbg were 38.49/13 on admission and down to 30.6/19.9 today. Iron panel last checked on 09/30/18: iron- 91, TIBC 248, %saturation-37, transferrin-177 and ferritin-271.1. Vit B-12 was 1221 and folate was 10.77. As mentioned, he sees Dr. Kim. He denies drinking alcohol and his reports that she does not give him alcohol. He has no s/s active bleeding and is not on AC therapy d/t chronic thrombocytopenia. Lovenox and Heparin were stopped. Given his cardiac history, will transfuse PRBC for hgb falls below 8. -CBC in the am Qualifiers: Anemia type: unspecified type Qualified Code(s): D64.9 - Anemia, unspecified (10) Hypothyroidism Impression: Do not see Synthroid on his med list. Unsure if/why it was stopped but it was thought that his obtundation could have been d/t not taking Synthroid. His TSH was checked this morning and was 2.04. Spoke to his yesterday and she is not familiar with Synthroid and therefore unaware if he was still taking it prior to admission. If he has been off of it for a while, and his TSH is 2.04, then he can remain off of it. But we are not exactly sure when his last dose was. Will need to f/u w/ PCP and have TSH re-checked in the outpatient setting but can remain off of Synthroid for now. -Check TSH in outpatient setting Qualifiers: Hypothyroidism type: unspecified Qualified Code(s): E03.9 - Hypothyroidism, unspecified (11) BPH (benign prostatic hyperplasia) Impression: Takes Flomax at home. A farias was initially placed for accurate intake and output, but since he has been improving, it was removed yesterday. He is voiding. -Continue Flomax -PVR or bladder scan for s/s urinary retention Qualifiers: Lower urinary tract symptom presence: symptoms present (12) Morbid obesity with BMI of 60.0-69.9, adult Impression: Very minimal capacity for physical activity. He is essentially bedbound. Was sent home on HH for PT/OT and bath aid after last discharge but still returned to the ED. Had a long discussion w/ pt's regarding goals of care because she is no longer able to care for him. She seemed to have thought that he would eventually bounce back from being chronically bedbound and dependent. I informed her that eventually, as he ages, he will not be able to return home again and will need to be placed somewhere for alf care. I've advised her to find help in figuring out how to plan for that eventually. Ideally would like to send him to an LTAC, but they are scarce in the area and the closest one is in [place]. (The one in [place] closed down and the one in [place] will close down next month). He is essentially stable for D/C, we are now just trying to find placement. -SW to help with placement (13) Chronic pain Impression: Unable to find information in medical records, so unable to investigate how much opiates he is been using and unsure of what the etiology of his chronic pain syndrome is from. He has been alert over the past couple of days and tells me that he has been having terrible pain from head to toe, so his PCP started him on Oxy a couple of months ago. (His home meds indicate that he is taking Vicodin). The aching/sore pain from head to toe to his backside that he describes sounds less like neuropathy and more like pain from just laying in bed on his back chronically. He also describes sharp pains to his BLE which do sound like neuropathy. I asked him if anyone has ever tried repositioning him by alternating pillows underneath him back and forth throughout the day. He is up for trying this. Ordered an X-ray for the spine but he is above the weight limit for an X-ray and he is morbidly obese so he will not fit into machine for CT or MRI. We are currently trying to limit the amount of opiods he receives right now, as this may have attributed to his hypercapnea. -Lidocaine patch -PRN APAP -PRN Oxy Qualifiers: Chronic pain type: chronic pain syndrome Qualified Code(s): G89.4 - Chronic pain syndrome (14) DM type 2 (diabetes mellitus, type 2) Impression: Pt takes Metformin 500mg PO daily at home. A progress note dated back to 2015 no anneliese that HgBA1C was 5.5%. Given his decline over the past couple years, an upward trend in blood sugars, and a need for a well controlled blood glucose, his A1C was checked and was 4.9. His blood sugars have been stable and he has not needed sliding scale coverage. Given this in addition to his thro mbocytopenia, will D/C his finger sticks. -Continue to hold Metformin Qualifiers: Diabetes mellitus alf insulin use: without superintendent [employer] use Diabetes mellitus complication status: without complication Qualified Code(s): E11.9 - Type 2 diabetes mellitus without complications (15) Sleep apnea Impression: Qualifies for home BIPAP as above. Prescription has been written. -BIPAP while asleep Qualifiers: Sleep apnea type: obstructive Qualified Code(s): G47.33 - Obstructive sleep apnea (adult) (pediatric) (16) Depression Impression: Stable. -Continue Cymbalta per home regimen Qualifiers: Depression Type: dysthymia Qualified Code(s): F34.1 - Dysthymic disorder (17) Venous stasis dermatitis of both lower extremities Impression: Has been an ongoing issue for him. The condition of his dermatitis appears worse on this admission compared to photos from the EMR during prior admissions and it is still quite scaly today. -Elevate BLE -Zinc Oxide ointment -Emphasize skin care to remove scales (18) Candidiasis Impression: Obese pannus w/ gaurav to intertriginous fold. -Continue topical Nystatin
[2019-07-27] MEDS: FUROSEMIDE 40 MG TABLET PO SCH (15:00)
[2019-07-27] MEDS: LIDOCAINE PATCH 5% TOP PRN (17:45)
[2019-07-27] MEDS: oxyCODONE 5 MG TABLET PO PRN (17:46)
[2019-07-27] MEDS: FORMOTEROL FUMARATE NEB 20 MCG/2 ML INH SCH (19:46)
[2019-07-27] MEDS: MONTELUKAST 10 MG TABLET PO SCH (21:37)
[2019-07-27] MEDS: POTASSIUM CHLORIDE 20 MEQ TABLET PO SCH (21:38)
[2019-07-27] MEDS: TAMSULOSIN 0.4 MG CAPSULE PO SCH (21:38)
[2019-07-28] MEDS: SODIUM CHLORIDE FLUSH 0.9% 10 ML SYRINGE IVP SCH ×4 (05:09→17:27)
[2019-07-28 05:10] LABS: BASOPHILS % (AUTO) 0.2 %; EOSINOPHILS # (AUTO) 0.2 10^3/uL (0.0-0.7); EOSINOPHILS % (AUTO) 3.4 %; LYMPHOCYTES # (AUTO) 1.5 10^3/uL (1.5-3.5); LYMPHOCYTES % (AUTO) 22.7 %; MEAN CORPUSCULAR HEMOGLOBIN 34.6 pg (27.0-31.0); MEAN CORPUSCULAR HGB CONC 33.2 g/dL (32.0-36.0); MEAN CORPUSCULAR VOLUME 104.2 fL (80.0-94.0); MEAN PLATELET VOLUME 11.8 fL (7.4-11.4); MONOCYTES % (AUTO) 15.2 %; NEUTROPHILS # (AUTO) 3.7 10^3/uL (1.5-6.6); NEUTROPHILS % (AUTO) 57.4 %; RED BLOOD COUNT 2.89 10^6/uL (4.70-6.10); RED CELL DISTRIBUTION WIDTH 14.6 % (12.0-15.0); WHITE BLOOD COUNT 6.5 x10^3/uL (4.8-10.8)
[2019-07-28 05:14] LABS: PLT - PLATELET COUNT 35 10^3/uL (130-450)
[2019-07-28 05:19] LABS: CALCIUM 7.3 mg/dL (8.5-10.3); CREATININE 0.6 mg/dL (0.6-1.2)
[2019-07-28] MEDS: FUROSEMIDE 40 MG TABLET PO SCH ×2 (06:43→14:52)
[2019-07-28] MEDS: FORMOTEROL FUMARATE NEB 20 MCG/2 ML INH SCH ×2 (07:48→20:17)
[2019-07-28] MEDS: IPRATROPIUM/ALBUTEROL 3 ML NEB INH SCH ×4 (07:49→20:17)
[2019-07-28] MEDS: LISINOPRIL 5 MG TABLET PO SCH (08:21)
[2019-07-28] MEDS: POTASSIUM CHLORIDE 20 MEQ TABLET PO SCH ×2 (08:21→22:27)
[2019-07-28] MEDS: DULoxetine 30 MG CAPSULE PO SCH (08:22)
[2019-07-28] MEDS: MAGNESIUM OXIDE 400 MG TABLET PO SCH (08:22)
[2019-07-28] MEDS: NYSTATIN POWDER 15 GM TOP SCH ×2 (08:23→21:25)
[2019-07-28] MEDS ORDERED: FUROSEMIDE 40 MG TABLET PO SCH (09:00)
[2019-07-28 11:40] LABS: HEPATITIS A IGM NON-REACTIVE (NON-REACTIVE); HEPATITIS B SURFACE ANTIGEN NON-REACTIVE (NON-REACTIVE); HEPATITIS C ANTIBODY NON-REACTIVE (NON-REACTIVE)
[2019-07-28] MEDS: oxyCODONE 5 MG TABLET PO PRN (17:58)
[2019-07-28] MEDS: ACETAMINOPHEN 325 MG TABLET PO PRN (17:58)
--- NOTE | 2019-07-28 20:19 | PROVIDER PROGRESS NOTE ---
Subjective - Prog Note Date Prog Note Date: 07/28/19 Prog Note Time: 20:22 - Subjective Subjective: he is not working w PT. pretending to be asleep when they walk in. Current Medications - Current Medications Current Medications: Active Medications Acetaminophen (Tylenol) 650 mg PO Q4HR PRN PRN Reason: Pain 1 to 4 Last Admin: 07/28/19 17:58 Dose: 650 mg Albuterol/Ipratropium (Duoneb) 3 ml INH RTQID [facility] Last Admin: 07/28/19 20:17 Dose: 3 ml Duloxetine HCl (Cymbalta) 30 mg PO DAILY [facility] Last Admin: 07/28/19 08:22 Dose: 30 mg Formoterol Fumarate (Perforomist) 20 mcg INH RTBID [facility] Last Admin: 07/28/19 20:17 Dose: 20 mcg Furosemide (Lasix) 40 mg PO BIDDIURETIC [facility] Last Admin: 07/28/19 14:52 Dose: 40 mg Heparin Sodium (Beef Lung) () 30 - 50 unit IVP PRN PRN PRN Reason: Central Line Protocol (<24 hr) Last Admin: 07/28/19 16:17 Dose: 150 unit Lidocaine (Lidoderm Patch) 1 patch TOP DAILY PRN PRN Reason: PAIN Last Admin: 07/27/19 17:45 Dose: 1 patch Lisinopril (Zestril) 10 mg PO DAILY [facility] Last Admin: 07/28/19 08:21 Dose: 10 mg Magnesium Oxide (Mag Ox) 400 mg PO DAILYWM [facility] Last Admin: 07/28/19 08:22 Dose: 400 mg Montelukast Sodium (Singulair) 10 mg PO QPM [facility] Last Admin: 07/27/19 21:37 Dose: 10 mg Multi-Ingredient Ointment (Zinc Oxide) 1 applic TOP PRN PRN PRN Reason: Skin Care Last Admin: 07/25/19 11:00 Dose: 1 applic Nystatin (Nystop) 1 applic TOP BID [facility] Last Admin: 07/28/19 08:23 Dose: 1 applic Ondansetron HCl (Zofran Inj) 4 mg IVP Q6HR PRN PRN Reason: Nausea / Vomiting Ondansetron HCl (Zofran Odt) 4 mg TL Q6HR PRN PRN Reason: Nausea / Vomiting Oxycodone HCl (Roxicodone) 5 mg PO Q4HR PRN PRN Reason: Pain 5 to 7 Last Admin: 07/28/19 17:58 Dose: 5 mg (Diclofenac Sodium [ (Voltaren] 1 Gm)) 1 each TOP TID PRN PRN Reason: PAIN Potassium Chloride (K-Dur) 40 meq PO BID [facility] Last Admin: 07/28/19 08:21 Dose: 40 meq Sodium Chloride (Normal Saline Flush 0.9%) 10 ml IVP PRN PRN PRN Reason: NEEDED PER PROVIDER ORDERS Last Admin: 07/27/19 05:27 Dose: 30 ml Sodium Chloride (Normal Saline Flush 0.9%) 10 ml IVP 0100,0900,1700 [facility] Last Admin: 07/28/19 17:27 Dose: Not Given Tamsulosin HCl (Flomax) 0.4 mg PO QPM [facility] Last Admin: 07/27/19 21:38 Dose: 0.4 mg Tamsulosin [Flomax] 0.4 mg PO QPM 04/26/13 Albuterol [Ventolin Hfa] 2 puffs INH Q4H PRN 03/24/14 Tiotropium [place] [Spiriva] 1 puffs INH DAILY 03/24/14 Lisinopril 10 mg PO DAILY 10/22/15 Diclofenac Sodium [Voltaren] 1 gm TOP TID PRN 05/07/18 Hydrocodone/Acetaminophen [Hydrocodone-Acetamin 5-325 mg] 1 tab PO BID PRN 0 05/07/18 Metformin HCl [Metformin HCl ER] 500 mg PO DAILY 05/07/18 Omeprazole 20 mg PO DAILY 04/02/19 Bumetanide 2 mg PO 1400 07/16/19 Bumetanide 6 mg PO DAILY 07/16/19 Duloxetine HCl 30 mg PO DAILY 07/16/19 Potassium Chloride 10 meq PO DAILY 07/16/19 carvediloL [Carvedilol] 12.5 mg PO DAILY 07/24/19 Objective - Vital Signs/Intake & Output Reviewed Vital Signs: Yes Vital Signs: Vital Signs x48h Temp Pulse Pulse Resp BP Pulse Ox 07/28/19 16:11 36.9 C 73 20 128/51 L 94 07/28/19 15:23 79 16 Intake & Output: Intake & Output 07/25/19 07/26/19 07/27/1919 23:59 23:59 23:59 23:59 Intake Total 3340 970 1930 1040 Output Total 2060 1650 925 530 Balance 1280 -680 1005 510 - Objective General Appearance: positive: No acute distress, Alert Eyes Bilateral: positive: PERRL Neck: negative: Stiff neck Respiratory: positive: Chest non-tender, Other (diminsihed sound at bases). negative: Wheezes, Rales, Rhonchi Cardiovascular: positive: Regular rate & rhythm. negative: Gallop/S4, Friction rub Abdomen: positive: Non-tender, Nml bowel sounds, No distention, Other (hugely obese panus) Skin: positive: Warm, Dry Extremities: positive: Pedal edema (with chornic severe venous stasis rubor, scales) Neurologic/Psychiatric: positive: Oriented x3, CN's nml (2-12). negative: Motor nml (weak generalized, can't manipulate his forks/sppon well even when they're the large ones) - Lab Results Fish Bones: 07/28/19 05:00 07/28/19 05:00 Other Labs: Lab Results x24hrs 07/28/19 07/28/19 07/26/19 Range/Units 05:00 05:00 08:05 WBC 6.5 (4.8-10.8) x10^3/uL RBC 2.89 L (4.70-6.10) 10^6/uL Hgb 10.0 L (14.0-18.0) g/dL Hct 30.1 L (42.0-52.0) % MCV 104.2 H (80.0-94.0) fL MCH 34.6 H (27.0-31.0) pg MCHC 33.2 (32.0-36.0) g/dL RDW 14.6 (12.0-15.0) % Plt Count 35 L* (130-450) 10^3/uL MPV 11.8 H (7.4-11.4) fL Neut # (Auto) 3.7 (1.5-6.6) 10^3/uL Lymph # (Auto) 1.5 (1.5-3.5) 10^3/uL [place] # (Auto) 1.0 (0.0-1.0) 10^3/uL Eos # (Auto) 0.2 (0.0-0.7) 10^3/uL Baso # (Auto) 0.0 (0.0-0.1) 10^3/uL Absolute Nucleated RBC 0.00 x10^3/uL Nucleated RBC % 0.0 /100WBC Sodium 142 (135-145) mmol/L Potassium 3.3 L (3.5-5.0) mmol/L Chloride 103 (101-111) mmol/L Carbon Dioxide 36 H (21-32) mmol/L Anion Gap 3.0 L (6-13) BUN 22 H (6-20) mg/dL Creatinine 0.6 (0.6-1.2) mg/dL Estimated GFR (MDRD) 133 (>89) Glucose 97 (70-100) mg/dL Calcium 7.3 L (8.5-10.3) mg/dL Hepatitis A IgM Ab NON-REACTIVE (NON-REACTIVE) Hep Bs Antigen NON-REACTIVE (NON-REACTIVE) Hep B Core IgM Ab NON-REACTIVE (NON-REACTIVE) Hepatitis C Antibody NON-REACTIVE (NON-REACTIVE) Hep C Ab Signal/Cutoff 0.50 (<1.00) ABX Reporting Has patient been on IV antibiotics over the past 48 hours?: No Assessment/Plan - Problem List (1) Acute and chronic respiratory failure with hypercapnia Impression: Likely attributable to a combination of chronic lung disease, obstructive sleep apnea, iatrogenic diuresis and morbid obesity. He has been using CPAP at home but unsure how compliant he is with this. He was recently admitted (on 07/17) w/ a COPD exacerbation (in addition to acute on chronic HF and new onset a-fib), and required BIPAP in the ICU at that time. On initial presentation for this admission, his carbon dioxide was 43.3, pH was 7.53 and his acid-base excess was 16.4. He was obtunded as well, so he was placed on BIPIP. His troponins were slightly elevated at 66.2 as well as BNP at 305 but given his cardiopulmonary hi story, these numbers were not considered to be too out of the norm. His ABGs 3 days ago showed a pH of 7.48, a total CO2 of 46.6, bicarb of 42.8 and ABG base excess of 16.8. He is no longer obtunded and has been transitioned to using NC while awake. He has no s/s infection. PFTs were done by RT 07/26. The following was noted: "FVC, FEV1/FVC ratio and the FEF are reduced, indicating severe airway obstructive disease. Due to the many recent admisison for Mr Huang and his chronic respiratory failure, I believe the patient's CPAP machine is not helping, and his main contributing factor now is the COPD causing his chronic respiratory insufficiency. I am ordering a home BiPAP machine to use at night and with any daytime naps to help treat his respiratory insufficiency, with inspiratory setting of 12 cm H20, and expriatory setting of 5 cm H20." Of note, he is a DNR/DNI. -BIPAP while asleep -Duonebs QID -Limit narcotics (2) Obtundation Impression: He presented to the ED for generalized weakness and obtundation. In reviewing possible causes, he did not appear to have an active infection. He does take Vi coden at home and received a dose of Morphine in the ED, so this was was considered as another possible cause. He has been receiving about 1 Oxy 5mg/day while here and is now alert, so it does not appear that narcotics are the cause for his obtundation, unless he had taken more than the prescribed dose at home. Given his abnormal LFTs, his ammonia was checked on admission and was elevated and was 55.9. Lactulose was ordered but he had initially been declining it but has been taking it since yesterday. Ammonia down to 20 yesterday. Of note, his last BM was at the time of admission in the ED which was 5 days ago. Overall, in looking at the larger picture, it appears that he presented with metabolic acidosis from iatrogenic volume contraction, compensation for chronically elevated pC02, and in addition, his respirations may have been reduced from trying to compensate for that metabolic acidosis and to the opiates he has been taking at home. -BIPAP while asleep -Continue Lactulose. RN had asked for it to be stopped bc of BM last night. Health Director stopped it. I resumed it today. -Avoid sedating medications (3) Cor pulmonale (chronic) Impression: ECHO from 07/16 shows mild to moderate ventricular enlargement and severe right atrial enlargement. Also mild tricuspid regurgitation and mildly abnormal heart pressures (RVSP at rest is 49mmHg). The inferior vena cava also dilated (>2.1cm). He was recently admitted with a diagnosis of acute on chronic R sided heart failure and was sent home on Lasix and Bumex. He continues to have 3+ pitting edema to BLE as well as anasarca (arms, trunk). His weight at the time of his recent discharge on 07/21 was 222.5kg. His weight had not been checked since 07/23 but was down to 209kg then (this is most likely his baseline dry weight) and is up to 211kg 07/27. A CXR was done on admit and showed no acute cardiopulmonary process. He does not appear to have worsening fluid overload. He received a 1 time dose of 40mg Lasix in the ED. We have held off on diuresing, as iatrogenic diueresing with contraction alkalosis was considered to be contributing to his hypercapnea. Now that more stable, is beginning to gain fluid weight again and his creatinine is WNL (0.9), started on Lasix 07/27. Will hold off on restarting Bumex for now. -Resume Lasix, (hold Bumex) -BIPAP while asleep -Inhaled steroids as mentioned above (4) Atrial fibrillation with controlled ventricular rate Impression: New diagnosis on recent admission. Likely a result of cor pulmonale. He was sent home on Metoprolol for rate control. Cannot be placed on anticoagulation therapy d/t chronic thrombocytopenia. On admit, the EKG showed a-fib w/ a controlled rate. Stable. -Continue Metoprolol w/ holding parameters (5) Abnormal LFTs (liver function tests) Impression: Total bili was 3.2 on admission and down to 2.8 . Total protein 6.1 down to 4.6 today. Albumin 2.6, down to 2.1 today and lipase was 56. PT/INR was checked 2 days ago and was 18.2/1.6 (he is not on anticoagulation). Ammonia was elevated at 56 (down to 20 07/26), so Lactulose was started, but he has been declining it up until yesterday (last BM 5 days ago). He may have early fatty liver disease or a possible stone, but transaminases are WNL. An ABD US was done and was unremarkable. These abnormalities could also be related to his cor pulmonale, or early hepatitis from another cause. Workup for other potential causes of hepati tis have been ordered and are pending -Continue lactulose, but no specific aim for BM since ammonia is now acceptable -Hepatitis B and C are negative -Autoimmune causes for hepatitis pending (6) HTN (hypertension) Impression: Unsure why he takes both Carvedilol and Metoprolol at home. Has been on the soft side while here in the hospital, but stable. -Continue Lisinopril and Metoprolol with holding parameters Qualifiers: Hypertension type: essential hypertension Qualified Code(s): I10 - Essential (primary) hypertension (7) Hypokalemia Impression: Was 3.2 > 3.4 > 3.4>3.3 today in spite of bid dosing. Likely caused by diuresis and poor PO intake. Was on aggressive diuresis prior to this hospitalization, but diuertics had been held for a couple of days. Mg was on the lower end of normal at 1.7 when checked a couple of days ago, so he's received replacement KCl and Mg for the past few days. Given that he has been hypokalemic without diuertics, will increase his potassium to BID. Of note, he had been on 10mEq daily prior to arrival (Lasix 40mg daily and Bumex 6mg daily). -Continue KCl 40mEQ to BID (PO) -Continue 400mg Mg PO -BMP in the am (8) Thrombocytopenia Impression: This is a chronic problem. Followed by Dr. Kim. Will see if we can obtain outside records. His platelets have been trending downward. They were 61 on this admission and down to 35 for the last 2 days. His thrombocytopenia could be linked to his rise in bili, and both could be from fatty liver w/ cirrhosis. Will transfuse as necessary. -CBC in the am -Limit blood draws -Lovenox and Heparin were D/C'd -Hepatitis workup as above (9) Anemia Impression: Hct/Hbg were 38.49/13 on admission and down to 30.1/10 today. Iron panel last checked on 09/30/18: iron- 91, TIBC 248, %saturation-37, transferrin-177 and ferritin-271.1. Vit B-12 was 1221 and folate was 10.77. As mentioned, he sees Dr. Kim. He denies drinking alcohol and his reports that she does not give him alcohol. He has no s/s active bleeding and is not on AC therapy d/t chronic thrombocytopenia. Lovenox and Heparin were stopped. Given his cardiac history, will transfuse PRBC for hgb falls below 8. -CBC in the am Qualifiers: Anemia type: unspecified type Qualified Code(s): D64.9 - Anemia, unspecified (10) Hypothyroidism Impression: Do not see Synthroid on his med list. Unsure if/why it was stopped but it was thought that his obtundation could have been d/t not taking Synthroid. His TSH was checked this morning and was 2.04. Spoke to his yesterday and she is not familiar with Synthroid and therefore unaware if he was still taking it prior to admission. If he has been off of it for a while, and his TSH is 2.04, then he can remain off of it. But we are not exactly sure when his last dose was. Will need to f/u w/ PCP and have TSH re-checked in the outpatient setting but can remain off of Synthroid for now. -Check TSH in outpatient setting Qualifiers: Hypothyroidism type: unspecified Qualified Code(s): E03.9 - Hypothyroidism, unspecified (11) BPH (benign prostatic hyperplasia) Impression: Takes Flomax at home. A farias was initially placed for accurate intake and output, but since he has been improving, it was removed yesterday. He is voiding. -Continue Flomax -PVR or bladder scan for s/s urinary retention Qualifiers: Lower urinary tract symptom presence: symptoms present (12) Morbid obesity with BMI of 60.0-69.9, adult Impression: Very minimal capacity for physical activity. He is essentially bedbound. Was sent home on for PT/OT and bath aid after last discharge but still returned to the ED. Had a long discussion w/ pt's regarding goals of care because she is no longer able to care for him. She seemed to have thought that he would eventually bounce back from being chronically bedbound and dependent. I informed her that eventually, as he ages, he will not be able to return home again and will need to be placed somewhere for penitentiary care. I've advised her to find help in figuring out how to plan for that eventually. Ideally would like to send him to an LTAC, but they are scarce in the area and the closest one is in [place]. (The one in [place] closed down and the one in [place] will close down next month). He is essentially stable for D/C, we are now just trying to find placement. -SW to help with placement (13) Chronic pain Impression: Unable to find information in medical records, so unable to investigate how much opiates he is been using and unsure of what the etiology of his chronic pain syndrome is from. He has been alert over the past couple of days and tells me that he has been having terrible pain from head to toe, so his PCP started him on Oxy a couple of months ago. (His home meds indicate that he is taking Vicodin). The aching/sore pain from head to toe to his backside that he describes sounds less like neuropathy and more like pain from just laying in bed on his back chronically. He also describes sharp pains to his BLE which do sound like neuropathy. I asked him if anyone has ever tried repositioning him by alternating pillows underneath him back and forth throughout the day. He is up for trying this. Ordered an X-ray for the spine but he is above the weight limit for an X-ray and he is morbidly obese so he will not fit into machine for CT or MRI. We are currently trying to limit the amount of opiods he receives right now, as this may have attributed to his hypercapnea. -Lidocaine patch -PRN APAP -PRN Oxy Qualifiers: Chronic pain type: chronic pain syndrome Qualified Code(s): G89.4 - Chronic pain syndrome (14) DM type 2 (diabetes mellitus, type 2) Impression: Pt takes Metformin 500mg PO daily at home. A progress note dated back to 2016 noted that HgBA1C was 5.5%. Given his decline over the past couple years, an upward trend in blood sugars, and a need for a well controlled blood glucose, his A1C was checked and was 4.9. His blood sugars have been stable and he has not needed sliding scale coverage. Given this in addition to his thrombocytopenia, will D/C his finger sticks. -Continue to hold Metformin Qualifiers: Diabetes mellitus penitentiary insulin use: without penitentiary use Diabetes mellitus complication status: without complication Qualified Code(s): E11.9 - Type 2 diabetes mellitus without complications (15) Sleep apnea Impression: Qualifies for home BIPAP as above. Prescription has been written. -BIPAP while asleep Qualifiers: Sleep apnea type: obstructive Qualified Code(s): G47.33 - Obstructive sleep apnea (adult) (pediatric) (16) Depression Impression: Stable. -Continue Cymbalta per home regimen Qualifiers: Depression Type: dysthymia Qualified Code(s): F34.1 - Dysthymic disorder (17) Venous stasis dermatitis of both lower extremities Impression: Has been an ongoing issue for him. The condition of his dermatitis appears worse on this admission compared to photos from the EMR during prior admissions and it is still quite scaly today. -Elevate BLE -Zinc Oxide ointment -Emphasize skin care to remove scales (18) Candidiasis Impression: Obese pannus w/ gaurav to intertriginous fold. -Continue topical Nystatin
[2019-07-28 21:36] LABS: SMOOTH MUSCLE IGG AB 21 U
[2019-07-28] MEDS: TAMSULOSIN 0.4 MG CAPSULE PO SCH (22:27)
[2019-07-28] MEDS: MONTELUKAST 10 MG TABLET PO SCH (22:27)
[2019-07-29 05:30] LABS: EOSINOPHILS # (AUTO) 0.2 10^3/uL (0.0-0.7); EOSINOPHILS % (AUTO) 3.1 %; HGB - HEMOGLOBIN 9.7 g/dL (14.0-18.0); LYMPHOCYTES # (AUTO) 1.5 10^3/uL (1.5-3.5); LYMPHOCYTES % (AUTO) 22.7 %; MEAN CORPUSCULAR HEMOGLOBIN 33.8 pg (27.0-31.0); MEAN CORPUSCULAR HGB CONC 32.6 g/dL (32.0-36.0); MEAN CORPUSCULAR VOLUME 103.8 fL (80.0-94.0); MEAN PLATELET VOLUME 12.6 fL (7.4-11.4); MONOCYTES # (AUTO) 1.1 10^3/uL (0.0-1.0); MONOCYTES % (AUTO) 16.2 %; NEUTROPHILS # (AUTO) 3.8 10^3/uL (1.5-6.6); NEUTROPHILS % (AUTO) 57.2 %; PLT - PLATELET COUNT 37 10^3/uL (130-450); RED BLOOD COUNT 2.87 10^6/uL (4.70-6.10); WHITE BLOOD COUNT 6.6 x10^3/uL (4.8-10.8)
[2019-07-29 05:41] LABS: CALCIUM 8.4 mg/dL (8.5-10.3); CREATININE 0.8 mg/dL (0.6-1.2)
[2019-07-29] MEDS: FUROSEMIDE 40 MG TABLET PO SCH (06:08)
[2019-07-29] MEDS: SODIUM CHLORIDE FLUSH 0.9% 10 ML SYRINGE IVP SCH ×3 (06:17→21:13)
[2019-07-29] MEDS: IPRATROPIUM/ALBUTEROL 3 ML NEB INH SCH ×4 (07:50→19:59)
[2019-07-29] MEDS: FORMOTEROL FUMARATE NEB 20 MCG/2 ML INH SCH ×2 (07:50→19:59)
[2019-07-29] MEDS: LISINOPRIL 5 MG TABLET PO SCH (09:11)
[2019-07-29] MEDS: POTASSIUM CHLORIDE 20 MEQ TABLET PO SCH ×2 (09:11→20:48)
[2019-07-29] MEDS: MAGNESIUM OXIDE 400 MG TABLET PO SCH (09:12)
[2019-07-29] MEDS: NYSTATIN POWDER 15 GM TOP SCH ×2 (09:12→20:50)
[2019-07-29] MEDS: DULoxetine 30 MG CAPSULE PO SCH (09:12)
[2019-07-29 12:56] LABS: ANA SCREEN NEGATIVE (NEGATIVE)
[2019-07-29] MEDS ORDERED: FUROSEMIDE 40 MG/4 ML VIAL IVP ONE (14:00)
--- NOTE | 2019-07-29 18:24 | PROVIDER PROGRESS NOTE ---
Assessment/Plan - Problem List (1) Acute metabolic encephalopathy Assessment/Plan: He is weak, sleepy. PT is working with him and the plan is to be discharged to a SNF for PT and OT rehab. The could not take care of him and attend to his ADLs for the 1 day he was home after the last DCh (2) Cor pulmonale (chronic) Assessment/Plan: His last admission required diuresis from anasarca, and he went home volume depleted and pre-renal. The BUN creat have improved despite staying on po bid diuretics. Will change to a daily dose of Lasix or could resume the Bumex Continue Carvedilol (3) Morbid obesity with BMI of 60.0-69.9, adult Assessment/Plan: He requires a bariatric bed (4) Atrial fibrillation with controlled ventricular rate Assessment/Plan: Carvedilol resumed, rate is controlled, no blood thinners due to Hx of thrombocytopenia (5) Thrombocytopenia Assessment/Plan: Chronic low plts, no signs of bleeding For this reason he is not getting stroke prophylaxis treatment, with his afib Hx (6) Anemia Assessment/Plan: Chronic, and stable (7) COPD without exacerbation Assessment/Plan: Singulair and his inhalers are ordered (8) Sleep apnea Assessment/Plan: His home CPAP device is ordered to use here (9) Diabetes Assessment/Plan: Metformin was stopped due to CKD, on cc diet and Insulin ordered (10) Hypothyroidism Assessment/Plan: On home meds (11) Lymphedema Assessment/Plan: Chronic and he wears his stockings - Current Meds Current Meds: Current Medications Generic Name Dose Route Start Last Admin Trade Name Ignacio PRN Reason Stop Dose Admin Acetaminophen 650 mg 07/23/19 16:06 07/28/19 17:58 Tylenol PO 650 mg Q4HR PRN Administration Pain 1 to 4 Albuterol/Ipratropium 3 ml 07/23/19 20:00 07/29/19 15:23 Duoneb INH 3 ml RTQID IAN Administration Duloxetine HCl 30 mg 07/25/19 09:00 07/29/19 09:12 Cymbalta PO 30 mg DAILY IAN Administration Formoterol Fumarate 20 mcg 07/27/19 19:00 07/29/19 07:50 Perforomist INH 20 mcg RTBID IAN Administration Heparin Sodium (Beef Lung) 30 - 50 unit 07/25/19 08:28 07/29/19 06:11 IVP 50 unit PRN PRN Administration Central Line Protocol (<24 hr) Lidocaine 1 patch 07/24/19 18:34 07/27/19 17:45 Lidoderm Patch TOP 1 patch DAILY PRN Administration PAIN Magnesium Oxide 400 mg 07/26/19 16:00 07/29/19 09:12 Mag Ox PO 400 mg DAILYWM IAN Administration Montelukast Sodium 10 mg 07/24/19 21:00 07/28/19 22:27 Singulair PO 10 mg QPM IAN Administration Multi-Ingredient Ointment 1 applic 07/24/19 11:06 07/25/19 11:00 Zinc Oxide TOP 1 applic PRN PRN Administration Skin Care Nystatin 1 applic 07/23/19 23:00 07/29/19 09:12 Nystop TOP 1 applic BID IAN Administration Oxycodone HCl 5 mg 07/23/19 16:06 07/28/19 17:58 Roxicodone PO 5 mg Q4HR PRN Administration Pain 5 to 7 Potassium Chloride 40 meq 07/27/19 21:00 07/29/19 09:11 K-Dur PO 40 meq BID IAN Administration Sodium Chloride 10 ml 07/23/19 16:06 07/27/19 05:27 Normal Saline Flush 0.9% IVP 30 ml PRN PRN Administration NEEDED PER PROVIDER ORDERS Sodium Chloride 10 ml 07/23/19 17:00 07/29/19 09:13 Normal Saline Flush 0.9% IVP Not Given 0100,0900,1700 [facility] Tamsulosin HCl 0.4 mg 07/24/19 21:00 07/28/19 22:27 Flomax PO 0.4 mg QPM IAN Administration - Lab Result Fish Bone Diagrams: 07/29/19 05:05 07/29/19 05:05 - Additional Planning My Orders: My Active Orders 07/29/19 13:02 Telemetry-Discontinue [RC] .ONCE 07/29/19 16:00 Multivitamin W/Minerals [Theragran M] 1 tab PO DAILYWM 07/30/19 09:00 Cholecalciferol [Vitamin D3] 2,000 unit PO DAILY Furosemide [Lasix] 80 mg PO DAILY Lisinopril [Zestril] 2.5 mg PO DAILY Subjective - Subjective Patient Reports: Resting Comfortably Nursing Reports: Other (Only able to sit and dangle at edge of bed and exercise his legs) Objective Vital Signs: Vital Signs - 24 hr 07/28/19 07/28/19 07/29/19 20:20 21:00 01:00 Temperature 36.8 C 36.2 C L Heart Rate 81 Heart Rate [ Brachial] Heart Rate [ Monitoring electrodes] Heart Rate [ 85 80 Radial] Respiratory 16 18 18 Rate Blood Pressure 128/40 L 111/39 L [Right Brachial artery] O2 Saturation 96 94 07/29/19 07/29/19 07/29/19 05:52 07:50 08:00 Temperature 36.2 C L 36.7 C Heart Rate 74 Heart Rate [ 68 Brachial] Heart Rate [ Monitoring electrodes] Heart Rate [ 67 Radial] Respiratory 20 16 20 Rate Blood Pressure 129/37 L 105/46 L [Right Brachial artery] O2 Saturation 95 90 L 07/29/19 07/29/19 07/29/19 10:17 12:14 15:20 Temperature 37 C Heart Rate 79 79 Heart Rate [ Brachial] Heart Rate [ Monitoring electrodes] Heart Rate [ 90 Radial] Respiratory 16 18 18 Rate Blood Pressure 119/70 [Right Brachial artery] O2 Saturation 93 07/29/19 16:31 Temperature 36.9 C Heart Rate Heart Rate [ Brachial] Heart Rate [ 83 Monitoring electrodes] Heart Rate [ Radial] Respiratory 18 Rate Blood Pressure 148/41 H [Right Brachial artery] O2 Saturation 96 Oxygen O2 Source [With Activity] Nasal cannula O2 Source Nasal cannula Oxygen Flow Rate 2 I&O (Last 24 Hrs): Intake and Output Totals x24h 07/27/19 07/28/19 07/29/19 23:59 23:59 23:59 Intake Total 1930 1040 285 Output Total 925 530 Balance 1005 510 285 General: Alert HEENT: Mucous membr. moist/pink Neck: Supple Neuro: Non Focal Cardiovascular: Other (Distant heart sounds) Respiratory: No respiratory distress Abdomen: Other (Obese with pannus) Extremities: Other (2+ edma) - Results Results: Laboratory Results WBC 6.6 x10^3/uL (4.8-10.8) 07/29/19 05:05 RBC 2.87 10^6/uL (4.70-6.10) L 07/29/19 05:05 Hgb 9.7 g/dL (14.0-18.0) L 07/29/19 05:05 Hct 29.8 % (42.0-52.0) L 07/29/19 05:05 MCV 103.8 fL (80.0-94.0) H 07/29/19 05:05 MCH 33.8 pg (27.0-31.0) H 07/29/19 05:05 MCHC 32.6 g/dL (32.0-36.0) 07/29/19 05:05 RDW 15.0 % (12.0-15.0) 07/29/19 05:05 Plt Count 37 10^3/uL (130-450) L 07/29/19 05:05 MPV 12.6 fL (7.4-11.4) H 07/29/19 05:05 Neut # (Auto) 3.8 10^3/uL (1.5-6.6) 07/29/19 05:05 Lymph # (Auto) 1.5 10^3/uL (1.5-3.5) 07/29/19 05:05 [place] # (Auto) 1.1 10^3/uL (0.0-1.0) H 07/29/19 05:05 Eos # (Auto) 0.2 10^3/uL (0.0-0.7) 07/29/19 05:05 Baso # (Auto) 0.0 10^3/uL (0.0-0.1) 07/29/19 05:05 Absolute Nucleated RBC 0.00 x10^3/uL 07/29/19 05:05 Nucleated RBC % 0.0 /100WBC 07/29/19 05:05 PT 18.2 secs (9.9-12.6) H 07/25/19 04:45 INR 1.6 (0.8-1.2) H 07/25/19 04:45 Bld Gas Analysis Time 52807/25/19 05:23 Sample Site RIGHT RADIAL 07/25/19 05:23 ABG pH 7.48 (7.35-7.45) H 07/25/19 05:23 ABG pCO2 58 mmHg (34-45) H 07/25/19 05:23 ABG pO2 85 mmHg (80-100) 07/25/19 05:23 ABG HCO3 42.8 mmol/L (22.0-26.0) H 07/25/19 05:23 ABG Total CO2 44.6 MMOL/L (21.0-29.0) H* 07/25/19 05:23 ABG O2 Saturation 96 % (94-98) 07/25/19 05:23 ABG Oximetry Spot Check 100 % 07/24/19 11:14 ABG Base Excess 16.8 mmol/L (-2.0-3.0) H 07/25/19 05:23 Clay Test POSITIVE 07/25/19 05:23 Respiration Rate 18 b/min 07/25/19 05:23 O2 Delivery Device BiPAP 07/25/19 05:23 O2 Liters/Min SPEECH LANGUAGE SPECIALIST 07/25/19 05:23 Vent Mode SYNCHRONOUS/TIMES 07/25/19 05:23 FiO2 40.00 07/25/19 05:23 Pressure Support Vent 9 cmH2O 07/25/19 05:23 EPAP 5 cmH2O 07/25/19 05:23 IPAP 14 cmH2O 07/25/19 05:23 Sodium 140 mmol/L (135-145) 07/29/19 05:05 Potassium 3.7 mmol/L (3.5-5.0) 07/29/19 05:05 Chloride 96 mmol/L (101-111) L 07/29/19 05:05 Carbon Dioxide 38 mmol/L (21-32) H 07/29/19 05:05 Anion Gap 6.0 (6-13) 07/29/19 05:05 BUN 23 mg/dL (6-20) H 07/29/19 05:05 Creatinine 0.8 mg/dL (0.6-1.2) 07/29/19 05:05 Estimated GFR (MDRD) 96 (>89) 07/29/19 05:05 Glucose 107 mg/dL (70-100) H 07/29/19 05:05 POC Whole Bld Glucose 113 mg/dL (70 - 100) H 07/26/19 11:50 Glycated Hemoglobin 4.9 % (4.6-6.2) 07/26/19 08:05 Estim Average Glucose 94 (70-100) 07/26/19 08:05 Calcium 8.4 mg/dL (8.5-10.3) L 07/29/19 05:05 Phosphorus 3.6 mg/dL (2.5-4.6) 07/24/19 04:40 Magnesium 1.7 mg/dL (1.7-2.8) 07/25/19 04:45 Ferritin 302.4 ng/mL (23.9-336.2) 07/26/19 08:05 Total Bilirubin 2.8 mg/dL (0.2-1.0) H 07/27/19 05:30 AST 32 IU/L (10-42) 07/27/19 05:30 ALT 25 IU/L (10-60) 07/27/19 05:30 Alkaline Phosphatase 54 IU/L (42-121) 07/27/19 05:30 Ammonia 20.1 umol/L (7-35) 07/26/19 08:05 Troponin I High Sens 36.4 ng/L (2.3-19.7) H* 07/24/19 04:40 B-Natriuretic Peptide 305 pg/mL (5-100) H 07/23/19 13:25 Total Protein 4.6 g/dL (6.7-8.2) L 07/27/19 05:30 Albumin 2.1 g/dL (3.2-5.5) L 07/27/19 05:30 Globulin 2.5 g/dL (2.1-4.2) 07/27/19 05:30 Albumin/Globulin Ratio 0.8 (1.0-2.2) L 07/27/19 05:30 Ceruloplasmin 21 mg/dL (18-36) 07/26/19 08:05 Lipase 56 U/L (22-51) H 07/23/19 13:25 TSH 2.04 uIU/mL (0.34-5.60) 07/25/19 04:45 Urine Color YELLOW 07/23/19 16:10 Urine Clarity CLEAR (CLEAR) 07/23/19 16:10 Urine pH 7.0 PH (5.0-7.5) 07/23/19 16:10 Ur Specific [place] 1.010 (1.002-1.030) 07/23/19 16:10 Urine Protein NEGATIVE mg/dL (NEGATIVE) 07/23/19 16:10 Urine Glucose (UA) NEGATIVE mg/dL (NEGATIVE) 07/23/19 16:10 Urine Ketones NEGATIVE mg/dL (NEGATIVE) 07/23/19 16:10 Urine Occult Blood MODERATE (NEGATIVE) H 07/23/19 16:10 Urine Nitrite NEGATIVE (NEGATIVE) 07/23/19 16:10 Urine Bilirubin NEGATIVE (NEGATIVE) 07/23/19 16:10 Urine Urobilinogen 0.2 (NORMAL) E.U./dL (NORMAL) 07/23/19 16:10 Ur Leukocyte Esterase NEGATIVE (NEGATIVE) 07/23/19 16:10 Urine RBC TNTC /HPF (0-5) H 07/23/19 16:10 Urine WBC 0-3 /HPF (0-3) 07/23/19 16:10 Ur Squamous Epith Cells RARE Squamous (<= Few) 07/23/19 16:10 Urine Bacteria None Seen /HPF (None Seen) 07/23/19 16:10 Ur Microscopic Review INDICATED 07/23/19 16:10 Urine Culture Comments NOT INDICATED 07/23/19 16:10 Nasal Screen MRSA (PCR) NEGATIVE (NEGATIVE) 07/23/19 21:50 ELLA Screen NEGATIVE (NEGATIVE) 07/26/19 08:05 Smooth Muscle IgG Ab 21 U H 07/26/19 08:05 Hepatitis A IgM Ab NON-REACTIVE (NON-REACTIVE) 07/26/19 08:05 Hep Bs Antigen NON-REACTIVE (NON-REACTIVE) 07/26/19 08:05 Hep B Core IgM Ab NON-REACTIVE (NON-REACTIVE) 07/26/19 08:05 Hepatitis C Antibody NON-REACTIVE (NON-REACTIVE) 07/26/19 08:05 Hep C Ab Signal/Cutoff 0.50 (<1.00) 07/26/19 08:05 - Procedures Procedures: Procedures EXCISION OF RECTUM, ENDO (08/22/16) EXCISION OF RIGHT LARGE INTESTINE, ENDO (08/22/16) EXCISION OF SIGMOID COLON, ENDO (08/22/16) EXCISION OF TRANSVERSE COLON, ENDO (08/22/16)
[2019-07-29] MEDS: MULTIVITAMIN W/MINERALS TABLET PO SCH (20:50)
[2019-07-29] MEDS: TAMSULOSIN 0.4 MG CAPSULE PO SCH (20:50)
[2019-07-29] MEDS: MONTELUKAST 10 MG TABLET PO SCH (20:50)
[2019-07-29] MEDS: ZINC OXIDE 20% OINT 30 GM TUBE TOP PRN (20:51)
[2019-07-30] MEDS: ACETAMINOPHEN 325 MG TABLET PO PRN ×4 (00:23→17:06)
[2019-07-30] MEDS: SODIUM CHLORIDE FLUSH 0.9% 10 ML SYRINGE IVP SCH ×3 (02:57→16:59)
[2019-07-30] MEDS: IPRATROPIUM/ALBUTEROL 3 ML NEB INH SCH ×4 (05:39→20:24)
[2019-07-30] MEDS: FORMOTEROL FUMARATE NEB 20 MCG/2 ML INH SCH ×2 (05:39→10:45)
[2019-07-30] MEDS: POTASSIUM CHLORIDE 20 MEQ TABLET PO SCH ×2 (08:31→21:03)
[2019-07-30] MEDS: DULoxetine 30 MG CAPSULE PO SCH (08:32)
[2019-07-30] MEDS: MULTIVITAMIN W/MINERALS TABLET PO SCH (08:32)
[2019-07-30] MEDS: CHOLECALCIFEROL 1,000 UNIT TABLET PO SCH (08:32)
[2019-07-30] MEDS: MAGNESIUM OXIDE 400 MG TABLET PO SCH (08:32)
[2019-07-30] MEDS: NYSTATIN POWDER 15 GM TOP SCH ×2 (08:33→21:03)
[2019-07-30] MEDS: ZINC OXIDE 20% OINT 30 GM TUBE TOP PRN (08:33)
[2019-07-30] MEDS: FUROSEMIDE 40 MG TABLET PO SCH (08:39)
[2019-07-30] MEDS: oxyCODONE 5 MG TABLET PO PRN (09:20)
[2019-07-30] MEDS: LISINOPRIL 5 MG TABLET PO SCH (10:11)
--- NOTE | 2019-07-30 16:41 | PROVIDER PROGRESS NOTE ---
Assessment/Plan - Problem List (1) Acute metabolic encephalopathy Assessment/Plan: Lethargy is improving (2) Cor pulmonale (chronic) Assessment/Plan: Stable (3) Morbid obesity with BMI of 60.0-69.9, adult Assessment/Plan: Stable SW is looking for a SNF with a bariatric bed capacity (4) Atrial fibrillation with controlled ventricular rate Assessment/Plan: Stable (5) Thrombocytopenia Assessment/Plan: Abnormal but stable and no signs of bleeding (6) Anemia Assessment/Plan: Hgb stable (7) COPD without exacerbation Assessment/Plan: Prn inhalers and Singulair ordered (8) Sleep apnea Assessment/Plan: Home CPAP device ordered to use here (9) Diabetes Assessment/Plan: cc diet, Insulin Lantus and ss coverage (10) Hypothyroidism Assessment/Plan: Home meds continue (11) Lymphedema Assessment/Plan: His own stockings continue - Current Meds Current Meds: Current Medications Generic Name Dose Route Start Last Admin Trade Name Freq PRN Reason Stop Dose Admin Acetaminophen 650 mg 07/23/19 16:06 07/30/19 12:33 Tylenol PO 650 mg Q4HR PRN Administration Pain 1 to 4 Albuterol/Ipratropium 3 ml 07/23/19 20:00 07/30/19 16:20 Duoneb INH 3 ml RTQID IAN Administration Cholecalciferol 2,000 unit 07/30/19 09:00 07/30/19 08:32 Vitamin D3 PO 2,000 unit DAILY IAN Administration Duloxetine HCl 30 mg 07/25/19 09:00 07/30/19 08:32 Cymbalta PO 30 mg DAILY IAN Administration Formoterol Fumarate 20 mcg 07/27/19 19:00 07/30/19 10:45 Perforomist INH 20 mcg RTBID IAN Administration Furosemide 80 mg 07/30/19 09:00 07/30/19 08:39 Lasix PO 80 mg DAILY IAN Administration Heparin Sodium (Beef Lung) 30 - 50 unit 07/25/19 08:28 07/29/19 20:51 IVP 150 unit PRN PRN Administration Central Line Protocol (<24 hr) Lidocaine 1 patch 07/24/19 18:34 07/27/19 17:45 Lidoderm Patch TOP 1 patch DAILY PRN Administration PAIN Lisinopril 2.5 mg 07/30/19 09:00 07/30/19 10:11 Zestril PO 2.5 mg DAILY IAN Administration Magnesium Oxide 400 mg 07/26/19 16:00 07/30/19 08:32 Mag Ox PO 400 mg DAILYWM IAN Administration Montelukast Sodium 10 mg 07/24/19 21:00 07/29/19 20:50 Singulair PO 10 mg QPM IAN Administration Multi-Ingredient Ointment 1 applic 07/24/19 11:06 07/30/19 08:33 Zinc Oxide TOP 1 applic PRN PRN Administration Skin Care Multivitamins/Minerals 1 tab 07/29/19 16:00 07/30/19 08:32 Theragran M PO 1 tab DAILYWM IAN Administration Nystatin 1 applic 07/23/19 23:00 07/30/19 08:33 Nystop TOP 1 applic BID IAN Administration Oxycodone HCl 5 mg 07/23/19 16:06 07/30/19 09:20 Roxicodone PO 5 mg Q4HR PRN Administration Pain 5 to 7 Potassium Chloride 40 meq 07/27/19 21:00 07/30/19 08:31 K-Dur PO 40 meq BID IAN Administration Sodium Chloride 10 ml 07/23/19 16:06 07/27/19 05:27 Normal Saline Flush 0.9% IVP 30 ml PRN PRN Administration NEEDED PER PROVIDER ORDERS Sodium Chloride 10 ml 07/23/19 17:00 07/30/19 08:34 Normal Saline Flush 0.9% IVP 10 ml 0100,0900,1700 IAN Administration Tamsulosin HCl 0.4 mg 07/24/19 21:00 07/29/19 20:50 Flomax PO 0.4 mg QPM IAN Administration - Lab Result Fish Bone Diagrams: 07/29/19 05:05 07/29/19 05:05 - Additional Planning My Orders: My Active Orders 07/29/19 16:00 Multivitamin W/Minerals [Theragran M] 1 tab PO DAILYWM 07/30/19 09:00 Cholecalciferol [Vitamin D3] 2,000 unit PO DAILY Furosemide [Lasix] 80 mg PO DAILY Lisinopril [Zestril] 2.5 mg PO DAILY Subjective - Subjective Patient Reports: No Complaints Objective Vital Signs: Vital Signs - 24 hr 07/29/19 07/29/19 07/30/19 20:05 20:23 00:09 Temperature 37.3 C 36.6 C Heart Rate 82 Heart Rate [ 87 Monitoring electrodes] Heart Rate [ 86 Radial] Respiratory 20 20 20 Rate Blood Pressure 128/65 149/61 H [Right Brachial artery] O2 Saturation 100 92 07/30/19 07/30/19 07/30/19 05:41 08:00 10:05 Temperature 36.8 C Heart Rate 83 Heart Rate [ Monitoring electrodes] Heart Rate [ 89 Radial] Respiratory 16 18 Rate Blood Pressure 110/35 L 136/52 H [Right Brachial artery] O2 Saturation 95 07/30/19 07/30/19 07/30/19 10:45 16:00 16:20 Temperature 36.5 C Heart Rate 66 80 Heart Rate [ Monitoring electrodes] Heart Rate [ 69 Radial] Respiratory 20 20 18 Rate Blood Pressure 122/41 L [Right Brachial artery] O2 Saturation 94 Oxygen O2 Source [With Activity] Nasal cannula O2 Source Nasal cannula Oxygen Flow Rate 2 I&O (Last 24 Hrs): Intake and Output Totals x24h 07/28/19 07/29/19 07/30/19 23:59 23:59 23:59 Intake Total 5070 115 0128 Output Total 530 1 Balance [phone] General: Alert HEENT: Mucous membr. moist/pink Neck: Supple Neuro: Non Focal Cardiovascular: Other (distant HS) Respiratory: No respiratory distress Abdomen: Other (Obese with pannus) Extremities: Other (2+ edema) - Results Results: Laboratory Results WBC 6.6 x10^3/uL (4.8-10.8) 07/29/19 05:05 RBC 2.87 10^6/uL (4.70-6.10) L 07/29/19 05:05 Hgb 9.7 g/dL (14.0-18.0) L 07/29/19 05:05 Hct 29.8 % (42.0-52.0) L 07/29/19 05:05 MCV 103.8 fL (80.0-94.0) H 07/29/19 05:05 MCH 33.8 pg (27.0-31.0) H 07/29/19 05:05 MCHC 32.6 g/dL (32.0-36.0) 07/29/19 05:05 RDW 15.0 % (12.0-15.0) 07/29/19 05:05 Plt Count 37 10^3/uL (130-450) L 07/29/19 05:05 MPV 12.6 fL (7.4-11.4) H 07/29/19 05:05 Neut # (Auto) 3.8 10^3/uL (1.5-6.6) 07/29/19 05:05 Lymph # (Auto) 1.5 10^3/uL (1.5-3.5) 07/29/19 05:05 [place] # (Auto) 1.1 10^3/uL (0.0-1.0) H 07/29/19 05:05 Eos # (Auto) 0.2 10^3/uL (0.0-0.7) 07/29/19 05:05 Baso # (Auto) 0.0 10^3/uL (0.0-0.1) 07/29/19 05:05 Absolute Nucleated RBC 0.00 x10^3/uL 07/29/19 05:05 Nucleated RBC % 0.0 /100WBC 07/29/19 05:05 PT 18.2 secs (9.9-12.6) H 07/25/19 04:45 INR 1.6 (0.8-1.2) H 07/25/19 04:45 Bld Gas Analysis Time 52807/25/19 05:23 Sample Site RIGHT RADIAL 07/25/19 05:23 ABG pH 7.48 (7.35-7.45) H 07/25/19 05:23 ABG pCO2 58 mmHg (34-45) H 07/25/19 05:23 ABG pO2 85 mmHg (80-100) 07/25/19 05:23 ABG HCO3 42.8 mmol/L (22.0-26.0) H 07/25/19 05:23 ABG Total CO2 44.6 MMOL/L (21.0-29.0) H* 07/25/19 05:23 ABG O2 Saturation 96 % (94-98) 07/25/19 05:23 ABG Oximetry Spot Check 100 % 07/24/19 11:14 ABG Base Excess 16.8 mmol/L (-2.0-3.0) H 07/25/19 05:23 Clay Test POSITIVE 07/25/19 05:23 Respiration Rate 18 b/min 07/25/19 05:23 O2 Delivery Device BiPAP 07/25/19 05:23 O2 Liters/Min OPERATIONAL RISK CONSULTANT 07/25/19 05:23 Vent Mode SYNCHRONOUS/TIMES 07/25/19 05:23 FiO2 40.00 07/25/19 05:23 Pressure Support Vent 9 cmH2O 07/25/19 05:23 EPAP 5 cmH2O 07/25/19 05:23 IPAP 14 cmH2O 07/25/19 05:23 Sodium 140 mmol/L (135-145) 07/29/19 05:05 Potassium 3.7 mmol/L (3.5-5.0) 07/29/19 05:05 Chloride 96 mmol/L (101-111) L 07/29/19 05:05 Carbon Dioxide 38 mmol/L (21-32) H 07/29/19 05:05 Anion Gap 6.0 (6-13) 07/29/19 05:05 BUN 23 mg/dL (6-20) H 07/29/19 05:05 Creatinine 0.8 mg/dL (0.6-1.2) 07/29/19 05:05 Estimated GFR (MDRD) 96 (>89) 07/29/19 05:05 Glucose 107 mg/dL (70-100) H 07/29/19 05:05 POC Whole Bld Glucose 113 mg/dL (70 - 100) H 07/26/19 11:50 Glycated Hemoglobin 4.9 % (4.6-6.2) 07/26/19 08:05 Estim Average Glucose 94 (70-100) 07/26/19 08:05 Calcium 8.4 mg/dL (8.5-10.3) L 07/29/19 05:05 Phosphorus 3.6 mg/dL (2.5-4.6) 07/24/19 04:40 Magnesium 1.7 mg/dL (1.7-2.8) 07/25/19 04:45 Ferritin 302.4 ng/mL (23.9-336.2) 07/26/19 08:05 Total Bilirubin 2.8 mg/dL (0.2-1.0) H 07/27/19 05:30 AST 32 IU/L (10-42) 07/27/19 05:30 ALT 25 IU/L (10-60) 07/27/19 05:30 Alkaline Phosphatase 54 IU/L (42-121) 07/27/19 05:30 Ammonia 20.1 umol/L (7-35) 07/26/19 08:05 Troponin I High Sens 36.4 ng/L (2.3-19.7) H* 07/24/19 04:40 B-Natriuretic Peptide 305 pg/mL (5-100) H 07/23/19 13:25 Total Protein 4.6 g/dL (6.7-8.2) L 07/27/19 05:30 Albumin 2.1 g/dL (3.2-5.5) L 07/27/19 05:30 Globulin 2.5 g/dL (2.1-4.2) 07/27/19 05:30 Albumin/Globulin Ratio 0.8 (1.0-2.2) L 07/27/19 05:30 Ceruloplasmin 21 mg/dL (18-36) 07/26/19 08:05 Lipase 56 U/L (22-51) H 07/23/19 13:25 TSH 2.04 uIU/mL (0.34-5.60) 07/25/19 04:45 Urine Color YELLOW 07/23/19 16:10 Urine Clarity CLEAR (CLEAR) 07/23/19 16:10 Urine pH 7.0 PH (5.0-7.5) 07/23/19 16:10 Ur Specific [place] 1.010 (1.002-1.030) 07/23/19 16:10 Urine Protein NEGATIVE mg/dL (NEGATIVE) 07/23/19 16:10 Urine Glucose (UA) NEGATIVE mg/dL (NEGATIVE) 07/23/19 16:10 Urine Ketones NEGATIVE mg/dL (NEGATIVE) 07/23/19 16:10 Urine Occult Blood MODERATE (NEGATIVE) H 07/23/19 16:10 Urine Nitrite NEGATIVE (NEGATIVE) 07/23/19 16:10 Urine Bilirubin NEGATIVE (NEGATIVE) 07/23/19 16:10 Urine Urobilinogen 0.2 (NORMAL) E.U./dL (NORMAL) 07/23/19 16:10 Ur Leukocyte Esterase NEGATIVE (NEGATIVE) 07/23/19 16:10 Urine RBC TNTC /HPF (0-5) H 07/23/19 16:10 Urine WBC 0-3 /HPF (0-3) 07/23/19 16:10 Ur Squamous Epith Cells RARE Squamous (<= Few) 07/23/19 16:10 Urine Bacteria None Seen /HPF (None Seen) 07/23/19 16:10 Ur Microscopic Review INDICATED 07/23/19 16:10 Urine Culture Comments NOT INDICATED 07/23/19 16:10 Nasal Screen MRSA (PCR) NEGATIVE (NEGATIVE) 07/23/19 21:50 ELLA Screen NEGATIVE (NEGATIVE) 07/26/19 08:05 Smooth Muscle IgG Ab 21 U H 07/26/19 08:05 Hepatitis A IgM Ab NON-REACTIVE (NON-REACTIVE) 07/26/19 08:05 Hep Bs Antigen NON-REACTIVE (NON-REACTIVE) 07/26/19 08:05 Hep B Core IgM Ab NON-REACTIVE (NON-REACTIVE) 07/26/19 08:05 Hepatitis C Antibody NON-REACTIVE (NON-REACTIVE) 07/26/19 08:05 Hep C Ab Signal/Cutoff 0.50 (<1.00) 07/26/19 08:05 - Procedures Procedures: Procedures EXCISION OF RECTUM, ENDO (08/22/16) EXCISION OF RIGHT LARGE INTESTINE, ENDO (08/22/16) EXCISION OF SIGMOID COLON, ENDO (08/22/16) EXCISION OF TRANSVERSE COLON, ENDO (08/22/16)
[2019-07-30] MEDS: MONTELUKAST 10 MG TABLET PO SCH (21:03)
[2019-07-30] MEDS: TAMSULOSIN 0.4 MG CAPSULE PO SCH (21:03)
[2019-07-31] MEDS: SODIUM CHLORIDE FLUSH 0.9% 10 ML SYRINGE IVP SCH ×2 (01:00→08:32)
[2019-07-31] MEDS: FORMOTEROL FUMARATE NEB 20 MCG/2 ML INH SCH (07:11)
[2019-07-31] MEDS: IPRATROPIUM/ALBUTEROL 3 ML NEB INH SCH (07:11)
[2019-07-31 07:51] VITALS: BP 117/35
--- NOTE | 2019-07-31 07:51 | Discharge Plan ---
Discharge Plan Problem Reviewed?: Yes Disposition: 03 [facility] DC/Xfer Condition: Stable Prescriptions: oxyCODONE [Roxicodone] 5 mg PO Q6HR PRN #12 tablet PRN Reason: Pain 5 to 7 Cholecalciferol (Vitamin D3) [Vitamin D3] 2,000 unit PO DAILY #60 capsule Furosemide [Lasix] 80 mg PO DAILY #60 tablet Lisinopril [Zestril] 2.5 mg PO DAILY #15 tablet Magnesium Oxide [Mag Ox] 400 mg PO DAILYWM #30 tablet Multivitamin W/Minerals [Theragran M] 1 tab PO DAILYWM #30 tablet Nystatin [Nystop] 1 applic TOP BID #1 bottle Potassium Chloride [K-Dur] 20 meq PO DAILY #30 tablet Diet: Diabetic Activity Restrictions: Activity as Tolerated Shower Restrictions: No Weight Bearing: Full Weight Health Concerns: Admitted with weakness from dehydration, cor pulmonale, and morbid obesity. You were also severely deconditioned from 2 hospitalizations. Plan of Treatment: Follow the current list of medications, some have been changed. New prescriptions were electronically sent to your [facility] pharmacy. Participate in PT and OT at the [facility]. Care Goals: As above and eventual return home. Assessment: As per discussions, the patient and agree. No Smoking: If you smoke, Please STOP! Call for help. Follow-up with: Carlos Kurtz MD [Primary Care Provider] -
--- NOTE | 2019-07-31 08:09 | Discharge Plan ---
Discharge Plan for SNF / [facility] - Discharge Plan And Transition Orders Problem Reviewed?: Yes Disposition: 03 SNF DC/Xfer Condition: Stable Allergies and Adverse Reactions: Allergies Allergy/AdvReac Type Severity Reaction Status Date / Time amoxicillin Allergy Rash Verified 07/23/19 13:30 Health Concerns: Admitted with weakness from dehydration, cor pulmonale, and morbid obesity. You were also severely deconditioned from 2 hospitalizations. Plan of Treatment: Follow the current list of medications, some have been changed. New prescriptions were electronically sent to your [facility] pharmacy. Participate in PT and OT at the [facility]. Care Goals: As above and eventual return home. Assessment: As per discussions, the patient and agree. - SNF / RETIREMENT Transition Orders Admit to (Facility): [facility] in [place], [place] Discharge Diagnosis: (1) Acute and chronic respiratory failure with hypercapnia (2) Obtundation, resolved (3) Cor pulmonale (chronic) (4) Chronic atrial fibrillation with controlled ventricular rate (5) Abnormal LFTs (liver function tests) Total bili was 3.2 on admission and down to 2.8. He may have early fatty liver disease or a possible stone, but transaminases are WNL. An ABD US was done and was unremarkable. These abnormalities could also be related to his cor pulmonale, or early hepatitis from another cause. (6) HTN (hypertension) (7) Hypokalemia and Hypomagnesemia Secondary to diuretics (8) Thrombocytopenia This is a chronic problem. Followed by Dr. Kim. His thrombocytopenia could be linked to his rise in bili, and both could be from fatty liver w/ cirrhosis. (9) Anemia He has no active bleeding and is not on anticoagulation therapy due to chronic thrombocytopenia. (10) COPD (11) BPH (benign prostatic hyperplasia) (12) Morbid obesity with BMI of 60.0, has decreased to 58.5 (13) Chronic pain He has DJD and describes "bone on bone" (14) DM type 2 (diabetes mellitus, type 2) Pt takes Metformin 500mg PO daily at home. His A1C was checked and was 4.9. His blood sugars have been stable and he has not needed sliding scale coverage. Accuchecks were stopped due to thrombocytopenia. (15) Sleep apnea, on CPAP (16) Depression (17) Venous stasis dermatitis of both lower extremities (18) Chronic lymphedema (19) Candidiasis Medicare Certification Statement: I certify that [facility] retirement care is medically necessary on a continuing basis for any of the conditions for which she/he is receiving care during hospitalization. Notify PCP of admission and forward orders to primary provider for signature. Weight on admission and: Weekly Call PCP immediately if weight increases by: 5 kg Other Notification Orders: Call PCP immediately if patient develops dyspnea, chest pain/tightness or edema. House Bowel Program: Yes Additional Bowel Program Orders: If no BM after 2 days, nurse may give M.O.M. 30ml PO PRN and/or ducolax Supp 1 ID and/or LUCAS 250mg P.O., and/or senna 1-2 tabs PO. On day 3 nurse may give repeat above order until residents constipation is resolved. Annual Influenza Vaccine (between Apr 27 and November 24): Yes Two-step PPD per [facility] [id number] or approved exception documents: Yes Treatments & Other Orders: Daily PT and OT Oxygen Orders: Home CPAP device Lab Tests or X-ray Orders: BMP and Mg every Mon Medication Orders: PLEASE REFER TO THE DISCHARGE MEDICATION LIST. Insulin Orders?: No - Medications New Prescriptions: oxyCODONE [Roxicodone] 5 mg PO Q6HR PRN #12 tablet PRN Reason: Pain 5 to 7 Cholecalciferol (Vitamin D3) [Vitamin D3] 2,000 unit PO DAILY #60 capsule Furosemide [Lasix] 80 mg PO DAILY #60 tablet Lisinopril [Zestril] 2.5 mg PO DAILY #15 tablet Magnesium Oxide [Mag Ox] 400 mg PO DAILYWM #30 tablet Multivitamin W/Minerals [Theragran M] 1 tab PO DAILYWM #30 tablet Nystatin [Nystop] 1 applic TOP BID #1 bottle Potassium Chloride [K-Dur] 20 meq PO DAILY #30 tablet - Diet Type: Geriatric Texture: Regular Liquids: Thin May have monthly special meal: Yes - Therapies | Activity Therapy: Evaluation | Treat if indicated: PT, OT Rehabilitation Potential: Maximize functional status Activity: Activity as Tolerated Weight Bearing: Full Weight Follow Up: See PCP after Dch from SNF
[2019-07-31] MEDS: MULTIVITAMIN W/MINERALS TABLET PO SCH (08:32)
[2019-07-31] MEDS: POTASSIUM CHLORIDE 20 MEQ TABLET PO SCH (08:32)
[2019-07-31] MEDS: MAGNESIUM OXIDE 400 MG TABLET PO SCH (08:32)
[2019-07-31] MEDS: LISINOPRIL 5 MG TABLET PO SCH (08:32)
[2019-07-31] MEDS: FUROSEMIDE 40 MG TABLET PO SCH (08:32)
[2019-07-31] MEDS: CHOLECALCIFEROL 1,000 UNIT TABLET PO SCH (08:32)
[2019-07-31] MEDS: DULoxetine 30 MG CAPSULE PO SCH (08:33)
[2019-07-31] MEDS: NYSTATIN POWDER 15 GM TOP SCH (08:33)
--- NOTE | 2019-07-31 08:45 | DISCHARGE SUMMARY ---
Discharge Summary Admit Date: 07/23/19 Discharge Date: 07/31/19 Discharging Provider: Dr Shruthi Lee Primary Care Provider: Dr Carlos Velarde Code Status: Do Not Attempt Resuscitation Condition at Discharge: Stable Discharge Disposition: SNF DC/Xfer Discharge Facility Name: [facility] [place], [place] - DIAGNOSES Discharge Diagnoses with Status of Each Condition: See below - HPI History of Present Illness: From the admission H&P of Dr Ciara Carrion: Mr. Huang is a 68 y.o. male w/ a new recent dx of a-fib (just d/c'd from this hospital 2 days ago) as well as morbid obesity (mostly bed bound now), CHF, COPD, DM II, sleep apnea on CPAP, HTN, thrombocytopenia and macrocytic anemia, who presents w/ weakness. He had been discharged 2 days ago after being hospitalized for SOB over the previous one month for which he was diagnosed w/ a-fib at the time as well as a COPD exacerbation. He also was experiencing severe orthopnea, a wet cough and fluid retention so his diuretics were changed. He had been D/C'd home on Lasix and a Medrol dose pack taper for his COPD and Metoprolol for rate control for his a-fib. He was to start getting Home Health visits for PT, OT and a bath aide. One day at home, mostly chronically bed bound, and the was unable to care for him; he was covered in feces, and she called an ambulance. On assessment in the ER, Mr. Huang is obtunded and rouses to loud voice. He rouses just enough to open his eyes and drift after answering questions. He tells me that he is in a lot of pain but cannot tell me where or describe the pain without drifting off to sleep again. His labs showed contraction alkalosis. - HOSPITAL COURSE Hospital Course: (1) Acute and chronic respiratory failure with hypoxia and hypercapnia Likely attributable to a combination of chronic lung disease, obstructive sleep apnea, iatrogenic diuresis and morbid obesity. He uses CPAP at home but is unsure how compliant he is with this. He was recently admitted (on 07/17) w/ a COPD exacerbation (in addition to acute on chronic HF and new onset a-fib), and required BIPAP in the ICU at that time. On initial presentation for this admission, his carbon dioxide was 43.3 and pH was 7.53 and his acid-base excess was 16.4. He was obtunded as well so he was placed on BIPIP. His ABGs showed a pH of 7.43, a total CO2 of 45.9, bicarb of 43.6 and ABG base excess of 15.9. Spoke to time checker via telephone who recommended to increase BIPAP settings. He had no s/s infection. He was no longer obtunded by the following day. (2) Obtundation, resolved He is alert and oriented at baseline. He presented to the ED for generalized weakness and was initially able to answer the ER 's questions, but was obtunded as at home. He does take Vicoden at home and received a dose of Morphine in the ED. We tried to see how he does without pain medicine but as soon as he was alert enough to say he was in pain, he was given Oxy for pain control. Given his abnormal LFTs, his ammonia was checked and was elevated at 55.9. Lactulose was tried and made no difference when ammonia came down. Overall, he has metabolic alkalosis from iatrogenic volume contraction, and compensation for chronically elevated pC02. His respiration and mentation may have been reduced from opiates as well. He did start to work with PT and had slight progression, felt to be a rehab candidate and was accepted to a SNF with bariatric capability at discharge. (3) Cor pulmonale (chronic) This has been previously known by Echo showing a dilated RV. (4) Chronic atrial fibrillation with controlled ventricular rate His heart rate was controlled with current meds and management. (5) Abnormal LFTs (liver function tests) Total bili was 3.2 on admission and down to 2.8. He may have early fatty liver disease or a possible stone, but transaminases are WNL. An ABD US was done and was unremarkable. These abnormalities could also be related to his cor pulmonale, or early hepatitis from another cause. (6) Hx HTN (hypertension) BP was stable on his meds. (7) Hypokalemia and Hypomagnesemia Secondary to diuretics, these were corrected and followed. (8) Thrombocytopenia This is a chronic problem. Followed by Dr. Kim. His worsened thrombocytopenia could be linked to his rise in bili, and both could be from fatty liver or cirrhosis. (9) Anemia During this admission his Hgb was 11 >> 9.7, and MCV is 104. He has no active bleeding and is not on anticoagulation therapy due to chronic thrombocytopenia. (10) COPD without exacerbation He was kept on his inhalers, Singular and Mucinex. (11) BPH (benign prostatic hyperplasia) He was kept on his Flomax (12) Morbid obesity with BMI of 60.0, has decreased to 58.5 He is nearly bed bound due to his morbid obesity and deconditioning. (13) Chronic pain He has DJD and describes having "bone on bone". He was kept on his home pain meds: Diclofenac, Oxycodone and Lidocaine patch. (14) DM type 2 (diabetes mellitus, type 2) Pt takes Metformin 500mg PO daily at home. His A1C was checked and was 4.9. His blood sugars have been stable and he has not needed sliding scale coverage. Accuchecks were stopped due to thrombocytopenia. (15) Sleep apnea, on CPAP He was kept on his home CPAP unit while here. (16) Depression Mental status was stable on his home meds. (17) Venous stasis dermatitis of both lower extremities This has been stable (18) Chronic lymphedema He wears lymphedema stockings which help slighly. There was no wetness or s aturation. (19) Candidiasis He had treatment with Nystatin in his skin folds. - ALLERGIES Allergies/Adverse Reactions: Allergies Allergy/AdvReac Type Severity Reaction Status Date / Time amoxicillin Allergy Rash Verified 07/23/19 13:30 - MEDICATIONS Home Medications: Ambulatory Orders Medication Instructions Recorded Confirmed Tamsulosin [Flomax] 0.4 mg PO QPM 04/26/13 07/24/19 Albuterol [Ventolin Hfa] 2 puffs INH Q4H PRN 03/24/14 07/24/19 Tiotropium [place] [Spiriva] 1 puffs INH DAILY 03/24/14 07/24/19 Diclofenac Sodium [Voltaren] 1 gm TOP TID PRN 05/07/18 07/24/19 Hydrocodone/Acetaminophen 1 tab PO BID PRN 05/07/18 07/24/19 [Hydrocodone-Acetamin 5-325 mg] Metformin HCl [Metformin HCl ER] 500 mg PO DAILY 05/07/18 07/24/19 Omeprazole 20 mg PO DAILY 04/02/19 07/24/19 Duloxetine HCl 30 mg PO DAILY 07/16/19 07/24/19 Lidocaine Patch 5% [Lidoderm Patch] 1 patch TOP DAILY PRN #30 patch 07/21/19 07/24/19 Metoprolol Succinate [Toprol Xl] 12.5 mg PO DAILY #15 tablet 07/21/19 07/24/19 Montelukast [Singulair] 10 mg PO QPM #30 tablet 07/21/19 07/24/19 guaiFENesin [Mucinex] 600 mg PO BID #60 tablet 07/21/19 07/24/19 Cholecalciferol (Vitamin D3) 2,000 unit PO DAILY #60 capsule 07/31/19 [Vitamin D3] Furosemide [Lasix] 80 mg PO DAILY #60 tablet 07/31/19 Lisinopril [Zestril] 2.5 mg PO DAILY #15 tablet 07/31/19 Magnesium Oxide [Mag Ox] 400 mg PO DAILYWM #30 tablet 07/31/19 Multivitamin W/Minerals [Theragran 1 tab PO DAILYWM #30 tablet 07/31/19 M] Nystatin [Nystop] 1 applic TOP BID #1 bottle 07/31/19 Potassium Chloride [K-Dur] 20 meq PO DAILY #30 tablet 07/31/19 oxyCODONE [Roxicodone] 5 mg PO Q6HR PRN #12 tablet 07/31/19 - PHYSICAL EXAM AT DISCHARGE General Appearance: positive: No acute distress Eyes Bilateral: positive: Normal inspection ENT: positive: Other (Morbidly obese) Neck: positive: Other (Obese) Respiratory: positive: No respiratory distress Cardiovascular: positive: No murmur, Irregularly irregular Abdomen: positive: Non-tender, Other (Obese with pannus) Skin: positive: Color nml Extremities: positive: Other (2+ edema, has on lymphedema stockings) Neurologic/Psychiatric: positive: Oriented x3, Other (Non focal) - LABS Result Diagrams: 07/29/19 05:05 07/29/19 05:05 - DIAGNOSTIC IMAGING Diagnostic Imaging Results: Final report reviewed - FOLLOW UP Follow Up: See Dr Velarde after Dch from [facility] - TIME SPENT Time Spent in Discharge (Minutes): 60
== END 2019-07-31 12:40 | DRG 189 ==
LOC: EDUNIT# → ED 13:13 → MS2 16:06 → ICU 19:33 → OBSVTOIN 07-24 11:00 → MS3 07-25 21:18
PROVIDERS: ADMIT Specialist; ATTEND Internal Medicine
DX: J96.22 Acute and chronic respiratory failure with hypercapnia (principal); I48.91 Unspecified atrial fibrillation; G93.41 Metabolic encephalopathy; Z68.44 Body mass index [BMI] 60.0-69.9, adult; I48.20 Chronic atrial fibrillation, unspecified; E87.3 Alkalosis; J96.21 Acute and chronic respiratory failure with hypoxia; E66.01 Morbid (severe) obesity due to excess calories; D69.6 Thrombocytopenia, unspecified; D53.9 Nutritional anemia, unspecified; J44.9 Chronic obstructive pulmonary disease, unspecified; I11.0 Hypertensive heart disease with heart failure; E03.9 Hypothyroidism, unspecified; H54.7 Unspecified visual loss; Z74.01 Bed confinement status; I50.9 Heart failure, unspecified; G47.33 Obstructive sleep apnea (adult) (pediatric); I27.81 Cor pulmonale (chronic); R53.83 Other fatigue; E11.51 Type 2 diabetes mellitus with diabetic peripheral angiopathy without gangrene; Z72.89 Other problems related to lifestyle; N40.1 Benign prostatic hyperplasia with lower urinary tract symptoms; G89.4 Chronic pain syndrome; B37.2 Candidiasis of skin and nail; F34.1 Dysthymic disorder; M19.90 Unspecified osteoarthritis, unspecified site; D64.9 Anemia, unspecified; E83.42 Hypomagnesemia; E87.6 Hypokalemia; T50.2X5A Adverse effect of carbonic-anhydrase inhibitors, benzothiadiazides and other diuretics, initial encounter; Y92.230 Patient room in hospital as the place of occurrence of the external cause; I89.0 Lymphedema, not elsewhere classified; I07.1 Rheumatic tricuspid insufficiency; R79.89 Other specified abnormal findings of blood chemistry; E86.0 Dehydration; Z66 Do not resuscitate; Z79.51 Long term (current) use of inhaled steroids; Z79.891 Long term (current) use of opiate analgesic; Z79.84 Long term (current) use of oral hypoglycemic drugs; Z79.52 Long term (current) use of systemic steroids; Z87.891 Personal history of nicotine dependence; Z87.11 Personal history of peptic ulcer disease
CPT/HCPCS: 36415; 36600; 71045; 76700; 80048; 80053; 80074; 81001; 82140; 82390; 82728; 82803; 83036; 83516; 83690; 83735; 83880; 84100; 84443; 84484; 85025; 85610; 86038; 87150; 93005; 94640; 94660; 96374; 96375; 97110; 97163; 97530; 99285; A9270; G0378; J1650; J7040; 81003; 87086